=== PATIENT | female | born 1985 | race African-American/Black ===

== ENCOUNTER 2016-10-20 19:39 | Inpatient (IN) | payer OTHER ==
[~2016-10-20] VITALS: Ht 162.6 cm; Wt 72.5 kg
[2016-10-20 19:55] VITALS: Ht 162.6 cm; Wt 72.5 kg
[2016-10-20] MEDS ORDERED: ONDANSETRON 4 MG INJ IV STA (20:24)
[2016-10-20] MEDS ORDERED: morphine 4 MG/ML VIAL IV STA ×2 (20:24→22:10)
--- NOTE | 2016-10-20 20:43 | ERD ---
ER Documentation Chief Complaint Date/Time DATE: 10/20/16 TIME: 20:39 Chief Complaint CP since 1700. Hx Sickle cell disease (PRIMO QUEVEDO NP) HPI This is a 31-year-old female, with past medical history for sickle cell disease , presenting to emergency department for chest pain 3 hours. Patient states pain starts in mid chest and does not radiate. Patient rating pain 8/10. No shortness of breath or difficulty breathing. No wheezing. No fevers or chills. Patient states this pain feels similar to when she has sickle cell crisis. No abdominal pain, nausea, vomiting or diarrhea. (PRIMO QUEVEDO NP) ROS All systems reviewed and are negative except as per history of present illness. (PRIMO QUEVEDO NP) Allergies Allergies: Coded Allergies: codeine (Verified Allergy, Intermediate, Hives, 10/20/16) PMhx/Soc Medical and Surgical Hx: pt denies Medical Hx, pt denies Surgical Hx History of Surgery: No Anesthesia Reaction: No Hx Neurological Disorder: No Hx Respiratory Disorders: No Hx Cardiac Disorders: No Hx Psychiatric Problems: No Hx Miscellaneous Medical Probl: No Hx Alcohol Use: No Hx Substance Use: No Hx Tobacco Use: No Smoking Status: Never smoker (PRIMO QUEVEDO NP) Physical Exam Vitals Vital Signs Date Time Temp Pulse Resp B/P Pulse Ox O2 Delivery O2 Flow Rate FiO2 10/21/16 03:04 87 16 112/77 99 Room Air 10/20/16 23:56 84 17 105/68 100 Room Air 10/20/16 21:14 93 17 102/72 100 Room Air 10/20/16 19:55 96.0 98 20 110/64 99 (RYLIE KINGSLEY DO) Physical Exam Const: No acute distress, alert, smiling during exam. Head: Atraumatic Eyes: Normal Conjunctiva ENT: Normal External Ears, Nose and Mouth. Neck: Full range of motion..~ No meningismus. Resp: Clear to auscultation bilaterally. No wheezing, rhonchi or crackles. No accessory muscle use no intercostal retractions. No tachypnea. Patient is talking in complete sentences. Cardio: Regular rate and rhythm, no murmurs Abd: Soft, non tender, non distended. Normal bowel sounds Skin: No petechiae or rashes Back: No midline or flank tenderness Ext: No cyanosis, or edema Neur: Awake and alert Psych: Normal Mood and Affect (EMY,PRIMO Donato NP) Result Diagram: 10/20/16 2100 10/20/16 2100 Results 24 hrs Laboratory Tests Test 10/20/16 02:15 10/20/16 21:00 10/20/16 23:51 Urine Color LT. YELLOW Urine Clarity CLEAR Urine pH 6.5 Urine Specific Martha 1.010 Urine Ketones NEGATIVE Urine Nitrite NEGATIVE Urine Bilirubin NEGATIVE Urine Urobilinogen 0.2 E.U./dL Urine Leukocyte Esterase NEGATIVE Urine Hemoglobin NEGATIVE Urine Glucose NEGATIVE% Urine Total Protein NEGATIVE White Blood Count 11.110^3/ul Red Blood Count 2.4810^6/ul Hemoglobin 7.4g/dl Hematocrit 20.6% Mean Corpuscular Volume 83.1fl Mean Corpuscular Hemoglobin 29.8pg Mean Corpuscular Hemoglobin Concent 35.9g/dl Red Cell Distribution Width 22.9% Platelet Count 24110^3/UL Mean Platelet Volume 9.3fl Neutrophils % 54.7% Lymphocytes % 27.0% Monocytes % 13.4% Eosinophils % 3.6% Basophils % 0.8% Nucleated Red Blood Cells % 4.5/100WBC Neutrophils # 6.110^3/ul Lymphocytes # 3.010^3/ul Monocytes # 1.510^3/ul Eosinophils # 0.410^3/ul Basophils # 0.110^3/ul Nucleated Red Blood Cells # 0.510^3/ul Sodium Level 142mmol/L Potassium Level 3.6mmol/L Chloride Level 111mmol/L Carbon Dioxide Level 21mmol/L Anion Gap 14 Blood Urea Nitrogen 10mg/dl Creatinine 0.54mg/dl Glucose Level 89mg/dl Calcium Level 8.6mg/dl Troponin I < 0.012ng/ml Absolute Reticulocyte Count 0.184X10^6 Percent Reticulocyte Count 7.6% Current Medications Medications (Trade) Dose Ordered Sig/Aguilar Route PRN Reason Start Time Stop Time Status Last Admin Dose Admin Morphine Sulfate (morphine) 4 mg ONCE STAT IV 10/20/16 20:24 10/20/16 20:28 DC 10/20/16 21:24 Ondansetron HCl (Zofran Inj) 4 mg ONCE STAT IV 10/20/16 20:24 10/20/16 20:28 DC 10/20/16 21:24 Diphenhydramine HCl (Benadryl) 25 mg ONCE ONCE IV 10/20/16 21:30 10/20/16 21:31 DC 10/20/16 21:24 Diphenhydramine HCl (Benadryl) 50 mg STK-MED ONCE .ROUTE 10/20/16 21:22 10/20/16 21:23 DC Morphine Sulfate (morphine) 4 mg ONCE STAT IV 10/20/16 22:10 10/20/16 22:11 DC 10/20/16 22:22 Diphenhydramine HCl (Benadryl) 25 mg ONCE ONCE IV 10/20/16 22:30 10/20/16 22:31 DC 10/20/16 22:36 Hydromorphone HCl (Dilaudid) 0.5 mg ONCE STAT IV 10/20/16 23:51 10/20/16 23:53 DC 10/21/16 00:11 Diphenhydramine HCl (Benadryl) 50 mg ONCE ONCE PO 10/21/16 02:00 10/21/16 02:01 DC 10/21/16 01:50 Ondansetron HCl (Zofran Inj) 4 mg ER BRIDGE PRN IV NAUSEA AND/OR VOMITING 10/21/16 02:00 10/22/16 01:59 Acetaminophen (Tylenol Tab) 650 mg ER BRIDGE PRN PO MILD PAIN/FEVER 10/21/16 02:00 10/22/16 01:59 Hydromorphone HCl (Dilaudid) 0.5 mg ONCE STAT IV 10/21/16 02:23 10/21/16 02:25 DC 10/21/16 02:31 (RYLIE KINGSLEY DO) Procedures/MDM EKG: As reviewed by myself and Dr. Dubon Rate/Rhythm: Normal sinus rhythm with heart rate 93 bpm QRS, ST, T-waves: No changes consistent w/ acute ischemia Impression: No evidence of ischemia or arrhythmia MDM: 31-year-old female presents to the emergency department for chest pain 3 hours. Patient has history of sickle cell disease and states "this feels like my sickle cell pain." Patient states she took a [place] at home without relief of pain. Patient rating pain 8/10 while in the ED. No signs or symptoms of respiratory distress. Oxygen saturation 99% on room air. Respirations 20 no tachypnea. Lung exam is unremarkable. EKG performed while in the ED waiting room reviewed by Dr. Dubon shows normal sinus rhythm with heart rate 93 bpm. Patient given morphine 4mg IV and Benadryl 25mg IV. Upon reassessment, patient states she continues to have pain. Patient given another dose of morphine 4mg and benadryl 25mg IV. Initial labs show Hgb 7.4, Hct 20.6, Platelet 454. Discussed findings with Dr. Kingsley who agrees that patient is appropriate for higher level of care and admission to the hospital. (PRIMO QUEVEDO NP) Possible acute chest syndrome and patient that claims to have sickle cell anemia. No signs of aplastic crisis. She was given morphine and Benadryl in the emergency room as well as IV fluid. She was feeling better. Because this is her first visit ever to this hospital although she lives in the area drug- seeking behavior is in the differential however patient must be given the benefit of the doubt. She does have a low hemoglobin level she says is slightly below her baseline. I am not can transfuse her based on this level as she seems otherwise well. Going to admit her for further monitoring to telemetry. Dr. Dawkins is admitting. Chest x-ray interpretation: I see no acute process. Poor inspiration, I see no pneumothorax, no infiltrates, no widened mediastinum. Right-sided Port-A-Cath in place. 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 EKG interpretation: Normal sinus rhythm rate of 93, normal axis, no ST or T- wave changes concerning for acute ischemia. environmental monitoring technician interpretation: Normal sinus rhythm without arrhythmia. (RYLIE KINGSLEY DO) Departure Diagnosis: Primary Impression: Acute chest syndrome in sickle crisis Condition: Stable PRIMO QUEVEDO NP Oct 20, 2016 20:43 RYLIE KINGSLEY DO Oct 21, 2016 03:12
[2016-10-20 21:13] LABS: ADD SCAN DIFF NO
[2016-10-20 21:15] LABS: ABNORMAL IP MESSAGE 1; BASOPHIL # 0.1 10^3/ul (0.0-0.1); BASOPHILS % 0.8 % (0.0-2.0); EOSINOPHILS # 0.4 10^3/ul (0.0-0.5); EOSINOPHILS % 3.6 % (0.0-7.0); HEMATOCRIT 20.6 % (37.0-47.0); HEMOGLOBIN 7.4 g/dl (12.0-16.0); MEAN CORPUSCULAR HEMOGLOBIN 29.8 pg (29.0-33.0); MEAN CORPUSCULAR HGB CONC 35.9 g/dl (32.0-37.0); MEAN CORPUSCULAR VOLUME 83.1 fl (82.0-101.0); MEAN PLATELET VOLUME 9.3 fl (7.4-10.4); MONOCYTE # 1.5 10^3/ul (0.3-0.9); MONOCYTES % 13.4 % (0.0-11.0); NEUTROPHIL # 6.1 10^3/ul (1.6-7.5); NEUTROPHILS % 54.7 % (39.0-77.0); NUCLEATED RED BLOOD CELLS # 0.5 10^3/ul (0.0-0.0); NUCLEATED RED BLOOD CELLS% 4.5 /100WBC (0.0-0.0); PLATELET COUNT 454 10^3/UL (140-415); RED BLOOD COUNT 2.48 10^6/ul (4.20-5.40); RED CELL DISTRIBUTION WIDTH 22.9 % (11.5-14.5); WHITE BLOOD COUNT 11.1 10^3/ul (4.8-10.8)
[2016-10-20] MEDS ORDERED: DIPHENHYDRAMINE 50 MG INJ ONE (21:22)
[2016-10-20] MEDS ORDERED: DIPHENHYDRAMINE 50 MG INJ IV ONE ×2 (21:30→22:30)
[2016-10-20 21:41] LABS: ANION GAP 14 (8-16); BLOOD UREA NITROGEN 10 mg/dl (7-20); CALCIUM 8.6 mg/dl (8.4-10.2); CARBON DIOXIDE 21 mmol/L (21-31); CHLORIDE 111 mmol/L (97-110); CREATININE 0.54 mg/dl (0.44-1.00); GLUCOSE 89 mg/dl (70-220); POTASSIUM 3.6 mmol/L (3.5-5.1); SODIUM 142 mmol/L (135-144)
[2016-10-20 21:55] LABS: TROPONIN-I < 0.012 ng/ml (0.00-0.12)
--- NOTE | 2016-10-20 22:52 | RADRPT ---
PROCEDURE: XR Chest AP portable CLINICAL INDICATION: Chest pain TECHNIQUE: An AP portable radiograph of the chest was submitted. COMPARISON: None. FINDINGS: Support Hardware: A right-sided Port-A-Cath is evident with the tip at the atrial caval junction. Cardiovascular: The cardiovascular silhouette appears unremarkable. Lung [place]: A suboptimal inspiration compresses lung parenchyma but no alveolar infiltrate is evide nt. Pleural Spaces: No pneumothorax or pleural effusion is identified. Osseous Structures: Increased sclerosis is seen within the humeral heads possibly representing avasc ular necrosis. Soft Tissues: The soft tissues appear unremarkable. IMPRESSION: 1. A right-sided Port-A-Cath is evident with the tip at the atrial caval junction. 2. There is a vague sclerosis are seen in each humeral head possibly representing avascular necrosi s. 3. A suboptimal inspiration compresses lung parenchyma with no discrete infiltrate or effusion iden tified. No pneumothorax is evident. Physician Charity Date Time Electronically viewed and signed by Physician Charity on 10/20/2016 22:52 /
[2016-10-20] MEDS ORDERED: HYDROmorphONE 1 MG/ML SYG IV STA (23:51)
[2016-10-20 23:54] LABS: RETICULOCYTE COUNT % 7.6 % (0.5-1.5)
[2016-10-21] MEDS ORDERED: DIPHENHYDRAMINE 50 MG CAP PO ONE (02:00)
[2016-10-21] MEDS ORDERED: ACETAMINOPHEN 325 MG TAB PO PRN (02:00)
[2016-10-21] MEDS ORDERED: ONDANSETRON 4 MG INJ IV PRN (02:00)
[2016-10-21] MEDS ORDERED: HYDROmorphONE 1 MG/ML SYG IV STA (02:23)
[2016-10-21 02:37] LABS: ADD UMIC NO; URINE BILIRUBIN (Dip) NEGATIVE (NEGATIVE); URINE BLOOD (Dip) NEGATIVE (NEGATIVE); URINE COLOR LT. YELLOW (YELLOW); URINE GLUCOSE (Dip) NEGATIVE (NEGATIVE); URINE KETONES (Dip) NEGATIVE (NEGATIVE); URINE LEUKOCYTE ESTERASE (Dip) NEGATIVE (NEGATIVE); URINE NITRITE (Dip) NEGATIVE (NEGATIVE); URINE TOTAL PROTEIN (Dip) NEGATIVE (NEGATIVE); URINE UROBILINOGEN (Dip) 0.2 E.U./dL (0.1-1.0)
[2016-10-21 03:04] VITALS: BP 112/77; PULSE 87; RESP 16
[2016-10-21] MEDS ORDERED: SOD CHLORIDE 0.9% 1,000 ML IV ONE ×2 (03:30)
[2016-10-21] MEDS ORDERED: HEPARIN (100 UNITS/ML) 5 ML SYG CATHETER ONE (03:30)
[2016-10-21] MEDS ORDERED: ONDA4TAB8 PO (20:42)
[2016-10-21] MEDS ORDERED: HYDR2TAB15 PO (20:42)
--- NOTE | 2016-10-26 08:02 | HP ---
Date/Time of Note Date/Time of Note DATE: 10/26/16 TIME: 08:01 Assessment/Plan VTE Prophylaxis VTE Prophylaxis Intervention: other (pt left AMA) HPI/ROS Admit Date/Time Admit Date/Time Hx of Present Illness Pt left AMA from ER without being seen PMH/Family/Social Past Medical History Pt left AMA from ER without being seen Social History Smoking Status: Never smoker SHERINE SHAY MD Oct 26, 2016 08:02
== END 2016-10-21 03:47 | disposition left against medical advice (07) | DRG 812 ==
LOC: FTE 19:39 → MS4 10-21 01:40
PROVIDERS: ADMIT Internal Medicine; ATTEND Internal Medicine
DX: D57.01 Hb-SS disease with acute chest syndrome (principal)
CPT/HCPCS: 36415; 71010; 80048; 81003; 84484; 85025; 85045; 93005; 96374; 96375; 96376; J1170; J1200; J1642; J2270; J2405; J7030

== ENCOUNTER 2016-10-21 18:30 | Emergency (ER) | payer OTHER ==
[~2016-10-21] VITALS: Ht 162.6 cm; Wt 41.0 kg
[2016-10-21 18:43] VITALS: Ht 162.6 cm; Wt 41.0 kg
[2016-10-21] MEDS ORDERED: HYDROmorphONE 2 MG TAB PO ONE ×2 (19:30→20:30)
--- NOTE | 2016-10-21 19:39 | ERD ---
ER Documentation Chief Complaint Date/Time DATE: 10/21/16 TIME: 19:34 Chief Complaint cp x 2 days; pt was seen yesterday for the same symptoms HPI Patient is a 31-year-old female with sickle cell disease who presents to the ER with 2 days of gradual onset, constant, moderate, dull substernal chest pain. She denies fever, cough, pleuritic pain, back pain. She was seen in the ER yesterday, and it was advised admission after receiving multiple doses of IV analgesics, but she left the hospital AMA. The patient states that she has prescriptions for Deforest and MS Contin at home, but has not been taking MS Contin due to not liking the side effect of nausea. The patient states that her current pain is similar to pain that she gets with sickle cell pain crises. Patient's baseline hemoglobin is 8-9. ROS All systems reviewed and are negative except as per history of present illness. Medications Home Meds Active Scripts Hydromorphone Hcl* (Dilaudid*) 2 Mg Tablet, 2 MG PO Q6H Y for PAIN LEVEL 6-10, # 10 TAB Prov:RYAN VILLANUEVA MD 10/21/16 Ondansetron Hcl* (Zofran*) 4 Mg Tablet, 4 MG PO Q8H Y for NAUSEA AND/OR VOMITING , #21 TAB Prov:RYAN VILLANUEVA MD 10/21/16 Allergies Allergies: Coded Allergies: codeine (Verified Allergy, Intermediate, Hives, 10/20/16) PMhx/Soc Past medical history: Sickle cell disease Past surgical history: Permacath Social history: Denies tobacco or alcohol History of Surgery: No Anesthesia Reaction: No Hx Neurological Disorder: No Hx Respiratory Disorders: No Hx Cardiac Disorders: No Hx Psychiatric Problems: No Hx Miscellaneous Medical Probl: Yes (sicklecell ) Hx Alcohol Use: No Hx Substance Use: No Hx Tobacco Use: No Smoking Status: Never smoker FmHx Family History: No coronary disease, No diabetes Physical Exam Vitals Vital Signs Date Time Temp Pulse Resp B/P Pulse Ox O2 Delivery O2 Flow Rate FiO2 10/21/16 20:44 97 17 95/68 100 Room Air 10/21/16 19:58 90 17 107/70 100 Room Air 10/21/16 18:43 98.8 107 20 107/68 94 Physical Exam Const: Alert, no acute distress Head: Atraumatic Eyes: Normal Conjunctiva, mild pallor, no icterus ENT: Normal External Ears, Nose and Mouth. His membranes moist Neck: Full range of motion. No meningismus. Resp: Clear to auscultation bilaterally Cardio: Regular rate and rhythm, no murmurs. Moderate chest wall tenderness , left parasternal. Abd: Soft, non tender, non distended. Skin: No petechiae or rashes Back: No midline or flank tenderness Ext: No cyanosis, or edema Neur: Awake and alert, cranial nerves II through XII intact bilaterally, moves and feels 4 extremities appropriately. Psych: Normal Mood and Affect Result Diagram: 10/21/16195410/21/161954 Results 24 hrs Laboratory Tests Test 10/21/16 19:55 White Blood Count 12.210^3/ul Red Blood Count 2.8210^6/ul Hemoglobin 8.3g/dl Hematocrit 23.8% Mean Corpuscular Volume 84.4fl Mean Corpuscular Hemoglobin 29.4pg Mean Corpuscular Hemoglobin Concent 34.9g/dl Red Cell Distribution Width 22.1% Platelet Count 78411^3/UL Mean Platelet Volume 9.4fl Neutrophils % 58.2% Lymphocytes % 22.4% Monocytes % 13.4% Eosinophils % 4.2% Basophils % 1.1% Nucleated Red Blood Cells % 6.3/100WBC Neutrophils # 7.110^3/ul Lymphocytes # 2.710^3/ul Monocytes # 1.610^3/ul Eosinophils # 0.510^3/ul Basophils # 0.110^3/ul Nucleated Red Blood Cells # 0.810^3/ul Sodium Level 142mmol/L Potassium Level 4.1mmol/L Chloride Level 108mmol/L Carbon Dioxide Level 21mmol/L Anion Gap 17 Blood Urea Nitrogen 10mg/dl Creatinine 0.55mg/dl Glucose Level 75mg/dl Calcium Level 9.6mg/dl Current Medications Medications (Trade) Dose Ordered Sig/Aguilar Route PRN Reason Start Time Stop Time Status Last Admin Dose Admin Hydromorphone HCl (Dilaudid) 2 mg ONCE ONCE PO 10/21/16 19:30 10/21/16 19:31 DC 10/21/16 19:33 Hydromorphone HCl (Dilaudid) 2 mg ONCE ONCE PO 10/21/16 20:30 10/21/16 20:31 DC 10/21/16 20:43 Diphenhydramine HCl (Benadryl) 25 mg ONCE ONCE PO 10/21/16 21:30 10/21/16 21:30 DC 10/21/16 21:07 Procedures/MDM EKG read by me: Time 1853, rate 95 Rhythm: Normal sinus [place]: Normal Intervals: Normal ST-T waves: T-wave inversion in V3 and V4 Ectopy: Occasional PVCs Q-waves: No Impression: Occasional PVCs, nonspecific T-wave changes in anterior leads are not likely ischemic MDM: Patient is a 31-year-old female who presents with chest pain for 2 days. She states that this pain is typical of her sickle cell pain. She has no fever , infiltrate on chest x-ray, hypoxia, pleuritic component. She has a non- concerning EKG. Her vital signs are within normal limits. Her lab tests show a hemoglobin greater than 8, borderline leukocytosis, and no other significant abnormality. The patient has not been taking her prescribed oral medications. She was given 2 doses of p.o. Dilaudid and Benadryl in the ER and her symptoms were significantly improved. I see no evidence for hemolytic crisis, acute chest syndrome, and there are no features concerning for coronary ischemia or pulmonary embolism. The pain is largely reproducible on palpation of the chest wall. I will give the patient a prescription for Zofran, given that she states that morphine is caused her to feel nauseous. I will also give her 10 tablets of [address] of Deforest, as she states that this works better for her. I have advised her to call her executor of estate tomorrow to discuss longer- term management of pain. I discussed return precautions as well. There was a plan to admit the patient yesterday, which the patient states is largely based on her anemia and plan for transfusion, but the patient does not meet criteria for transfusion at this time. She does state that her baseline hemoglobin is 8. Departure Diagnosis: Primary Impression: Sickle-cell disease with pain Condition: RYAN Morales MD Oct 21, 2016 19:39
--- NOTE | 2016-10-21 19:44 | RADRPT ---
PROCEDURE: XR Chest. CLINICAL INDICATION: Chest pain. TECHNIQUE: Portable AP upright view of the chest was obtained. COMPARISON: 10/20/2016 FINDINGS: The cardiomediastinal silhouette is within normal limits. Bibasilar subsegmental atelectasis is of concern without evidence of focal pneumonia. A right sided venous access device is again demonstrat ed the tip projecting at the cavoatrial junction. There is no evidence for pleural effusion, pneumo thorax or pulmonary vascular congestion. Diffuse sclerotic appearance of the osseous structures is again suggested with relative lucency in the humeral heads, findings of uncertain significance. RPTAT:HJJR IMPRESSION: 1. Mild bibasilar subsegmental atelectasis otherwise unremarkable portable chest x-ray. 2. Right-sided venous access device remains in good position. Physician Joana Date Time Electronically viewed and signed by Physician Joana on 10/21/2016 19:44 JR/
[2016-10-21 20:05] LABS: ADD SCAN DIFF NO
[2016-10-21 20:08] LABS: ABNORMAL IP MESSAGE 1; BASOPHIL # 0.1 10^3/ul (0.0-0.1); BASOPHILS % 1.1 % (0.0-2.0); EOSINOPHILS # 0.5 10^3/ul (0.0-0.5); EOSINOPHILS % 4.2 % (0.0-7.0); HEMATOCRIT 23.8 % (37.0-47.0); HEMOGLOBIN 8.3 g/dl (12.0-16.0); LYMPHOCYTES # 2.7 10^3/ul (0.8-2.9); LYMPHOCYTES % 22.4 % (15.0-51.0); MEAN CORPUSCULAR HEMOGLOBIN 29.4 pg (29.0-33.0); MEAN CORPUSCULAR HGB CONC 34.9 g/dl (32.0-37.0); MEAN CORPUSCULAR VOLUME 84.4 fl (82.0-101.0); MEAN PLATELET VOLUME 9.4 fl (7.4-10.4); MONOCYTE # 1.6 10^3/ul (0.3-0.9); MONOCYTES % 13.4 % (0.0-11.0); NEUTROPHIL # 7.1 10^3/ul (1.6-7.5); NEUTROPHILS % 58.2 % (39.0-77.0); NUCLEATED RED BLOOD CELLS # 0.8 10^3/ul (0.0-0.0); NUCLEATED RED BLOOD CELLS% 6.3 /100WBC (0.0-0.0); PLATELET COUNT 517 10^3/UL (140-415); RED BLOOD COUNT 2.82 10^6/ul (4.20-5.40); RED CELL DISTRIBUTION WIDTH 22.1 % (11.5-14.5); WHITE BLOOD COUNT 12.2 10^3/ul (4.8-10.8)
[2016-10-21 20:27] LABS: CALCIUM 9.6 mg/dl (8.4-10.2); CREATININE 0.55 mg/dl (0.44-1.00); POTASSIUM 4.1 mmol/L (3.5-5.1)
[2016-10-21] MEDS ORDERED: ONDA4TAB8 PO (20:42)
[2016-10-21] MEDS ORDERED: HYDR2TAB15 PO (20:42)
[2016-10-21 20:44] VITALS: BP 95/68; PULSE 97; RESP 17
[2016-10-21] MEDS ORDERED: DIPHENHYDRAMINE 25 MG CAP PO ONE (21:30)
== END 2016-10-21 21:11 | disposition home or self-care (01) ==
LOC: E/R 18:30
DX: D57.1 Sickle-cell disease without crisis (principal)
CPT/HCPCS: 71010; 80048; 85025; 86850; 86900; 86901; J1170; Z7502; Z7610

== ENCOUNTER 2016-12-24 10:48 | Inpatient (IN) | payer OTHER ==
[~2016-12-24] VITALS: Ht 165.1 cm; Wt 43.0 kg
[~2016-12-24 10:48] MED LIST: HYDR2TAB36 PO; ONDA4TAB8 PO
[2016-12-24 11:01] VITALS: Ht 165.1 cm; Wt 43.0 kg
--- NOTE | 2016-12-24 11:11 | ERA ---
ER Documentation Chief Complaint Date/Time DATE: 12/24/16 TIME: 11:11 Chief Complaint Pt with CP since last night, dx of sickle cell. HPI The patient is a 31-year-old female, presenting to the ER because of substernal chest discomfort that began last night around 11 PM. She has similar symptoms previously, no aggravating or relieving factor, she denies chest pain with exertion or vomiting or diaphoresis. She recently had laparoscopic cholecystectomy 3 days ago at [facility] and was discharged 2 days ago. She denies fever, chills, neck pain, cough, complains of diffuse abdominal pain from recent surgery. She denies dysuria, polyuria, diarrhea. She does smokes. denies drinking Past medical history: Sickle cell disease, chronic pain syndrome Past surgical history: Cholecystectomy, port a cath ROS All systems reviewed and are negative except as per history of present illness. Medications Home Meds Reported Medications Hydroxyurea* (Hydroxyurea*) Unknown Strength Capsule, 1 TAB PO DAILY, CAP 12/24/16 Folic Acid* (Folic Acid*) 1 Mg Tablet, 1 MG PO DAILY, TAB 12/24/16 Hydrocodone/Acetaminophen ([place] 10-325 Tablet) 1 Each Tablet, 1 EACH PO Q4H, TAB 12/24/16 Morphine Sulfate* (Oramorph SR*) 30 Mg Tablet.sa, 30 MG PO Q12, TAB.SA 12/24/16 Discontinued Scripts Hydromorphone Hcl* (Dilaudid*) 2 Mg Tablet, 2 MG PO Q6H Y for PAIN LEVEL 6-10, # 10 TAB Prov:RYAN VILLANUEVA MD 10/21/16 Ondansetron Hcl* (Zofran*) 4 Mg Tablet, 4 MG PO Q8H Y for NAUSEA AND/OR VOMITING , #21 TAB Prov:RYAN VILLANUEVA MD 10/21/16 Allergies Allergies: Coded Allergies: codeine (Verified Allergy, Intermediate, Hives, 12/24/16) PMhx/Soc History of Surgery: Yes Anesthesia Reaction: No Hx Neurological Disorder: No Hx Respiratory Disorders: No Hx Cardiac Disorders: No Hx Psychiatric Problems: No Hx Miscellaneous Medical Probl: Yes (sicklecell ) Hx Alcohol Use: No Hx Substance Use: No Hx Tobacco Use: No Physical Exam Vitals Vital Signs Date Time Temp Pulse Resp B/P Pulse Ox O2 Delivery O2 Flow Rate FiO2 12/24/16 16:00 98.3 71 20 106/65 100 Room Air 12/24/16 15:52 Nasal Cannula 12/24/16 15:00 98.3 73 20 102/58 100 Room Air 12/24/16 11:01 98.3 86 18 99/58 98 Physical Exam Const: No acute distress. Head: Atraumatic. Eyes: Normal Conjunctiva. ENT: Normal External Ears, Nose and Mouth. Neck: Full range of motion. No meningismus. Resp: Clear to auscultation bilaterally. Cardio: Regular rate and rhythm. Abd: Soft, non distended, normal bowel sounds, non tender. Skin: No petechiae or rashes. Back: No midline or flank tenderness. Ext: No cyanosis, or edema. Neur: Awake and alert. No focal deficit Psych: Normal Mood and Affect. Result Diagram: 12/24/16 1130 12/24/16 1130 Results 24 hrs Laboratory Tests Test 12/24/16 11:30 12/24/16 12:12 White Blood Count 8.310^3/ul Red Blood Count 2.8810^6/ul Hemoglobin 8.3g/dl Hematocrit 24.5% Mean Corpuscular Volume 85.1fl Mean Corpuscular Hemoglobin 28.8pg Mean Corpuscular Hemoglobin Concent 33.9g/dl Red Cell Distribution Width 19.2% Platelet Count 85668^3/UL Mean Platelet Volume 9.6fl Neutrophils % 75.1% Lymphocytes % 11.8% Monocytes % 10.7% Eosinophils % 1.2% Basophils % 0.7% Nucleated Red Blood Cells % 7.3/100WBC Neutrophils # 6.310^3/ul Lymphocytes # 1.010^3/ul Monocytes # 0.910^3/ul Eosinophils # 0.110^3/ul Basophils # 0.110^3/ul Nucleated Red Blood Cells # 0.610^3/ul Pathologist Review (Hematology) YES D-Dimer 3526.33ng/ml D-Dimer Comment Sodium Level 146mmol/L Potassium Level 3.8mmol/L Chloride Level 107mmol/L Carbon Dioxide Level 22mmol/L Anion Gap 21 Blood Urea Nitrogen 8mg/dl Creatinine 0.49mg/dl Glucose Level 91mg/dl Calcium Level 9.3mg/dl Total Bilirubin 1.3mg/dl Direct Bilirubin 0.00mg/dl Indirect Bilirubin 1.3mg/dl Aspartate Amino Transf (AST/SGOT) 46IU/L Alanine Aminotransferase (ALT/SGPT) 102IU/L Alkaline Phosphatase 166IU/L Troponin I < 0.012ng/ml Total Protein 9.4g/dl Albumin 4.4g/dl Globulin 5.00g/dl Albumin/Globulin Ratio 0.88 Lipase 101U/L Bedside Urine pH (LAB) 6.5 Bedside Urine Protein (LAB) Negative Bedside Urine Glucose (UA) Negative Bedside Urine Ketones (LAB) Negative Bedside Urine Blood Negative Bedside Urine Nitrite (LAB) Negative Bedside Urine Leukocyte Esterase (L Negative Current Medications Medications (Trade) Dose Ordered Sig/Aguilar Route PRN Reason Start Time Stop Time Status Last Admin Dose Admin Sodium Chloride (NS) 1,000 ml @ 1,000 mls/hr Q1H STAT IV 12/24/16 11:17 12/24/16 12:16 DC 12/24/16 11:40 Hydromorphone HCl (Dilaudid) 1 mg ONCE STAT IV 12/24/16 11:17 12/24/16 11:20 DC 12/24/16 11:40 Ondansetron HCl 4 mg 4 mg ONCE STAT IV 12/24/16 11:17 12/24/16 11:21 DC 12/24/16 11:40 Sodium Chloride (NS) 1,000 ml @ 1,000 mls/hr Q1H ONCE IV 12/24/16 11:30 12/24/16 12:29 DC 12/24/16 11:40 Diphenhydramine HCl 25 mg 25 mg ONCE ONCE IV 12/24/16 11:30 12/24/16 11:31 DC 12/24/16 11:40 Ceftriaxone Sodium 50 ml @ 100 mls/hr ONCE ONCE IVPB 12/24/16 13:00 12/24/16 13:29 DC 12/24/16 15:49 Azithromycin (Zithromax 500mg/ NS (Pmx)) 250 ml @ 250 mls/hr ONCE ONCE IVPB 12/24/16 13:00 12/24/16 13:59 DC 12/24/16 16:31 Hydromorphone HCl (Dilaudid) 1 mg ONCE STAT IV 12/24/16 12:50 12/24/16 12:51 DC 12/24/16 13:02 IV Flush 10 ml 10 ml STK-MED ONCE .ROUTE 12/24/16 14:12 12/24/16 14:13 DC 12/24/16 14:41 Sodium Chloride (NS) 100 ml @ ud STK-MED ONCE .ROUTE 12/24/16 14:12 12/24/16 14:13 DC 12/24/16 14:41 Iodixanol (Visipaque Locm) 100 ml STK-MED ONCE .ROUTE 12/24/16 14:12 12/24/16 14:13 DC 12/24/16 14:41 Diphenhydramine HCl (Benadryl) 25 mg Q6H PRN PO ITCHING 12/24/16 17:00 IV Flush (NS 3 ml) 3 ml PER PROTOCOL IV 12/24/16 17:00 Ondansetron HCl (Zofran Inj) 4 mg Q6H PRN IV NAUSEA AND/OR VOMITING 12/24/16 17:00 Acetaminophen (Tylenol Tab) 650 mg Q6H PRN PO PAIN LEVEL 1-3 OR FEVER 12/24/16 17:00 Acetaminophen/ Hydrocodone Bitart ([place] (5/325)) 1 tab Q6H PRN PO MODERATE PAIN LEVEL 4-6 12/24/16 17:00 Morphine Sulfate (morphine) 2 mg Q6H PRN IV SEVERE PAIN LEVEL 7-10 12/24/16 17:00 Docusate Sodium (Colace) 100 mg Q12H PRN PO CONSTIPATION 12/24/16 17:00 Magnesium Hydroxide (Milk Of Mag) 30 ml DAILY PRN PO CONSTIPATION 12/24/16 17:00 Sodium Biphosphate/ Sodium Phosphate (Fleet Enema) 133 ml DAILY PRN [place] CONSTIPATION 12/24/16 17:00 Pantoprazole (Protonix Tab) 40 mg DAILY@06 PO 12/25/16 06:00 Heparin Sodium (Porcine) (Heparin (5000 Units/0.5 ml)) 5,000 unit Q12 SC 12/24/16 21:00 Lorazepam 0.5 mg 0.5 mg Q6H PRN IV ANXIETY 12/24/16 17:00 Sodium Chloride (NS) 1,000 ml @ 100 mls/hr Q10H IV 12/24/16 16:39 Albuterol/ Ipratropium (Duoneb) 3 ml Q4H RESP THERAPY PRN HHN SHORTNESS OF BREATH 12/24/16 17:00 Hydralazine HCl (Apresoline) 10 mg Q6H PRN IV ELEVATED BLOOD PRESSURE 12/24/16 17:00 Nitroglycerin (Nitroglycerin (Sl Tab) 0.4 Mg) 1 tab Q5M PRN SL ANGINA 12/24/16 17:00 Folic Acid (Folic Acid) 1 mg DAILY PO 12/24/16 17:00 Acetaminophen/ Hydrocodone Bitart ([place] (10/325)) 1 tab Q4H PRN PO PAIN LEVEL 8-10 12/24/16 17:00 Hydroxyurea (Hydrea) 500 mg DAILY PO 12/24/16 17:00 Procedures/MDM [place] [id number] Radiology Main Line: [phone] DIAGNOSTIC IMAGING REPORT Patient: VICKY QURESHI : 1985 Age: 31 Sex: F MR #: [id number] DOS: 12/24/16 1117 Ordering MD: GT BRAUN MD Location: E/R Room/Bed: PROCEDURE: XR Chest. CLINICAL INDICATION: Abdominal Pain TECHNIQUE: Single frontal view of the chest was obtained. COMPARISON: Chest x-ray from 10/21/2016 FINDINGS: A right chest wall Port-A-Cath is again noted with its tip in the mid SVC. The heart and mediastinum are within normal limits. There is a new hazy infiltrate in the right mid to lower lung zone. There is no significant pleural effusion or pneumothorax. IMPRESSION: New infiltrate in the right mid to lower lung zone, possibly due to pneumonia. Redemonstration of right chest wall Port-A-Cath. RPTAT: EE Physician Mary Date Time Electronically viewed and signed by Kiko Guadarrama Physician on 12/24/2016 12:18 RA/ CC: GT BRAUN MD [address] [place] [address] Radiology Main Line: [phone] DIAGNOSTIC IMAGING REPORT Patient: VICKY QURESHI : 1985 Age: 31 Sex: F MR #: [id number] DOS: 12/24/16 1235 Ordering MD: GT BRAUN MD Location: E/R Room/Bed: PROCEDURE: US Lower extremity Venous. CLINICAL INDICATION: Bilateral lower extremity edema TECHNIQUE: Multiple sonographic images of the bilateral lower extremity deep venous system was obtained utilizing grayscale, color-flow, compressive sonography and doppler imaging with augmentation. The images were reviewed on a PACS workstation. COMPARISON: None. FINDINGS: There is normal compressibility and flow within the bilateral common femoral, femoral , posterior tibial and popliteal veins. RPTAT: AA IMPRESSION: No sonographic evidence for deep venous thrombosis. .Sergei Pulliam MD, MD Date Time Electronically viewed and signed by .Sergei Pulliam MD, MD on 12/24/2016 13: 24 .S/ CC: GT BRAUN MD [place] [address] Radiology Main Line: [phone] DIAGNOSTIC IMAGING REPORT Patient: VICKY QURESHI : 1985 Age: 31 Sex: F MR #: [id number] DOS: 12/24/16 1235 Ordering MD: GT BRAUN MD Location: E/R Room/Bed: PROCEDURE: CTA Chest with IV contrast. CLINICAL INDICATION: Chest pain and shortness of breath. TECHNIQUE: The study was performed utilizing a multidetector CT scanner. Direct spiral axial sections were obtained from the thoracic inlet through the upper abdomen before and after the injection of 80 cc Omnipaque 350 intravenous contrast material and reformatted at 1.25 mm. 3D, coronal and sagittal reformations were obtained. The images were reviewed on a PACS workstation. Automated exposure control was utilized. DLP = 123.6 mGy-cm.CTDiVol = 14.1, 3.7 mGy. One or more of the following post reduction techniques were used: - Automated exposure control. - Adjustment of the mA and/or Kv according to patient's size. - Use of iterative reconstruction technique COMPARISON: No prior studies are available for comparison. FINDINGS: No pulmonary arterial filling defects to indicate pulmonary embolus are identified. Heart size is within normal limits. No hilar or mediastinal lymphadenopathy is identified. The visualized portions of the inferior thyroid appear unremarkable. The arterial vasculature of the mediastinum appears normal. The thoracic esophagus appears normal. Mild ground-glass opacity mixed with scattered atelectasis is identified in the bilateral lower and right middle lobe. Minimal focal ground-glass opacity is seen in the right upper lobe. The spleen is small and atrophic appearing and demonstrates irregular enhancement. Scattered potential nodules are identified in the spleen measuring up to approximately 12 mm. Multiple H-shaped vertebral bodies are identified throughout the thoracic spine. Mild diffuse sclerosis in the osseous structures is observed. A right- sided chest port has its tip at the cavoatrial junction. The subcutaneous and muscular soft tissues surrounding the chest are unremarkable. IMPRESSION: No visualized pulmonary embolus. Mild ground-glass opacity mixed with scattered atelectasis in the bilateral lower lobes and right middle lobe. Ground-glass opacity may reflect mild airspace edema, air trapping or potential multifocal airspace inflammation. Atrophic appearing spleen that demonstrates irregular enhancement and multiple nodular densities measuring up to 12 mm. 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 Further characterization of the nodular densities with ultrasound can be considered. Multiple 8H-shaped vertebral bodies and mild diffuse osseous sclerosis, compatible with sickle cell disease. RPTAT: AA .Kush Barriga MD, Date Time Electronically viewed and signed by .Kush Barriga MD, on 12/24/2016 14:46 .P/ CC: GT BRAUN MD MEDICAL MAKING DECISION: The patient is a 31-year-old female, presenting with acute pneumonia, acute sickle cell pain crisis, elevated d-dimer of unclear significance. She was treated with 2 L normal saline for acute dehydration, Dilaudid 1 milligram IV 2 for pain, Zofran 4 mg IV 2 for nausea and Benadryl 25 mg IV, Rocephin 1 g IV, Zithromax 500 mg IV for acute pneumonia with good response The differential diagnoses considered include but are not limited to ACS, asthma , COPD, pneumonia, pulmonary embolus, pleural effusion, congestive heart failure. Departure Diagnosis: Primary Impression: Pneumonia Additional Impressions: Sickle cell crisis Abnormal LFTs Anemia Condition: Stable Comments I discussed the findings with the patient. I discussed the patient with the on- call hospitalist Dr. Brown at 3 PM who was made aware of the lab, the treatment, the patient condition. The patient is admitted to [facility] MACDONALD MD Dec 24, 2016 11:11
[2016-12-24] MEDS ORDERED: HYDROmorphONE 1 MG/ML SYG IV STA ×2 (11:17→12:50)
[2016-12-24] MEDS ORDERED: ONDANSETRON 4 MG INJ IV STA (11:17)
[2016-12-24] MEDS ORDERED: SOD CHLORIDE 0.9% 1,000 ML IV STA (11:17)
[2016-12-24] MEDS ORDERED: DIPHENHYDRAMINE 50 MG INJ IV ONE (11:30)
[2016-12-24] MEDS ORDERED: SOD CHLORIDE 0.9% 1,000 ML IV ONE (11:30)
[2016-12-24 11:45] LABS: BASOPHIL # 0.1 10^3/ul (0.0-0.1); BASOPHILS % 0.7 % (0.0-2.0); EOSINOPHILS # 0.1 10^3/ul (0.0-0.5); EOSINOPHILS % 1.2 % (0.0-7.0); HEMATOCRIT 24.5 % (37.0-47.0); HEMOGLOBIN 8.3 g/dl (12.0-16.0); LYMPHOCYTES % 11.8 % (15.0-51.0); MEAN CORPUSCULAR HEMOGLOBIN 28.8 pg (29.0-33.0); MEAN CORPUSCULAR HGB CONC 33.9 g/dl (32.0-37.0); MEAN CORPUSCULAR VOLUME 85.1 fl (82.0-101.0); MEAN PLATELET VOLUME 9.6 fl (7.4-10.4); MONOCYTE # 0.9 10^3/ul (0.3-0.9); MONOCYTES % 10.7 % (0.0-11.0); NEUTROPHIL # 6.3 10^3/ul (1.6-7.5); NEUTROPHILS % 75.1 % (39.0-77.0); NUCLEATED RED BLOOD CELLS # 0.6 10^3/ul (0.0-0.0); NUCLEATED RED BLOOD CELLS% 7.3 /100WBC (0.0-0.0); PLATELET COUNT 734 10^3/UL (140-415); RED BLOOD COUNT 2.88 10^6/ul (4.20-5.40); RED CELL DISTRIBUTION WIDTH 19.2 % (11.5-14.5)
[2016-12-24 11:51] LABS: PATH REVIEW? YES
[2016-12-24 12:07] LABS: D-DIMER 3526.33 ng/ml (<460)
[2016-12-24 12:07] LABS: URINE BLOOD (Dip) POC Negative (NEGATIVE)
[2016-12-24 12:10] LABS: ALANINE AMINOTRANSFERASE 102 IU/L (13-69); ALBUMIN 4.4 g/dl (3.3-4.9); ALBUMIN/GLOBULIN RATIO 0.88; ALKALINE PHOSPHATASE 166 IU/L (42-121); ANION GAP 21 (8-16); ASPARTATE AMINO TRANSFERASE 46 IU/L (15-46); BILIRUBIN,INDIRECT 1.3 mg/dl (0-1.1); BILIRUBIN,TOTAL 1.3 mg/dl (0.2-1.3); BLOOD UREA NITROGEN 8 mg/dl (7-20); CALCIUM 9.3 mg/dl (8.4-10.2); CARBON DIOXIDE 22 mmol/L (21-31); CHLORIDE 107 mmol/L (97-110); CREATININE 0.49 mg/dl (0.44-1.00); GLUCOSE 91 mg/dl (70-220); POTASSIUM 3.8 mmol/L (3.5-5.1); SODIUM 146 mmol/L (135-144); TOTAL PROTEIN 9.4 g/dl (6.1-8.1)
--- NOTE | 2016-12-24 12:18 | RADRPT ---
PROCEDURE: XR Chest. CLINICAL INDICATION: Abdominal Pain TECHNIQUE: Single frontal view of the chest was obtained. COMPARISON: Chest x-ray from 10/21/2016 FINDINGS: A right chest wall Port-A-Cath is again noted with its tip in the mid SVC. The heart and mediastinum are within normal limits. There is a new hazy infiltrate in the right mid to lower lung zone. There is no significant pleural effusion or pneumothorax. IMPRESSION: New infiltrate in the right mid to lower lung zone, possibly due to pneumonia. Redemonstration of right chest wall Port-A-Cath. RPTAT: EE Physician Mary Date Time Electronically viewed and signed by Physician Mary on 12/24/2016 12:18 /
[2016-12-24 12:21] LABS: TROPONIN-I < 0.012 ng/ml (0.00-0.12)
[2016-12-24] MEDS ORDERED: CEFTRIAXONE 1 GM/50 ML (PMX) 50 ML IVPB ONE (13:00)
[2016-12-24] MEDS ORDERED: AZITHROMYCIN 500MG/NS (PMX) 250 ML IVPB ONE (13:00)
--- NOTE | 2016-12-24 13:24 | RADRPT ---
PROCEDURE: US Lower extremity Venous. CLINICAL INDICATION: Bilateral lower extremity edema TECHNIQUE: Multiple sonographic images of the bilateral lower extremity deep venous system was obt ained utilizing grayscale, color-flow, compressive sonography and doppler imaging with augmentation. The images were reviewed on a PACS workstation. COMPARISON: None. FINDINGS: There is normal compressibility and flow within the bilateral common femoral, femoral , posterior ti bial and popliteal veins. RPTAT: AA IMPRESSION: No sonographic evidence for deep venous thrombosis. .Sergei Pulliam MD, MD Date Time Electronically viewed and signed by .Sergei Pulliam MD, on 12/24/2016 13:24 .S/
[2016-12-24] MEDS ORDERED: SOD CHLORIDE 0.9% 100 ML ONE (14:12)
[2016-12-24] MEDS ORDERED: IODIXANOL LOCM 100 ML BTL ONE (14:12)
--- NOTE | 2016-12-24 14:46 | RADRPT ---
PROCEDURE: CTA Chest with IV contrast. CLINICAL INDICATION: Chest pain and shortness of breath. TECHNIQUE: The study was performed utilizing a multidetector CT scanner. Direct spiral axial secti ons were obtained from the thoracic inlet through the upper abdomen before and after the injection o f 80 cc Omnipaque 350 intravenous contrast material and reformatted at 1.25 mm. 3D, coronal and sagi ttal reformations were obtained. The images were reviewed on a PACS workstation. Automated exposure control was utilized. DLP = 123.6 mGy-cm.CTDiVol = 14.1, 3.7 mGy. One or more of the following post reduction techniques were used: - Automated exposure control. - Adjustment of the mA and/or Kv according to patient's size. - Use of iterative reconstruction technique COMPARISON: No prior studies are available for comparison. FINDINGS: No pulmonary arterial filling defects to indicate pulmonary embolus are identified. Heart size is within normal limits. No hilar or mediastinal lymphadenopathy is identified. The vis ualized portions of the inferior thyroid appear unremarkable. The arterial vasculature of the medias tinum appears normal. The thoracic esophagus appears normal. Mild ground-glass opacity mixed with scattered atelectasis is identified in the bilateral lower and right middle lobe. Minimal focal ground-glass opacity is seen in the right upper lobe. The spleen is small and atrophic appearing and demonstrates irregular enhancement. Scattered potent ial nodules are identified in the spleen measuring up to approximately 12 mm. Multiple H-shaped vertebral bodies are identified throughout the thoracic spine. Mild diffuse scler osis in the osseous structures is observed. A right-sided chest port has its tip at the cavoatrial junction. The subcutaneous and muscular soft tissues surrounding the chest are unremarkable. IMPRESSION: No visualized pulmonary embolus. Mild ground-glass opacity mixed with scattered atelectasis in the bilateral lower lobes and right mi ddle lobe. Ground-glass opacity may reflect mild airspace edema, air trapping or potential multifoc al airspace inflammation. Atrophic appearing spleen that demonstrates irregular enhancement and multiple nodular densities jaimie suring up to 12 mm. 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 Further characterization of the nodular densities with ultrasound can be considere d. Multiple 8H-shaped vertebral bodies and mild diffuse osseous sclerosis, compatible with sickle cell disease. RPTAT: AA .Kush Barriga MD, MD Date Time Electronically viewed and signed by .Kush Barriga MD, MD on 12/24/2016 14:46 .P/
[2016-12-24] MEDS ORDERED: MORP-58 PO (14:57)
[2016-12-24] MEDS ORDERED: HYDR-902 PO (14:57)
[2016-12-24] MEDS ORDERED: FOLI-49 PO (14:59)
[2016-12-24] MEDS ORDERED: HYDR500C3 PO (15:00)
[2016-12-24 16:00] VITALS: TEMP 98.3
--- NOTE | 2016-12-24 16:50 | HP ---
Date/Time of Note Date/Time of Note DATE: 12/24/16 TIME: 16:44 Assessment/Plan VTE Prophylaxis VTE Prophylaxis Intervention: heparin Assessment/Plan Chief Complaint/Hosp Course Assessment and plan: 31-year-old female coming in with chest pain 1 day, rule out sickle cell crisis versus ACS. 1. Chest pain: Possibly secondary to ACS versus sickle cell crisis - admit patient to telemetry floor, check TSH, A1c, lipid panel, - continue folic acid and hydroxyurea, pain meds cautiously - We will also check sickle cell screen. -Trend troponins every 6 hours 3 -If symptoms worsen, consider palliative or pain management consult 2. Recent gallbladder surgery: Monitor for signs of fever or pain, morphine and Shiner as needed 3. GI prophylaxis: PPI Problems: HPI/ROS Admit Date/Time Admit Date/Time Hx of Present Illness 31-year-old female past medical history of sickle cell disease, recent gallbladder surgery, , presenting to the ER because of substernal chest discomfort that began last night. She has similar symptoms previously, and states she has had at least 20 prior hospitalizations in her life for sickle cell crisis. No aggravating or relieving factor, she denies chest pain with exertion or vomiting or diaphoresis. She recently had laparoscopic cholecystectomy 3 days ago at [facility] and was discharged 2 days ago. She denies fever, chills, neck pain, cough, but has some mild abdominal pain from the recent surgery, and some mild diarrhea denies any upper or lower GI bleeding.. She denies dysuria, polyuria, diarrhea. She does smokes cigarettes. Patient states she sees a Dr. Rios at [facility] in [facility] for her treatment of her sickle cell disease PMH/Family/Social Past Surgical History Past Surgical Hx: other (, gallbladder removal) Family History Significant Family History: other (Unknown) Social History Alcohol Use: none Smoking Status: Current every day smoker Drug Use: none Exam/Review of Systems Vital Signs Vitals Vital Signs Date Time Temp Pulse Resp B/P Pulse Ox O2 Delivery O2 Flow Rate FiO2 12/24/16 16:00 98.3 71 20 106/65 100 Room Air Exam Exam General: Lying in bed, no acute distress, alert HEENT: Pupils equal round reactive to light, extraocular muscles are intact Neck: Supple Respiratory: Clear to auscultation bilaterally Cardiovascular: S1, S2 heard no rubs or gallops Abdomen: Nontender, nondistended, soft, normal bowel sounds, no rebound or guarding Muscular skeletal: No lower extremity edema bilaterally Neurologic: No focal deficits Labs Result Diagram: 12/24/16 1130 12/24/16 1130 Medications Medications Current Medications Diphenhydramine HCl (Benadryl) 25 mg Q6H PRN PO ITCHING; Start 12/24/16 at 17: 00 CARIDAD CARRERA Dec 24, 2016 16:50
[2016-12-24] MEDS ORDERED: MAGNESIUM HYDROXIDE 30ML CUP PO PRN (17:00)
[2016-12-24] MEDS ORDERED: NITROGLYCERIN (SL) 0.4 MG TAB SL PRN (17:00)
[2016-12-24] MEDS ORDERED: ONDANSETRON 4 MG INJ IV PRN (17:00)
[2016-12-24] MEDS ORDERED: NACL 0.9% 3 ML SYG IV SCH (17:00)
[2016-12-24] MEDS ORDERED: ALBUTEROL/IPRATROPIUM (NEB) 3 ML AMP HHN PRN (17:00)
[2016-12-24] MEDS ORDERED: HYDROCODONE/APAP (5/325) TAB PO PRN (17:00)
[2016-12-24] MEDS ORDERED: DOCUSATE SODIUM 100 MG CAP PO PRN (17:00)
[2016-12-24] MEDS ORDERED: hydrALAzine 20 MG INJ IV PRN (17:00)
[2016-12-24] MEDS ORDERED: NA PHOSPHATE/BIPHOS 133 ML ENEMA PR PRN (17:00)
[2016-12-24] MEDS ORDERED: LORAZEPAM 2 MG INJ IV PRN (17:00)
[2016-12-24] MEDS ORDERED: ACETAMINOPHEN 325 MG TAB PO PRN (17:00)
[2016-12-24 17:30] VITALS: BP 81/51; RESP 16
[2016-12-24] MEDS: morphine 2 MG INJ IV PRN ×2 (17:42→23:36)
[2016-12-24] MEDS: SOD CHLORIDE 0.9% 1,000 ML IV SCH (17:46)
[2016-12-24] MEDS: DIPHENHYDRAMINE 25 MG CAP PO PRN (17:46)
[2016-12-24] MEDS: FOLIC ACID 1 MG TAB PO SCH (18:38)
[2016-12-24] MEDS: HYDROCODONE/APAP (10/325) TAB PO PRN ×2 (18:38→22:45)
[2016-12-24 19:56] VITALS: BP 95/55; RESP 18
[2016-12-24 20:28] LABS: CREATINE KINASE < 20 IU/L (23-200)
[2016-12-24 20:46] LABS: CK-MB < 0.22 ng/ml (0.0-2.4); TROPONIN-I < 0.012 ng/ml (0.00-0.12)
[2016-12-24] MEDS: HYDROXYUREA 500 MG CAP PO SCH (21:27)
[2016-12-24] MEDS: HEPARIN 5,000 UNIT/0.5 ML VIAL SC SCH (21:28)
[2016-12-24] MEDS: DIPHENHYDRAMINE 50 MG INJ IV PRN (23:35)
[2016-12-25] VITALS (10 sets, daily range): BP systolic 86–125; BP diastolic 51–75; PULSE 55–72; RESP 16–18
[2016-12-25] MEDS: SOD CHLORIDE 0.9% 1,000 ML IV SCH ×3 (03:18→22:39)
[2016-12-25 03:47] LABS: BASOPHIL # 0.1 10^3/ul (0.0-0.1); BASOPHILS % 0.9 % (0.0-2.0); EOSINOPHILS # 0.3 10^3/ul (0.0-0.5); EOSINOPHILS % 3.1 % (0.0-7.0); HEMATOCRIT 21.6 % (37.0-47.0); HEMOGLOBIN 7.3 g/dl (12.0-16.0); LYMPHOCYTES # 3.1 10^3/ul (0.8-2.9); LYMPHOCYTES % 33.8 % (15.0-51.0); MEAN CORPUSCULAR HEMOGLOBIN 28.9 pg (29.0-33.0); MEAN CORPUSCULAR HGB CONC 33.8 g/dl (32.0-37.0); MEAN CORPUSCULAR VOLUME 85.4 fl (82.0-101.0); MEAN PLATELET VOLUME 9.8 fl (7.4-10.4); MONOCYTE # 1.3 10^3/ul (0.3-0.9); NEUTROPHILS % 47.8 % (39.0-77.0); NUCLEATED RED BLOOD CELLS # 0.3 10^3/ul (0.0-0.0); NUCLEATED RED BLOOD CELLS% 2.8 /100WBC (0.0-0.0); RED BLOOD COUNT 2.53 10^6/ul (4.20-5.40); RED CELL DISTRIBUTION WIDTH 19.2 % (11.5-14.5)
[2016-12-25 03:59] LABS: PLATELET COUNT 670 10^3/UL (140-415)
[2016-12-25 04:12] LABS: CALCIUM 8.7 mg/dl (8.4-10.2); CREATININE 0.53 mg/dl (0.44-1.00); MAGNESIUM 1.8 mg/dl (1.7-2.5); POTASSIUM 3.8 mmol/L (3.5-5.1)
[2016-12-25 04:13] LABS: CHOL/HDL RATIO 4.8 RATIO
[2016-12-25 04:14] LABS: CREATINE KINASE < 20 IU/L (23-200)
[2016-12-25 04:27] LABS: CK-MB < 0.22 ng/ml (0.0-2.4); TROPONIN-I < 0.012 ng/ml (0.00-0.12)
[2016-12-25 05:12] LABS: THYROID STIMULATING HORMONE 0.489 MIU/L (0.465-4.680)
[2016-12-25] MEDS: DIPHENHYDRAMINE 50 MG INJ IV PRN ×3 (05:34→23:28)
[2016-12-25] MEDS: morphine 2 MG INJ IV PRN ×5 (05:34→23:29)
[2016-12-25] MEDS: PANTOPRAZOLE (EC) 40 MG TAB PO SCH (05:34)
[2016-12-25] MEDS: HEPARIN 5,000 UNIT/0.5 ML VIAL SC SCH (09:00)
[2016-12-25] MEDS: FOLIC ACID 1 MG TAB PO SCH (11:20)
[2016-12-25] MEDS: HYDROXYUREA 500 MG CAP PO SCH (11:26)
--- NOTE | 2016-12-25 13:44 | PN ---
Date/Time of Note Date/Time of Note DATE: 12/25/16 TIME: 13:42 Assessment/Plan VTE Prophylaxis VTE Prophylaxis Intervention: heparin Lines/Catheters [facility]ac[facility] Urinary Cath still in place: No Assessment/Plan Chief Complaint/Hosp Course Assessment and plan: 31-year-old female coming in with chest pain 1 day, rule out sickle cell crisis versus ACS. 1. Chest pain: Possibly secondary to ACS versus sickle cell crisis, although appears to have ruled out for acute coronary syndrome troponins are negative 3. Sickle cell screen test was positive. -Follow-up TSH, A1c, lipid panel, - continue folic acid and hydroxyurea, pain meds cautiously -If symptoms worsen, consider palliative or pain management consult 2. Recent gallbladder surgery: Monitor for signs of fever or pain, morphine and Raymond as needed 3. GI prophylaxis: PPI Problems: Subjective 24 Hr Interval Summary Free Text/Dictation Patient still with occasional body pains, improved since yesterday. No acute events overnight. Exam/Review of Systems Vital Signs Vitals Vital Signs Date Time Temp Pulse Resp B/P Pulse Ox O2 Delivery O2 Flow Rate FiO2 12/25/16 08:00 98.5 62 18 106/66 97 12/24/16 17:30 Room Air Intake and Output 12/24/16 12/24/16 12/25/16 15:00 23:00 07:00 Intake Total 1900 ml Balance 1900 ml Exam General: Lying in bed, no acute distress, alert HEENT: Pupils equal round reactive to light, extraocular muscles are intact Neck: Supple Respiratory: Clear to auscultation bilaterally Cardiovascular: S1, S2 heard no rubs or gallops Abdomen: Nontender, nondistended, soft, normal bowel sounds, no rebound or guarding Muscular skeletal: No lower extremity edema bilaterally Neurologic: No focal deficits Skin: No rashes noted Results Result Diagram: 12/25/1631612/25/16316 Results 24 hrs Laboratory Tests Test 12/24/16 19:45 12/25/16 03:17 Creatine Kinase < 20 L < 20 L Creatine Kinase Index Creatinine Kinase MB (Mass) < 0.22 < 0.22 Troponin I < 0.012 < 0.012 White Blood Count 9.0 Red Blood Count 2.53 L Hemoglobin 7.3 L Hematocrit 21.6 L Mean Corpuscular Volume 85.4 Mean Corpuscular Hemoglobin 28.9 L Mean Corpuscular Hemoglobin Concent 33.8 Red Cell Distribution Width 19.2 H Platelet Count 670 H Mean Platelet Volume 9.8 Neutrophils % 47.8 Lymphocytes % 33.8 Monocytes % 14.0 H Eosinophils % 3.1 Basophils % 0.9 Nucleated Red Blood Cells % 2.8 H Neutrophils # (Manual) 4.3 Lymphocytes # 3.1 H Monocytes # 1.3 H Eosinophils # 0.3 Basophils # 0.1 Nucleated Red Blood Cells # 0.3 H Sodium Level 140 Potassium Level 3.8 Chloride Level 110 Carbon Dioxide Level 21 Anion Gap 13 # Blood Urea Nitrogen 8 Creatinine 0.53 Glucose Level 89 Hemoglobin A1c Calcium Level 8.7 Phosphorus Level 4.0 Magnesium Level 1.8 Triglycerides Level 107 Cholesterol Level 97 L LDL Cholesterol, Calculated 56 HDL Cholesterol 20 L Cholesterol/HDL Ratio 4.8 Thyroid Stimulating Hormone (TSH) 0.489 Medications Medications Current Medications Diphenhydramine HCl (Benadryl) 25 mg Q6H PRN PO ITCHING Last administered on 17:46; Admin Dose 25 MG; Start 12/24/16 at 17:00 Ondansetron HCl (Zofran Inj) 4 mg Q6H PRN IV NAUSEA AND/OR VOMITING; Start at 17:00 Acetaminophen (Tylenol Tab) 650 mg Q6H PRN PO PAIN LEVEL 1-3 OR FEVER; Start at 17:00 Acetaminophen/ Hydrocodone Bitart (Raymond (5/325)) 1 tab Q6H PRN PO MODERATE PAIN LEVEL 4-6; Start 12/24/16 at 17:00 Morphine Sulfate (morphine) 2 mg Q6H PRN IV SEVERE PAIN LEVEL 7-10 Last administered on 12/25/16 11:20; Admin Dose 2 MG; Start 12/24/16 at 17:00 Docusate Sodium (Colace) 100 mg Q12H PRN PO CONSTIPATION; Start 12/24/16 at 17: 00 Magnesium Hydroxide (Milk Of Mag) 30 ml DAILY PRN PO CONSTIPATION; Start at 17:00 Sodium Biphosphate/ Sodium Phosphate (Fleet Enema) 133 ml DAILY PRN [place] CONSTIPATION; Start 12/24/16 at 17:00 Pantoprazole (Protonix Tab) 40 mg DAILY@06 PO Last administered on 12/25/16 05 :34; Admin Dose 40 MG; Start 12/25/16 at 06:00 Heparin Sodium (Porcine) (Heparin (5000 Units/0.5 ml)) 5,000 unit Q12 SC Last administered on 12/24/16 21:28; Admin Dose 5,000 UNIT; Start 12/24/16 at 21:00 Lorazepam 0.5 mg 0.5 mg Q6H PRN IV ANXIETY; Start 12/24/16 at 17:00 Sodium Chloride (NS) 1,000 ml @ 100 mls/hr Q10H IV Last administered on 03:18; Admin Dose 100 MLS/HR; Start 12/24/16 at 16:39 Hydralazine HCl (Apresoline) 10 mg Q6H PRN IV ELEVATED BLOOD PRESSURE; Start at 17:00 Nitroglycerin (Nitroglycerin (Sl Tab) 0.4 Mg) 1 tab Q5M PRN SL ANGINA; Start at 17:00 Folic Acid (Folic Acid) 1 mg DAILY PO Last administered on 12/25/16 11:20; Admin Dose 1 MG; Start 12/24/16 at 17:00 Acetaminophen/ Hydrocodone Bitart (Raymond (10/325)) 1 tab Q4H PRN PO PAIN LEVEL 8-10 Last administered on 12/24/16 22:45; Admin Dose 1 TAB; Start 12/24/16 at 17:00 Hydroxyurea (Hydrea) 500 mg DAILY PO Last administered on 12/25/16 11:26; Admin Dose 500 MG; Start 12/24/16 at 17:00 CARIDAD CARRERA Dec 25, 2016 13:44
[2016-12-25] MEDS: HYDROCODONE/APAP (10/325) TAB PO PRN (14:15)
[2016-12-25 14:35] LABS: HEMOGLOBIN 7.5 g/dl (12.0-16.0)
[2016-12-25 16:27] LABS: WHITE BLOOD COUNT 8.3 10^3/ul (4.8-10.8)
[2016-12-25] MEDS: DIPHENHYDRAMINE 25 MG CAP PO PRN (17:30)
[2016-12-25] MEDS: LEVOFLOXACIN 500 MG TAB PO SCH (18:26)
[2016-12-26 00:30] VITALS: BP 104/59; PULSE 55; RESP 17
[2016-12-26 01:30] VITALS: BP 102/55; PULSE 57; RESP 18
[2016-12-26 01:40] VITALS: BP 100/61; PULSE 60; RESP 17
[2016-12-26 02:40] VITALS: BP 101/64; PULSE 59; RESP 17
[2016-12-26] MEDS: PANTOPRAZOLE (EC) 40 MG TAB PO SCH (05:48)
[2016-12-26] MEDS: LEVOFLOXACIN 500 MG TAB PO SCH (05:48)
[2016-12-26] MEDS: DIPHENHYDRAMINE 50 MG INJ IV PRN ×4 (05:48→21:31)
[2016-12-26] MEDS: morphine 2 MG INJ IV PRN ×4 (05:49→21:31)
[2016-12-26 07:46] LABS: BASOPHIL # 0.2 10^3/ul (0.0-0.1); BASOPHILS % 1.6 % (0.0-2.0); EOSINOPHILS # 0.4 10^3/ul (0.0-0.5); EOSINOPHILS % 4.3 % (0.0-7.0); HEMATOCRIT 30.4 % (37.0-47.0); HEMOGLOBIN 10.3 g/dl (12.0-16.0); LYMPHOCYTES # 2.3 10^3/ul (0.8-2.9); LYMPHOCYTES % 24.8 % (15.0-51.0); MEAN CORPUSCULAR HEMOGLOBIN 28.6 pg (29.0-33.0); MEAN CORPUSCULAR HGB CONC 33.9 g/dl (32.0-37.0); MEAN CORPUSCULAR VOLUME 84.4 fl (82.0-101.0); MEAN PLATELET VOLUME 10.2 fl (7.4-10.4); MONOCYTE # 1.3 10^3/ul (0.3-0.9); NEUTROPHILS % 54.9 % (39.0-77.0); NUCLEATED RED BLOOD CELLS # 0.2 10^3/ul (0.0-0.0); NUCLEATED RED BLOOD CELLS% 2.4 /100WBC (0.0-0.0); RED CELL DISTRIBUTION WIDTH 16.9 % (11.5-14.5); WHITE BLOOD COUNT 9.4 10^3/ul (4.8-10.8)
[2016-12-26 07:52] LABS: CREATININE 0.53 mg/dl (0.44-1.00); POTASSIUM 3.3 mmol/L (3.5-5.1)
[2016-12-26 07:54] LABS: PLATELET COUNT 711 10^3/UL (140-415)
[2016-12-26] MEDS: SOD CHLORIDE 0.9% 1,000 ML IV SCH ×2 (09:17→19:22)
[2016-12-26] MEDS: FOLIC ACID 1 MG TAB PO SCH (09:34)
[2016-12-26] MEDS: HYDROXYUREA 500 MG CAP PO SCH (09:35)
[2016-12-26] MEDS ORDERED: POTASSIUM CHLORIDE (SR) 20 MEQ TAB PO STA (11:33)
--- NOTE | 2016-12-26 11:47 | PN ---
Date/Time of Note Date/Time of Note DATE: 12/26/16 TIME: 11:44 Assessment/Plan VTE Prophylaxis VTE Prophylaxis Intervention: SCD's Lines/Catheters IV Catheter Type (from Nrsg): Central Line Central line still needed: Yes Urinary Cath still in place: No Assessment/Plan Chief Complaint/Hosp Course Assessment and plan: 31-year-old female coming in with chest pain 1 day, rule out sickle cell crisis versus ACS. 1. Chest pain: Possibly secondary to ACS versus sickle cell crisis, although appears to have ruled out for acute coronary syndrome troponins are negative 3. Sickle cell screen test was positive. - continue folic acid and hydroxyurea, pain meds cautiously -If symptoms worsen, consider palliative or pain management consult 2. Anemia: Status post PRBC transfusion. Hemoglobin 10.5 today. No signs of bleeding. Continue to monitor for now 3. Recent gallbladder surgery: Monitor for signs of fever or pain, morphine and Spencer as needed 4. GI prophylaxis: PPI Problems: Subjective 24 Hr Interval Summary Free Text/Dictation Patient received blood transfusion yesterday. Still complaints of some vague pain complaints. Exam/Review of Systems Vital Signs Vitals Vital Signs Date Time Temp Pulse Resp B/P Pulse Ox O2 Delivery O2 Flow Rate FiO2 12/26/16 02:40 99.0 59 17 101/64 Room Air 12/26/16 00:30 97 Intake and Output 12/25/16 12/25/16 12/26/16 15:00 23:00 07:00 Intake Total 700 ml 1260 ml 1670 ml Output Total 900 ml 850 ml Balance 700 ml 360 ml 820 ml Exam General: Lying in bed, no acute distress, alert HEENT: Pupils equal round reactive to light, extraocular muscles are intact Neck: Supple Respiratory: Clear to auscultation bilaterally Cardiovascular: S1, S2 heard no rubs or gallops Abdomen: Nontender, nondistended, soft, normal bowel sounds, no rebound or guarding Muscular skeletal: No lower extremity edema bilaterally Neurologic: No focal deficits Skin: No rashes noted Results Result Diagram: 12/26/16 0449 12/26/16 0449 Results 24 hrs Laboratory Tests Test 12/25/16 14:13 12/26/16 04:49 12/26/16 08:18 Hemoglobin 7.5 L 10.3 #L Hematocrit 23.0 L 30.4 #L White Blood Count 9.4 Red Blood Count 3.60 #L Mean Corpuscular Volume 84.4 Mean Corpuscular Hemoglobin 28.6 L Mean Corpuscular Hemoglobin Concent 33.9 Red Cell Distribution Width 16.9 H Platelet Count 711 H Mean Platelet Volume 10.2 Neutrophils % 54.9 Lymphocytes % 24.8 Monocytes % 14.0 H Eosinophils % 4.3 Basophils % 1.6 Nucleated Red Blood Cells % 2.4 H Neutrophils # (Manual) 5.1 Lymphocytes # 2.3 Monocytes # 1.3 H Eosinophils # 0.4 Basophils # 0.2 H Nucleated Red Blood Cells # 0.2 H Sodium Level 144 Potassium Level 3.3 L Chloride Level 106 Carbon Dioxide Level 24 Anion Gap 17 H Blood Urea Nitrogen 7 Creatinine 0.53 Glucose Level 82 Calcium Level 9.0 Lab Scanned Report BLOOD TRANSFUSION Medications Medications Current Medications Ondansetron HCl (Zofran Inj) 4 mg Q6H PRN IV NAUSEA AND/OR VOMITING; Start at 17:00 Acetaminophen (Tylenol Tab) 650 mg Q6H PRN PO PAIN LEVEL 1-3 OR FEVER; Start at 17:00 Morphine Sulfate (morphine) 2 mg Q6H PRN IV SEVERE PAIN LEVEL 7-10 Last administered on 12/26/16 09:37; Admin Dose 2 MG; Start 12/24/16 at 17:00 Docusate Sodium (Colace) 100 mg Q12H PRN PO CONSTIPATION; Start 12/24/16 at 17: 00 Magnesium Hydroxide (Milk Of Mag) 30 ml DAILY PRN PO CONSTIPATION; Start at 17:00 Sodium Biphosphate/ Sodium Phosphate (Fleet Enema) 133 ml DAILY PRN [place] CONSTIPATION; Start 12/24/16 at 17:00 Pantoprazole (Protonix Tab) 40 mg DAILY@06 PO Last administered on 12/26/16 05 :48; Admin Dose 40 MG; Start 12/25/16 at 06:00 Lorazepam 0.5 mg 0.5 mg Q6H PRN IV ANXIETY; Start 12/24/16 at 17:00 Sodium Chloride (NS) 1,000 ml @ 100 mls/hr Q10H IV Last administered on 09:17; Admin Dose 100 MLS/HR; Start 12/24/16 at 16:39 Hydralazine HCl (Apresoline) 10 mg Q6H PRN IV ELEVATED BLOOD PRESSURE; Start at 17:00 Nitroglycerin (Nitroglycerin (Sl Tab) 0.4 Mg) 1 tab Q5M PRN SL ANGINA; Start at 17:00 Folic Acid (Folic Acid) 1 mg DAILY PO Last administered on 12/26/16 09:34; Admin Dose 1 MG; Start 12/24/16 at 17:00 Hydroxyurea (Hydrea) 500 mg DAILY PO Last administered on 12/26/16 09:35; Admin Dose 500 MG; Start 12/24/16 at 17:00 Acetaminophen/ Hydrocodone Bitart (Spencer (7.5-325)) 1 tab Q4H PRN PO PAIN; Start 12/25/16 at 19:00 Levofloxacin (Levaquin) 500 mg DAILY@06 PO Last administered on 12/26/16 05:48 ; Admin Dose 500 MG; Start 12/25/16 at 18:00 Diphenhydramine HCl (Benadryl) 25 mg Q6H PRN IV ALLERGIC REACTION Last administered on 12/26/16 09:38; Admin Dose 25 MG; Start 12/25/16 at 18:00 CARIDAD CARRERA Dec 26, 2016 11:46
[2016-12-26] MEDS: HYDROCODONE/APAP (7.5/325) TAB PO PRN (13:18)
[2016-12-26 14:00] VITALS: BP 96/55; RESP 18
[2016-12-26 21:03] VITALS: BP 98/58; RESP 20
[2016-12-27 01:59] VITALS: BP 103/68; RESP 18
[2016-12-27] MEDS: DIPHENHYDRAMINE 50 MG INJ IV PRN ×2 (03:36→09:35)
[2016-12-27] MEDS: morphine 2 MG INJ IV PRN ×2 (03:37→09:35)
[2016-12-27 05:25] LABS: BASOPHIL # 0.1 10^3/ul (0.0-0.1); BASOPHILS % 1.5 % (0.0-2.0); EOSINOPHILS # 0.4 10^3/ul (0.0-0.5); HEMATOCRIT 31.7 % (37.0-47.0); HEMOGLOBIN 10.8 g/dl (12.0-16.0); LYMPHOCYTES # 1.9 10^3/ul (0.8-2.9); LYMPHOCYTES % 22.3 % (15.0-51.0); MEAN CORPUSCULAR HGB CONC 34.1 g/dl (32.0-37.0); MEAN CORPUSCULAR VOLUME 85.2 fl (82.0-101.0); MEAN PLATELET VOLUME 10.2 fl (7.4-10.4); MONOCYTE # 1.2 10^3/ul (0.3-0.9); MONOCYTES % 13.7 % (0.0-11.0); NUCLEATED RED BLOOD CELLS # 0.3 10^3/ul (0.0-0.0); NUCLEATED RED BLOOD CELLS% 3.3 /100WBC (0.0-0.0); PLATELET COUNT 741 10^3/UL (140-415); RED BLOOD COUNT 3.72 10^6/ul (4.20-5.40); RED CELL DISTRIBUTION WIDTH 17.5 % (11.5-14.5); WHITE BLOOD COUNT 8.7 10^3/ul (4.8-10.8)
[2016-12-27] MEDS: PANTOPRAZOLE (EC) 40 MG TAB PO SCH (05:37)
[2016-12-27] MEDS: LEVOFLOXACIN 500 MG TAB PO SCH (05:37)
[2016-12-27] MEDS: SOD CHLORIDE 0.9% 1,000 ML IV SCH ×2 (05:39→14:39)
[2016-12-27 06:31] LABS: CALCIUM 9.1 mg/dl (8.4-10.2); CREATININE 0.55 mg/dl (0.44-1.00); POTASSIUM 3.7 mmol/L (3.5-5.1)
[2016-12-27 07:43] VITALS: BP 101/56; RESP 18
[2016-12-27] MEDS: FOLIC ACID 1 MG TAB PO SCH (09:35)
[2016-12-27] MEDS: HYDROXYUREA 500 MG CAP PO SCH (09:44)
--- NOTE | 2016-12-27 12:52 | PDOCDIS ---
Discharge Instructions CONDITION Patient Condition: Stable HOME CARE INSTRUCTIONS: Special Diet: REGULAR ACTIVITY: Activity Restrictions: Slowly Increase Activity FOLLOW UP/APPOINTMENTS Follow-up Plan Please take your medications as prescribed. Please follow-up with your regular doctor in the clinic in the next 1-2 weeks. CARIDAD CARRERA Dec 27, 2016 12:51
[2016-12-27] MEDS ORDERED: LEVO500T72 PO (12:53)
[2016-12-27] MEDS ORDERED: MULTI PO (12:56)
--- NOTE | 2016-12-27 13:02 | DS ---
Date/Time of Note Date/Time of Note DATE: 12/27/16 TIME: 12:59 Discharge Summary Admission/Discharge Info Admit Date/Time Dec 24, 2016 at 15:42 Discharge Date/Time Discharge Diagnosis 1. Chest pain: ruled out for acute coronary syndrome - Possibly secondary to sickle cell crisis-improved 2. Anemia: Status post PRBC transfusion. Hemoglobin stable no signs of bleeding. 3. Recent gallbladder surgery: Improving 4. Mild URI Patient Condition: Stable Hospital Course 31-year-old female past medical history of sickle cell disease, recent gallbladder surgery, , presenting to the ER because of substernal chest discomfort that began last night. She has similar symptoms previously, and states she has had at least 20 prior hospitalizations in her life for sickle cell crisis. No aggravating or relieving factor, she denies chest pain with exertion or vomiting or diaphoresis. She recently had laparoscopic cholecystectomy 3 days ago at [facility] and was discharged 2 days ago. She denies fever, chills, neck pain, cough, but has some mild abdominal pain from the recent surgery, and some mild diarrhea denies any upper or lower GI bleeding.. She denies dysuria, polyuria, diarrhea. She does smokes cigarettes. Patient states she sees a Dr. Rios at [facility] in [facility] for her treatment of her sickle cell disease. [facility], started on folic acid, hydroxyurea, pain medicines, IV fluids. Over the course of her hospital stay her vital signs remained stable, she was found with hemoglobin less than 8, no signs of any overt bleeding, but was given 2 units of PRBC transfusion, hemoglobin remained stable. She was eventually able to ambulate, tolerate a p.o. diet. She was also treated for mild upper respiratory infection with p.o. antibiotics. She will be discharged home today improved condition. See below for full list of discharge medications. Home Meds Active Scripts Multivitamins* (Theragran*) 1 Tab Tab, 1 TAB PO DAILY, #30 TAB 2 Refills Prov:CARIDAD CARRERA S. 12/27/16 Levofloxacin* (Levaquin*) 500 Mg Tablet, 500 MG PO DAILY@06 for 4 Days, #4 TAB Prov:CARIDAD CARRERA S. 12/27/16 Reported Medications Hydroxyurea* (Hydroxyurea*) Unknown Strength Capsule, 1 TAB PO DAILY, CAP 12/24/16 Folic Acid* (Folic Acid*) 1 Mg Tablet, 1 MG PO DAILY, TAB 12/24/16 Hydrocodone/Acetaminophen ([place] 10-325 Tablet) 1 Each Tablet, 1 EACH PO Q4H, TAB 12/24/16 Morphine Sulfate* (Oramorph SR*) 30 Mg Tablet.sa, 30 MG PO Q12, TAB.SA 12/24/16 Discontinued Scripts Hydromorphone Hcl* (Dilaudid*) 2 Mg Tablet, 2 MG PO Q6H Y for PAIN LEVEL 6-10, # 10 TAB Prov:RYAN VILLANUEVA MD 10/21/16 Ondansetron Hcl* (Zofran*) 4 Mg Tablet, 4 MG PO Q8H Y for NAUSEA AND/OR VOMITING , #21 TAB Prov:RYAN VILLANUEVA MD 10/21/16 Primary Care Provider Care Physician No Primary Time spent on discharge: > 30 minutes Pending Labs Laboratory Tests Test 12/27/16 04:30 White Blood Count 8.710^3/ul (4.8-10.8) Red Blood Count 3.7210^6/ul (4.20-5.40) Hemoglobin 10.8g/dl (12.0-16.0) Hematocrit 31.7% (37.0-47.0) Mean Corpuscular Volume 85.2fl (82.0-101.0) Mean Corpuscular Hemoglobin 29.0pg (29.0-33.0) Mean Corpuscular Hemoglobin Concent 34.1g/dl (32.0-37.0) Red Cell Distribution Width 17.5% (11.5-14.5) Platelet Count 70283^3/UL (140-415) Mean Platelet Volume 10.2fl (7.4-10.4) Neutrophils % 57.0% (39.0-77.0) Lymphocytes % 22.3% (15.0-51.0) Monocytes % 13.7% (0.0-11.0) Eosinophils % 5.0% (0.0-7.0) Basophils % 1.5% (0.0-2.0) Nucleated Red Blood Cells % 3.3/100WBC (0.0-0.0) Neutrophils # (Manual) 4.910^3/ul (1.7-7.5) Lymphocytes # 1.910^3/ul (0.8-2.9) Monocytes # 1.210^3/ul (0.3-0.9) Eosinophils # 0.410^3/ul (0.0-0.5) Basophils # 0.110^3/ul (0.0-0.1) Nucleated Red Blood Cells # 0.310^3/ul (0.0-0.0) Sodium Level 143mmol/L (135-144) Potassium Level 3.7mmol/L (3.5-5.1) Chloride Level 106mmol/L (97-110) Carbon Dioxide Level 22mmol/L (21-31) Anion Gap 19 (8-16) Blood Urea Nitrogen 8mg/dl (7-20) Creatinine 0.55mg/dl (0.44-1.00) Glucose Level 98mg/dl (70-220) Calcium Level 9.1mg/dl (8.4-10.2) CARIDAD CARRERA Dec 27, 2016 13:02
[2016-12-27] MEDS ORDERED: HEPARIN (100 UNITS/ML) 5 ML SYG CATHETER ONE (14:00)
[2016-12-27 14:14] VITALS: BP 104/69; RESP 18
[2016-12-27] MEDS: HYDROCODONE/APAP (7.5/325) TAB PO PRN (14:42)
== END 2016-12-27 15:30 | disposition home or self-care (01) | DRG 812 ==
LOC: E/R 10:48 → MS1 15:42
PROVIDERS: ADMIT Internal Medicine; ATTEND Internal Medicine
PROC: 30233N1 Transfusion of Nonautologous Red Blood Cells into Peripheral Vein, Percutaneous Approach (ICD-10-PCS; principal; 2016-12-25)
DX: D57.00 Hb-SS disease with crisis, unspecified (principal); J06.9 Acute upper respiratory infection, unspecified; R07.9 Chest pain, unspecified; R79.89 Other specified abnormal findings of blood chemistry; Z90.49 Acquired absence of other specified parts of digestive tract; Z88.6 Allergy status to analgesic agent
CPT/HCPCS: 36415; 36430; 71010; 71275; 80048; 80053; 80061; 81003; 82550; 82553; 83036; 83690; 83735; 84100; 84439; 84443; 84484; 85014; 85018; 85025; 85378; 85660; 86850; 86900; 86901; 86920; 93970; 96374; 96375; 96376; J0456; J0696; J1170; J1200; J1642; J1644; J2270; J2405; J7030; P9016; Q9967

== ENCOUNTER 2017-09-03 16:17 | Emergency (ER) | END 2017-09-03 21:39 | disposition home or self-care (01) ==

== ENCOUNTER 2018-01-02 10:04 | Emergency (ER) | END 2018-01-02 13:12 | disposition home or self-care (01) ==

== ENCOUNTER 2018-01-05 14:19 | Emergency (ER) | END 2018-01-05 20:40 | disposition home or self-care (01) ==

== ENCOUNTER 2018-01-11 05:00 | Inpatient (IN) | END 2018-01-15 19:35 | disposition home or self-care (01) | DRG 811 ==

== ENCOUNTER 2018-01-27 07:21 | Inpatient (IN) | END 2018-02-04 10:25 | disposition home or self-care (01) | DRG 812 ==

== ENCOUNTER 2018-02-05 20:15 | Emergency (ER) | END 2018-02-05 22:51 | disposition home or self-care (01) ==

== ENCOUNTER 2018-02-12 18:57 | Emergency (ER) | END 2018-02-12 22:46 | disposition home or self-care (01) ==

== ENCOUNTER 2018-02-23 15:18 | Emergency (ER) | END 2018-02-23 19:25 | disposition home or self-care (01) ==

== ENCOUNTER 2018-02-24 23:35 | Inpatient (IN) | END 2018-03-01 15:57 | disposition home or self-care (01) | DRG 812 ==

== ENCOUNTER 2018-03-11 08:31 | Emergency (ER) | END 2018-03-11 13:57 | disposition home or self-care (01) ==

== ENCOUNTER 2018-03-21 21:31 | Inpatient (IN) | END 2018-03-22 13:45 | disposition home or self-care (01) | DRG 811 ==

== ENCOUNTER 2018-03-28 19:06 | Emergency (ER) | END 2018-03-29 | disposition home or self-care (01) ==

== ENCOUNTER 2018-03-29 09:51 | Inpatient (IN) | END 2018-04-03 11:14 | disposition home or self-care (01) | DRG 812 ==

== ENCOUNTER 2018-04-11 08:38 | Emergency (ER) | END 2018-04-11 14:33 | disposition home or self-care (01) ==

== ENCOUNTER 2018-04-20 07:41 | Emergency (ER) | END 2018-04-20 11:10 | disposition home or self-care (01) ==

== ENCOUNTER 2018-04-21 23:24 | Emergency (ER) | END 2018-04-22 03:05 | disposition home or self-care (01) ==

== ENCOUNTER 2018-05-18 11:54 | Emergency (ER) | payer OTHER ==
[~2018-05-18] VITALS: Ht 157.5 cm; Wt 41.6 kg
[~2018-05-18 11:54] MED LIST changes: +DIPH25CA42 PO; +DOCU-144 PO; +FOLI-49 PO; +HYDR-3980 PO; -HYDR2TAB36 PO; +HYDR500C3 PO; -ONDA4TAB8 PO
[2018-05-18 11:56] VITALS: Ht 157.5 cm; Wt 41.6 kg
[2018-05-18] MEDS ORDERED: DIPHENHYDRAMINE 50 MG INJ IV ONE ×2 (13:00→15:30)
[2018-05-18] MEDS ORDERED: ONDANSETRON 4 MG INJ IV STA ×2 (13:00→15:13)
[2018-05-18] MEDS ORDERED: IPRATROPIUM (NEB) 0.5 MG/2.5 ML AMP NEB STA ×2 (13:00→15:13)
[2018-05-18] MEDS ORDERED: HYDROmorphONE 1 MG/ML SYG IV STA ×2 (13:00→15:13)
[2018-05-18] MEDS ORDERED: ALBUTEROL 0.083% (NEB) 2.5 MG/3 ML AMP NEB STA ×2 (13:00→15:13)
[2018-05-18] MEDS ORDERED: SOD CHLORIDE 0.9% 1,000 ML IV STA (13:00)
--- NOTE | 2018-05-18 13:24 | ERD ---
ER Documentation Chief Complaint Chief Complaint Complais of a cough, greenish secretions with back and chest wall pain HPI This is a 30-year-old female with a history of sickle cell disease type SS that presents to the emergency department complaining of a productive cough with greenish secretions for the past 24 hours. She indicates she has been coughing throughout the night. When she woke this morning she was experiencing back pain and chest wall pain that was exacerbated when she would cough. She started to develop pain in her joints which is similar nature to her previous sickle cell crisis these. She denies any rhinorrhea. She said no recent travel. She denies any recent hospitalizations. She denies any fever shaking or chills. She denies any bilious or nonbilious emesis. ROS All systems reviewed and are negative except as per history of present illness. Medications Home Meds Active Scripts Albuterol Sulfate* (Proair HFA*) 8.5 Gm Hfa.aer.ad, 2 PUFF INH Q4H PRN for WHEEZING AND SOB, #1 INHALER Prov:SARAH ANTONIO MD 05/18/18 Azithromycin* (Azithromycin*) 250 Mg Tablet, 250 MG PO DAILY, #4 TAB Prov:SARAH ANTONIO MD 05/18/18 Reported Medications Hydrocodone/Acetaminophen ([place] 10-325 Tablet) 1 Each Tablet, 1 EACH PO Q6 PRN for PAIN, TAB 05/18/18 Folic Acid* (Folic Acid*) 1 Mg Tablet, 1 MG PO DAILY, TAB 05/18/18 Hydroxyurea* (Hydroxyurea*) 500 Mg Capsule, 500 MG PO BID, CAP 05/18/18 Diphenhydramine Hcl (Banophen) 25 Mg Capsule, 25 MG PO BID, CAP 03/21/18 Discontinued Scripts Hydroxyurea* (Hydroxyurea*) 500 Mg Capsule, 500 MG PO BID, #60 CAP 1 Refill Prov:RACARIDAD BELCHER S. 04/03/18 Folic Acid* (Folic Acid*) 1 Mg Tablet, 1 MG PO DAILY, #30 TAB 2 Refills Prov:RAISAMAR BELCHERP S. 04/03/18 Hydrocodone/Acetaminophen (Old[place] 10-325 Tablet) 1 Each Tablet, 1 TAB PO Q6H PRN for PAIN, #20 TAB Prov:TAMIA ZAIDI DO 03/28/18 Docusate Sodium* (Colace*) 100 Mg Capsule, 100 MG PO TID, #30 CAP Prov:SARAH ANTONIO MD 03/11/18 Allergies Allergies: Coded Allergies: codeine (Unverified Allergy, Intermediate, ITCHY HIVES, 05/18/18) PMhx/Soc History of Surgery: Yes (C-sect - 2008; Cholecystectomy) Anesthesia Reaction: No Hx Neurological Disorder: No Hx Respiratory Disorders: No Hx Cardiac Disorders: No Hx Psychiatric Problems: No Hx Miscellaneous Medical Probl: Yes (SICKLE CELL DISEASE) Hx Alcohol Use: No Hx Substance Use: No Hx Tobacco Use: Yes (vapes) Smoking Status: Current every day smoker Physical Exam Vitals Vital Signs Date Temp Pulse Resp B/P (MAP) Pulse Ox O2 O2 Flow FiO2 Time Delivery Rate 05/18/18 98.8 100 20 97/56 (70) 98 Room Air 16:22 05/18/18 97 18 99 21 15:44 05/18/18 96 18 100 21 13:34 05/18/18 98.4 97 18 102/72 100 Room Air 12:48 (82) 05/18/18 99.9 104 20 85/51 (62) 100 11:56 Physical Exam Constitutional:Well-developed. Well-nourished. HEENT:Normocephalic. Atraumatic.Pupils were equal round reactive to light. Moist mucous membranes.No tonsillar exudates. Neck: No nuchal rigidity. No lymphadenopathy. No posterior cervical spine tenderness or step-offs. Respiratory: Not using accessory muscles of respiration. Decreased breath sounds in the left lower lobe. No rhonchi. No rales. Wheezing on end expiration of right lung base Cardiovascular: Regular rate regular rhythm.No murmurs. No rubs were appreciated.S1, S2 normal. Distal pulses are palpable 2+ bilaterally. GI: Abdomen was soft. Nontender. Non Distended. No pulsatile abdominal masses or bruits. No rebound. No guarding. Bowel sounds were present and normal. Muscle skeletal: Full range of motion of both the upper and lower extremities bilaterally.Normal muscle tone.No assymetrical calf tenderness or swelling. Skin: No petechia, no purpura. No lesions on the palms or the soles of the feet. No maculopapular rash. NEURO: Patient was alert, awake, orientated x3.No facial droop. Gait observed and normal with no ataxia.Speech had regular rate and rhythm. No focal neurolog ical deficits. Result Diagram: 05/18/18 1330 05/18/18 1331 Results 24 hrs Laboratory Tests Test 05/18/18 13:30 05/18/18 13:31 White Blood Count 14.3 10^3/ul Red Blood Count 3.26 10^6/ul Hemoglobin 9.5 g/dl Hematocrit 27.4 % Mean Corpuscular Volume 84.0 fl Mean Corpuscular Hemoglobin 29.1 pg Mean Corpuscular Hemoglobin Concent 34.7 g/dl Red Cell Distribution Width 16.4 % Platelet Count 545 10^3/UL Mean Platelet Volume 9.9 fl Immature Granulocytes % 0.700 % Neutrophils % 78.9 % Segmented Neutrophils % (Manual) 75 % Band Neutrophils % (Manual) 7 % Lymphocytes % 5.4 % Lymphocytes % (Manual) 9 % Monocytes % 12.8 % Monocytes % (Manual) 7 % Eosinophils % 1.2 % Eosinophils % (Manual) 1 % Basophils % 1.0 % Basophils % (Manual) 1 % Nucleated Red Blood Cells % 0.7 /100WBC Immature Granulocytes # 0.100 10^3/ul Neutrophils # 11.3 10^3/ul Neutrophils # (Manual) 10.9 10^3/ul Band Neutrophils # 1.0 10^3/ul Lymphocytes (Manual) 1.2 10^3/ul Lymphocytes # 0.8 10^3/ul Monocytes # 1.8 10^3/ul Monocytes # (Manual) 1.0 10^3/ul Eosinophils # 0.2 10^3/ul Basophils # 0.2 10^3/ul Basophils # (Manual) 0.1 10^3/ul Nucleated Red Blood Cells # 0.1 10^3/ul Platelet Estimate INCREASED Polychromasia 3+ Poikilocytosis 1+ Anisocytosis 1+ Microcytosis 1+ Sickle Cells 1+ Target Cells 1+ Stomatocytes 1+ Absolute Reticulocyte Count 0.261 X10^6 Percent Reticulocyte Count 8.1 % Prothrombin Time 13.7 Sec Prothrombin Time Ratio 1.1 INR International Normalized Ratio 1.04 Activated Partial Thromboplast Time 33.7 Sec Sodium Level 141 mmol/L Potassium Level 3.8 mmol/L Chloride Level 104 mmol/L Carbon Dioxide Level 24 mmol/L Anion Gap 13 Blood Urea Nitrogen 9 mg/dl Creatinine 0.38 mg/dl Est Glomerular Filtrat Rate mL/min > 60 mL/min Glucose Level 86 mg/dl Calcium Level 9.2 mg/dl Total Bilirubin 2.6 mg/dl Direct Bilirubin 0.00 mg/dl Indirect Bilirubin 2.6 mg/dl Aspartate Amino Transf (AST/SGOT) 35 IU/L Alanine Aminotransferase (ALT/SGPT) 25 IU/L Alkaline Phosphatase 67 IU/L Total Protein 8.6 g/dl Albumin 4.7 g/dl Globulin 3.90 g/dl Albumin/Globulin Ratio 1.20 Current Medications Medications Dose Sig/Aguilar Start Time Status Last (Trade) Ordered Route PRN Stop Time Admin Dose Reason Admin Sodium 1,000 ml @ Q1H STAT 05/18/18 DC 05/18/18 Chloride 1,000 mls/hr IV 13:00 05/18/18 13:18 13:59 1 mg ONCE STAT 05/18/18 DC 05/18/18 Hydromorphone IV 13:00 05/18/18 13:18 HCl 13:02 (Dilaudid) Ondansetron 4 mg ONCE STAT 05/18/18 DC 05/18/18 HCl (Zofran IV 13:00 05/18/18 13:18 Inj) 13:02 50 mg ONCE ONCE 05/18/18 DC 05/18/18 Diphenhydrami IV 13:00 05/18/18 13:18 ne HCl 13:02 (Benadryl) Albuterol 5 mg ONCE STAT 05/18/18 DC 05/18/18 (Proventil NEB 13:00 05/18/18 13:34 0.083% (Neb)) 13:02 Ipratropium 0.5 mg ONCE STAT 05/18/18 DC 05/18/18 Eliot NEB 13:00 05/18/18 13:33 (Atrovent 13:02 0.02% (Neb)) 1 mg ONCE STAT 05/18/18 DC 05/18/18 Hydromorphone IV 15:13 05/18/18 15:30 HCl 15:14 (Dilaudid) Ondansetron 4 mg ONCE STAT 05/18/18 DC 05/18/18 HCl (Zofran IV 15:13 05/18/18 15:31 Inj) 15:14 50 mg ONCE ONCE 05/18/18 DC 05/18/18 Diphenhydrami IV 15:30 05/18/18 15:30 ne HCl 15:31 (Benadryl) Albuterol 5 mg ONCE STAT 05/18/18 DC 05/18/18 (Proventil NEB 15:13 05/18/18 15:43 0.083% (Neb)) 15:14 Ipratropium 0.5 mg ONCE STAT 05/18/18 DC 05/18/18 Eliot NEB 15:13 05/18/18 15:43 (Atrovent 15:14 0.02% (Neb)) Heparin 500 unit ONCE ONCE 05/18/18 DC 05/18/18 Sodium CATHETER 16:30 05/18/18 16:18 (Porcine) 16:31 (Heparin Flush (100 Units/ml)) Procedures/MDM This is a 32-year-old female with a history of sickle cell disease. The patient was placed on a alarm security or surveillance monitor continuous pulse oximetry and the patient's port in her right chest wall was utilized. The patient received intravenous Dilaudid Zofran and Benadryl to treat her sickle cell crisis. I did feel that the patient was expressing a vaso-occlusive crisis as her reticulocyte count was elevated but there did not appear to be any evidence of acute life-threatening etiology such as acute chest syndrome. I did obtain a chest radiograph given that she has had a productive cough. There is no evidence of infiltrates pneumothorax or pleural effusions. She did receive a breathing treatment in the emergency department but she stated significantly improved her symptoms. Her pain is completely resolved and she felt comfortable being discharged home. The patient was discharged home in fair condition. They were instructed to return to the emergency department at any time if there was any worsening of their condition. The patient stated they would follow up with their PCP in the next 24-48 hours to initiate a suitable medication regimen under the care of their PCP as well as to allow their PCP to monitor any drug reactions. The patient was discharged home with prescriptions after they gave informed consent to the new medication. They were also fully informed by myself on the adverse effects and adverse drug interactions in order to provide adequate safeguards to prevent possible adverse reactions to medications. Departure Diagnosis: Primary Impression: Sickle cell pain crisis Additional Impression: Bronchitis Condition: Fair SARAH ANTONIO MD May 18, 2018 13:12
[2018-05-18] MEDS ORDERED: AZIT250T13 PO (15:35)
[2018-05-18] MEDS ORDERED: ALBU8.5H8 INH (15:35)
[2018-05-18] MEDS ORDERED: HYDR500C3 PO (15:37)
[2018-05-18] MEDS ORDERED: FOLI-49 PO (15:38)
[2018-05-18] MEDS ORDERED: HYDR-3980 PO (15:39)
[2018-05-18 16:22] VITALS: BP 97/56; PULSE 100; RESP 20
[2018-05-18] MEDS ORDERED: HEPARIN (100 UNITS/ML) 5 ML SYG CATHETER ONE (16:30)
== END 2018-05-18 16:22 | disposition home or self-care (01) ==
LOC: E/R 11:54
DX: D57.00 Hb-SS disease with crisis, unspecified (principal); J40 Bronchitis, not specified as acute or chronic; F17.210 Nicotine dependence, cigarettes, uncomplicated; R07.9 Chest pain, unspecified
CPT/HCPCS: 36415; 71045; 80053; 85025; 85045; 85610; 85730; 94640; 94664; 96361; 96374; 96375; 96376; J1170; J1200; J1642; J2405; J7030; Z7502; Z7610

== ENCOUNTER 2018-05-24 19:05 | Inpatient (IN) | payer OTHER ==
[~2018-05-24] VITALS: Ht 162.6 cm; Wt 46.8 kg
[2018-05-24] MEDS: FOLIC ACID 1 MG TAB PO SCH (00:30)
[~2018-05-24 19:05] MED LIST changes: +ALBU8.5H8 INH; +AZIT250T13 PO; -DOCU-144 PO
[2018-05-24] MEDS ORDERED: KETOROLAC 15 MG INJ IV STA (19:38)
[2018-05-24] MEDS ORDERED: HYDROmorphONE 0.5 MG/0.5 ML SYG IV STA ×3 (19:38→22:30)
[2018-05-24] MEDS ORDERED: SOD CHLORIDE 0.9% 1,000 ML IV ONE ×2 (20:00→23:00)
[2018-05-24] MEDS ORDERED: DIPHENHYDRAMINE 50 MG INJ IV ONE ×2 (20:00→21:00)
--- NOTE | 2018-05-24 20:30 | ERD ---
ER Documentation Chief Complaint Chief Complaint C/O FULL BODY PAIN, HX OF SICKLE CELL HPI This is a 32-year-old female with a past medical history of sickle cell disease, frequent visits to the emergency department for sickle cell crises he is now presenting with concerns of a sickle cell crisis. The patient reports progressive worsening pain that began at rest. She is nonspecific with this pain. She describes full body pains that are sharp and intense. She is writhing around in the gurney. The patient reports difficulty standing still secondary to the pain. The patient denies feeling sick recently. The patient denies fever or chills. The patient has had no headache or vision changes. The patient does not endorse neck or back pain. The patient denies lightheadedness or dizziness. The patient has had no trouble breathing. The patient denies nausea or vomiting. The patient denies changes to bowel movements or urination. The patient has had no focal deficits. The patient has had no weakness or numbness or tingling to the face or extremities. ROS All systems reviewed and are negative except as per history of present illness. Medications Home Meds Active Scripts Albuterol Sulfate* (Proair HFA*) 8.5 Gm Hfa.aer.ad, 2 PUFF INH Q4H PRN for WHEEZING AND SOB, #1 INHALER Prov:SARAH ANTONIO MD 05/18/18 Azithromycin* (Azithromycin*) 250 Mg Tablet, 250 MG PO DAILY, #4 TAB Prov:SARAH ANTONIO MD 05/18/18 Reported Medications Hydrocodone/Acetaminophen ([place] 10-325 Tablet) 1 Each Tablet, 1 EACH PO Q6 PRN for PAIN, TAB 05/18/18 Folic Acid* (Folic Acid*) 1 Mg Tablet, 1 MG PO DAILY, TAB 05/18/18 Hydroxyurea* (Hydroxyurea*) 500 Mg Capsule, 500 MG PO BID, CAP 05/18/18 Diphenhydramine Hcl (Banophen) 25 Mg Capsule, 25 MG PO BID, CAP 03/21/18 Discontinued Scripts Hydroxyurea* (Hydroxyurea*) 500 Mg Capsule, 500 MG PO BID, #60 CAP 1 Refill Prov:CARIDAD CARRERA. 04/03/18 Folic Acid* (Folic Acid*) 1 Mg Tablet, 1 MG PO DAILY, #30 TAB 2 Refills Prov:CARIDAD CARRERA 04/03/18 Hydrocodone/Acetaminophen ([place] 10-325 Tablet) 1 Each Tablet, 1 TAB PO Q6H PRN for PAIN, #20 TAB Prov:GENSOCORROJEZTAMIA TiaraKerri SANTO 03/28/18 Docusate Sodium* (Colace*) 100 Mg Capsule, 100 MG PO TID, #30 CAP Prov:SARAH ANTONIO MD 03/11/18 Allergies Allergies: Coded Allergies: codeine (Unverified Allergy, Intermediate, ITCHY HIVES, 05/18/18) PMhx/Soc History of Surgery: Yes (C-sect - 2008; Cholecystectomy) Anesthesia Reaction: No Hx Neurological Disorder: No Hx Respiratory Disorders: No Hx Cardiac Disorders: No Hx Psychiatric Problems: No Hx Miscellaneous Medical Probl: Yes (SICKLE CELL DISEASE) Hx Alcohol Use: No Hx Substance Use: No Hx Tobacco Use: Yes (vapes) Smoking Status: Current every day smoker FmHx Family History: No diabetes Physical Exam Vitals Vital Signs Date Temp Pulse Resp B/P (MAP) Pulse Ox O2 O2 Flow FiO2 Time Delivery Rate 05/24/18 78 19 107/63 99 Room Air 22:57 (78) 05/24/18 81 20 124/78 99 Room Air 20:50 (93) 05/24/18 95 19 119/70 99 Room Air 19:57 (86) 05/24/18 97.2 98 22 98 19:08 Physical Exam Const: Well-developed, well-nourished. In emotional distress, uncomfortable in the gurney. Head: Normocephalic, Atraumatic Eyes: Normal Conjunctiva. Extraocular movements intact. Pupils equal, round and reactive to light ENT: Normal External Ears, Nose and Mouth. Neck: Full range of motion. No meningismus. Resp: Clear to auscultation bilaterally, No wheezes, rales or rhonchi Cardio: Regular rate and rhythm. No murmurs, rubs or gallops Abd: Soft, non tender, non distended. Normal bowel sounds Skin: No petechiae or rashes Back: No midline tenderness. No CVA tenderness Ext: No cyanosis, or edema Neur: Awake and alert, oriented 4. Cranial nerves intact. No facial droop. Normal strength, sensation and coordination. Psych: Anxious Result Diagram: 05/24/18200005/24/182000 Results 24 hrs Laboratory Tests Test 05/24/18 20:01 White Blood Count 14.8 10^3/ul Red Blood Count 3.14 10^6/ul Hemoglobin 8.9 g/dl Hematocrit 25.8 % Mean Corpuscular Volume 82.2 fl Mean Corpuscular Hemoglobin 28.3 pg Mean Corpuscular Hemoglobin Concent 34.5 g/dl Red Cell Distribution Width 17.9 % Platelet Count 580 10^3/UL Mean Platelet Volume 9.9 fl Immature Granulocytes % 7.600 % Neutrophils % % Segmented Neutrophils % (Manual) 39 % Band Neutrophils % (Manual) 1 % Lymphocytes % % Lymphocytes % (Manual) 49 % Reactive Lymphocytes % (Manual) 1 % Monocytes % % Monocytes % (Manual) 5 % Eosinophils % % Eosinophils % (Manual) 4 % Basophils % % Promyelocytes % (Manual) 1 % Nucleated Red Blood Cells % 7 % Immature Granulocytes # 1.120 10^3/ul Neutrophils # 10^3/ul Neutrophils # (Manual) 5.8 10^3/ul Band Neutrophils # 0.1 10^3/ul Lymphocytes (Manual) 7.2 10^3/ul Lymphocytes # 10^3/ul Reactive Lymphocytes # 0.1 10^3/ul Monocytes # 10^3/ul Monocytes # (Manual) 0.7 10^3/ul Eosinophils # 10^3/ul Basophils # 10^3/ul Promyelocytes # 0.1 10^3/ul Nucleated Red Blood Cells # 10^3/ul Platelet Estimate INCREASED Giant Platelets 7 % Polychromasia 1+ Anisocytosis 1+ Microcytosis 1+ Sickle Cells 1+ Absolute Reticulocyte Count 0.355 X10^6 Percent Reticulocyte Count 11.3 % Sodium Level 142 mmol/L Potassium Level 3.6 mmol/L Chloride Level 108 mmol/L Carbon Dioxide Level 23 mmol/L Anion Gap 11 Blood Urea Nitrogen 13 mg/dl Creatinine 0.46 mg/dl Est Glomerular Filtrat Rate mL/min > 60 mL/min Glucose Level 105 mg/dl Calcium Level 9.3 mg/dl Serum HCG, Qualitative NEGATIVE Current Medications Medications Dose Sig/Aguilar Start Time Status Last (Trade) Ordered Route PRN Stop Time Admin Dose Reason Admin 1 mg ONCE STAT 05/24/18 DC 05/24/18 Hydromorphone IV 19:38 19:57 HCl 05/24/18 19:41 (Dilaudid) 25 mg ONCE ONCE 05/24/18 DC 05/24/18 Diphenhydrami IV 20:00 19:57 ne HCl 05/24/18 20:01 (Benadryl) Sodium 1,000 ml @ Q1H ONCE 05/24/18 DC 05/24/18 Chloride 1,000 mls/hr IV 20:00 19:57 05/24/18 20:59 Ketorolac 15 mg ONCE STAT 05/24/18 DC 05/24/18 Tromethamine IV 19:38 20:52 (Toradol) 05/24/18 19:41 1 mg ONCE STAT 05/24/18 DC 05/24/18 Hydromorphone IV 20:30 20:52 HCl 05/24/18 20:31 (Dilaudid) 25 mg ONCE ONCE 05/24/18 DC 05/24/18 Diphenhydrami IV 21:00 20:53 ne HCl 05/24/18 21:01 (Benadryl) 1 mg ONCE STAT 05/24/18 DC 05/24/18 Hydromorphone IV 22:30 22:54 HCl 05/24/18 22:32 (Dilaudid) Sodium 1,000 ml @ Q1H ONCE 05/24/18 05/24/18 Chloride 1,000 mls/hr IV 23:00 22:53 05/24/18 23:59 Ondansetron 4 mg BRIDGE ORDER 05/24/18 HCl (Zofran PRN IV 23:00 Inj) NAUSEA AND/OR 05/25/18 22:59 VOMITING 650 mg ER BRIDGE 05/24/18 Acetaminophen PRN PO MILD 23:00 (Tylenol PAIN(1-3)OR 05/25/18 22:59 Tab) ELEVATED TEMP 1 mg Q4H PRN 05/24/18 Hydromorphone IV SEVERE 23:00 HCl PAIN LEVEL (Dilaudid) 7-10 25 mg Q6H PRN 05/24/18 Diphenhydrami PO ITCHING 23:00 ne HCl (Benadryl) Sodium 1,000 ml @ Q8H IV 05/24/18 Chloride 125 mls/hr 23:00 Albuterol 2 puff Q4H RESP 05/24/18 (Ventolin THERAPY PRN 23:00 Hfa) INH WHEEZING AND SOB Folic Acid 1 mg DAILY PO 05/24/18 (Folic Acid) 23:00 Hydroxyurea 500 mg BID PO 05/24/18 (Hydrea) 23:00 Enoxaparin 40 mg DAILY SC 05/24/18 Sodium 23:00 (Lovenox) IV Flush 3 ml PER 05/24/18 (NS 3 ml) PROTOCOL IV 23:00 Ondansetron 4 mg Q6H PRN 05/24/18 HCl (Zofran IV NAUSEA 23:00 Inj) AND/OR VOMITING 650 mg Q6H PRN 05/24/18 Acetaminophen PO PAIN 23:00 (Tylenol LEVEL 1-3 OR Tab) FEVER Docusate 100 mg Q12H PRN 05/24/18 Sodium PO 23:00 (Colace) CONSTIPATION Bisacodyl 5 mg DAILY PRN 05/24/18 (Dulcolax) PO 23:00 CONSTIPATION Procedures/MDM MDM The patient's presentation warrants further investigation. Previous medical records, if available, were reviewed. LABS The patient's laboratory testing was obtained and reviewed. No emergent treatment was required unless described below. CBC: Leukocytosis without shift, likely reactive. Normocytic anemia with a reticulocytosis, likely related to her sickle cell disease and crisis. Thrombocytosis, likely reactive. BMP: No E/o severe acidosis or alkalosis or renal failure or diabetic ketoacidosis TREATMENT/DISPOSITION The patient presents with symptoms concerning for a sickle cell crisis. Her symptoms are typical of her exacerbated sickle cell pains. The patient's lungs are completely clear. The patient does not endorse specific chest pains. I have low suspicion for acute chest syndrome. The patient was treated with IV fluids, Toradol, 1 mg of Dilaudid and Benadryl with minimal improvement of her symptoms. She did require additional dosing of Dilaudid and Benadryl with minimal improvement of her pain. On reassessment of the patient, the patient did not feel that she would be able to get her symptoms under control in an outpatient setting. Given the patient significant reticulocytosis, I do believe that the patient is in a sickle cell crisis, and she may benefit from inpatient management. At this time, I feel that the patient requires admission for further evaluation and management. The patient will be admitted to panel in accordance with the patient's insurance. The patient was accepted by Dr. Stephan at 10:56PM. Disclaimer: Inadvertent spelling and grammatical errors are likely due to EHR/dictation software use and do not reflect on the overall quality of patient care. Note that the electronic time recorded on this note does not necessarily reflect the actual time of the patient encounter. Departure Diagnosis: Primary Impression: Sickle cell pain crisis Additional Impressions: Reticulocytosis Normocytic anemia Leukocytosis Leukocytosis type: unspecified Qualified Codes: D72.829 - Elevated white blood cell count, unspecified Condition: Stable JUNE CHEW MD May 24, 2018 20:29
--- NOTE | 2018-05-24 22:55 | HP ---
Date/Time of Note Date/Time of Note DATE: 05/24/18 TIME: 22:55 Assessment/Plan VTE Prophylaxis Pharmacological prophylaxis: LMWH Lines/Catheters IV Catheter Type (from [facility]): PORTACATH Assessment/Plan Hospital Course This is a 32 female being admitted to the [facility] floor for: #1 sickle cell crisis. Patient does appear to be relatively comfortable at this point however she did receive Dilaudid. Patient has multiple admissions to our facility and so there is concern for drug-seeking behavior. She does have an elevated white blood cell count and an elevated reticulocyte count. So at the current time we will proceed to treat her for sickle cell crisis. IV Dilaudid every 4 hours, she was requesting IV Benadryl which she received in the ED, however I will may be giving her p.o. Benadryl for itching. IV fluid hydration with normal saline, continue hydroxyurea #2 leukocytosis: No signs of fever at the current time. This could be a stress related response. Will obtain a chest x-ray as patient reports that she has had a cough productive of phlegm apparently though in front of me she was not coughing at all. We will check a urinalysis as well. #3 sickle cell disease: Continue hydroxyurea, folic acid #4 DVT GI prophylaxis: Lovenox, no GI prophylaxis indicated Further treatment strategy will be implemented as per the clinical course Result Diagram: 05/24/18200005/24/182000 Results 24hrs Laboratory Tests Test 05/24/18 20:01 White Blood Count 14.8 H Red Blood Count 3.14 L Hemoglobin 8.9 L Hematocrit 25.8 L Mean Corpuscular Volume 82.2 Mean Corpuscular Hemoglobin 28.3 L Mean Corpuscular Hemoglobin Concent 34.5 Red Cell Distribution Width 17.9 H Platelet Count 580 H Mean Platelet Volume 9.9 Immature Granulocytes % 7.600 H Neutrophils % Segmented Neutrophils % (Manual) 39 Band Neutrophils % (Manual) 1 Lymphocytes % Lymphocytes % (Manual) 49 Reactive Lymphocytes % (Manual) 1 H Monocytes % Monocytes % (Manual) 5 Eosinophils % Eosinophils % (Manual) 4 Basophils % Promyelocytes % (Manual) 1 H Nucleated Red Blood Cells % 7 H Immature Granulocytes # 1.120 H Neutrophils # Neutrophils # (Manual) 5.8 Band Neutrophils # 0.1 Lymphocytes (Manual) 7.2 H Lymphocytes # Reactive Lymphocytes # 0.1 H Monocytes # Monocytes # (Manual) 0.7 Eosinophils # Basophils # Promyelocytes # 0.1 H Nucleated Red Blood Cells # Platelet Estimate INCREASED Giant Platelets 7 H Polychromasia 1+ Anisocytosis 1+ Microcytosis 1+ Sickle Cells 1+ Absolute Reticulocyte Count 0.355 H Percent Reticulocyte Count 11.3 H Sodium Level 142 Potassium Level 3.6 Chloride Level 108 Carbon Dioxide Level 23 Anion Gap 11 Blood Urea Nitrogen 13 Creatinine 0.46 Est Glomerular Filtrat Rate mL/min > 60 Glucose Level 105 Calcium Level 9.3 Serum HCG, Qualitative NEGATIVE HPI/ROS Admit Date/Time Admit Date/Time Hx of Present Illness Chief complaint: Pain all over the body This is a 32-year-old female with a past medical history of sickle cell disease, frequent visits to the emergency department for sickle cell crises he is now presenting with concerns of a sickle cell crisis. The patient reports progressive worsening pain that began at rest. She is nonspecific with this pain. She describes full body pains that are sharp and intense. Apparently in the emergency room she was writhing in the gurney. She is writhing around in the gurney. She was requesting IV Dilaudid as well as IV Benadryl. Upon my examination the patient at the bedside patient was laying comfortably on the phone and eating peanut butter. She did not look to be in distress. She though reported that she had back pain and has had a cough times 1 week with phlegm. She denies fevers. She did not report the cough to the ER physician. Allergies: Codeine Medications: Hydroxyurea Folic acid Benadryl [place] Albuterol as needed ROS Const: As per HPI Eyes : No pain discharge or redness or change in visual acuity ENT: No pain, sore throat, congestion, congestion, dysphagia or discharge Respiratory: As per HPI Cardiovascular: No chest pain, palpitation, PND, or edema GI : no change in appetite, abdominal pain, nausea, vomiting, diarrhea, constipation, or change in the color his stool Genitourinary: No dysuria, hematuria, flank pain , discharge or CVA tenderness Musculoskeletal: As per HPI Skin: No rash, bruising or hives Neuro: No headache, dizziness, syncope, seizure, focal weakness Endocrine: No polyuria, polydipsia, temperature intolerance Psych: No hallucination, depression, anxiety or suicidal ideation PMH/Family/Social Past Medical History Sickle cell disease Medications Current Medications Sodium Chloride 1,000 ml @ 1,000 mls/hr Q1H ONCE IV ; Start 05/24/18 at 23:00; Stop 05/24/18 at 23:59 Ondansetron HCl (Zofran Inj) 4 mg BRIDGE ORDER PRN IV NAUSEA AND/OR VOMITING; Start 05/24/18 at 23:00; Stop 05/25/18 at 22:59 Acetaminophen (Tylenol Tab) 650 mg ER BRIDGE PRN PO MILD PAIN(1-3)OR ELEVATED TEMP; Start 05/24/18 at 23:00; Stop 05/25/18 at 22:59 Hydromorphone HCl (Dilaudid) 1 mg Q4H PRN IV SEVERE PAIN LEVEL 7-10; Start 05/24/18 at 23:00; Status UNV Diphenhydramine HCl (Benadryl) 25 mg Q6H PRN PO ITCHING; Start 05/24/18 at 23:00; Status UNV Sodium Chloride 1,000 ml @ 125 mls/hr Q8H IV ; Start 05/24/18 at 23:00; Status UNV Albuterol (Ventolin Hfa) 2 puff Q4H PRN INH WHEEZING AND SOB; Start 05/24/18 at 23:00; Status UNV Folic Acid (Folic Acid) 1 mg DAILY PO ; Start 05/24/18 at 23:00; Status UNV Hydroxyurea (Hydrea) 500 mg BID PO ; Start 05/24/18 at 23:00; Status UNV Enoxaparin Sodium (Lovenox) 40 mg DAILY SC ; Start 05/24/18 at 23:00; Status UNV Coded Allergies: codeine (Verified Allergy, Intermediate, ITCHY HIVES, 05/25/18) Past Surgical History x3 Past Surgical Hx: cholecystectomy, other Family History Significant Family History: no pertinent family hx, other Social History Smoking Status: Current every day smoker Exam/Review of Systems Vital Signs Vitals Vital Signs Date Temp Pulse Resp B/P (MAP) Pulse Ox O2 O2 Flow FiO2 Time Delivery Rate 05/24/18 81 20 124/78 99 Room Air 20:50 (93) 05/24/18 97.2 19:08 Exam Exam General: Patient is currently lying in bed she does not appear to be in any acute distress, however she was medicated earlier with Dilaudid. HEENT: Atraumatic, normocephalic. The pupils are equal, round and reactive. Extraocular motor are intact Neck: Supple with full range of motion. No rigidity or meningismus Chest: Nontender, Port-A-Cath Lungs: Clear to auscultation bilaterally no crackles rales or wheezing Heart: Normal S1-S2, Regular rhythm and rate. No murmur, S3, or S4 Abdomen: Soft , nontender, nondistended , bowel sounds are present. No guarding no rebound tenderness , No masses or organomegaly. No costovertebral temporal angle mass Extremities: Normal to inspection, no edema no cyanosis Neurologic: Normal mental status, speech normal, cranial nerves II through XII are intact, motor and sensory are intact, no focal weakness MAX MARTÍNEZ May 24, 2018 22:55
[2018-05-24] MEDS: ENOXAPARIN 40 MG/0.4 ML SYG SC SCH (23:00)
[2018-05-24] MEDS ORDERED: DOCUSATE SODIUM 100 MG CAP PO PRN (23:00)
[2018-05-24] MEDS ORDERED: ACETAMINOPHEN 325 MG TAB PO PRN ×2 (23:00)
[2018-05-24] MEDS ORDERED: BISACODYL (EC) 5 MG TAB PO PRN (23:00)
[2018-05-24] MEDS ORDERED: DIPHENHYDRAMINE 25 MG CAP PO PRN (23:00)
[2018-05-24] MEDS ORDERED: ONDANSETRON 4 MG INJ IV PRN ×2 (23:00)
[2018-05-24] MEDS ORDERED: ALBUTEROL HFA 8 GM INHALER INH PRN (23:00)
[2018-05-24] MEDS ORDERED: NACL 0.9% 3 ML SYG IV SCH (23:00)
[2018-05-24] MEDS ORDERED: hydrOXYzine HCL 10 MG TAB PO ONE (23:30)
[2018-05-25] MEDS: SOD CHLORIDE 0.9% 1,000 ML IV SCH ×5 (00:15→23:00)
[2018-05-25] MEDS: HYDROmorphONE 1 MG/ML SYG IV PRN ×4 (00:23→08:41)
[2018-05-25] MEDS: HYDROXYUREA 500 MG CAP PO SCH ×3 (00:30→21:00)
[2018-05-25 00:32] VITALS: Ht 162.6 cm; Wt 46.8 kg
[2018-05-25 01:42] VITALS: BP 118/74; PULSE 85; RESP 18
[2018-05-25] MEDS: DIPHENHYDRAMINE 25 MG CAP PO PRN ×2 (02:15→08:41)
[2018-05-25] MEDS ORDERED: DIPHENHYDRAMINE 25 MG CAP PO PRN (05:00)
[2018-05-25] MEDS: FOLIC ACID 1 MG TAB PO SCH (08:40)
[2018-05-25] MEDS: ENOXAPARIN 40 MG/0.4 ML SYG SC SCH (08:44)
[2018-05-25] MEDS ORDERED: LORAZEPAM 2 MG INJ IV ONE (11:00)
--- NOTE | 2018-05-25 12:57 | PN ---
Date/Time of Note Date/Time of Note DATE: 05/25/18 TIME: 12:56 Assessment/Plan VTE Prophylaxis Risk score (from Ns)>0 risk: 2 SCD applied (from Ns): No SCD contraindicated: low risk/ambulating Pharmacological prophylaxis: heparin Lines/Catheters IV Catheter Type (from Nrsg): PORTACATH Assessment/Plan Problems: (1) Sickle cell pain crisis Status: Acute Comment: Continue with pain management and support. At this time she actually does not look too bad but she is still complaining. Brief increase in the pain medicine is not with scheduled timeframe for to wean downward (2) Sickle cell anemia Status: Chronic Comment: Chronic issue currently under management. (3) Bronchitis Status: Acute Result Diagram: 05/25/18 0449 05/25/18 0449 Results 24hrs Laboratory Tests Test 05/24/18 20:01 05/25/18 04:49 White Blood Count 14.8 H 16.7 H Red Blood Count 3.14 L 2.60 L Hemoglobin 8.9 L 7.4 L Hematocrit 25.8 L 22.0 L Mean Corpuscular Volume 82.2 84.6 Mean Corpuscular Hemoglobin 28.3 L 28.5 L Mean Corpuscular Hemoglobin Concent 34.5 33.6 Red Cell Distribution Width 17.9 H 18.5 H Platelet Count 580 H 385 # Mean Platelet Volume 9.9 10.6 H Immature Granulocytes % 7.600 H 5.900 H Neutrophils % Segmented Neutrophils % (Manual) 39 36 L Band Neutrophils % (Manual) 1 Lymphocytes % Lymphocytes % (Manual) 49 52 H Reactive Lymphocytes % (Manual) 1 H Monocytes % Monocytes % (Manual) 5 4 Eosinophils % Eosinophils % (Manual) 4 6 Basophils % Promyelocytes % (Manual) 1 H Nucleated Red Blood Cells % 7 H 4 H Immature Granulocytes # 1.120 H 0.980 H Neutrophils # Neutrophils # (Manual) 5.8 Band Neutrophils # 0.1 Lymphocytes (Manual) 7.2 H 8.6 H Lymphocytes # Reactive Lymphocytes # 0.1 H Monocytes # Monocytes # (Manual) 0.7 0.6 Eosinophils # Basophils # Promyelocytes # 0.1 H Nucleated Red Blood Cells # Platelet Estimate INCREASED NORMAL Giant Platelets 7 H Polychromasia 1+ 3+ Anisocytosis 1+ 1+ Microcytosis 1+ Sickle Cells 1+ 1+ Absolute Reticulocyte Count 0.355 H Percent Reticulocyte Count 11.3 H Sodium Level 142 143 Potassium Level 3.6 3.4 L Chloride Level 108 114 H Carbon Dioxide Level 23 22 Anion Gap 11 7 Blood Urea Nitrogen 13 10 Creatinine 0.46 0.33 L Est Glomerular Filtrat Rate mL/min > 60 > 60 Glucose Level 105 81 Calcium Level 9.3 8.2 L Serum HCG, Qualitative NEGATIVE Metamyelocytes % (manual) 1 H Myelocytes % (Manual) 1 H Metamyelocytes # 0.1 H Myelocytes # 0.1 H Poikilocytosis 1+ Target Cells 1+ Total Bilirubin 1.1 Direct Bilirubin 0.00 Indirect Bilirubin 1.1 Aspartate Amino Transf (AST/SGOT) 38 Alanine Aminotransferase (ALT/SGPT) 16 Alkaline Phosphatase 64 Total Protein 7.0 Albumin 3.8 Globulin 3.20 Albumin/Globulin Ratio 1.18 Subjective 24 Hr Interval Summary Free Text/Dictation Patient sitting up in bed eating lunch. She reports her pain control is fair with her pain between 4 and 7 out of 10 Constitutional: no complaints Respiratory: no complaints Cardiovascular: no complaints Exam/Review of Systems Vital Signs Vitals Vital Signs Date Temp Pulse Resp B/P (MAP) Pulse Ox O2 O2 Flow FiO2 Time Delivery Rate 05/25/18 98.6 85 18 118/74 98 01:42 (89) 05/24/18 Room Air 22:57 Intake and Output 05/24/18 05/24/18 05/25/18 1515:00 23:00 07:00 IntakeIntake Total 400 ml BalanceBalance 400 ml Exam Constitutional: alert, oriented Neck: supple, non-tender Respiratory: clear to auscultation, normal air movement Cardiovascular: regular rate and rhythm, nl pulses Medications Medications Current Medications Hydromorphone HCl (Dilaudid) 1 mg Q4H PRN IV SEVERE PAIN LEVEL 7-10 Last administered on 05/25/18at 08:41; Admin Dose 1 MG; Start 05/24/18 at 23:00 Sodium Chloride 1,000 ml @ 125 mls/hr Q8H IV Last administered on 05/25/18at 10:06; Admin Dose 125 MLS/HR; Start 05/24/18 at 23:00 Albuterol (Ventolin Hfa) 2 puff Q4H RESP THERAPY PRN INH WHEEZING AND SOB; Start 05/24/18 at 23:00 Folic Acid (Folic Acid) 1 mg DAILY PO Last administered on 05/25/18at 08:40; Admin Dose 1 MG; Start 05/24/18 at 23:00 Hydroxyurea (Hydrea) 500 mg BID PO ; Start 05/24/18 at 23:00 Enoxaparin Sodium (Lovenox) 40 mg DAILY SC ; Start 05/24/18 at 23:00 IV Flush (NS 3 ml) 3 ml PER PROTOCOL IV ; Start 05/24/18 at 23:00 Ondansetron HCl (Zofran Inj) 4 mg Q6H PRN IV NAUSEA AND/OR VOMITING; Start at 23:00 Acetaminophen (Tylenol Tab) 650 mg Q6H PRN PO PAIN LEVEL 1-3 OR FEVER; Start 05/24/18 at 23:00 Docusate Sodium (Colace) 100 mg Q12H PRN PO CONSTIPATION; Start 05/24/18 at 23:00 Bisacodyl (Dulcolax) 5 mg DAILY PRN PO CONSTIPATION; Start 05/24/18 at 23:00 Diphenhydramine HCl (Benadryl) 50 mg Q6H PRN PO ITCHING Last administered on 05/25/18at 08:41; Admin Dose 50 MG; Start 05/25/18 at 02:30 RYLIE CHAUDHARY MD May 25, 2018 12:57
[2018-05-25] MEDS: DIPHENHYDRAMINE 50 MG INJ IV PRN ×2 (13:19→19:16)
[2018-05-25] MEDS: HYDROmorphONE 2 MG/ML SYG IV PRN ×3 (13:19→21:26)
[2018-05-25 21:23] VITALS: BP 119/64; PULSE 72; RESP 18
[2018-05-25] MEDS ORDERED: DIPHENHYDRAMINE 50 MG INJ IV ONE (22:30)
[2018-05-26] MEDS: HYDROmorphONE 2 MG/ML SYG IV PRN ×6 (01:25→21:28)
[2018-05-26 02:00] VITALS: BP 111/62; PULSE 81; RESP 18
[2018-05-26] MEDS: DIPHENHYDRAMINE 50 MG INJ IV PRN ×4 (02:15→20:16)
[2018-05-26] MEDS: SOD CHLORIDE 0.9% 1,000 ML IV SCH ×5 (04:37→21:16)
[2018-05-26 07:22] VITALS: BP 115/60; PULSE 73; RESP 16
[2018-05-26] MEDS: ENOXAPARIN 40 MG/0.4 ML SYG SC SCH (09:00)
[2018-05-26] MEDS: FOLIC ACID 1 MG TAB PO SCH (09:00)
[2018-05-26] MEDS: HYDROXYUREA 500 MG CAP PO SCH ×2 (09:22→20:19)
[2018-05-26] MEDS ORDERED: ALPRAZOLAM 0.25 MG TAB PO PRN (11:00)
[2018-05-26 15:14] VITALS: BP 106/68; RESP 17
[2018-05-26] MEDS ORDERED: MAGNESIUM SULFATE 2 GM/50 ML 50 ML IVPB ONE (19:00)
--- NOTE | 2018-05-26 19:19 | PN ---
DATE: 05/26/2018 The time of evaluation was about 12:30 p.m. SUBJECTIVE: The patient states she continues to have generalized aches. PHYSICAL EXAMINATION GENERAL: The patient looks completely comfortable. She is watching a movie in her phone. She is in no distress. HEENT: Head is normocephalic. Pupils are equal and reactive. She does have conjunctival pallor. M ucous membranes are moist. NECK: Supple. CHEST: Clear. CARDIOVASCULAR: S1 and S2. ABDOMEN: Soft, nontender. There is no lower extremity edema. VITAL SIGNS: Temperature 98.7, pulse 73, respirations 16, blood pressure 115/60, saturations 100% on room air. LABORATORY VALUES: We do not have any new lab values to report today, though she did have a leukocyt osis yesterday and her hemoglobin did drop. IMAGING STUDIES: She had a chest x-ray on arrival that was concerning for sclerosis and bone infarct that is characteristic of sickle cell disease. ASSESSMENT: This 32-year-old female with known sickle cell disease who presents with: 1. Sickle cell crisis. The patient does have real crisis as evidenced by leukocytosis and elevated reticulocyte count. Continue pain control. Continue IV fluids. 2. Anemia, which is likely chronic. It looks like the patient's baseline hemoglobin is in the 8, so this is a little lower than normal for her, but we will repeat levels and see where she is and consi sammi transfusion depending on her symptomatology. She continues to be in pain. I have also considere d pain management consult. Also continue hydroxyurea. DISPOSITION: Continue inpatient management. Follow up labs. Discharge when clinically improved. Dictated By: MELISSA WELLS MD, BA/NTS Conf#: [id number] DID#: [id number]
[2018-05-26 20:15] VITALS: BP 96/54; PULSE 79; RESP 18
[2018-05-27] MEDS: HYDROmorphONE 2 MG/ML SYG IV PRN ×3 (02:05→11:16)
[2018-05-27] MEDS: DIPHENHYDRAMINE 50 MG INJ IV PRN ×2 (02:05→08:03)
[2018-05-27 02:57] VITALS: BP 95/60; PULSE 72; RESP 18
[2018-05-27] MEDS ORDERED: LORAZEPAM 0.5 MG TAB PO PRN (05:00)
[2018-05-27] MEDS: SOD CHLORIDE 0.9% 1,000 ML IV SCH ×4 (07:01→22:12)
[2018-05-27 07:49] VITALS: BP 123/66; PULSE 72; RESP 18
[2018-05-27] MEDS: FOLIC ACID 1 MG TAB PO SCH (08:03)
[2018-05-27] MEDS: HYDROXYUREA 500 MG CAP PO SCH ×2 (08:05→21:33)
[2018-05-27] MEDS: ENOXAPARIN 40 MG/0.4 ML SYG SC SCH (08:05)
--- NOTE | 2018-05-27 08:15 | CONS ---
Date/Time of Note Date/Time of Note DATE: 05/27/18 TIME: 08:10 Assessment/Plan Assessment/Plan Assessment/Plan Sickle cell crisis Receiving IV fluids Pain control is good at this time although patient is negotiating for higher doses of opioids expressed to her that I think that current dose for her size and the degree of her pain on examination visually does not warrant increasing opioids were adding on benzodiazepines. Anemia with leukocytosis and elevated reticulocyte count Workup per internal medicine Social work service consultation patient would benefit from being in referred to a multispecialty group secondary to multiple hospitalizations, anxiety possible social complications requiring multiple admissions addition to sickle cell crisis. Result Diagram: 05/27/18 0551 05/27/18 0551 Results 24hrs Laboratory Tests Test 05/26/18 11:10 05/27/18 05:51 Magnesium Level 1.5 L White Blood Count 9.5 # Red Blood Count 2.62 L Hemoglobin 7.4 L Hematocrit 21.8 L Mean Corpuscular Volume 83.2 Mean Corpuscular Hemoglobin 28.2 L Mean Corpuscular Hemoglobin Concent 33.9 Red Cell Distribution Width 18.7 H Platelet Count 532 #H Mean Platelet Volume 10.1 Immature Granulocytes % 2.300 H Neutrophils % 45.5 Lymphocytes % 28.9 Monocytes % 14.8 H Eosinophils % 7.7 H Basophils % 0.8 Nucleated Red Blood Cells % 8.3 H Immature Granulocytes # 0.220 H Neutrophils # 4.3 Lymphocytes # 2.8 Monocytes # 1.4 H Eosinophils # 0.7 H Basophils # 0.1 Nucleated Red Blood Cells # 0.8 H Sodium Level 141 Potassium Level 3.5 Chloride Level 110 Carbon Dioxide Level 23 Anion Gap 8 Blood Urea Nitrogen 3 L Creatinine 0.33 L Est Glomerular Filtrat Rate mL/min > 60 Glucose Level 77 Calcium Level 8.5 Consultation Date/Type/Reason Admit Date/Time Hx of Present Illness Is a 32-year-old female who is well-known to me from prior hospitalizations who presented to [facility] emergency room with a sickle cell crisis. Patient states that this is a different than her prior presentations where she is developed lumbosacral spine discomfort this time she is complaining of severe pain. States her pain is 10/10 with medications as noted in her medical record when medicated in the emergency room her pain was controlled and she was sleeping at however now she complains of severe pain. Lumbosacral spine pain does not radiate into her buttocks and calves or thighs. She denies any warning signs pelvic anesthesia or recent febrile illness although she does complain of increasing cough lately which she states she has had some streaks of blood associated with it. Denies fecal or urinary incontinence. Began approximately 2 days prior to hospitalization. Currently receiving Dilaudid 0.5 mg every 4 hours as needed pain, Benadryl 25 mg p.o. every 6 hours as needed. As an outpatient she is receiving folic acid and hydroxyurea 500 mg twice daily. There is no history of drug abuse in the past, patient is nondrinker non-smoker no street drug use, motor vehicle accidents or altercations with law enforcement. Patient is negotiating for higher dose of opioids and benzodiazepines. Grossly on examination she does not appear to be unkempt or intoxicated or overmedicated. In her last hospitalization she was requesting frequent increasing and dosings in lowering intervals required a prolonged hospitalization during medical record she has had multiple hospitalizations approximately at 4-6-week intervals. Constitutional: other (Acute distress, comfortable, smiling) Eyes: No no complaints, No pain, No discharge, No redness, No visual change, No other ENT: No no complaints, No bleeding, No pain, No congestion, No discharge, No dysphagia, No sore throat, No other Respiratory: cough, sputum Cardiovascular: no complaints; No chest pain, No edema, No lightheadedness, No orthopenea, No palpitations, No paroxysmal nocturnal dyspnea, No other Gastrointestinal: No no complaints, No pain, No blood, No constipation, No decreased appetite, No diarrhea, No flatus, No nausea, No passing stool, No vomiting, No other Genitourinary: No no complaints, No bleeding, No dysuria, No discharge, No flan k pain, No hematuria, No other Musculoskeletal: other (Refer to history of present illness) Skin: No no complaints, No bruising, No erythema, No laceration, No pruritis, No rash, No skin lesions, No other Neurologic: No no complaints, No confusion, No dizziness, No focal-weakness, No headache, No syncope, No seizure, No other Endocrine: No no complaints, No polyuria, No polydypsia, No dry skin, No temp intolerance, No other Psychological: No no complaints, No nl mood/affect, No anxiety, No confusion, No depression, No suicidal, No other Past Medical History Medications Current Medications Sodium Chloride 1,000 ml @ 125 mls/hr Q8H IV Last administered on 05/27/18at 07:01; Admin Dose 125 MLS/HR; Start 05/24/18 at 23:00 Albuterol (Ventolin Hfa) 2 puff Q4H RESP THERAPY PRN INH WHEEZING AND SOB; Start 05/24/18 at 23:00 Folic Acid (Folic Acid) 1 mg DAILY PO Last administered on 05/27/18at 08:03; Admin Dose 1 MG; Start 05/24/18 at 23:00 Hydroxyurea (Hydrea) 500 mg BID PO Last administered on 05/27/18at 08:05; Admin Dose 500 MG; Start 05/24/18 at 23:00 Enoxaparin Sodium (Lovenox) 40 mg DAILY SC ; Start 05/24/18 at 23:00 IV Flush (NS 3 ml) 3 ml PER PROTOCOL IV ; Start 05/24/18 at 23:00 Ondansetron HCl (Zofran Inj) 4 mg Q6H PRN IV NAUSEA AND/OR VOMITING; Start 05/24/18 at 23:00 Acetaminophen (Tylenol Tab) 650 mg Q6H PRN PO PAIN LEVEL 1-3 OR FEVER; Start 05/24/18 at 23:00 Docusate Sodium (Colace) 100 mg Q12H PRN PO CONSTIPATION; Start 05/24/18 at 23:00 Bisacodyl (Dulcolax) 5 mg DAILY PRN PO CONSTIPATION; Start 05/24/18 at 23:00 Diphenhydramine HCl (Benadryl) 50 mg Q6H PRN PO ITCHING Last administered on 05/25/18at 08:41; Admin Dose 50 MG; Start 05/25/18 at 02:30 Hydromorphone HCl (Dilaudid) 1.5 mg Q3 PRN IV SEVERE PAIN LEVEL 7-10 Last administered on 05/27/18at 06:59; Admin Dose 1.5 MG; Start 05/25/18 at 13:00; Stop 05/27/18 at 12:59 Diphenhydramine HCl (Benadryl) 25 mg Q6H PRN IV ITCHING Last administered on 05/27/18at 08:03; Admin Dose 25 MG; Start 05/25/18 at 13:00; Stop 05/27/18 at 12:59 Lorazepam (Ativan) 0.5 mg TID PRN PO ANXIETY Last administered on 05/27/18at 06:59; Admin Dose 0.5 MG; Start 05/27/18 at 05:00 Allergies: Coded Allergies: codeine (Verified Allergy, Intermediate, ITCHY HIVES, 05/25/18) Past Surgical History Past Surgical Hx: cholecystectomy, other Social History Alcohol Use: none Smoking Status: Never smoker Drug Use: none Exam/Review of Systems Vital Signs Vitals Vital Signs Date Temp Pulse Resp B/P (MAP) Pulse Ox O2 O2 Flow FiO2 Time Delivery Rate 05/27/18 99.0 72 18 123/66 97 07:49 (85) 05/26/18 Room Air 15:14 Intake and Output 05/26/18 05/26/18 05/27/18 1414:59 22:59 06:59 IntakeIntake Total 1890 ml 1360 ml 50 ml BalanceBalance 1890 ml 1360 ml 50 ml Exam Constitutional: alert, oriented, well developed Head: normocephalic, atraumatic; No lacerations, No hematomas, No other Eyes: nl conjunctiva, EOMI, nl lids, nl sclera, PERRL; No icteric, No fundi, disc, No other Neck: supple, non-tender; No jvd, No bruits, No masses, No thyromegaly, No nuchal rigidity, No other Respiratory: clear to auscultation, normal air movement; No congested cough, No crackles/rales, No diminished breath sounds, No intercostal retraction, No labored breathing, No respirations, No tactile fremitus, No wheezing, No other Cardiovascular: regular rate and rhythm, nl pulses; No bruits, No diastolic murmur, No edema, No gallop, No irregular rhythm, No jugular venous distention (JVD), No murmurs/extra sounds, No rub, No systolic murmur, No S3, No S4, No other Gastrointestinal: soft, nl liver, spleen, non-tender; No ascites, No bowel sounds, No distended, No firm, No hepatomegaly, No mass, No rebound or guarding, No splenomegaly, No surgical scars, No tender, No other Musculoskeletal: joint tenderness, other (Range of motion bilateral lower extremities grossly intact point tenderness bilateral lumbar sacral spine without gross edema erythema) 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, nl mental status, nl speech, nl strength Medications Medications Current Medications Sodium Chloride 1,000 ml @ 125 mls/hr Q8H IV Last administered on 05/27/18at 07:01; Admin Dose 125 MLS/HR; Start 05/24/18 at 23:00 Albuterol (Ventolin Hfa) 2 puff Q4H RESP THERAPY PRN INH WHEEZING AND SOB; Start 05/24/18 at 23:00 Folic Acid (Folic Acid) 1 mg DAILY PO Last administered on 05/27/18at 08:03; Admin Dose 1 MG; Start 05/24/18 at 23:00 Hydroxyurea (Hydrea) 500 mg BID PO Last administered on 05/27/18at 08:05; Admin Dose 500 MG; Start 05/24/18 at 23:00 Enoxaparin Sodium (Lovenox) 40 mg DAILY SC ; Start 05/24/18 at 23:00 IV Flush (NS 3 ml) 3 ml PER PROTOCOL IV ; Start 05/24/18 at 23:00 Ondansetron HCl (Zofran Inj) 4 mg Q6H PRN IV NAUSEA AND/OR VOMITING; Start 05/24/18 at 23:00 Acetaminophen (Tylenol Tab) 650 mg Q6H PRN PO PAIN LEVEL 1-3 OR FEVER; Start 05/24/18 at 23:00 Docusate Sodium (Colace) 100 mg Q12H PRN PO CONSTIPATION; Start 05/24/18 at 23:00 Bisacodyl (Dulcolax) 5 mg DAILY PRN PO CONSTIPATION; Start 05/24/18 at 23:00 Diphenhydramine HCl (Benadryl) 50 mg Q6H PRN PO ITCHING Last administered on 05/25/18at 08:41; Admin Dose 50 MG; Start 05/25/18 at 02:30 Hydromorphone HCl (Dilaudid) 1.5 mg Q3 PRN IV SEVERE PAIN LEVEL 7-10 Last administered on 05/27/18at 06:59; Admin Dose 1.5 MG; Start 05/25/18 at 13:00; Stop 05/27/18 at 12:59 Diphenhydramine HCl (Benadryl) 25 mg Q6H PRN IV ITCHING Last administered on 05/27/18at 08:03; Admin Dose 25 MG; Start 05/25/18 at 13:00; Stop 05/27/18 at 12:59 Lorazepam (Ativan) 0.5 mg TID PRN PO ANXIETY Last administered on 05/27/18at 06:59; Admin Dose 0.5 MG; Start 05/27/18 at 05:00 REBECCA SWAIN May 27, 2018 08:15
--- NOTE | 2018-05-27 12:41 | PN ---
Date/Time of Note Date/Time of Note DATE: 05/27/18 TIME: 12:41 Assessment/Plan VTE Prophylaxis Risk score (from Ns)>0 risk: 2 SCD applied (from [facility] No SCD contraindicated: low risk/ambulating Pharmacological prophylaxis: NA/contraindicated Pharm contraindication: patient refusal Lines/Catheters IV Catheter Type (from [facility]): Port A Cath Assessment/Plan Assessment/Plan This 32-year-old female with known sickle cell disease who presents with: 1. Acute Sickle cell pain crisis. -Patient presented with leukocytosis and elevated reticulocyte count. -She looks clinically improved, but continues to report subjective pain -Continue pain control. Continue IV fluids. -see #2 2. Chronic Anemia, -It looks like the patient's baseline hemoglobin is in the 8s and she continues to be in pain. Will transfuse 1 unit of prbc 3. Cough / URTI -empiric abx, antitussives, resp cultures DISPOSITION: Continue inpatient management. Follow up labs. Discharge when clinically improved. Result Diagram: 05/27/18 0551 05/27/18 0551 Results 24hrs Laboratory Tests Test 05/27/18 05:51 White Blood Count 9.5 # Red Blood Count 2.62 L Hemoglobin 7.4 L Hematocrit 21.8 L Mean Corpuscular Volume 83.2 Mean Corpuscular Hemoglobin 28.2 L Mean Corpuscular Hemoglobin Concent 33.9 Red Cell Distribution Width 18.7 H Platelet Count 532 #H Mean Platelet Volume 10.1 Immature Granulocytes % 2.300 H Neutrophils % 45.5 Lymphocytes % 28.9 Monocytes % 14.8 H Eosinophils % 7.7 H Basophils % 0.8 Nucleated Red Blood Cells % 8.3 H Immature Granulocytes # 0.220 H Neutrophils # 4.3 Lymphocytes # 2.8 Monocytes # 1.4 H Eosinophils # 0.7 H Basophils # 0.1 Nucleated Red Blood Cells # 0.8 H Sodium Level 141 Potassium Level 3.5 Chloride Level 110 Carbon Dioxide Level 23 Anion Gap 8 Blood Urea Nitrogen 3 L Creatinine 0.33 L Est Glomerular Filtrat Rate mL/min > 60 Glucose Level 77 Calcium Level 8.5 Subjective 24 Hr Interval Summary Free Text/Dictation Continues to have pain in back and lower legs, reports baseline hemoglobin is between 8 and 9. c/o productive cough with whitish phlegm Exam/Review of Systems Vital Signs Vitals Vital Signs Date Temp Pulse Resp B/P (MAP) Pulse Ox O2 O2 Flow FiO2 Time Delivery Rate 05/27/18 99.0 72 18 123/66 97 07:49 (85) 05/26/18 Room Air 15:14 Intake and Output 05/26/18 05/26/18 05/27/18 1515:00 23:00 07:00 IntakeIntake Total 1890 ml 1360 ml 50 ml BalanceBalance 1890 ml 1360 ml 50 ml Exam GENERAL: The patient continues to look comfortable. She is in no distress. HEENT: Head is normocephalic. Pupils are equal and reactive. She does have conjunctival pallor. Mucous membranes are moist. NECK: Supple. CHEST: Clear. CARDIOVASCULAR: S1 and S2. ABDOMEN: Soft, nontender. There is no lower extremity edema. Medications Medications Current Medications Sodium Chloride 1,000 ml @ 125 mls/hr Q8H IV Last administered on 05/27/18at 07:01; Admin Dose 125 MLS/HR; Start 05/24/18 at 23:00 Albuterol (Ventolin Hfa) 2 puff Q4H RESP THERAPY PRN INH WHEEZING AND SOB; Start 05/24/18 at 23:00 Folic Acid (Folic Acid) 1 mg DAILY PO Last administered on 05/27/18at 08:03; Admin Dose 1 MG; Start 05/24/18 at 23:00 Hydroxyurea (Hydrea) 500 mg BID PO Last administered on 05/27/18at 08:05; Admin Dose 500 MG; Start 05/24/18 at 23:00 Enoxaparin Sodium (Lovenox) 40 mg DAILY SC ; Start 05/24/18 at 23:00 IV Flush (NS 3 ml) 3 ml PER PROTOCOL IV ; Start 05/24/18 at 23:00 Ondansetron HCl (Zofran Inj) 4 mg Q6H PRN IV NAUSEA AND/OR VOMITING; Start 05/24/18 at 23:00 Acetaminophen (Tylenol Tab) 650 mg Q6H PRN PO PAIN LEVEL 1-3 OR FEVER; Start 05/24/18 at 23:00 Docusate Sodium (Colace) 100 mg Q12H PRN PO CONSTIPATION; Start 05/24/18 at 23:00 Bisacodyl (Dulcolax) 5 mg DAILY PRN PO CONSTIPATION; Start 05/24/18 at 23:00 Diphenhydramine HCl (Benadryl) 50 mg Q6H PRN PO ITCHING Last administered on 05/25/18at 08:41; Admin Dose 50 MG; Start 05/25/18 at 02:30 Hydromorphone HCl (Dilaudid) 1.5 mg Q3 PRN IV SEVERE PAIN LEVEL 7-10 Last administered on 05/27/18at 11:16; Admin Dose 1.5 MG; Start 05/25/18 at 13:00; Stop 05/27/18 at 12:59 Diphenhydramine HCl (Benadryl) 25 mg Q6H PRN IV ITCHING Last administered on 05/27/18at 08:03; Admin Dose 25 MG; Start 05/25/18 at 13:00; Stop 05/27/18 at 12:59 Lorazepam (Ativan) 0.5 mg TID PRN PO ANXIETY Last administered on 05/27/18at 06:59; Admin Dose 0.5 MG; Start 05/27/18 at 05:00 Imaging Imaging PROCEDURE: XR Chest AP portable CLINICAL INDICATION: Sickle cell, pain TECHNIQUE: An AP portable radiograph of the chest was submitted. COMPARISON: 05/18/2018 FINDINGS: Support Hardware: The right-sided Port-A-Cath is stable in positioning. Cardiovascular: The cardiovascular silhouette appears unremarkable. Lung Griggs: A suboptimal inspiration mildly compresses lung parenchyma. Discoid atelectasis has developed at the left lung base. Pleural Spaces: No pneumothorax or pleural effusion is identified. Osseous Structures: Increased sclerosis is seen within the humeral heads suspicious for a bone infarcts. There are several H-shaped vertebra. Soft Tissues: The soft tissues appear unremarkable. IMPRESSION: 1. The right-sided Port-A-Cath is stable in positioning. 2. Suboptimal inspiration with development of slight discoid atelectasis at the left lung base. No effusion is evident. 3. Sclerosis is again seen in the humeral head suspicious for bone infarcts and H-shaped the rest vertebra are again evident, characteristic for sickle cell disease. Physician Charity Date Time Electronically viewed and signed by R Naeem, Physician on 05/24/2018 23:46 RH/ CC: MAX MARTÍNEZ [id number] MELISSA WELLS May 27, 2018 12:41
[2018-05-27] MEDS ORDERED: GUAIFENESIN/DM 5ML CUP PO PRN (14:00)
[2018-05-27] MEDS: LEVOFLOXACIN 500 MG TAB PO SCH (15:40)
[2018-05-27] MEDS: DIPHENHYDRAMINE 25 MG CAP PO PRN ×2 (15:40→21:30)
[2018-05-27] MEDS: HYDROmorphONE 1 MG/ML SYG IV PRN ×3 (15:40→23:48)
[2018-05-27 20:30] VITALS: BP 109/65; PULSE 82; RESP 18
[2018-05-28] MEDS: SOD CHLORIDE 0.9% 1,000 ML IV SCH ×3 (03:45→11:52)
[2018-05-28] MEDS: DIPHENHYDRAMINE 25 MG CAP PO PRN ×3 (03:47→15:43)
[2018-05-28] MEDS: HYDROmorphONE 1 MG/ML SYG IV PRN ×4 (03:47→15:44)
[2018-05-28] MEDS: LEVOFLOXACIN 500 MG TAB PO SCH (06:02)
[2018-05-28] MEDS: FOLIC ACID 1 MG TAB PO SCH (08:50)
[2018-05-28] MEDS: HYDROXYUREA 500 MG CAP PO SCH (08:52)
[2018-05-28] MEDS: ENOXAPARIN 40 MG/0.4 ML SYG SC SCH (09:00)
--- NOTE | 2018-05-28 12:56 | DS ---
Date/Time of Note Date/Time of Note DATE: 05/28/18 TIME: 12:55 Discharge Summary Admission/Discharge Info Admit Date/Time May 24, 2018 at 22:45 Discharge Date/Time Discharge Diagnosis This 32-year-old female with known sickle cell disease who presents with: 1. Acute Sickle cell pain crisis: improved 2. Chronic Anemia improved post transfusion 3. Cough / URTI . Consults Pain Mgt: sherry Bar MD . Hospital Course 32-year-old female with known sickle cell disease admitted for sickle cell pain crisis. She received 1 unit of packed red cells during her hospitalization and was treated with pain control IV fluids and supportive care. She is stable for discharge at this time. Home Meds Active Scripts Albuterol Sulfate* (Proair HFA*) 8.5 Gm Hfa.aer.ad, 2 PUFF INH Q4H PRN for WHEEZING AND SOB, #1 INHALER Prov:SARAH ANTONIO MD 05/18/18 Azithromycin* (Azithromycin*) 250 Mg Tablet, 250 MG PO DAILY, #4 TAB Prov:SARAH ANTONIO MD 05/18/18 Reported Medications Hydrocodone/Acetaminophen (Gould 10-325 Tablet) 1 Each Tablet, 1 EACH PO Q6 PRN for PAIN, TAB 05/18/18 Folic Acid* (Folic Acid*) 1 Mg Tablet, 1 MG PO DAILY, TAB 05/18/18 Hydroxyurea* (Hydroxyurea*) 500 Mg Capsule, 500 MG PO BID, CAP 05/18/18 Diphenhydramine Hcl (Banophen) 25 Mg Capsule, 25 MG PO BID, CAP 03/21/18 Follow-up Plan Followup with your primary doctor within the next 1-2 weeks. If you don't have one please let someone know, we can give you resources that may help you pick one. You may call Dr Kwasi Lozada's office. he's accepting new patients Name, Degree: Kwasi Lozada MD Specialty: Internal Medicine Comments: Office Address: [address] [place], [place] [id number] Office Office You may also call your insurance company to assign one to you. Review your medication list with your nurse before leaving and if you need new prescriptions please let your nurse know. I may have made changes to your home medications or given you new prescriptions, please let your primary doctor know as well. Stay compliant with your medications and report any side effects to your PCP or pharmacist. Return to the ER if you have any concerns and cannot reach your doctors or call your insurance company, they usually have a nurse that can help you. Primary Care Provider Not On Staff Doctor Time spent on discharge: > 30 minutes Pending Labs Laboratory Tests Test 05/28/18 04:45 White Blood Count 9.4 10^3/ul (4.8-10.8) Red Blood Count 3.16 10^6/ul (4.20-5.40) Hemoglobin 9.1 g/dl (12.0-16.0) Hematocrit 26.2 % (37.0-47.0) Mean Corpuscular Volume 82.9 fl (82.0-101.0) Mean Corpuscular Hemoglobin 28.8 pg (29.0-33.0) Mean Corpuscular Hemoglobin Concent 34.7 g/dl (32.0-37.0) Red Cell Distribution Width 17.5 % (11.5-14.5) Platelet Count 526 10^3/UL (140-415) Mean Platelet Volume 10.3 fl (7.4-10.4) Immature Granulocytes % 1.200 % (0.001-0.429) Neutrophils % 49.3 % (39.0-77.0) Lymphocytes % 26.1 % (15.0-51.0) Monocytes % 16.1 % (0.0-11.0) Eosinophils % 6.4 % (0.0-7.0) Basophils % 0.9 % (0.0-2.0) Nucleated Red Blood Cells % 8.0 /100WBC (0.0-0.0) Immature Granulocytes # 0.110 10^3/ul (0.0-0.031) Neutrophils # 4.6 10^3/ul (1.6-7.5) Lymphocytes # 2.5 10^3/ul (0.8-2.9) Monocytes # 1.5 10^3/ul (0.3-0.9) Eosinophils # 0.6 10^3/ul (0.0-0.5) Basophils # 0.1 10^3/ul (0.0-0.1) Nucleated Red Blood Cells # 0.8 10^3/ul (0.0-0.0) Sodium Level 144 mmol/L (135-144) Potassium Level 3.7 mmol/L (3.5-5.1) Chloride Level 110 mmol/L (97-110) Carbon Dioxide Level 22 mmol/L (21-31) Anion Gap 12 (5-13) Blood Urea Nitrogen 6 mg/dl (7-20) Creatinine 0.33 mg/dl (0.44-1.00) Est Glomerular Filtrat Rate mL/min > 60 mL/min (>60) Glucose Level 88 mg/dl (70-220) Calcium Level 9.0 mg/dl (8.4-10.2) MELISSA WELLS May 28, 2018 12:56
[2018-05-28] MEDS ORDERED: HYDR500C3 PO (14:27)
[2018-05-28] MEDS ORDERED: LEVO500T48 PO (14:27)
[2018-05-28] MEDS ORDERED: DOCU-216 PO (14:27)
--- NOTE | 2018-05-28 14:28 | PDOCDIS ---
Discharge Instructions DIAGNOSIS Discharge Diagnosis This 32-year-old female with known sickle cell disease who presents with: 1. Acute Sickle cell pain crisis: improved 2. Chronic Anemia improved post transfusion 3. Cough / URTI . CONDITION [id number] Patient Condition: [id number] Stable HOME CARE INSTRUCTIONS: [id number] Special Diet: [id number] Regular FOLLOW UP/APPOINTMENTS Follow-up Plan Followup with your primary doctor within the next 1-2 weeks. If you don't have one please let someone know, we can give you resources that may help you pick one. You may call Dr Kwasi Lozada's office. he's accepting new patients Name, Degree: Kwasi Lozada MD Specialty: Internal Medicine Comments: Office Address: [address] [place] [address] Office Office You may also call your insurance company to assign one to you. Review your medication list with your nurse before leaving and if you need new prescriptions please let your nurse know. I may have made changes to your home medications or given you new prescriptions, please let your primary doctor know as well. Stay compliant with your medications and report any side effects to your PCP or pharmacist. Return to the ER if you have any concerns and cannot reach your doctors or call your insurance company, they usually have a nurse that can help you. MELISSA WELLS May 28, 2018 14:28
[2018-05-28] MEDS ORDERED: HEPARIN (100 UNITS/ML) 5 ML SYG CATHETER ONE (16:00)
== END 2018-05-28 17:00 | disposition home or self-care (01) | DRG 812 ==
LOC: E/R 19:05 → 2NE 22:45
PROVIDERS: ADMIT Family Medicine; ATTEND Family Medicine
PROC: 30233N1 Transfusion of Nonautologous Red Blood Cells into Peripheral Vein, Percutaneous Approach (ICD-10-PCS; principal; 2018-05-27)
DX: D57.00 Hb-SS disease with crisis, unspecified (principal); J06.9 Acute upper respiratory infection, unspecified
CPT/HCPCS: 36415; 36430; 71045; 80048; 80053; 83735; 84703; 85025; 85045; 86850; 86900; 86901; 86920; 86945; 96374; 96375; 96376; J1170; J1200; J1642; J1650; J1885; J2060; J3475; J7030; P9016

== ENCOUNTER 2018-06-26 09:21 | Emergency (ER) | payer OTHER ==
[~2018-06-26] VITALS: Ht 162.6 cm; Wt 43.0 kg
[~2018-06-26 09:21] MED LIST changes: -AZIT250T13 PO; +DOCU-216 PO; +LEVO500T48 PO
[2018-06-26 09:31] VITALS: Ht 162.6 cm; Wt 43.0 kg
[2018-06-26] MEDS ORDERED: HYDROmorphONE 1 MG/ML SYG IV STA (09:48)
[2018-06-26] MEDS ORDERED: SOD CHLORIDE 0.9% 1,000 ML IV STA (09:48)
[2018-06-26] MEDS ORDERED: ONDANSETRON 4 MG INJ IV STA (09:48)
[2018-06-26] MEDS ORDERED: DIPHENHYDRAMINE 50 MG INJ IV ONE ×2 (10:00→11:30)
[2018-06-26] MEDS ORDERED: HYDROmorphONE 2 MG/ML SYG IV STA ×2 (10:55→11:38)
--- NOTE | 2018-06-26 11:04 | ERD ---
ER Documentation Chief Complaint Chief Complaint body pain - hx of sickle cell HPI This is a 32-year-old female with a past medical history of sickle cell disease. She indicates that for the past 24 hours she has been having diffuse myalgias. She complains of pain in both her left and right side of her chest. She has no shortness of breath at rest or exertion. She had no hemoptysis no hematemesis no melanotic stools. She had no fevers or shaking or chills. She states that this is the same pain she is experienced during her previous sickle cell crisis. ROS All systems reviewed and are negative except as per history of present illness. Medications Home Meds Active Scripts Docusate Sodium (Dok) 100 Mg Capsule, 100 MG PO Q12H, #60 CAP 2 Refills Prov:MELISSA WELLS. 05/28/18 Hydroxyurea* (Hydroxyurea*) 500 Mg Capsule, 500 MG PO BID, #60 CAP 2 Refills Prov:MELISSA WELLS. 05/28/18 Albuterol Sulfate* (Proair HFA*) 8.5 Gm Hfa.aer.ad, 2 PUFF INH Q4H PRN for WHEEZING AND SOB, #1 INHALER Prov:SARAH ANTONIO MD 05/18/18 Reported Medications Hydrocodone/Acetaminophen ([place] 10-325 Tablet) 1 Each Tablet, 1 EACH PO Q6 PRN for PAIN, TAB 05/18/18 Folic Acid* (Folic Acid*) 1 Mg Tablet, 1 MG PO DAILY, TAB 05/18/18 Diphenhydramine Hcl (Banophen) 25 Mg Capsule, 25 MG PO BID, CAP 03/21/18 Discontinued Scripts Levofloxacin* (Levaquin*) 500 Mg Tablet, 500 MG PO DAILY@06 for 5 Days, #5 TAB Prov:RUSSELLSAMIA LittleSABINE Conway. 05/28/18 Allergies Allergies: Coded Allergies: codeine (Verified Allergy, Intermediate, ITCHY HIVES, 06/26/18) PMhx/Soc History of Surgery: Yes ( 2009, gallbladder removal) Anesthesia Reaction: No Hx Neurological Disorder: No Hx Respiratory Disorders: No Hx Cardiac Disorders: No Hx Psychiatric Problems: No Hx Miscellaneous Medical Probl: Yes (SICKLE CELL ) Hx Alcohol Use: No Hx Substance Use: No Hx Tobacco Use: No Smoking Status: Never smoker Physical Exam Vitals Vital Signs Date Temp Pulse Resp B/P (MAP) Pulse Ox O2 O2 Flow FiO2 Time Delivery Rate 06/26/18 88 18 113/68 100 Mask 10.0 10:55 (83) 06/26/18 98.6 87 20 101/59 100 09:31 (73) Physical Exam Constitutional:Well-developed. Well-nourished. HEENT:Normocephalic. Atraumatic.Pupils were equal round reactive to light. Moist mucous membranes.No tonsillar exudates. Neck: No nuchal rigidity. No lymphadenopathy. No posterior cervical spine tenderness or step-offs. Respiratory: Not using accessory muscles of respiration.Lungs were clear to auscultation bilaterally. No rhonchi. No rales. No wheezing. Cardiovascular: Regular rate regular rhythm.No murmurs. No rubs were appreciated.S1, S2 normal. Distal pulses are palpable 2+ bilaterally. Mild bilateral chest wall tenderness with no crepitus no ecchymosis no flail chest GI: Abdomen was soft. Nontender. Non Distended. No pulsatile abdominal masses or bruits. No rebound. No guarding. Bowel sounds were present and normal. Muscle skeletal: Full range of motion of both the upper and lower extremities bilaterally.Normal muscle tone.No assymetrical calf tenderness or swelling. Skin: No petechia, no purpura. No lesions on the palms or the soles of the feet. No maculopapular rash. NEURO: Patient was alert, awake, orientated x3.No facial droop. Gait observed and normal with no ataxia.Speech had regular rate and rhythm. No focal neurolo gical deficits. Result Diagram: 06/26/18 1009 06/26/18 1009 Results 24 hrs Laboratory Tests Test 06/26/18 10:09 06/26/18 11:57 White Blood Count 12.5 10^3/ul Red Blood Count 3.18 10^6/ul Hemoglobin 9.2 g/dl Hematocrit 26.7 % Mean Corpuscular Volume 84.0 fl Mean Corpuscular Hemoglobin 28.9 pg Mean Corpuscular Hemoglobin Concent 34.5 g/dl Red Cell Distribution Width 16.0 % Platelet Count 488 10^3/UL Mean Platelet Volume 9.6 fl Immature Granulocytes % 0.700 % Neutrophils % 53.4 % Lymphocytes % 24.0 % Monocytes % 11.5 % Eosinophils % 8.7 % Basophils % 1.7 % Nucleated Red Blood Cells % 0.8 /100WBC Immature Granulocytes # 0.090 10^3/ul Neutrophils # 6.7 10^3/ul Lymphocytes # 3.0 10^3/ul Monocytes # 1.4 10^3/ul Eosinophils # 1.1 10^3/ul Basophils # 0.2 10^3/ul Nucleated Red Blood Cells # 0.1 10^3/ul Absolute Reticulocyte Count 0.270 X10^6 Percent Reticulocyte Count 8.5 % Sodium Level 143 mmol/L Potassium Level 3.4 mmol/L Chloride Level 108 mmol/L Carbon Dioxide Level 23 mmol/L Anion Gap 12 Blood Urea Nitrogen 13 mg/dl Creatinine 0.42 mg/dl Est Glomerular Filtrat Rate mL/min > 60 mL/min Glucose Level 97 mg/dl Calcium Level 9.5 mg/dl Total Bilirubin 2.4 mg/dl Direct Bilirubin 0.00 mg/dl Indirect Bilirubin 2.4 mg/dl Aspartate Amino Transf (AST/SGOT) 49 IU/L Alanine Aminotransferase (ALT/SGPT) 20 IU/L Alkaline Phosphatase 72 IU/L Total Protein 8.7 g/dl Albumin 4.9 g/dl Globulin 3.80 g/dl Albumin/Globulin Ratio 1.28 POC Beta HCG, Qualitative NEGATIVE Current Medications Medications Dose Sig/Aguilar Start Time Status Last (Trade) Ordered Route PRN Stop Time Admin Dose Reason Admin Sodium 1,000 ml @ Q1H STAT 06/26/18 DC 06/26/18 Chloride 1,000 mls/hr IV 09:48 10:11 06/26/18 10:47 1 mg ONCE STAT 06/26/18 DC 06/26/18 Hydromorphone IV 09:48 10:11 HCl 06/26/18 09:50 (Dilaudid) Ondansetron 4 mg ONCE STAT 06/26/18 DC 06/26/18 HCl (Zofran IV 09:48 10:11 Inj) 06/26/18 09:50 50 mg ONCE ONCE 06/26/18 DC 06/26/18 Diphenhydrami IV 10:00 10:11 ne HCl 06/26/18 10:01 (Benadryl) 1 mg ONCE STAT 06/26/18 DC 2/14/19 Hydromorphone IV 10:55 11:12 HCl 06/26/18 10:56 (Dilaudid) 25 mg ONCE ONCE 06/26/18 DC 06/26/18 Diphenhydrami IV 11:30 11:13 ne HCl 06/26/18 11:31 (Benadryl) Heparin 500 unit ONCE ONCE 06/26/18 DC Sodium CATHETER 11:30 (Porcine) 06/26/18 11:31 (Heparin Flush (100 Units/ml)) 1 mg ONCE STAT 06/26/18 DC Hydromorphone IV 11:38 HCl 06/26/18 11:43 (Dilaudid) Procedures/MDM This is a 32-year-old female with a known history of sickle cell disease. The patient showed no evidence of sepsis. The patient has a port in her right chest wall. This was accessed by nursing staff. The patient states that the only thing that improves her sickle cell crisis is a cocktail of Dilaudid Benadryl an d Zofran. The patient was given this. She also was requesting high flow oxygen and she states this improves her vaso-occlusive crisis. The patient required several doses of analgesic medication and afterwards stated her pain is completely improved. She felt comfortable being discharged home. The patient was anemic with a hemoglobin of 9.2 but there is no signs of an upper or lower gastrointestinal bleed. I did not feel the patient required a blood transfusion. The patient's reticulocyte count was 8.5 I obtained a 1 view chest radiograph there is no signs of infiltrates pneumothorax. I do not feel her symptoms were result of an acute chest syndrome. 12 Lead EKG tracing ordered and reviewed by myself showed: Normal sinus rhythm of 77 bpm and no arrhythmia. SC interval normal. QRS duration normal. No ST segment elevation No ST segment depression. No changes consistent with acute ischemia. The patient was discharged home in fair condition. They were instructed to return to the emergency department at any time if there was any worsening of their condition. The patient stated they would follow up with their PCP in the next 24-48 hours to initiate a suitable medication regimen under the care of their PCP as well as to allow their PCP to monitor any drug reactions. The patie nt was discharged home with prescriptions after they gave informed consent to the new medication. They were also fully informed by myself on the adverse effects and adverse drug interactions in order to provide adequate safeguards to prevent possible adverse reactions to medications. Departure Diagnosis: Primary Impression: Sickle cell anemia Sickle-cell associated disorders: with unspecified crisis Qualified Codes: D57.00 - Hb-SS disease with crisis, unspecified Additional Impression: Vaso-occlusive sickle cell crisis Condition: SARAH Merino MD Jun 26, 2018 11:04
[2018-06-26] MEDS ORDERED: HEPARIN (100 UNITS/ML) 5 ML SYG CATHETER ONE (11:30)
[2018-06-26] MEDS ORDERED: FLUC150T PO (13:23)
[2018-06-26 13:29] VITALS: BP 112/74; PULSE 76; RESP 18
== END 2018-06-26 13:31 | disposition home or self-care (01) ==
LOC: E/R 09:21
DX: D57.00 Hb-SS disease with crisis, unspecified (principal); R07.9 Chest pain, unspecified
CPT/HCPCS: 71045; 80053; 81025; 85025; 85045; 93005; 96374; 96375; 96376; J1170; J1200; J1642; J2405; J7030; Z7502; Z7610

== ENCOUNTER 2018-06-29 06:37 | Emergency (ER) | payer OTHER ==
[~2018-06-29] VITALS: Ht 162.6 cm; Wt 45.0 kg
[~2018-06-29 06:37] MED LIST changes: +FLUC150T PO; -LEVO500T48 PO
[2018-06-29 06:47] VITALS: Ht 162.6 cm; Wt 45.0 kg
[2018-06-29] MEDS ORDERED: ONDANSETRON (ODT) 4 MG TAB ODT STA (06:50)
[2018-06-29] MEDS ORDERED: HYDROCODONE/APAP (10/325) TAB PO ONE (07:00)
--- NOTE | 2018-06-29 07:25 | ERD ---
ER Documentation Chief Complaint Chief Complaint C/O BACK PAIN. HX OF SICKLE CELL. HPI Patient is a 32-year-old female who presents with sickle cell pain. She says that she has chest pain and back pain. She was brought in by ambulance. She tried [place] for pain. She has no fevers. She says this feels similar to previous sickle cell crisis. Upon review of old medical records the patient has multiple visits to the ER for various complaints. Review of the emergency department information exchange system shows 70 visits to 10 different ERs over the past 1 year. She does not currently have a pain management doctor. ROS All systems reviewed and are negative except as per history of present illness. Medications Home Meds Active Scripts Fluconazole* (Diflucan*) 150 Mg Tablet, 150 MG PO ONCE, #1 TAB Prov:SARAH ANTONIO MD 06/26/18 Docusate Sodium (Dok) 100 Mg Capsule, 100 MG PO Q12H, #60 CAP 2 Refills Prov:MELISSA WELLS 05/28/18 Hydroxyurea* (Hydroxyurea*) 500 Mg Capsule, 500 MG PO BID, #60 CAP 2 Refills Prov:MELISSA WELLS 05/28/18 Albuterol Sulfate* (Proair HFA*) 8.5 Gm Hfa.aer.ad, 2 PUFF INH Q4H PRN for WHEEZING AND SOB, #1 INHALER Prov:SARAH ANTONIO MD 05/18/18 Reported Medications Hydrocodone/Acetaminophen ([place] 10-325 Tablet) 1 Each Tablet, 1 EACH PO Q6 PRN for PAIN, TAB 05/18/18 Folic Acid* (Folic Acid*) 1 Mg Tablet, 1 MG PO DAILY, TAB 05/18/18 Diphenhydramine Hcl (Banophen) 25 Mg Capsule, 25 MG PO BID, CAP 03/21/18 Discontinued Scripts Levofloxacin* (Levaquin*) 500 Mg Tablet, 500 MG PO DAILY@06 for 5 Days, #5 TAB Prov:MELISSA WELLS 05/28/18 Allergies Allergies: Coded Allergies: codeine (Verified Allergy, Intermediate, ITCHY HIVES, 06/26/18) PMhx/Soc History of Surgery: Yes ( 2009, gallbladder removal) Anesthesia Reaction: No Hx Neurological Disorder: No Hx Respiratory Disorders: No Hx Cardiac Disorders: No Hx Psychiatric Problems: No Hx Miscellaneous Medical Probl: Yes (SICKLE CELL ) Hx Alcohol Use: No Hx Substance Use: No Hx Tobacco Use: No Smoking Status: Never smoker FmHx Family History: diabetes Physical Exam Vitals Vital Signs Date Temp Pulse Resp B/P (MAP) Pulse Ox O2 O2 Flow FiO2 Time Delivery Rate 06/29/18 97.3 70 16 97/56 (70) 99 06:47 Physical Exam Const: No acute distress Head: Atraumatic Eyes: Normal Conjunctiva ENT: Normal External Ears, Nose and Mouth. Neck: Full range of motion. No meningismus. Resp: Clear to auscultation bilaterally Cardio: Regular rate and rhythm, no murmurs Abd: Soft, non tender, non distended. Normal bowel sounds Skin: No petechiae or rashes Back: No midline or flank tenderness Ext: No cyanosis, or edema Neur: Awake and alert Psych: Normal Mood and Affect Results 24 hrs Current Medications Medications Dose Sig/Aguilar Start Time Status Last (Trade) Ordered Route PRN Stop Time Admin Dose Reason Admin 1 tab ONCE ONCE 06/29/18 DC 06/29/18 Acetaminophen PO 07:00 07:03 / 06/29/18 07:01 Hydrocodone Bitart ([place] (10/325)) Ondansetron 4 mg ONCE STAT 06/29/18 DC 06/29/18 HCl (Zofran ODT 06:50 07:03 Odt) 06/29/18 06:51 Procedures/MDM EKG read by me: Rate/Rhythm: Regular rate and rhythm at a rate of 71 Intervals: Normal Impression: No evidence of ischemia or arrhythmia Chest X-ray 1V Interpreted by me: Soft Tissue: No acute abnormalities Bones: No acute abnormalities Mediastinum/Cardiac Silhouette/Lungs: Port in the chest wall in place without pneumonia or pneumothorax Patient is a 32-year-old female who presents with sickle cell pain crisis. She was given [place] and Zofran. EKG and chest x-ray were negative. The patient will be discharged. Her vital signs are normal. I doubt acute chest syndrome. The patient will be discharged and can return for any worsening symptoms. She will be given information for a pain management doctor. She can return for any worsening symptoms. Departure Diagnosis: Primary Impression: Back pain Back pain location: back pain in unspecified location Chronicity: acute Back pain laterality: unspecified Qualified Codes: M54.9 - Dorsalgia, unspecified Additional Impressions: Sickle cell pain crisis Chest pain Chest pain type: unspecified Qualified Codes: R07.9 - Chest pain, unspecified Condition: Fair Patient Instructions: Sickle Cell Pain Crisis Referrals: LANG REYES MD Additional Instructions: SPECIALIST: YOU HAVE A MEDICAL CONDITION WHICH REQUIRES YOU TO SEE A SPECIALIST WITHIN THE NEXT 1-2 DAYS. PLEASE FOLLOW UP WITH YOUR PRIMARY PHYSICIAN FOR REFFERAL.IF YOU DO NOT HAVE A PRIMARY CARE PHYSICIAN AND/OR YOU CAN NOT AFFORD TO SEE A PHYSICIAN THE FOLLOWING RESOURCES HAVE BEEN SUPPLIED TO YOU. IT IS YOUR RESPONSIBILITY TO BE SEEN BY THE SPECIALIST MILENA CALERO MD Jun 29, 2018 07:25
[2018-06-29 07:45] VITALS: BP 91/56; PULSE 72; RESP 16
== END 2018-06-29 07:45 | disposition home or self-care (01) ==
LOC: E/R 06:37
DX: M54.9 Dorsalgia, unspecified (principal); D57.00 Hb-SS disease with crisis, unspecified
CPT/HCPCS: 71045; 93005; Z7502; Z7610

== ENCOUNTER 2018-07-19 14:51 | Emergency (ER) | payer OTHER ==
[~2018-07-19] VITALS: Ht 152.4 cm; Wt 50.0 kg
[2018-07-19 14:58] VITALS: Ht 152.4 cm; Wt 50.0 kg
[2018-07-19] MEDS ORDERED: HYDROmorphONE 1 MG/ML SYG IV STA (15:33)
[2018-07-19] MEDS ORDERED: METOCLOPRAMIDE 10 MG INJ IV STA (15:33)
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
[2018-07-19] MEDS ORDERED: ONDANSETRON (ODT) 4 MG TAB ODT ONE (15:53)
[2018-07-19] MEDS ORDERED: ONDANSETRON (ODT) 4 MG TAB ODT STA (15:58)
[2018-07-19] MEDS ORDERED: HYDROmorphONE 2 MG/ML SYG IM STA (15:59)
[2018-07-19] MEDS ORDERED: DIPHENHYDRAMINE 50 MG INJ IV ONE (16:00)
[2018-07-19] MEDS ORDERED: DIPHENHYDRAMINE 50 MG INJ IM ONE (16:30)
[2018-07-19] MEDS ORDERED: HYDR-3980 PO (16:39)
[2018-07-19 16:59] VITALS: BP 115/68; PULSE 68; RESP 18
== END 2018-07-19 18:23 | disposition home or self-care (01) ==
LOC: E/R 14:51
DX: D57.00 Hb-SS disease with crisis, unspecified (principal)
CPT/HCPCS: 96372; J1170; J1200; J2765; Z7502; Z7610

== ENCOUNTER 2018-07-28 23:23 | Inpatient (IN) | payer OTHER ==
[~2018-07-28] VITALS: Ht 162.6 cm; Wt 45.5 kg
[~2018-07-28 23:23] MED LIST changes: -FLUC150T PO
[2018-07-29] MEDS ORDERED: SOD CHLORIDE 0.9% 1,000 ML IV STA (01:35)
[2018-07-29] MEDS ORDERED: HYDROmorphONE 1 MG/ML SYG IV STA ×2 (01:35→03:05)
[2018-07-29] MEDS ORDERED: DIPHENHYDRAMINE 50 MG INJ IV STA (01:35)
[2018-07-29] MEDS ORDERED: ONDANSETRON 4 MG INJ IV STA (01:35)
[2018-07-29] MEDS ORDERED: DIPHENHYDRAMINE 50 MG INJ IV ONE (04:30)
[2018-07-29] MEDS ORDERED: HYDR-3980 PO (04:34)
[2018-07-29] MEDS ORDERED: ALBUTEROL HFA 8 GM INHALER INH PRN (05:00)
[2018-07-29] MEDS: SOD CHLORIDE 0.9% 1,000 ML IV SCH ×3 (05:00→20:28)
[2018-07-29] MEDS ORDERED: HYDROmorphONE 1 MG/ML SYG IV PRN ×3 (05:00→20:00)
--- NOTE | 2018-07-29 05:16 | ERD ---
ER Documentation Chief Complaint Chief Complaint ra889, c/o body pain, hx of sickle cell HPI This is a 33-year-old female comes in with complaints of body pain. Patient has history of sickle cell anemia. Denies fevers chills nausea vomiting or chest pain. Does complain to moderate to severe pain in her extremities that is consistent with her history of vaso-occlusive crisis. ROS All systems reviewed and are negative except as per history of present illness. Medications Home Meds Active Scripts Hydrocodone/Acetaminophen ([place] 10-325 Tablet) 1 Each Tablet, 1 TAB PO Q6H PRN for PAIN, #7 TAB Prov:TAMIA ZAIDI DO 07/19/18 Docusate Sodium (Dok) 100 Mg Capsule, 100 MG PO Q12H, #60 CAP 2 Refills Prov:MLEISSA WELLS. 05/28/18 Hydroxyurea* (Hydroxyurea*) 500 Mg Capsule, 500 MG PO BID, #60 CAP 2 Refills Prov:MELISSA WELLS. 05/28/18 Albuterol Sulfate* (Proair HFA*) 8.5 Gm Hfa.aer.ad, 2 PUFF INH Q4H PRN for WHEEZING AND SOB, #1 INHALER Prov:SARAH ANTONIO MD 05/18/18 Reported Medications Hydrocodone/Acetaminophen ([place] 10-325 Tablet) 1 Each Tablet, 1 EACH PO Q6H PRN for PAIN LEVEL 7-10, TAB 07/29/18 Folic Acid* (Folic Acid*) 1 Mg Tablet, 1 MG PO DAILY, TAB 05/18/18 Diphenhydramine Hcl (Banophen) 25 Mg Capsule, 25 MG PO BID, CAP 03/21/18 Discontinued Reported Medications Hydrocodone/Acetaminophen ([place] 10-325 Tablet) 1 Each Tablet, 1 EACH PO Q6 PRN for PAIN, TAB 05/18/18 Allergies Allergies: Coded Allergies: codeine (Unverified Allergy, Intermediate, ITCHY HIVES, 07/29/18) PMhx/Soc History of Surgery: Yes ( 2008, gallbladder removal) Anesthesia Reaction: No Hx Neurological Disorder: No Hx Respiratory Disorders: No Hx Cardiac Disorders: No Hx Psychiatric Problems: No Hx Miscellaneous Medical Probl: Yes (SICKLE CELL ) Hx Alcohol Use: No Hx Substance Use: No Hx Tobacco Use: Yes Smoking Status: Current some day smoker Physical Exam Vitals Vital Signs Date Temp Pulse Resp B/P (MAP) Pulse Ox O2 O2 Flow FiO2 Time Delivery Rate 07/29/18 88 18 124/78 Room Air 03:45 (93) 07/29/18 85 18 118/65 98 Room Air 01:45 (82) 07/28/18 98.8 83 18 113/78 97 23:33 (90) Physical Exam Const: No acute distress Head: Atraumatic Eyes: Normal Conjunctiva ENT: Normal External Ears, Nose and Mouth. Neck: Full range of motion. No meningismus. Resp: Clear to auscultation bilaterally Cardio: Regular rate and rhythm, no murmurs Abd: Soft, non tender, non distended. Normal bowel sounds Skin: No petechiae or rashes Back: No midline or flank tenderness Ext: No cyanosis, or edema Neur: Awake and alert Psych: Normal Mood and Affect Result Diagram: 07/29/18 0208 07/29/18 0208 Results 24 hrs Laboratory Tests Test 07/29/18 02:08 White Blood Count 12.1 10^3/ul Red Blood Count 2.92 10^6/ul Hemoglobin 8.0 g/dl Hematocrit 23.6 % Mean Corpuscular Volume 80.8 fl Mean Corpuscular Hemoglobin 27.4 pg Mean Corpuscular Hemoglobin Concent 33.9 g/dl Red Cell Distribution Width 18.0 % Platelet Count 740 10^3/UL Mean Platelet Volume 9.0 fl Immature Granulocytes % 1.200 % Neutrophils % % Segmented Neutrophils % (Manual) 42 % Band Neutrophils % (Manual) 2 % Lymphocytes % % Lymphocytes % (Manual) 26 % Reactive Lymphocytes % (Manual) 2 % Monocytes % % Monocytes % (Manual) 4 % Eosinophils % % Eosinophils % (Manual) 14 % Basophils % % Basophils % (Manual) 5 % Metamyelocytes % (manual) 5 % Nucleated Red Blood Cells % 33 % Immature Granulocytes # 0.140 10^3/ul Neutrophils # 10^3/ul Neutrophils # (Manual) 5.1 10^3/ul Band Neutrophils # 0.2 10^3/ul Lymphocytes (Manual) 3.1 10^3/ul Lymphocytes # 10^3/ul Reactive Lymphocytes # 0.2 10^3/ul Monocytes # 10^3/ul Monocytes # (Manual) 0.4 10^3/ul Eosinophils # 10^3/ul Basophils # 10^3/ul Basophils # (Manual) 0.6 10^3/ul Metamyelocytes # 0.6 10^3/ul Nucleated Red Blood Cells # 10^3/ul Platelet Estimate INCREASED Giant Platelets 1 % Polychromasia 3+ Hypochromasia 1+ Poikilocytosis 1+ Anisocytosis 1+ Macrocytosis 1+ Sickle Cells 1+ Target Cells 1+ Absolute Reticulocyte Count 0.279 X10^6 Percent Reticulocyte Count 9.6 % Sodium Level 141 mmol/L Potassium Level 3.7 mmol/L Chloride Level 106 mmol/L Carbon Dioxide Level 22 mmol/L Anion Gap 13 Blood Urea Nitrogen 10 mg/dl Creatinine 0.44 mg/dl Est Glomerular Filtrat Rate mL/min > 60 mL/min Glucose Level 94 mg/dl Calcium Level 9.6 mg/dl Current Medications Medications Dose Sig/Aguilar Start Time Status Last (Trade) Ordered Route PRN Stop Time Admin Dose Reason Admin Sodium 1,000 ml @ Q1H STAT 07/29/18 DC 07/29/18 Chloride 1,000 mls/hr IV 01:35 02:20 07/29/18 02:34 50 mg ONCE STAT 07/29/18 DC 07/29/18 Diphenhydrami IV 01:35 02:20 ne HCl 07/29/18 01:37 (Benadryl) 1 mg ONCE STAT 07/29/18 DC 07/29/18 Hydromorphone IV 01:35 02:19 HCl 07/29/18 01:37 (Dilaudid) Ondansetron 4 mg ONCE STAT 07/29/18 DC 07/29/18 HCl (Zofran IV 01:35 02:20 Inj) 07/29/18 01:37 1 mg ONCE STAT 07/29/18 DC 07/29/18 Hydromorphone IV 03:05 03:48 HCl 07/29/18 03:07 (Dilaudid) 50 mg ONCE ONCE 07/29/18 DC 07/29/18 Diphenhydrami IV 04:30 04:13 ne HCl 07/29/18 04:31 (Benadryl) Albuterol 2 puff Q4H PRN 07/29/18 UNV (Ventolin INH WHEEZING 05:00 Hfa) AND SOB Folic Acid 1 mg DAILY PO 07/29/18 UNV (Folic Acid) 09:00 Hydroxyurea 500 mg BID PO 07/29/18 UNV (Hydrea) 09:00 Sodium 1,000 ml @ Q8H IV 07/29/18 UNV Chloride 125 mls/hr 05:00 1 mg Q4H PRN 07/29/18 UNV Hydromorphone IV SEVERE 05:00 HCl PAIN LEVEL (Dilaudid) 7-10 1 tab Q4H PRN 07/29/18 UNV Acetaminophen PO MODERATE 05:00 / PAIN LEVEL Hydrocodone 4-6 Bitart ([place] (5/325)) IV Flush 3 ml PER 07/29/18 UNV (NS 3 ml) PROTOCOL IV 05:30 Ondansetron 4 mg Q6H PRN 07/29/18 UNV HCl (Zofran IV 05:30 Inj) NAUSEA/VOMITI NG 650 mg Q6H PRN 07/29/18 UNV Acetaminophen PO .PAIN 1-3 05:30 (Tylenol OR TEMP Tab) Enoxaparin 40 mg DAILY SC 07/29/18 UNV Sodium 09:00 (Lovenox) Procedures/MDM Medical decision making: This is a 33-year-old female vaso-occlusive crisis. At this point she is clinically stable patient will be admitted to hospitalist for further evaluation and management. Departure Diagnosis: Primary Impression: Sickle cell pain crisis Condition: SHERINE Coles Jul 29, 2018 05:16
[2018-07-29] MEDS ORDERED: NACL 0.9% 3 ML SYG IV SCH (05:30)
[2018-07-29] MEDS ORDERED: ONDANSETRON 4 MG INJ IV PRN (05:30)
[2018-07-29] MEDS ORDERED: ACETAMINOPHEN 325 MG TAB PO PRN (05:30)
[2018-07-29] MEDS ORDERED: DIPHENHYDRAMINE 50 MG CAP PO PRN (06:00)
[2018-07-29] MEDS: DIPHENHYDRAMINE 50 MG INJ IM PRN ×4 (06:46→20:29)
[2018-07-29] MEDS: HYDROCODONE/APAP (5/325) TAB PO PRN ×3 (07:37→21:39)
[2018-07-29] MEDS: HYDROmorphONE 1 MG/ML SYG IV PRN ×7 (08:40→23:21)
[2018-07-29] MEDS: ENOXAPARIN 40 MG/0.4 ML SYG SC SCH ×2 (09:00→10:53)
[2018-07-29] MEDS: HYDROXYUREA 500 MG CAP PO SCH ×3 (09:00→21:00)
--- NOTE | 2018-07-29 09:48 | HP ---
Date/Time of Note Date/Time of Note DATE: 07/29/18 TIME: 09:43 Assessment/Plan VTE Prophylaxis Pharmacological prophylaxis: LMWH Lines/Catheters IV Catheter Type (from Nrs): PORT Assessment/Plan Hospital Course This is a 33 female being admitted to the [facility] floor for: #1 sickle cell crisis. Patient at the current time appears to be uncomfortable. Patient has multiple admissions to our facility and so there is concern for drug-seeking behavior. She does have an elevated white blood cell count and an elevated reticulocyte count. So at the current time we will proceed to treat her for sickle cell crisis. IV Dilaudid every 4 hours, she was requesting IV Benadryl which she received in the ED, however I will may be giving her p.o. Benadryl for itching. IV fluid hydration with normal saline, continue hydroxyur ea #2 leukocytosis: No signs of fever at the current time. This could be a stress related response. Will obtain a chest x-ray to assess for any underlying pneumonia/respiratory disease. Currently afebrile. #3 sickle cell disease: Continue hydroxyurea, folic acid #4 DVT GI prophylaxis: Lovenox, no GI prophylaxis indicated Further treatment strategy will be implemented as per the clinical course Result Diagram: 07/29/18 0208 07/29/18 0208 Results 24hrs Laboratory Tests Test 07/29/18 02:08 White Blood Count 12.1 H Red Blood Count 2.92 L Hemoglobin 8.0 L Hematocrit 23.6 L Mean Corpuscular Volume 80.8 L Mean Corpuscular Hemoglobin 27.4 L Mean Corpuscular Hemoglobin Concent 33.9 Red Cell Distribution Width 18.0 H Platelet Count 740 #H Mean Platelet Volume 9.0 Immature Granulocytes % 1.200 H Neutrophils % Segmented Neutrophils % (Manual) 42 Band Neutrophils % (Manual) 2 Lymphocytes % Lymphocytes % (Manual) 26 Reactive Lymphocytes % (Manual) 2 H Monocytes % Monocytes % (Manual) 4 Eosinophils % Eosinophils % (Manual) 14 H Basophils % Basophils % (Manual) 5 H Metamyelocytes % (manual) 5 H Nucleated Red Blood Cells % 33 H Immature Granulocytes # 0.140 H Neutrophils # Neutrophils # (Manual) 5.1 Band Neutrophils # 0.2 Lymphocytes (Manual) 3.1 H Lymphocytes # Reactive Lymphocytes # 0.2 H Monocytes # Monocytes # (Manual) 0.4 Eosinophils # Basophils # Basophils # (Manual) 0.6 H Metamyelocytes # 0.6 H Nucleated Red Blood Cells # Platelet Estimate INCREASED Giant Platelets 1 H Polychromasia 3+ Hypochromasia 1+ Poikilocytosis 1+ Anisocytosis 1+ Macrocytosis 1+ Sickle Cells 1+ Target Cells 1+ Absolute Reticulocyte Count 0.279 H Percent Reticulocyte Count 9.6 H Sodium Level 141 Potassium Level 3.7 Chloride Level 106 Carbon Dioxide Level 22 Anion Gap 13 Blood Urea Nitrogen 10 Creatinine 0.44 Est Glomerular Filtrat Rate mL/min > 60 Glucose Level 94 Calcium Level 9.6 HPI/ROS Admit Date/Time Admit Date/Time Hx of Present Illness Chief complaint: Generalized body pain This is a 33-year-old female comes in with complaints of body pain. Patient has history of sickle cell anemia. She reports that her symptoms started last night at around 6 PM. Denies fevers chills nausea vomiting or chest pain. Does comp marj to moderate to severe pain in her extremities that is consistent with her history of vaso-occlusive crisis. She is requesting Dilaudid as well as IV Benadryl. Allergies: Codeine Medications: Hydroxyurea Folic acid Benadryl [place] Albuterol as needed ROS Const: As per HPI Eyes : No pain discharge or redness or change in visual acuity ENT: No pain, sore throat, congestion, congestion, dysphagia or discharge Respiratory: No shortness of breath, cough, sputum, wheezing, or pleuritic pain Cardiovascular: No chest pain, palpitation, PND, or edema GI : no change in appetite, abdominal pain, nausea, vomiting, diarrhea, constipation, or change in the color his stool Genitourinary: No dysuria, hematuria, flank pain , discharge or CVA tenderness Musculoskeletal: As per HPI Skin: No rash, bruising or hives Neuro: No headache, dizziness, syncope, seizure, focal weakness Endocrine: No polyuria, polydipsia, temperature intolerance Psych: No hallucination, depression, anxiety or suicidal ideation PMH/Family/Social Past Medical History Sickle cell disease Medications Current Medications Albuterol (Ventolin Hfa) 2 puff Q4H PRN INH WHEEZING AND SOB; Start 07/29/18 at 05:00 Folic Acid (Folic Acid) 1 mg DAILY PO ; Start 07/29/18 at 09:00 Hydroxyurea (Hydrea) 500 mg BID PO ; Start 07/29/18 at 09:00 Sodium Chloride 1,000 ml @ 125 mls/hr Q8H IV Last administered on 07/29/18at 05:00; Admin Dose 125 MLS/HR; Start 07/29/18 at 05:00 Acetaminophen/ Hydrocodone Bitart ([place] (5/325)) 1 tab Q4H PRN PO MODERATE PAIN LEVEL 4-6 Last administered on 07/29/18at 07:37; Admin Dose 1 TAB; Start 07/29/18 at 05:00 IV Flush (NS 3 ml) 3 ml PER PROTOCOL IV ; Start 07/29/18 at 05:30 Ondansetron HCl (Zofran Inj) 4 mg Q6H PRN IV NAUSEA/VOMITING; Start 07/29/18 at 05:30 Acetaminophen (Tylenol Tab) 650 mg Q6H PRN PO .PAIN 1-3 OR TEMP; Start 07/29/18 at 05:30 Enoxaparin Sodium (Lovenox) 40 mg DAILY SC ; Start 07/29/18 at 09:00 Diphenhydramine HCl (Benadryl) 25 mg Q6 PRN IM ITCHING Last administered on 07/29/18at 06:46; Admin Dose 25 MG; Start 07/29/18 at 06:00 Hydromorphone HCl (Dilaudid) 1 mg Q2H PRN IV SEVERE PAIN LEVEL 7-10 Last administered on 07/29/18at 08:40; Admin Dose 1 MG; Start 07/29/18 at 09:00 Coded Allergies: codeine (Unverified Allergy, Intermediate, ITCHY HIVES, 07/29/18) Past Surgical History x3 Past Surgical Hx: cholecystectomy, other Family History Significant Family History: no pertinent family hx, other Social History Alcohol Use: none Smoking Status: Current every day smoker Drug Use: none Exam/Review of Systems Vital Signs Vitals Vital Signs Date Temp Pulse Resp B/P (MAP) Pulse Ox O2 O2 Flow FiO2 Time Delivery Rate 07/29/18 88 16 134/82 98 Room Air 05:45 (99) 07/28/18 98.8 23:33 Exam Exam General: Currently lying in bed appears to be in moderate distress from pain HEENT: Atraumatic, normocephalic. The pupils are equal, round and reactive. Extraocular motor are intact Neck: Supple with full range of motion. No rigidity or meningismus Chest: Right chest Port-A-Cath Lungs: Coarse breath sounds bilaterally Heart: Normal S1-S2, Regular rhythm and rate. Abdomen: Soft , nontender, nondistended , bowel sounds are present. No guarding no rebound tenderness , No masses or organomegaly. No costovertebral temporal angle mass Extremities: Normal to inspection, no edema no cyanosis Neurologic: Normal mental status, speech normal, cranial nerves II through XII are intact, motor and sensory are intact, no focal weakness MAX MARTÍNEZ Jul 29, 2018 09:48
--- NOTE | 2018-07-29 10:29 | PN ---
Date/Time of Note Date/Time of Note DATE: 07/29/18 TIME: 10:29 Assessment/Plan VTE Prophylaxis Pharmacological prophylaxis: NA/contraindicated Pharm contraindication: other Lines/Catheters IV Catheter Type (from Nrsg): PORT Assessment/Plan Hospital Course S: still in a lot of pain O: Constitutional: alert, oriented Head: atraumatic, normocephalic Neck: non-tender, supple Respiratory: clear to auscultation Cardiovascular: regular rate and rhythm Gastrointestinal: S/ NT / ND / +BS Extremities: no edema, good radial pulses assessment and plan: 33 yo female known sickler who presented with body aches #1 sickle cell crisis. -Continue IV fluid hydration with normal saline, continue hydroxyurea and pain control #2 Reactive leukocytosis: CXR shows possible R sided infiltrate, doubtful of PNA but will begin to treat empirically #3 sickle cell disease: Continue hydroxyurea, folic acid dispo: await clinical improvement Result Diagram: 07/29/18 0208 07/29/18 0208 Results 24hrs Laboratory Tests Test 07/29/18 02:08 White Blood Count 12.1 H Red Blood Count 2.92 L Hemoglobin 8.0 L Hematocrit 23.6 L Mean Corpuscular Volume 80.8 L Mean Corpuscular Hemoglobin 27.4 L Mean Corpuscular Hemoglobin Concent 33.9 Red Cell Distribution Width 18.0 H Platelet Count 740 #H Mean Platelet Volume 9.0 Immature Granulocytes % 1.200 H Neutrophils % Segmented Neutrophils % (Manual) 42 Band Neutrophils % (Manual) 2 Lymphocytes % Lymphocytes % (Manual) 26 Reactive Lymphocytes % (Manual) 2 H Monocytes % Monocytes % (Manual) 4 Eosinophils % Eosinophils % (Manual) 14 H Basophils % Basophils % (Manual) 5 H Metamyelocytes % (manual) 5 H Nucleated Red Blood Cells % 33 H Immature Granulocytes # 0.140 H Neutrophils # Neutrophils # (Manual) 5.1 Band Neutrophils # 0.2 Lymphocytes (Manual) 3.1 H Lymphocytes # Reactive Lymphocytes # 0.2 H Monocytes # Monocytes # (Manual) 0.4 Eosinophils # Basophils # Basophils # (Manual) 0.6 H Metamyelocytes # 0.6 H Nucleated Red Blood Cells # Platelet Estimate INCREASED Giant Platelets 1 H Polychromasia 3+ Hypochromasia 1+ Poikilocytosis 1+ Anisocytosis 1+ Macrocytosis 1+ Sickle Cells 1+ Target Cells 1+ Absolute Reticulocyte Count 0.279 H Percent Reticulocyte Count 9.6 H Sodium Level 141 Potassium Level 3.7 Chloride Level 106 Carbon Dioxide Level 22 Anion Gap 13 Blood Urea Nitrogen 10 Creatinine 0.44 Est Glomerular Filtrat Rate mL/min > 60 Glucose Level 94 Calcium Level 9.6 Exam/Review of Systems Exam Vitals Vital Signs Date Temp Pulse Resp B/P (MAP) Pulse Ox O2 O2 Flow FiO2 Time Delivery Rate 07/29/18 88 16 134/82 98 Room Air 05:45 (99) 07/28/18 98.8 23:33 Results Results 24hrs Laboratory Tests Test 07/29/18 02:08 White Blood Count 12.1 H Red Blood Count 2.92 L Hemoglobin 8.0 L Hematocrit 23.6 L Mean Corpuscular Volume 80.8 L Mean Corpuscular Hemoglobin 27.4 L Mean Corpuscular Hemoglobin Concent 33.9 Red Cell Distribution Width 18.0 H Platelet Count 740 #H Mean Platelet Volume 9.0 Immature Granulocytes % 1.200 H Neutrophils % Segmented Neutrophils % (Manual) 42 Band Neutrophils % (Manual) 2 Lymphocytes % Lymphocytes % (Manual) 26 Reactive Lymphocytes % (Manual) 2 H Monocytes % Monocytes % (Manual) 4 Eosinophils % Eosinophils % (Manual) 14 H Basophils % Basophils % (Manual) 5 H Metamyelocytes % (manual) 5 H Nucleated Red Blood Cells % 33 H Immature Granulocytes # 0.140 H Neutrophils # Neutrophils # (Manual) 5.1 Band Neutrophils # 0.2 Lymphocytes (Manual) 3.1 H Lymphocytes # Reactive Lymphocytes # 0.2 H Monocytes # Monocytes # (Manual) 0.4 Eosinophils # Basophils # Basophils # (Manual) 0.6 H Metamyelocytes # 0.6 H Nucleated Red Blood Cells # Platelet Estimate INCREASED Giant Platelets 1 H Polychromasia 3+ Hypochromasia 1+ Poikilocytosis 1+ Anisocytosis 1+ Macrocytosis 1+ Sickle Cells 1+ Target Cells 1+ Absolute Reticulocyte Count 0.279 H Percent Reticulocyte Count 9.6 H Sodium Level 141 Potassium Level 3.7 Chloride Level 106 Carbon Dioxide Level 22 Anion Gap 13 Blood Urea Nitrogen 10 Creatinine 0.44 Est Glomerular Filtrat Rate mL/min > 60 Glucose Level 94 Calcium Level 9.6 Medications Medication Current Medications Albuterol (Ventolin Hfa) 2 puff Q4H PRN INH WHEEZING AND SOB; Start 07/29/18 at 05:00 Folic Acid (Folic Acid) 1 mg DAILY PO ; Start 07/29/18 at 09:00 Hydroxyurea (Hydrea) 500 mg BID PO ; Start 07/29/18 at 09:00 Sodium Chloride 1,000 ml @ 125 mls/hr Q8H IV Last administered on 07/29/18at 05:00; Admin Dose 125 MLS/HR; Start 07/29/18 at 05:00 Acetaminophen/ Hydrocodone Bitart ([place] (5/325)) 1 tab Q4H PRN PO MODERATE P AIN LEVEL 4-6 Last administered on 07/29/18at 07:37; Admin Dose 1 TAB; Start 07/29/18 at 05:00 IV Flush (NS 3 ml) 3 ml PER PROTOCOL IV ; Start 07/29/18 at 05:30 Ondansetron HCl (Zofran Inj) 4 mg Q6H PRN IV NAUSEA/VOMITING; Start 07/29/18 at 05:30 Acetaminophen (Tylenol Tab) 650 mg Q6H PRN PO .PAIN 1-3 OR TEMP; Start 07/29/18 at 05:30 Enoxaparin Sodium (Lovenox) 40 mg DAILY SC ; Start 07/29/18 at 09:00 Diphenhydramine HCl (Benadryl) 25 mg Q6 PRN IM ITCHING Last administered on 07/29/18at 06:46; Admin Dose 25 MG; Start 07/29/18 at 06:00 Hydromorphone HCl (Dilaudid) 1 mg Q2H PRN IV SEVERE PAIN LEVEL 7-10 Last administered on 07/29/18at 08:40; Admin Dose 1 MG; Start 07/29/18 at 09:00 Ceftriaxone Sodium 50 ml @ 100 mls/hr Q24H IVPB ; Start 07/29/18 at 10:00 Azithromycin 250 ml @ 250 mls/hr Q24H IVPB ; Start 07/29/18 at 10:00 MELISSA WELLS Jul 29, 2018 10:29
[2018-07-29] MEDS: FOLIC ACID 1 MG TAB PO SCH (10:54)
[2018-07-29] MEDS: CEFTRIAXONE 1 GM/50 ML (PMX) 50 ML IVPB SCH (10:57)
[2018-07-29] MEDS: AZITHROMYCIN 500MG/NS (PMX) 250 ML IVPB SCH (10:58)
[2018-07-29 16:57] VITALS: BP 126/63; RESP 18
[2018-07-29] MEDS ORDERED: KETOROLAC 30 MG INJ IV SCH (17:30)
[2018-07-29 17:35] VITALS: Ht 162.6 cm; Wt 45.5 kg
[2018-07-29] MEDS ORDERED: KETOROLAC 15 MG INJ IV PRN (18:00)
[2018-07-29] MEDS: KETOROLAC 15 MG INJ IV SCH (18:43)
[2018-07-29 20:00] VITALS: BP 113/55; PULSE 77; RESP 18
[2018-07-30] MEDS: KETOROLAC 15 MG INJ IV SCH ×4 (00:01→18:24)
[2018-07-30] MEDS: HYDROmorphONE 1 MG/ML SYG IV PRN ×8 (02:25→23:18)
[2018-07-30] MEDS: SOD CHLORIDE 0.9% 1,000 ML IV SCH ×3 (03:09→19:35)
[2018-07-30] MEDS: DIPHENHYDRAMINE 50 MG INJ IM PRN ×3 (05:20→20:17)
[2018-07-30 07:44] VITALS: BP 112/57; PULSE 67; RESP 18
[2018-07-30] MEDS: HYDROXYUREA 500 MG CAP PO SCH ×2 (09:00→21:00)
[2018-07-30] MEDS: ENOXAPARIN 40 MG/0.4 ML SYG SC SCH (09:00)
[2018-07-30] MEDS: FOLIC ACID 1 MG TAB PO SCH (09:19)
[2018-07-30] MEDS: HYDROCODONE/APAP (5/325) TAB PO PRN ×2 (09:24→21:49)
--- NOTE | 2018-07-30 09:48 | CONS ---
Assessment/Plan Assessment/Plan Assessment/Plan (Daily) Sickle cell crisis Leukocytosis Labile personality Chronic pain disorder Agree with IV fluids current pain control medications with IV Dilaudid every 4 hours milligrams, would not add on Benadryl no indications. Monitor white blood cell count hemoglobin levels, repeat chest x-ray as needed. Consultation Date/Type/Reason Admit Date/Time Date/Time of Note DATE: 07/30/18 TIME: 09:42 Hx of Present Illness This is a 33-year-old female who is well-known to me I am asked to see in pain management consultation. Patient is a 33-year-old female with long-standing history of sickle cell anemia with many crises since I have seen her over the last 2-3 years. Patient is seen in the community by r d engineer she is on hydroxyurea she takes [place] at home and she resuscitate himself with fluids when she has exacerbations. She states that this time she is not aware of any reason that she should have a sickle cell crisis. Pain is described in the right shoulder primarily in left hip which seems typical for her prior hospitalizations. She denies nausea vomiting fevers chills cough shortness of breath headache earache sore throat frequency burning when she urinates diarrhea there is nuchal rigidity patient is status post cholecystectomy. Patient presented with leukocytosis she was treated aggressively in the emergency room with fluids IV opioids DVT prophylaxis.. She states her typical hospitalization. 3-4 days she states this is a typical type presentation also it is unknown how many times she is required transfusions in the past at this time. Constitutional: chills ENT: No no complaints, No bleeding, No pain, No congestion, No discharge, No dysphagia, No sore throat, No other Respiratory: sputum Cardiovascular: no complaints; No chest pain, No edema, No lightheadedness, No orthopenea, No palpitations, No paroxysmal nocturnal dyspnea, No other Gastrointestinal: No no complaints, No pain, No blood, No constipation, No decreased appetite, No diarrhea, No flatus, No nausea, No passing stool, No vomiting, No other Genitourinary: No no complaints, No bleeding, No dysuria, No discharge, No flank pain, No hematuria, No other Musculoskeletal: back pain, bone/joint pain, neck pain, restricted range of motion, swelling, other; No no complaints Neurologic: No no complaints, No confusion, No dizziness, No focal-weakness, No headache, No syncope, No seizure, No other Endocrine: No no complaints, No polyuria, No polydypsia, No dry skin, No temp intolerance, No other Past Medical History Medical History: other (Sickle cell anemia) Home Meds Active Scripts Hydrocodone/Acetaminophen ([place] 10-325 Tablet) 1 Each Tablet, 1 TAB PO Q6H PRN for PAIN, #7 TAB Prov:TAMIA ZAIDI DO 07/19/18 Docusate Sodium (Dok) 100 Mg Capsule, 100 MG PO Q12H, #60 CAP 2 Refills Prov:MELISSA WELLS M. 05/28/18 Hydroxyurea* (Hydroxyurea*) 500 Mg Capsule, 500 MG PO BID, #60 CAP 2 Refills Prov:SAMIA WELLSSABINE M. 05/28/18 Albuterol Sulfate* (Proair HFA*) 8.5 Gm Hfa.aer.ad, 2 PUFF INH Q4H PRN for WHEEZING AND SOB, #1 INHALER Prov:SARAH ANTONIO MD 05/18/18 Reported Medications Hydrocodone/Acetaminophen ([place] 10-325 Tablet) 1 Each Tablet, 1 EACH PO Q6H PRN for PAIN LEVEL 7-10, TAB 07/29/18 Folic Acid* (Folic Acid*) 1 Mg Tablet, 1 MG PO DAILY, TAB 05/18/18 Diphenhydramine Hcl (Banophen) 25 Mg Capsule, 25 MG PO BID, CAP 03/21/18 Discontinued Reported Medications Hydrocodone/Acetaminophen ([place] 10-325 Tablet) 1 Each Tablet, 1 EACH PO Q6 PRN for PAIN, TAB 05/18/18 Medications Current Medications Albuterol (Ventolin Hfa) 2 puff Q4H PRN INH WHEEZING AND SOB; Start 07/29/18 at 05:00 Folic Acid (Folic Acid) 1 mg DAILY PO Last administered on 07/30/18at 09:19; Admin Dose 1 MG; Start 07/29/18 at 09:00 Hydroxyurea (Hydrea) 500 mg BID PO ; Start 07/29/18 at 09:00 Sodium Chloride 1,000 ml @ 150 mls/hr Q6H40M IV Last administered on 07/30/18at 03:09; Admin Dose 150 MLS/HR; Start 07/29/18 at 05:00 Acetaminophen/ Hydrocodone Bitart ([place] (5/325)) 1 tab Q4H PRN PO MODERATE PAIN LEVEL 4-6 Last administered on 07/30/18at 09:24; Admin Dose 1 TAB; Start 07/29/18 at 05:00 IV Flush (NS 3 ml) 3 ml PER PROTOCOL IV ; Start 07/29/18 at 05:30 Ondansetron HCl (Zofran Inj) 4 mg Q6H PRN IV NAUSEA/VOMITING; Start 07/29/18 at 05:30 Acetaminophen (Tylenol Tab) 650 mg Q6H PRN PO .PAIN 1-3 OR TEMP; Start 07/29/18 at 05:30 Enoxaparin Sodium (Lovenox) 40 mg DAILY SC ; Start 07/29/18 at 09:00 Diphenhydramine HCl (Benadryl) 25 mg Q6 PRN IM ITCHING Last administered on at 05:20; Admin Dose 25 MG; Start 07/29/18 at 06:00 Ceftriaxone Sodium 50 ml @ 100 mls/hr Q24H IVPB Last administered on 07/29/18 10:57; Admin Dose 100 MLS/HR; Start 07/29/18 at 10:00 Azithromycin 250 ml @ 250 mls/hr Q24H IVPB Last administered on 07/29/18at 10:58; Admin Dose 250 MLS/HR; Start 07/29/18 at 10:00 Hydromorphone HCl (Dilaudid) 1 mg Q3H PRN IV SEVERE PAIN LEVEL 7-10 Last adm inistered on 07/30/18at 08:11; Admin Dose 1 MG; Start 07/29/18 at 17:18 Lorazepam (Ativan) 0.5 mg Q8H PRN IV anxiety; Start 07/29/18 at 17:30 Ketorolac Tromethamine (Toradol) 15 mg Q6 IV Last administered on 07/30/18 06:09; Admin Dose 15 MG; Start 07/29/18 at 18:00; Stop 08/01/18 at 17:59 Allergies: Coded Allergies: codeine (Unverified Allergy, Intermediate, ITCHY HIVES, 07/29/18) Past Surgical History Past Surgical Hx: cholecystectomy, other Social History Alcohol Use: none Smoking Status: Light tobacco smoker Drug Use: none Exam/Review of Systems Exam Vitals Vital Signs Date Temp Pulse Resp B/P (MAP) Pulse Ox O2 O2 Flow FiO2 Time Delivery Rate 07/30/18 98.6 67 18 112/57 98 Room Air 07:44 (75) 07/30/18 6.0 04:57 Intake and Output 07/29/18 07/29/18 07/30/18 1515:00 23:00 07:00 IntakeIntake Total 1250 ml 1550 ml OutputOutput Total 200 ml 300 ml BalanceBalance 1050 ml 1250 ml Constitutional: alert, oriented, well developed, distress, frail Psych: anxiety Head: normocephalic, atraumatic; No lacerations, No hematomas, No other Eyes: nl conjunctiva, EOMI, nl lids, nl sclera, PERRL ENMT: nl external ears & nose, nl lips & teeth, nl nasal mucosa & septum; No mucosa pink and moist, No intubated, No tympanic membranes, No other Neck: supple, non-tender; No jvd, No bruits, No masses, No thyromegaly, No nuchal rigidity, No other Respiratory: congested cough Cardiovascular: No regular rate and rhythm, No nl pulses, No bruits, No diastolic murmur, No edema, No gallop, No irregular rhythm, No jugular venous distention (JVD), No murmurs/extra sounds, No rub, No systolic murmur, No S3, No S4, No other Gastrointestinal: No soft, No nl liver, spleen, No non-tender, No ascites, No bowel sounds, No distended, No firm, No hepatomegaly, No mass, No rebound or guarding, No splenomegaly, No surgical scars, No tender, No other Neurological: WAITER WAITRESS II-XII intact, nl mental status, nl speech, nl strength Results Result Diagram: 07/30/1844907/30/18449 Results 24hrs Laboratory Tests Test 07/30/18 04:50 White Blood Count 11.0 H Red Blood Count 2.83 L Hemoglobin 7.8 L Hematocrit 23.6 L Mean Corpuscular Volume 83.4 Mean Corpuscular Hemoglobin 27.6 L Mean Corpuscular Hemoglobin Concent 33.1 Red Cell Distribution Width 19.1 H Platelet Count 680 H Mean Platelet Volume 9.6 Immature Granulocytes % 1.000 H Neutrophils % 50.3 Lymphocytes % 29.2 Monocytes % 11.4 H Eosinophils % 6.7 Basophils % 1.4 Nucleated Red Blood Cells % 6.9 H Immature Granulocytes # 0.110 H Neutrophils # 5.5 Lymphocytes # 3.2 H Monocytes # 1.3 H Eosinophils # 0.7 H Basophils # 0.2 H Nucleated Red Blood Cells # 0.8 H Sodium Level 143 Potassium Level 4.3 Chloride Level 112 H Carbon Dioxide Level 21 Anion Gap 10 Blood Urea Nitrogen 5 L Creatinine 0.42 L Est Glomerular Filtrat Rate mL/min > 60 Glucose Level 79 Calcium Level 8.8 Magnesium Level 1.8 Total Bilirubin 1.1 Direct Bilirubin 0.00 Indirect Bilirubin 1.1 Aspartate Amino Transf (AST/SGOT) 32 Alanine Aminotransferase (ALT/SGPT) 14 Alkaline Phosphatase 77 Total Protein 7.5 Albumin 3.9 Globulin 3.60 H Albumin/Globulin Ratio 1.08 Medications Medication Current Medications Albuterol (Ventolin Hfa) 2 puff Q4H PRN INH WHEEZING AND SOB; Start 07/29/18 at 05:00 Folic Acid (Folic Acid) 1 mg DAILY PO Last administered on 07/30/18at 09:19; Admin Dose 1 MG; Start 07/29/18 at 09:00 Hydroxyurea (Hydrea) 500 mg BID PO ; Start 07/29/18 at 09:00 Sodium Chloride 1,000 ml @ 150 mls/hr Q6H40M IV Last administered on 07/30/18at 03:09; Admin Dose 150 MLS/HR; Start 07/29/18 at 05:00 Acetaminophen/ Hydrocodone Bitart ([place] (5/325)) 1 tab Q4H PRN PO MODERATE PAIN LEVEL 4-6 Last administered on 07/30/18at 09:24; Admin Dose 1 TAB; Start 07/29/18 at 05:00 IV Flush (NS 3 ml) 3 ml PER PROTOCOL IV ; Start 07/29/18 at 05:30 Ondansetron HCl (Zofran Inj) 4 mg Q6H PRN IV NAUSEA/VOMITING; Start 07/29/18 at 05:30 Acetaminophen (Tylenol Tab) 650 mg Q6H PRN PO .PAIN 1-3 OR TEMP; Start 07/29/18 at 05:30 Enoxaparin Sodium (Lovenox) 40 mg DAILY SC ; Start 07/29/18 at 09:00 Diphenhydramine HCl (Benadryl) 25 mg Q6 PRN IM ITCHING Last administered on 07/30/18at 05:20; Admin Dose 25 MG; Start 07/29/18 at 06:00 Ceftriaxone Sodium 50 ml @ 100 mls/hr Q24H IVPB Last administered on 07/29/18 10:57; Admin Dose 100 MLS/HR; Start 07/29/18 at 10:00 Azithromycin 250 ml @ 250 mls/hr Q24H IVPB Last administered on 07/29/18 10:58; Admin Dose 250 MLS/HR; Start 07/29/18 at 10:00 Hydromorphone HCl (Dilaudid) 1 mg Q3H PRN IV SEVERE PAIN LEVEL 7-10 Last administered on 07/30/18at 08:11; Admin Dose 1 MG; Start 07/29/18 at 17:18 Lorazepam (Ativan) 0.5 mg Q8H PRN IV anxiety; Start 07/29/18 at 17:30 Ketorolac Tromethamine (Toradol) 15 mg Q6 IV Last administered on 07/30/18 06:09; Admin Dose 15 MG; Start 07/29/18 at 18:00; Stop 08/01/18 at 17:59 REBECCA SWAIN Jul 30, 2018 09:48
[2018-07-30] MEDS: CEFTRIAXONE 1 GM/50 ML (PMX) 50 ML IVPB SCH (10:17)
[2018-07-30] MEDS: AZITHROMYCIN 500MG/NS (PMX) 250 ML IVPB SCH (12:17)
[2018-07-30] MEDS: LORAZEPAM 2 MG INJ IV PRN ×2 (12:57→21:43)
[2018-07-30 15:20] VITALS: BP 121/69; PULSE 78; RESP 18
[2018-07-31] MEDS: KETOROLAC 15 MG INJ IV SCH ×5 (00:32→23:17)
[2018-07-31] MEDS: SOD CHLORIDE 0.9% 1,000 ML IV SCH ×4 (02:18→17:08)
[2018-07-31] MEDS: HYDROmorphONE 1 MG/ML SYG IV PRN ×8 (02:29→23:21)
[2018-07-31] MEDS: DIPHENHYDRAMINE 50 MG INJ IV PRN ×4 (02:34→20:27)
[2018-07-31 02:40] VITALS: BP 124/79; PULSE 88; RESP 20
[2018-07-31] MEDS: HYDROCODONE/APAP (5/325) TAB PO PRN ×3 (03:54→19:46)
--- NOTE | 2018-07-31 07:40 | PN ---
DATE: 07/31/2018 SUBJECTIVE: The patient is feeling a bit better but continues to have significant pain, especially on the right side. PHYSICAL EXAMINATION: VITAL SIGNS: Temperature 98.6, pulse 67, respirations 18, blood pressure 112/57, saturations 98% on room air. GENERAL: Frail, alert, oriented. HEENT: Head normocephalic. Pupils equal and reactive. NECK: Supple. CHEST: Clear to auscultation. CARDIOVASCULAR: S1 and S2, no murmurs. ABDOMEN: Soft, nontender. EXTREMITIES: No lower extremity edema. ASSESSMENT AND PLAN: A 33-year-old female with known sickle cell who presented with generalized body aches. 1. Acute pain crisis. 2. Leukocytosis with concern for a possible right lower lobe infiltrate on x- ray; however, the patient is noted to have coughing, overt signs of pneumonia, but she is on empiric therapy for LRT infection. 3. Sickle cell disease. DISPOSITION: Continue pain control and supportive care. Continue empiric antibiotics, await clinical improvement. Of note is that her hemoglobin dropped by 0.2. points at this time but will see what it is doing tomorrow. Dictated By: MELISSA WELLS MD BA/NTS Conf#: [id number] DID#: [id number] CC: MAX MARTÍNEZ MD;*EndCC* MTDD
[2018-07-31] MEDS: FOLIC ACID 1 MG TAB PO SCH (08:17)
[2018-07-31] MEDS: HYDROXYUREA 500 MG CAP PO SCH ×2 (08:17→21:00)
[2018-07-31 08:22] VITALS: BP 114/69; PULSE 90; RESP 18
[2018-07-31] MEDS: ENOXAPARIN 40 MG/0.4 ML SYG SC SCH (08:48)
[2018-07-31] MEDS: LORAZEPAM 2 MG INJ IV PRN ×2 (08:49→17:03)
[2018-07-31] MEDS: AZITHROMYCIN 500MG/NS (PMX) 250 ML IVPB SCH (09:54)
[2018-07-31] MEDS: CEFTRIAXONE 1 GM/50 ML (PMX) 50 ML IVPB SCH (09:54)
[2018-07-31 15:06] VITALS: BP 121/76; PULSE 86; RESP 18
[2018-07-31 19:30] VITALS: BP 140/70; PULSE 82; RESP 20
[2018-08-01] MEDS: SOD CHLORIDE 0.9% 1,000 ML IV SCH ×5 (00:20→22:52)
[2018-08-01] MEDS: LORAZEPAM 2 MG INJ IV PRN ×2 (01:05→14:54)
[2018-08-01] MEDS: HYDROCODONE/APAP (10/325) TAB PO PRN ×4 (01:40→23:04)
[2018-08-01 02:20] VITALS: BP 107/62; PULSE 88; RESP 20
[2018-08-01] MEDS: HYDROmorphONE 1 MG/ML SYG IV PRN ×8 (02:23→22:34)
[2018-08-01] MEDS: DIPHENHYDRAMINE 50 MG INJ IV PRN ×4 (02:25→19:31)
[2018-08-01] MEDS: KETOROLAC 15 MG INJ IV SCH ×2 (05:16→12:06)
[2018-08-01] MEDS: ENOXAPARIN 40 MG/0.4 ML SYG SC SCH (08:58)
[2018-08-01] MEDS: HYDROXYUREA 500 MG CAP PO SCH ×2 (08:58→21:00)
[2018-08-01] MEDS: FOLIC ACID 1 MG TAB PO SCH (09:34)
[2018-08-01] MEDS: CEFTRIAXONE 1 GM/50 ML (PMX) 50 ML IVPB SCH (09:34)
[2018-08-01] MEDS: AZITHROMYCIN 500MG/NS (PMX) 250 ML IVPB SCH (11:05)
--- NOTE | 2018-08-01 12:50 | PN ---
Date/Time of Note Date/Time of Note DATE: 08/01/18 TIME: 12:47 Assessment/Plan VTE Prophylaxis Risk score (from Nsg)>0 risk: 3 Pharmacological prophylaxis: LMWH Lines/Catheters IV Catheter Type (from Nrsg): PORTCATH Urinary Cath still in place: No Assessment/Plan Hospital Course 1. Sickle cell crisis She continues to complain of significant pain, continue Dilaudid Dr. Shannon is following and managing pain regimen 2. Leukocytosis with concern for a possible right lower lobe infiltrate on x- ray Continue Rocephin and azithromycin 3. Anemia secondary to sickle cell Monitor Prophylaxis: Lovenox DC planning: Anticipate DC home in 1-2 days Result Diagram: 08/01/18 0453 08/01/18 0453 Results 24hrs Laboratory Tests Test 08/01/18 04:53 White Blood Count 10.2 Red Blood Count 2.73 L Hemoglobin 7.5 L Hematocrit 22.6 L Mean Corpuscular Volume 82.8 Mean Corpuscular Hemoglobin 27.5 L Mean Corpuscular Hemoglobin Concent 33.2 Red Cell Distribution Width 17.7 H Platelet Count 646 H Mean Platelet Volume 9.5 Immature Granulocytes % 0.700 H Neutrophils % 56.8 Lymphocytes % 24.1 Monocytes % 9.3 Eosinophils % 8.0 H Basophils % 1.1 Nucleated Red Blood Cells % 2.7 H Immature Granulocytes # 0.070 H Neutrophils # 5.8 Lymphocytes # 2.5 Monocytes # 1.0 H Eosinophils # 0.8 H Basophils # 0.1 Nucleated Red Blood Cells # 0.3 H Sodium Level 143 Potassium Level 3.5 Chloride Level 108 Carbon Dioxide Level 23 Anion Gap 12 Blood Urea Nitrogen 7 Creatinine 0.36 L Est Glomerular Filtrat Rate mL/min > 60 Glucose Level 85 Calcium Level 8.7 Subjective 24 Hr Interval Summary Musculoskeletal: bone/joint pain Exam/Review of Systems Exam Vitals Vital Signs Date Temp Pulse Resp B/P (MAP) Pulse Ox O2 O2 Flow FiO2 Time Delivery Rate 08/01/18 6.0 06:06 08/01/18 98.8 88 20 107/62 97 Room Air 02:20 (77) Intake and Output 07/31/18 07/31/18 08/01/18 1515:00 23:00 07:00 IntakeIntake Total 1600 ml 1360 ml 1480 ml BalanceBalance 1600 ml 1360 ml 1480 ml Constitutional: alert, oriented Respiratory: clear to auscultation Cardiovascular: regular rate and rhythm Gastrointestinal: soft; No distended Musculoskeletal: nl extremities to inspection Results Results 24hrs Laboratory Tests Test 08/01/18 04:53 White Blood Count 10.2 Red Blood Count 2.73 L Hemoglobin 7.5 L Hematocrit 22.6 L Mean Corpuscular Volume 82.8 Mean Corpuscular Hemoglobin 27.5 L Mean Corpuscular Hemoglobin Concent 33.2 Red Cell Distribution Width 17.7 H Platelet Count 646 H Mean Platelet Volume 9.5 Immature Granulocytes % 0.700 H Neutrophils % 56.8 Lymphocytes % 24.1 Monocytes % 9.3 Eosinophils % 8.0 H Basophils % 1.1 Nucleated Red Blood Cells % 2.7 H Immature Granulocytes # 0.070 H Neutrophils # 5.8 Lymphocytes # 2.5 Monocytes # 1.0 H Eosinophils # 0.8 H Basophils # 0.1 Nucleated Red Blood Cells # 0.3 H Sodium Level 143 Potassium Level 3.5 Chloride Level 108 Carbon Dioxide Level 23 Anion Gap 12 Blood Urea Nitrogen 7 Creatinine 0.36 L Est Glomerular Filtrat Rate mL/min > 60 Glucose Level 85 Calcium Level 8.7 Medications Medication Current Medications Albuterol (Ventolin Hfa) 2 puff Q4H PRN INH WHEEZING AND SOB; Start 07/29/18 at 05:00 Folic Acid (Folic Acid) 1 mg DAILY PO Last administered on 08/01/18at 09:34; Admin Dose 1 MG; Start 07/29/18 at 09:00 Hydroxyurea (Hydrea) 500 mg BID PO ; Start 07/29/18 at 09:00 Sodium Chloride 1,000 ml @ 150 mls/hr Q6H40M IV Last administered on 08/01/18at 07:17; Admin Dose 150 MLS/HR; Start 07/29/18 at 05:00 IV Flush (NS 3 ml) 3 ml PER PROTOCOL IV ; Start 07/29/18 at 05:30 Ondansetron HCl (Zofran Inj) 4 mg Q6H PRN IV NAUSEA/VOMITING; Start 07/29/18 at 05:30 Acetaminophen (Tylenol Tab) 650 mg Q6H PRN PO .PAIN 1-3 OR TEMP; Start 07/29/18 at 05:30 Enoxaparin Sodium (Lovenox) 40 mg DAILY SC ; Start 07/29/18 at 09:00 Ceftriaxone Sodium 50 ml @ 100 mls/hr Q24H IVPB Last administered on 08/01/18 09:34; Admin Dose 100 MLS/HR; Start 07/29/18 at 10:00 Azithromycin 250 ml @ 250 mls/hr Q24H IVPB Last administered on 08/01/18 11:05; Admin Dose 250 MLS/HR; Start 07/29/18 at 10:00 Lorazepam (Ativan) 0.5 mg Q8H PRN IV anxiety Last administered on 08/01/18 01:05; Admin Dose 0.5 MG; Start 07/29/18 at 17:30 Ketorolac Tromethamine (Toradol) 15 mg Q6 IV Last administered on 08/01/18 12:06; Admin Dose 15 MG; Start 07/29/18 at 18:00; Stop 08/01/18 at 17:59 Diphenhydramine HCl (Benadryl) 25 mg Q6H PRN IV ITCHING Last administered on 08/01/18 08:11; Admin Dose 25 MG; Start 07/31/18 at 02:30 Acetaminophen/ Hydrocodone Bitart ([place] (10/325)) 1 tab Q6H PRN PO MODERATE PAIN LEVEL 4-6 Last administered on 08/01/18 08:57; Admin Dose 1 TAB; Start 08/01/18 at 00:30 Hydromorphone HCl (Dilaudid) 1 mg Q3H PRN IV SEVERE PAIN LEVEL 7-10 Last administered on 08/01/18 11:03; Admin Dose 1 MG; Start 08/01/18 at 09:00 JAY JAY MARINO Aug 01, 2018 12:50
[2018-08-01 19:05] VITALS: BP 116/58; PULSE 71; RESP 18
[2018-08-01] MEDS ORDERED: HYDROmorphONE 1 MG/ML SYG IV ONE (21:00)
[2018-08-02] MEDS: LORAZEPAM 2 MG INJ IV PRN ×3 (00:04→18:58)
[2018-08-02] MEDS: HYDROmorphONE 1 MG/ML SYG IV PRN ×4 (01:16→10:02)
[2018-08-02] MEDS: DIPHENHYDRAMINE 50 MG INJ IV PRN ×4 (01:16→18:44)
[2018-08-02] MEDS: SOD CHLORIDE 0.9% 1,000 ML IV SCH ×5 (04:23→22:46)
[2018-08-02] MEDS: HYDROCODONE/APAP (10/325) TAB PO PRN ×3 (05:09→20:11)
[2018-08-02] MEDS: ENOXAPARIN 40 MG/0.4 ML SYG SC SCH (09:00)
[2018-08-02] MEDS: FOLIC ACID 1 MG TAB PO SCH (09:34)
[2018-08-02] MEDS: HYDROXYUREA 500 MG CAP PO SCH ×2 (09:35→21:49)
[2018-08-02] MEDS: AZITHROMYCIN 250 MG TAB PO SCH (09:36)
[2018-08-02] MEDS: CEFTRIAXONE 1 GM/50 ML (PMX) 50 ML IVPB SCH (09:56)
[2018-08-02 11:28] VITALS: BP 119/68; PULSE 83; RESP 18
--- NOTE | 2018-08-02 11:29 | PN ---
Date/Time of Note Date/Time of Note DATE: 08/02/18 TIME: 11:26 Assessment/Plan VTE Prophylaxis Risk score (from Ns)>0 risk: 3 SCD applied (from [facility] [place] No SCD contraindicated: low risk/ambulating Pharmacological prophylaxis: heparin Lines/Catheters IV Catheter Type (from Nrsg): Central Line Central line still needed: Yes Urinary Cath still in place: No Assessment/Plan Problems: (1) Sickle cell anemia Status: Chronic Comment: Patient is still in significant pain at this time. An instigating factor is probably the left lower lobe infiltrate. She is receiving antibiotics at this time will put a Horizon dates on the antibiotics. 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 (3) Pneumonia Status: Acute Comment: Noted and on antibiotics. Please note her cough is probably suppressed by the rather large volume of opiates were giving her Qualifiers: Pneumonia type: due to unspecified organism Laterality: left Lung location: lower lobe of lung Qualified Codes: J18.1 - Lobar pneumonia, unspecified organism Result Diagram: 08/02/18 0449 08/02/18 0449 Results 24hrs Laboratory Tests Test 08/02/18 04:49 White Blood Count 11.0 H Red Blood Count 2.78 L Hemoglobin 7.7 L Hematocrit 22.7 L Mean Corpuscular Volume 81.7 L Mean Corpuscular Hemoglobin 27.7 L Mean Corpuscular Hemoglobin Concent 33.9 Red Cell Distribution Width 17.6 H Platelet Count 650 H Mean Platelet Volume 9.2 Immature Granulocytes % 0.500 H Neutrophils % 57.0 Lymphocytes % 22.9 Monocytes % 10.3 Eosinophils % 8.0 H Basophils % 1.3 Nucleated Red Blood Cells % 1.5 H Immature Granulocytes # 0.050 H Neutrophils # 6.3 Lymphocytes # 2.5 Monocytes # 1.1 H Eosinophils # 0.9 H Basophils # 0.1 Nucleated Red Blood Cells # 0.2 H Sodium Level 143 Potassium Level 3.3 L Chloride Level 111 H Carbon Dioxide Level 20 L Anion Gap 12 Blood Urea Nitrogen 4 L Creatinine 0.34 L Est Glomerular Filtrat Rate mL/min > 60 Glucose Level 91 Calcium Level 8.9 Magnesium Level 1.7 Subjective 24 Hr Interval Summary Free Text/Dictation Patient reports she is in a pain and has not had a great deal of success. Historically she has had MS Contin in the past but she has never had methadone and she does not like the stigma around the term methadone Constitutional: no complaints (Denies fevers chills or sweats) Respiratory: no complaints (Denies cough or shortness of breath although she states that her pain is so severe she might not notice) Cardiovascular: no complaints Gastrointestinal: no complaints Genitourinary: no complaints Exam/Review of Systems Exam Vitals Vital Signs Date Temp Pulse Resp B/P (MAP) Pulse Ox O2 O2 Flow FiO2 Time Delivery Rate 08/02/18 6.0 05:37 08/01/18 () 19:05 08/01/18 Room Air 02:20 Intake and Output 08/01/18 08/01/18 08/02/18 1515:00 23:00 07:00 IntakeIntake Total 1780 ml 2240 ml 1000 ml BalanceBalance 1780 ml 2240 ml 1000 ml Constitutional: alert, oriented Neck: supple, non-tender Respiratory: normal air movement, crackles/rales (Left basilar crackles) Cardiovascular: regular rate and rhythm, nl pulses Results Results 24hrs Laboratory Tests Test 08/02/18 04:49 White Blood Count 11.0 H Red Blood Count 2.78 L Hemoglobin 7.7 L Hematocrit 22.7 L Mean Corpuscular Volume 81.7 L Mean Corpuscular Hemoglobin 27.7 L Mean Corpuscular Hemoglobin Concent 33.9 Red Cell Distribution Width 17.6 H Platelet Count 650 H Mean Platelet Volume 9.2 Immature Granulocytes % 0.500 H Neutrophils % 57.0 Lymphocytes % 22.9 Monocytes % 10.3 Eosinophils % 8.0 H Basophils % 1.3 Nucleated Red Blood Cells % 1.5 H Immature Granulocytes # 0.050 H Neutrophils # 6.3 Lymphocytes # 2.5 Monocytes # 1.1 H Eosinophils # 0.9 H Basophils # 0.1 Nucleated Red Blood Cells # 0.2 H Sodium Level 143 Potassium Level 3.3 L Chloride Level 111 H Carbon Dioxide Level 20 L Anion Gap 12 Blood Urea Nitrogen 4 L Creatinine 0.34 L Est Glomerular Filtrat Rate mL/min > 60 Glucose Level 91 Calcium Level 8.9 Magnesium Level 1.7 Medications Medication Current Medications Albuterol (Ventolin Hfa) 2 puff Q4H PRN INH WHEEZING AND SOB; Start 07/29/18 at 05:00 Folic Acid (Folic Acid) 1 mg DAILY PO Last administered on 08/02/18 09:34; Admin Dose 1 MG; Start 07/29/18 at 09:00 Hydroxyurea (Hydrea) 500 mg BID PO Last administered on 08/02/18 09:35; Admin Dose 500 MG; Start 07/29/18 at 09:00 Sodium Chloride 1,000 ml @ 150 mls/hr Q6H40M IV Last administered on 08/02/18 07:04; Admin Dose 150 MLS/HR; Start 07/29/18 at 05:00 IV Flush (NS 3 ml) 3 ml PER PROTOCOL IV ; Start 07/29/18 at 05:30 Ondansetron HCl (Zofran Inj) 4 mg Q6H PRN IV NAUSEA/VOMITING; Start 07/29/18 at 05:30 Acetaminophen (Tylenol Tab) 650 mg Q6H PRN PO .PAIN 1-3 OR TEMP; Start 07/29/18 at 05:30 Enoxaparin Sodium (Lovenox) 40 mg DAILY SC ; Start 07/29/18 at 09:00 Ceftriaxone Sodium 50 ml @ 100 mls/hr Q24H IVPB Last administered on 08/02/18 09:56; Admin Dose 100 MLS/HR; Start 07/29/18 at 10:00 Lorazepam (Ativan) 0.5 mg Q8H PRN IV anxiety Last administered on 08/02/18 10:01; Admin Dose 0.5 MG; Start 07/29/18 at 17:30 Diphenhydramine HCl (Benadryl) 25 mg Q6H PRN IV ITCHING Last administered on 08/02/18 07:03; Admin Dose 25 MG; Start 07/31/18 at 02:30 Acetaminophen/ Hydrocodone Bitart ([place] (10/325)) 1 tab Q6H PRN PO MODERATE PAIN LEVEL 4-6 Last administered on 08/02/18 05:09; Admin Dose 1 TAB; Start 08/01/18 at 00:30 Hydromorphone HCl (Dilaudid) 1 mg Q3H PRN IV SEVERE PAIN LEVEL 7-10 Last administered on 08/02/18at 10:02; Admin Dose 1 MG; Start 08/01/18 at 09:00 Azithromycin (Zithromax) 500 mg DAILY PO Last administered on 08/02/18at 09:36; Admin Dose 500 MG; Start 08/02/18 at 09:00; Stop 08/05/18 at 08:59 RYLIE CHAUDHARY MD Aug 02, 2018 11:29
[2018-08-02] MEDS ORDERED: HYDROmorphONE 1 MG/ML SYG IV PRN (12:00)
[2018-08-02] MEDS: HYDROmorphONE 2 MG/ML SYG IV PRN ×4 (12:50→21:55)
[2018-08-02] MEDS ORDERED: morphine (ER) 15 MG TAB PO SCH (14:00)
--- NOTE | 2018-08-02 15:21 | CONS ---
Assessment/Plan Assessment/Plan Assessment/Plan (Daily) SS crisis on analgesics, fluids PNA IV ATB She is much more demanding today than I have seen her in the past." I dont want my pain medications changed". "Are you just going to kick me out of here" Explained she is receiving higher amounts of pain meds than necessary for her prior crisis's and physical examination. Also explained the dangers of hi doses of pain medications generally and specifically to her with on going respiratory infection. She didnt want to hear it. Will ask for SWS and Psych consultation. Consultation Date/Type/Reason Admit Date/Time Jul 29, 2018 at 05:10 Initial Consult Date Date/Time of Note DATE: 08/02/18 TIME: 15:09 24 HR Interval Summary Free Text/Dictation I hurt all over and I am not getting any better.. " My son had to feed me last night .. I was called last night to give her more opioids... refused.. I also asked nurse not to take orders from family but make her own assessment Exam/Review of Systems Exam Vitals Vital Signs Date Temp Pulse Resp B/P (MAP) Pulse Ox O2 O2 Flow FiO2 Time Delivery Rate 08/02/18 98.9 83 18 119/68 97 Room Air 11:28 (85) 08/02/18 6.0 05:37 Intake and Output 08/01/18 08/01/18 08/02/18 1515:00 23:00 07:00 IntakeIntake Total 1780 ml 2240 ml 1000 ml BalanceBalance 1780 ml 2240 ml 1000 ml Constitutional: alert, oriented, well developed, frail Psych: anxiety, other (angry) Head: normocephalic, atraumatic Respiratory: clear to auscultation, normal air movement; No congested cough, No crackles/rales, No diminished breath sounds, No intercostal retraction, No labored breathing, No respirations, No tactile f remitus, No wheezing, No other Cardiovascular: regular rate and rhythm, nl pulses; No bruits, No diastolic murmur, No edema, No gallop, No irregular rhythm, No jugular venous distention (JVD), No murmurs/extra sounds, No rub, No systolic murmur, No S3, No S4, No other Gastrointestinal: soft, nl liver, spleen, non-tender; No ascites, No bowel sounds, No distended, No firm, No hepatomegaly, No mass, No rebound or guarding, No splenomegaly, No surgical scars, No tender, No other Neurological: M[employer] II-XII intact, nl mental status, nl speech, nl strength; No confused, No DTR's symmetric, No focal weakness, No lethargic, No num bness, No reflexes, No unresponsive, No other Results Result Diagram: 08/02/1844808/02/18448 Results 24hrs Laboratory Tests Test 08/02/18 04:49 White Blood Count 11.0 H Red Blood Count 2.78 L Hemoglobin 7.7 L Hematocrit 22.7 L Mean Corpuscular Volume 81.7 L Mean Corpuscular Hemoglobin 27.7 L Mean Corpuscular Hemoglobin Concent 33.9 Red Cell Distribution Width 17.6 H Platelet Count 650 H Mean Platelet Volume 9.2 Immature Granulocytes % 0.500 H Neutrophils % 57.0 Lymphocytes % 22.9 Monocytes % 10.3 Eosinophils % 8.0 H Basophils % 1.3 Nucleated Red Blood Cells % 1.5 H Immature Granulocytes # 0.050 H Neutrophils # 6.3 Lymphocytes # 2.5 Monocytes # 1.1 H Eosinophils # 0.9 H Basophils # 0.1 Nucleated Red Blood Cells # 0.2 H Sodium Level 143 Potassium Level 3.3 L Chloride Level 111 H Carbon Dioxide Level 20 L Anion Gap 12 Blood Urea Nitrogen 4 L Creatinine 0.34 L Est Glomerular Filtrat Rate mL/min > 60 Glucose Level 91 Calcium Level 8.9 Magnesium Level 1.7 Medications Medication Current Medications Albuterol (Ventolin Hfa) 2 puff Q4H PRN INH WHEEZING AND SOB; Start 07/29/18 at 05:00 Folic Acid (Folic Acid) 1 mg DAILY PO Last administered on 08/02/18at 09:34; Admin Dose 1 MG; Start 07/29/18 at 09:00 Hydroxyurea (Hydrea) 500 mg BID PO Last administered on 08/02/18at 09:35; Admin Dose 500 MG; Start 07/29/18 at 09:00 Sodium Chloride 1,000 ml @ 150 mls/hr Q6H40M IV Last administered on 08/02/18at 07:04; Admin Dose 150 MLS/HR; Start 07/29/18 at 05:00 IV Flush (NS 3 ml) 3 ml PER PROTOCOL IV ; Start 07/29/18 at 05:30 Ondansetron HCl (Zofran Inj) 4 mg Q6H PRN IV NAUSEA/VOMITING; Start 07/29/18 at 05:30 Acetaminophen (Tylenol Tab) 650 mg Q6H PRN PO .PAIN 1-3 OR TEMP; Start 07/29/18 at 05:30 Enoxaparin Sodium (Lovenox) 40 mg DAILY SC ; Start 07/29/18 at 09:00 Ceftriaxone Sodium 50 ml @ 100 mls/hr Q24H IVPB Last administered on 08/02/18 09:56; Admin Dose 100 MLS/HR; Start 07/29/18 at 10:00 Lorazepam (Ativan) 0.5 mg Q8H PRN IV anxiety Last administered on 08/02/18 10:01; Admin Dose 0.5 MG; Start 07/29/18 at 17:30 Diphenhydramine HCl (Benadryl) 25 mg Q6H PRN IV ITCHING Last administered on 08/02/18 12:50; Admin Dose 25 MG; Start 07/31/18 at 02:30 Acetaminophen/ Hydrocodone Bitart ([place] (10/325)) 1 tab Q6H PRN PO MODERATE PAIN LEVEL 4-6 Last administered on 08/02/18 13:25; Admin Dose 1 TAB; Start 08/01/18 at 00:30 Azithromycin (Zithromax) 500 mg DAILY PO Last administered on 08/02/18 09:36; Admin Dose 500 MG; Start 08/02/18 at 09:00; Stop 08/05/18 at 08:59 Morphine Sulfate (Ms Contin (Er)) 15 mg Q8 PO Last administered on 08/02/18 13:23; Admin Dose 15 MG; Start 08/02/18 at 14:00 Hydromorphone HCl (Dilaudid) 1.5 mg Q3H PRN IV SEVERE PAIN LEVEL 7-10 Last administered on 08/02/18 12:50; Admin Dose 1.5 MG; Start 08/02/18 at 12:00; Stop 08/03/18 at 11:59 Hydromorphone HCl (Dilaudid) 1 mg Q3H PRN IV SEVERE PAIN LEVEL 7-10; Start 08/03/18 at 12:00 REBECCA SWAIN Aug 02, 2018 15:20
[2018-08-02 20:30] VITALS: BP 121/68; PULSE 84; RESP 18
[2018-08-03] MEDS: HYDROmorphONE 2 MG/ML SYG IV PRN ×4 (00:51→09:53)
[2018-08-03] MEDS: DIPHENHYDRAMINE 50 MG INJ IV PRN ×4 (00:51→18:53)
[2018-08-03 02:30] VITALS: BP 127/63; PULSE 83; RESP 18
[2018-08-03] MEDS: HYDROCODONE/APAP (10/325) TAB PO PRN ×2 (05:31→17:35)
[2018-08-03] MEDS: SOD CHLORIDE 0.9% 1,000 ML IV SCH ×3 (05:31→20:10)
[2018-08-03 08:15] VITALS: BP 137/81; PULSE 76; RESP 18
[2018-08-03] MEDS: ENOXAPARIN 40 MG/0.4 ML SYG SC SCH (09:00)
[2018-08-03] MEDS: morphine (ER) 15 MG TAB PO SCH (09:01)
[2018-08-03] MEDS ORDERED: POTASSIUM CHLORIDE (SR) 20 MEQ TAB PO STA (09:36)
--- NOTE | 2018-08-03 09:45 | PN ---
Date/Time of Note Date/Time of Note DATE: 08/03/18 TIME: 09:44 Assessment/Plan VTE Prophylaxis Risk score (from Ns)>0 risk: 1 SCD applied (from Ns): Yes Pharmacological prophylaxis: heparin Lines/Catheters [facility] PORT-A-CATH Urinary Cath still in place: No Assessment/Plan Problems: (1) Sickle cell pain crisis Status: Acute Comment: Coming under control nicely. (2) Pneumonia Status: Acute Comment: Still with occasional fevers but clinically improving nicely. Recheck labs tomorrow, possible discharge tomorrow Qualifiers: Pneumonia type: due to unspecified organism Laterality: left Lung location: lower lobe of lung Qualified Codes: J18.1 - Lobar pneumonia, unspecified organism Result Diagram: 08/02/1844808/02/18448 Subjective 24 Hr Interval Summary Free Text/Dictation Patient is in much better spirits today and reports she is feeling more comfortable. She does advocate for trying to keep her dosage of IV pain medication up but was agreeable to the plan we had set yesterday to bring it back down today Constitutional: no complaints Respiratory: no complaints Cardiovascular: no complaints Gastrointestinal: no complaints Musculoskeletal: other (Complains of arm pain) Exam/Review of Systems Exam Vitals Vital Signs Date Temp Pulse Resp B/P (MAP) Pulse Ox O2 O2 Flow FiO2 Time Delivery Rate 08/03/18 99.5 76 18 137/81 95 Room Air 08:15 (99) 08/02/18 3.0 23:24 08/02/18 21 20:36 Intake and Output 08/02/18 08/02/18 08/03/18 1515:00 23:00 07:00 IntakeIntake Total 1450 ml 1590 ml 1200 ml BalanceBalance 1450 ml 1590 ml 1200 ml Exam Smiling today Constitutional: alert, oriented Neck: supple, non-tender Respiratory: clear to auscultation, normal air movement Cardiovascular: regular rate and rhythm, nl pulses Medications Medication Current Medications Albuterol (Ventolin Hfa) 2 puff Q4H PRN INH WHEEZING AND SOB; Start 07/29/18 at 05:00 Folic Acid (Folic Acid) 1 mg DAILY PO Last administered on 08/02/18at 09:34; Admin Dose 1 MG; Start 07/29/18 at 09:00 Hydroxyurea (Hydrea) 500 mg BID PO Last administered on 08/02/18 21:49; Admin Dose 500 MG; Start 07/29/18 at 09:00 Sodium Chloride 1,000 ml @ 150 mls/hr Q6H40M IV Last administered on 08/03/18 05:31; Admin Dose 150 MLS/HR; Start 07/29/18 at 05:00 IV Flush (NS 3 ml) 3 ml PER PROTOCOL IV ; Start 07/29/18 at 05:30 Ondansetron HCl (Zofran Inj) 4 mg Q6H PRN IV NAUSEA/VOMITING; Start 07/29/18 at 05:30 Acetaminophen (Tylenol Tab) 650 mg Q6H PRN PO .PAIN 1-3 OR TEMP; Start 07/29/18 at 05:30 Enoxaparin Sodium (Lovenox) 40 mg DAILY SC ; Start 07/29/18 at 09:00 Ceftriaxone Sodium 50 ml @ 100 mls/hr Q24H IVPB Last administered on 08/02/18 09:56; Admin Dose 100 MLS/HR; Start 07/29/18 at 10:00; Stop 08/05/18 at 09:59 Lorazepam (Ativan) 0.5 mg Q8H PRN IV anxiety Last administered on 08/02/18 18:58; Admin Dose 0.5 MG; Start 07/29/18 at 17:30 Diphenhydramine HCl (Benadryl) 25 mg Q6H PRN IV ITCHING Last administered on 08/03/18 06:49; Admin Dose 25 MG; Start 07/31/18 at 02:30 Acetaminophen/ Hydrocodone Bitart ([place] (10/325)) 1 tab Q6H PRN PO MODERATE PAIN LEVEL 4-6 Last administered on 08/03/18 05:31; Admin Dose 1 TAB; Start 08/01/18 at 00:30 Azithromycin (Zithromax) 500 mg DAILY PO Last administered on 08/02/18 09:36; Admin Dose 500 MG; Start 08/02/18 at 09:00; Stop 08/05/18 at 08:59 Hydromorphone HCl (Dilaudid) 1.5 mg Q3H PRN IV SEVERE PAIN LEVEL 7-10 Last administered on 3/24/19at 06:51; Admin Dose 1.5 MG; Start 08/02/18 at 12:00; Stop 08/03/18 at 11:59 Hydromorphone HCl (Dilaudid) 1 mg Q3H PRN IV SEVERE PAIN LEVEL 7-10; Start 08/03/18 at 12:00 Morphine Sulfate (Ms Contin (Er)) 15 mg AM PO Last administered on 08/03/18at 09:01; Admin Dose 15 MG; Start 08/03/18 at 09:00 Potassium Chloride (Klor-Con 20) 40 meq ONCE STAT PO ; Start 08/03/18 at 09:36; Stop 08/03/18 at 09:37; Status RYLIE ADAM MD Aug 03, 2018 09:45
[2018-08-03] MEDS: AZITHROMYCIN 250 MG TAB PO SCH (09:52)
[2018-08-03] MEDS: HYDROXYUREA 500 MG CAP PO SCH ×2 (09:52→20:12)
[2018-08-03] MEDS: FOLIC ACID 1 MG TAB PO SCH (09:53)
[2018-08-03] MEDS: CEFTRIAXONE 1 GM/50 ML (PMX) 50 ML IVPB SCH (09:57)
[2018-08-03] MEDS: LORAZEPAM 2 MG INJ IV PRN ×2 (10:15→18:32)
[2018-08-03] MEDS: HYDROmorphONE 1 MG/ML SYG IV PRN ×4 (12:49→21:49)
[2018-08-03] MEDS ORDERED: POTASSIUM CHLORIDE 20 MEQ POWDER FOR ORAL SOLN PO ONE (13:00)
[2018-08-03 14:00] VITALS: BP 130/78; PULSE 78; RESP 18
[2018-08-03 20:22] VITALS: BP 123/64; PULSE 74; RESP 18
[2018-08-04] MEDS: DIPHENHYDRAMINE 50 MG INJ IV PRN ×4 (00:59→20:28)
[2018-08-04] MEDS: HYDROmorphONE 1 MG/ML SYG IV PRN ×8 (01:00→23:22)
[2018-08-04 01:41] VITALS: BP 123/60; PULSE 67; RESP 16
[2018-08-04] MEDS: LORAZEPAM 2 MG INJ IV PRN ×3 (02:07→18:44)
[2018-08-04] MEDS: SOD CHLORIDE 0.9% 1,000 ML IV SCH ×2 (03:19→09:30)
[2018-08-04 07:16] VITALS: BP 132/75; PULSE 71; RESP 18
[2018-08-04] MEDS: ENOXAPARIN 40 MG/0.4 ML SYG SC SCH (09:00)
[2018-08-04] MEDS: AZITHROMYCIN 250 MG TAB PO SCH (09:26)
[2018-08-04] MEDS: HYDROXYUREA 500 MG CAP PO SCH ×2 (09:27→20:29)
[2018-08-04] MEDS: FOLIC ACID 1 MG TAB PO SCH (09:28)
[2018-08-04] MEDS: CEFTRIAXONE 1 GM/50 ML (PMX) 50 ML IVPB SCH (09:29)
[2018-08-04] MEDS: morphine (ER) 15 MG TAB PO SCH (09:29)
--- NOTE | 2018-08-04 11:02 | PN ---
Date/Time of Note Date/Time of Note DATE: 08/04/18 TIME: 11:00 Assessment/Plan VTE Prophylaxis Risk score (from Ns)>0 risk: 2 SCD applied (from Ns): No SCD contraindicated: patient refusal Pharmacological prophylaxis: NA/contraindicated Pharm contraindication: low risk/ambulating Lines/Catheters IV [facility]ter Type (from [facility]): PORTACATH Urinary Cath still in place: No Assessment/Plan Hospital Course S: states she's still having pain, no more coughing O: Constitutional: alert, oriented Head: atraumatic, normocephalic Neck: non-tender, supple Respiratory: clear to auscultation Cardiovascular: regular rate and rhythm Gastrointestinal: S/ NT / ND / +BS Extremities: no edema, good radial pulses assessment and plan: 1. Sickle cell crisis: improving? Dr. Shannon is following and managing pain regimen 2. Leukocytosis with concern for a possible right lower lobe infiltrate on x- ray Continue Rocephin and azithromycin 3. Anemia secondary to sickle cell Monitor Prophylaxis: Lovenox dispo: await clinical improvement, difficult to manage patient Result Diagram: 08/02/18 0449 08/02/189 Exam/Review of Systems Exam Vitals Vital Signs Date Temp Pulse Resp B/P (MAP) Pulse Ox O2 O2 Flow FiO2 Time Delivery Rate 08/04/18 98.8 71 18 132/75 93 07:16 (94) 08/04/18 Room Air 01:41 08/02/18 3.0 23:24 08/02/18 21 20:36 Intake and Output 08/03/18 08/03/18 08/04/18 1515:00 23:00 07:00 IntakeIntake Total 1940 ml 1300 ml 1400 ml BalanceBalance 1940 ml 1300 ml 1400 ml Medications Medication Current Medications Albuterol (Ventolin Hfa) 2 puff Q4H PRN INH WHEEZING AND SOB; Start 07/29/18 at 05:00 Folic Acid (Folic Acid) 1 mg DAILY PO Last administered on 08/04/18at 09:28; Admin Dose 1 MG; Start 07/29/18 at 09:00 Hydroxyurea (Hydrea) 500 mg BID PO Last administered on 08/04/18at 09:27; Admin Dose 500 MG; Start 07/29/18 at 09:00 Sodium Chloride 1,000 ml @ 150 mls/hr Q6H40M IV Last administered on 08/04/18 09:30; Admin Dose 150 MLS/HR; Start 07/29/18 at 05:00 IV Flush (NS 3 ml) 3 ml PER PROTOCOL IV ; Start 07/29/18 at 05:30 Ondansetron HCl (Zofran Inj) 4 mg Q6H PRN IV NAUSEA/VOMITING Last administered on 08/03/18 19:36; Admin Dose 4 MG; Start 07/29/18 at 05:30 Acetaminophen (Tylenol Tab) 650 mg Q6H PRN PO .PAIN 1-3 OR TEMP; Start 07/29/18 at 05:30 Enoxaparin Sodium (Lovenox) 40 mg DAILY SC ; Start 07/29/18 at 09:00 Ceftriaxone Sodium 50 ml @ 100 mls/hr Q24H IVPB Last administered on 08/04/18 09:29; Admin Dose 100 MLS/HR; Start 07/29/18 at 10:00; Stop 08/05/18 at 09:59 Lorazepam (Ativan) 0.5 mg Q8H PRN IV anxiety Last administered on 08/04/18 10:33; Admin Dose 0.5 MG; Start 07/29/18 at 17:30 Diphenhydramine HCl (Benadryl) 25 mg Q6H PRN IV ITCHING Last administered on 08/04/18 08:25; Admin Dose 25 MG; Start 07/31/18 at 02:30 Acetaminophen/ Hydrocodone Bitart ([place] (10/325)) 1 tab Q6H PRN PO MODERATE PAIN LEVEL 4-6 Last administered on 08/03/18 17:35; Admin Dose 1 TAB; Start 08/01/18 at 00:30 Azithromycin (Zithromax) 500 mg DAILY PO Last administered on 08/04/18 09:26; Admin Dose 500 MG; Start 08/02/18 at 09:00; Stop 08/05/18 at 08:59 Hydromorphone HCl (Dilaudid) 1 mg Q3H PRN IV SEVERE PAIN LEVEL 7-10 Last administered on 08/04/18 08:25; Admin Dose 1 MG; Start 08/03/18 at 12:00 Morphine Sulfate (Ms Contin (Er)) 15 mg AM PO Last administered on 08/04/18at 09:29; Admin Dose 15 MG; Start 08/03/18 at 09:00 MELISSA WELLS Aug 04, 2018 11:02
[2018-08-04] MEDS ORDERED: ALTEPLASE (CATHFLO) 2 MG INJ CATHETER PRN (14:00)
[2018-08-04 20:33] VITALS: BP 124/58; PULSE 82; RESP 17
[2018-08-05] MEDS: HYDROCODONE/APAP (10/325) TAB PO PRN (00:29)
[2018-08-05] MEDS: SOD CHLORIDE 0.9% 1,000 ML IV SCH ×2 (00:30→08:07)
[2018-08-05] MEDS: HYDROmorphONE 1 MG/ML SYG IV PRN ×2 (02:28→05:21)
[2018-08-05] MEDS: DIPHENHYDRAMINE 50 MG INJ IV PRN ×2 (02:28→10:19)
[2018-08-05 02:41] VITALS: BP 146/90; PULSE 80; RESP 19
[2018-08-05] MEDS: LORAZEPAM 2 MG INJ IV PRN ×2 (05:56→14:12)
--- NOTE | 2018-08-05 07:11 | CONS ---
Assessment/Plan Assessment/Plan Assessment/Plan (Daily) Postdated note for visit August 04, 2018 Assessment/Plan (Daily) Sickle cell crisis Leukocytosis Labile personality Chronic pain disorder Discussion with patient 08/04/2018 concerning ongoing health care treatment when she is discharged from the hospital acute and chronic pain issues. I have exp lained to her that as of 08/05/2018 we need to start transitioning her to oral pain control medication and discharge. She is in agreement with this treatment plan as of that discussion. She has had a complicated psychosocial hospitalization. Consultation Date/Type/Reason Admit Date/Time Jul 29, 2018 at 05:10 Initial Consult Date Date/Time of Note DATE: 08/05/18 TIME: 07:09 Exam/Review of Systems Exam Vitals Vital Signs Date Temp Pulse Resp B/P (MAP) Pulse Ox O2 O2 Flow FiO2 Time Delivery Rate 08/05/18 98.3 80 19 146/90 96 02:41 (108) 08/04/18 Room Air 01:41 08/02/18 3.0 23:24 08/02/18 21 20:36 Intake and Output 08/04/18 08/04/18 08/05/18 1515:00 23:00 07:00 IntakeIntake Total 290 ml 1000 ml 1265 ml BalanceBalance 290 ml 1000 ml 1265 ml Constitutional: alert, oriented, well developed, other (No acute distress) Psych: anxiety Respiratory: clear to auscultation, normal air movement Cardiovascular: regular rate and rhythm, nl pulses Neurological: [employer]ER II-XII intact, nl mental status, nl speech, nl strength Results Result Diagram: 08/04/18204508/04/182045 Results 24hrs Laboratory Tests Test 08/04/18 20:46 White Blood Count 10.0 Red Blood Count 2.88 L Hemoglobin 7.8 L Hematocrit 22.5 L Mean Corpuscular Volume 78.1 L Mean Corpuscular Hemoglobin 27.1 L Mean Corpuscular Hemoglobin Concent 34.7 Red Cell Distribution Width 18.2 H Platelet Count 643 H Mean Platelet Volume 9.1 Immature Granulocytes % 0.300 Neutrophils % 54.7 Lymphocytes % 24.7 Monocytes % 10.6 Eosinophils % 8.2 H Basophils % 1.5 Nucleated Red Blood Cells % 1.5 H Immature Granulocytes # 0.030 Neutrophils # 5.5 Lymphocytes # 2.5 Monocytes # 1.1 H Eosinophils # 0.8 H Basophils # 0.2 H Nucleated Red Blood Cells # 0.2 H Sodium Level 143 Potassium Level 3.1 L Chloride Level 111 H Carbon Dioxide Level 23 Anion Gap 9 Blood Urea Nitrogen 7 Creatinine 0.35 L Est Glomerular Filtrat Rate mL/min > 60 Glucose Level 88 Calcium Level 9.0 Magnesium Level 1.6 L Medications Medication Current Medications Albuterol (Ventolin Hfa) 2 puff Q4H PRN INH WHEEZING AND SOB; Start 07/29/18 at 05:00 Folic Acid (Folic Acid) 1 mg DAILY PO Last administered on 08/04/18 09:28; Ad min Dose 1 MG; Start 07/29/18 at 09:00 Hydroxyurea (Hydrea) 500 mg BID PO Last administered on 08/04/18 09:27; Admin Dose 500 MG; Start 07/29/18 at 09:00 Sodium Chloride 1,000 ml @ 75 mls/hr [id number] IV Last administered on 08/05/18 00:30; Admin Dose 75 MLS/HR; Start 07/29/18 at 05:00 IV Flush (NS 3 ml) 3 ml PER PROTOCOL IV ; Start 07/29/18 at 05:30 Ondansetron HCl (Zofran Inj) 4 mg Q6H PRN IV NAUSEA/VOMITING Last administered on 08/03/18 19:36; Admin Dose 4 MG; Start 07/29/18 at 05:30 Acetaminophen (Tylenol Tab) 650 mg Q6H PRN PO .PAIN 1-3 OR TEMP; Start 07/29/18 at 05:30 Enoxaparin Sodium (Lovenox) 40 mg DAILY SC ; Start 07/29/18 at 09:00 Ceftriaxone Sodium 50 ml @ 100 mls/hr Q24H IVPB Last administered on 08/04/18 09:29; Admin Dose 100 MLS/HR; Start 07/29/18 at 10:00; Stop 08/05/18 at 09:59 Lorazepam (Ativan) 0.5 mg Q8H PRN IV anxiety Last administered on 08/05/18 05:56; Admin Dose 0.5 MG; Start 07/29/18 at 17:30 Diphenhydramine HCl (Benadryl) 25 mg Q6H PRN IV ITCHING Last administered on 08/05/18 02:28; Admin Dose 25 MG; Start 07/31/18 at 02:30 Acetaminophen/ Hydrocodone Bitart ([place] (10/325)) 1 tab Q6H PRN PO MODERATE PAIN LEVEL 4-6 Last administered on 08/05/18at 00:29; Admin Dose 1 TAB; Start 08/01/18 at 00:30 Azithromycin (Zithromax) 500 mg DAILY PO Last administered on 08/04/18at 09:26; Admin Dose 500 MG; Start 08/02/18 at 09:00; Stop 08/05/18 at 08:59 Hydromorphone HCl (Dilaudid) 1 mg Q3H PRN IV SEVERE PAIN LEVEL 7-10 Last administered on 08/05/18at 05:21; Admin Dose 1 MG; Start 08/03/18 at 12:00 Morphine Sulfate (Ms Contin (Er)) 15 mg AM PO Last administered on 08/04/18 09:29; Admin Dose 15 MG; Start 08/03/18 at 09:00 Alteplase, Recombinant (Cathflo (Activase)) 2 mg MAY REPEAT X1 PRN CATHETER IF CATHETER REMAINS OCCULUDED; Start 08/04/18 at 14:00 REBECCA SWAIN Aug 05, 2018 07:11
[2018-08-05] MEDS ORDERED: HYDROCODONE/APAP (10/325) TAB PO PRN (08:00)
[2018-08-05 08:01] VITALS: BP 136/88; PULSE 80; RESP 18
[2018-08-05] MEDS: ENOXAPARIN 40 MG/0.4 ML SYG SC SCH (09:00)
[2018-08-05] MEDS: HYDROXYUREA 500 MG CAP PO SCH (09:50)
[2018-08-05] MEDS: FOLIC ACID 1 MG TAB PO SCH (09:50)
--- NOTE | 2018-08-05 11:01 | PDOCDIS ---
Discharge Instructions DIAGNOSIS Discharge Diagnosis Sickle cell pain crises . CONDITION [id number] Patient Condition: [id number] Stable MELISSA WELLS Aug 05, 2018 11:01
--- NOTE | 2018-08-05 11:03 | CONS ---
Assessment/Plan Assessment/Plan Assessment/Plan (Daily) Assessment/Plan (Daily) Sickle cell crisis Leukocytosis Labile personality Chronic pain disorder Going home today, pain is under good control, follow up to be done by primary care physician in community. Consultation Date/Type/Reason Admit Date/Time Jul 29, 2018 at 05:10 Initial Consult Date Date/Time of Note DATE: 08/05/18 TIME: 11:00 24 HR Interval Summary Free Text/Dictation She looks very comfortable today, smiling not complaining of any pain and has been transitioned to oral medications. Long discussion with her to follow-up with her primary care physician stay well-hydrated. Follow-up for pneumonia with primary care physician in complete antibiotics as requested by Dr. Ron. Would suggest only giving patient a very small supply of opioids with options for Narcan her new recommendations. Exam/Review of Systems Exam Vitals Vital Signs Date Temp Pulse Resp B/P (MAP) Pulse Ox O2 O2 Flow FiO2 Time Delivery Rate 08/05/18 98.2 80 18 136/88 92 Room Air 08:01 (104) 08/02/18 3.0 23:24 08/02/18 21 20:36 Intake and Output 08/04/18 08/04/18 08/05/18 1515:00 23:00 07:00 IntakeIntake Total 290 ml 1000 ml 1265 ml BalanceBalance 290 ml 1000 ml 1265 ml Results Result Diagram: 08/04/18204508/04/182045 Results 24hrs Laboratory Tests Test 08/04/18 20:46 White Blood Count 10.0 Red Blood Count 2.88 L Hemoglobin 7.8 L Hematocrit 22.5 L Mean Corpuscular Volume 78.1 L Mean Corpuscular Hemoglobin 27.1 L Mean Corpuscular Hemoglobin Concent 34.7 Red Cell Distribution Width 18.2 H Platelet Count 643 H Mean Platelet Volume 9.1 Immature Granulocytes % 0.300 Neutrophils % 54.7 Lymphocytes % 24.7 Monocytes % 10.6 Eosinophils % 8.2 H Basophils % 1.5 Nucleated Red Blood Cells % 1.5 H Immature Granulocytes # 0.030 Neutrophils # 5.5 Lymphocytes # 2.5 Monocytes # 1.1 H Eosinophils # 0.8 H Basophils # 0.2 H Nucleated Red Blood Cells # 0.2 H Sodium Level 143 Potassium Level 3.1 L Chloride Level 111 H Carbon Dioxide Level 23 Anion Gap 9 Blood Urea Nitrogen 7 Creatinine 0.35 L Est Glomerular Filtrat Rate mL/min > 60 Glucose Level 88 Calcium Level 9.0 Magnesium Level 1.6 L Medications Medication Current Medications Albuterol (Ventolin Hfa) 2 puff Q4H PRN INH WHEEZING AND SOB; Start 07/29/18 at 05:00 Folic Acid (Folic Acid) 1 mg DAILY PO Last administered on 08/05/18 09:50; Admin Dose 1 MG; Start 07/29/18 at 09:00 Hydroxyurea (Hydrea) 500 mg BID PO Last administered on 08/05/18 09:50; Admin Dose 500 MG; Start 07/29/18 at 09:00 Sodium Chloride 1,000 ml @ 75 mls/hr [id number] IV Last administered on 08/05/18at 00:30; Admin Dose 75 MLS/HR; Start 07/29/18 at 05:00 IV Flush (NS 3 ml) 3 ml PER PROTOCOL IV ; Start 07/29/18 at 05:30 Ondansetron HCl (Zofran Inj) 4 mg Q6H PRN IV NAUSEA/VOMITING Last administered on 08/03/18 19:36; Admin Dose 4 MG; Start 07/29/18 at 05:30 Acetaminophen (Tylenol Tab) 650 mg Q6H PRN PO .PAIN 1-3 OR TEMP; Start 07/29/18 at 05:30 Enoxaparin Sodium (Lovenox) 40 mg DAILY SC ; Start 07/29/18 at 09:00 Lorazepam (Ativan) 0.5 mg Q8H PRN IV anxiety Last administered on 08/05/18at 05:56; Admin Dose 0.5 MG; Start 07/29/18 at 17:30 Diphenhydramine HCl (Benadryl) 25 mg Q6H PRN IV ITCHING Last administered on 08/05/18at 10:19; Admin Dose 25 MG; Start 07/31/18 at 02:30 Alteplase, Recombinant (Cathflo (Activase)) 2 mg MAY REPEAT X1 PRN CATHETER IF CATHETER REMAINS OCCULUDED; Start 08/04/18 at 14:00 Acetaminophen/ Hydrocodone Bitart ([place] (10/325)) 2 tab Q6H PRN PO MODERATE PAIN LEVEL 4-6 Last administered on 08/05/18at 09:51; Admin Dose 2 TAB; Start 08/05/18 at 08:00 REBECCA SWAIN Aug 05, 2018 11:03
--- NOTE | 2018-08-05 11:14 | DS ---
DATE OF ADMISSION: 07/29/2018 DATE OF DISCHARGE: 07/29/2018 FINAL DIAGNOSES: 1. Acute pain crisis secondary to sickle cell anemia: 1. Leukocytosis with concern for possible right lower lobe infiltrate on x-ray. 2. Anemia secondary to sickle cell disease. 4. Hypomagnesemia status post repletion. 5. Hypokalemia. CONSULTS ON THE CASE: Dr. Tenzin Bar for pain control. INTERVENTIONS: The patient was managed with IV fluids and pain control throughout her hospitalizatio n. SHORT HOSPITAL COURSE: Full details are available in the chart for review. A 33-year-old female known to our service from multiple hospitalizations with sickle cell disease, wh o came in with pain on the right side of her body and in acute pain crisis and she was managed with f luids and pain management. She did not require blood transfusion at this time. At this time, the pa tient is much better. She is stable for discharge. I will discharge on oral pain medicine. DISPOSITION: To home. Activities as tolerated. Followup with our routine physicians for continued monitoring and a refill of her medications. RECOMMENDED DIET: Regular diet. DISCHARGE MEDICATIONS: For a complete list, please review the patient's chart. Time spent on discharge coordination has been greater than 30 minutes. Dictated By: MELISSA WELLS MD BA/NTS Conf#: [id number] DID#: [id number] CC: MAX MARTÍNEZ MD;*EndCC*
[2018-08-05] MEDS ORDERED: MAGNESIUM SULFATE 2 GM/50 ML 50 ML IVPB ONE (12:00)
[2018-08-05] MEDS: POTASSIUM CHLORIDE (SR) 20 MEQ TAB PO SCH ×2 (12:04→14:10)
[2018-08-05] MEDS ORDERED: HEPARIN (100 UNITS/ML) 5 ML SYG CATHETER ONE (14:00)
== END 2018-08-05 14:50 | disposition home or self-care (01) | DRG 811 ==
LOC: E/R 23:23 → MS1 07-29 04:57 → OBSVTOIN 07-29 05:10
PROVIDERS: ADMIT Family Medicine; ATTEND Family Medicine
DX: D57.00 Hb-SS disease with crisis, unspecified (principal); J18.9 Pneumonia, unspecified organism; E83.42 Hypomagnesemia; E87.6 Hypokalemia; F17.200 Nicotine dependence, unspecified, uncomplicated; F60.3 Borderline personality disorder; G89.29 Other chronic pain
CPT/HCPCS: 71045; 80048; 80053; 83735; 85025; 85045; 96374; 96375; 96376; G0378; J0456; J0696; J1170; J1200; J1642; J1650; J1885; J2060; J2405; J2997; J3475; J7030

== ENCOUNTER 2018-08-10 06:52 | Inpatient (IN) | payer OTHER ==
[~2018-08-10] VITALS: Ht 162.6 cm; Wt 49.3 kg
[2018-08-10] MEDS ORDERED: HYDROmorphONE 1 MG/ML SYG IV STA (07:04)
[2018-08-10] MEDS ORDERED: KETOROLAC 15 MG INJ IV STA (07:04)
[2018-08-10] MEDS ORDERED: SOD CHLORIDE 0.9% 1,000 ML IV STA (07:04)
[2018-08-10] MEDS ORDERED: ONDANSETRON 4 MG INJ IV STA ×2 (07:04→08:28)
[2018-08-10] MEDS ORDERED: DIPHENHYDRAMINE 50 MG INJ IV ONE ×2 (07:30→08:30)
--- NOTE | 2018-08-10 07:39 | ERD ---
ER Documentation Chief Complaint Chief Complaint SICKLE CELL PAIN HPI This is a 33-year-old female with a past medical history of sickle cell disease with frequent admissions for sickle cell crisis is presenting with 1 day of progressive worsening pain in all of her extremities. It is severe, sharp and aching. The patient reports pain mostly in her joints. The patient does not endorse any chest pain or trouble breathing today. She does not endorse any abdominal pain. The patient denies feeling sick recently. The patient denies fever or chills. The patient has had no headache or vision changes. The patient does not endorse neck or back pain. The patient denies lightheadedness or dizziness. The patient denies nausea or vomiting. The patient denies changes to bowel movements or urination. The patient has had no focal deficits. The patient has had no weakness or numbness or tingling to the face or extremities. ROS All systems reviewed and are negative except as per history of present illness. Medications Home Meds Active Scripts Docusate Sodium (Dok) 100 Mg Capsule, 100 MG PO Q12H, #60 CAP 2 Refills Prov:MEILSSA WELLS. 05/28/18 Hydroxyurea* (Hydroxyurea*) 500 Mg Capsule, 500 MG PO BID, #60 CAP 2 Refills Prov:RUSSELLMELISSA Little M. 05/28/18 Albuterol Sulfate* (Proair HFA*) 8.5 Gm Hfa.aer.ad, 2 PUFF INH Q4H PRN for WHEEZING AND SOB, #1 INHALER Prov:SARAH ANTONIO MD 05/18/18 Reported Medications Hydrocodone/Acetaminophen ([place] 10-325 Tablet) 1 Each Tablet, 1 EACH PO Q6H PRN for PAIN LEVEL 7-10, TAB 07/29/18 Folic Acid* (Folic Acid*) 1 Mg Tablet, 1 MG PO DAILY, TAB 05/18/18 Diphenhydramine Hcl (Banophen) 25 Mg Capsule, 25 MG PO BID, CAP 03/21/18 Discontinued Scripts Hydrocodone/Acetaminophen ([place] 10-325 Tablet) 1 Each Tablet, 1 TAB PO Q6H PRN for PAIN, #7 TAB Prov:TAMIA ZAIDI DO 07/19/18 Allergies Allergies: Coded Allergies: codeine (Unverified Allergy, Intermediate, ITCHY HIVES, 07/29/18) PMhx/Soc History of Surgery: Yes ( and gall bladder removal) Anesthesia Reaction: No Hx Neurological Disorder: No Hx Respiratory Disorders: No Hx Cardiac Disorders: No Hx Psychiatric Problems: No Hx Miscellaneous Medical Probl: Yes (Sickle Cell) Hx Alcohol Use: Yes Hx Substance Use: No Hx Tobacco Use: Yes Smoking Status: Current some day smoker FmHx Family History: No diabetes Physical Exam Vitals Vital Signs Date Temp Pulse Resp B/P (MAP) Pulse Ox O2 O2 Flow FiO2 Time Delivery Rate 08/10/18 86 18 104/56 99 Nasal 2.0 08:30 (72) Cannula 08/10/18 98.1 86 20 125/95 98 06:58 (105) Physical Exam Const: Well-developed. In distress secondary to pain. Cachectic. Head: Normocephalic, Atraumatic Eyes: Normal Conjunctiva. Extraocular movements intact. Pupils equal, round and reactive to light ENT: Normal External Ears, Nose and Mouth. Neck: Full range of motion. No meningismus. Resp: Clear to auscultation bilaterally, No wheezes, rales or rhonchi Cardio: Regular rate and rhythm. No murmurs, rubs or gallops Abd: Soft, non tender, non distended. Normal bowel sounds Skin: No petechiae or rashes Back: No midline tenderness. No CVA tenderness Ext: No cyanosis, or edema Neur: Awake and alert, oriented 4. Cranial nerves intact. No facial droop. Normal strength, sensation and coordination. Psych: Normal Mood and Affect Result Diagram: 08/10/18 0719 08/10/18 0719 Results 24 hrs Laboratory Tests Test 08/10/18 07:19 White Blood Count 12.3 10^3/ul Red Blood Count 3.22 10^6/ul Hemoglobin 8.7 g/dl Hematocrit 25.7 % Mean Corpuscular Volume 79.8 fl Mean Corpuscular Hemoglobin 27.0 pg Mean Corpuscular Hemoglobin Concent 33.9 g/dl Red Cell Distribution Width 20.2 % Platelet Count 754 10^3/UL Mean Platelet Volume 9.0 fl Immature Granulocytes % 2.400 % Neutrophils % 58.3 % Lymphocytes % 22.0 % Monocytes % 11.4 % Eosinophils % 4.2 % Basophils % 1.7 % Nucleated Red Blood Cells % 3.5 /100WBC Immature Granulocytes # 0.300 10^3/ul Neutrophils # 7.2 10^3/ul Lymphocytes # 2.7 10^3/ul Monocytes # 1.4 10^3/ul Eosinophils # 0.5 10^3/ul Basophils # 0.2 10^3/ul Nucleated Red Blood Cells # 0.4 10^3/ul Absolute Reticulocyte Count 0.281 X10^6 Percent Reticulocyte Count 8.7 % Sodium Level 141 mmol/L Potassium Level 3.6 mmol/L Chloride Level 108 mmol/L Carbon Dioxide Level 22 mmol/L Anion Gap 11 Blood Urea Nitrogen 11 mg/dl Creatinine 0.39 mg/dl Est Glomerular Filtrat Rate mL/min > 60 mL/min Glucose Level 104 mg/dl Calcium Level 10.0 mg/dl Serum HCG, Qualitative NEGATIVE Current Medications Medications Dose Sig/Aguilar Start Time Status Last (Trade) Ordered Route PRN Stop Time Admin Dose Reason Admin Sodium 1,000 ml @ Q1H STAT 08/10/18 DC 08/10/18 Chloride 1,000 mls/hr IV 07:04 07:16 08/10/18 08:03 2 mg ONCE STAT 08/10/18 DC 08/10/18 Hydromorphone IV 07:04 07:17 HCl 08/10/18 07:09 (Dilaudid) Ondansetron 4 mg ONCE STAT 08/10/18 DC 08/10/18 HCl (Zofran IV 07:04 07:16 Inj) 08/10/18 07:09 Ketorolac 15 mg ONCE STAT 08/10/18 DC 08/10/18 Tromethamine IV 07:04 07:04 (Toradol) 08/10/18 07:09 25 mg ONCE ONCE 08/10/18 DC 08/10/18 Diphenhydrami IV 07:30 07:16 ne HCl 08/10/18 07:31 (Benadryl) 2 mg ONCE STAT 08/10/18 DC 08/10/18 Hydromorphone IV 08:28 08:33 HCl 08/10/18 08:29 (Dilaudid) 25 mg ONCE ONCE 08/10/18 DC 08/10/18 Diphenhydrami IV 08:30 08:32 ne HCl 08/10/18 08:31 (Benadryl) Ondansetron 4 mg ONCE STAT 08/10/18 DC 08/10/18 HCl (Zofran IV 08:28 08:32 Inj) 08/10/18 08:29 Sodium 1,000 ml @ [id number] IV 08/10/18 Chloride 70 mls/hr 09:06 IV Flush 3 ml PER 08/10/18 (NS 3 ml) PROTOCOL IV 09:30 Ondansetron 4 mg Q6H PRN 08/10/18 HCl (Zofran IV 09:30 Inj) NAUSEA/VOMITI NG 650 mg Q6H PRN 08/10/18 Acetaminophen PO .PAIN 1-3 09:30 (Tylenol OR TEMP Tab) 1 tab Q6H PRN 08/10/18 Acetaminophen PO .PAIN 4-6 09:30 / Hydrocodone Bitart ([place] (5/325)) 1 mg Q3H PRN 08/10/18 Hydromorphone IV .PAIN 09:00 HCl 7-10 (Dilaudid) Bisacodyl 5 mg DAILY PRN 08/10/18 (Dulcolax) PO 09:30 .CONSTIPATION 25 mg Q6H PRN 08/10/18 Diphenhydrami IM itchiness 09:30 ne HCl (Benadryl) Folic Acid 1 mg DAILY PO 08/11/18 (Folic Acid) 09:00 Procedures/MDM MDM The patient's presentation warrants further investigation. Previous medical records, if available, were reviewed. LABS The patient's laboratory testing was obtained and reviewed. No emergent treatment was required unless described below. CBC: Mild leukocytosis, which I suspect to be reactive. Thrombocytosis, reactive likely. Chronic microcytic anemia with elevated reticulocyte count. Chemistry: No E/o severe acidosis or alkalosis or renal failure or diabetic ketoacidosis HCG: Negative TREATMENT/DISPOSITION The patient presents for symptoms consistent with a sickle cell crisis. The patient does not have evidence of acute chest syndrome. The patient does have a mild leukocytosis, which I suspect is reactive. The patient is afebrile with unremarkable vital signs. I have very low suspicion for a systemic infection. The patient was treated with IV fluids, Toradol, Dilaudid, Benadryl and Zofran with minimal control of her symptoms. Given the patient's persistent pain, the patient likely requires admission for further management. ADMISSION At this time, I feel that the patient requires admission for further evaluation and management. The patient will be admitted to Panel in accordance with the patient's insurance. The patient was accepted by Dr. Brown at 0900AM. Disclaimer: Inadvertent spelling and grammatical errors are likely due to EHR/dictation software use and do not reflect on the overall quality of patient care. Note that the electronic time recorded on this note does not necessarily reflect the actual time of the patient encounter. Departure Diagnosis: Primary Impression: Sickle cell pain crisis Additional Impressions: Sickle cell anemia Sickle-cell associated disorders: with unspecified crisis Qualified Codes: D57.00 - Hb-SS disease with crisis, unspecified Leukocytosis Leukocytosis type: unspecified Qualified Codes: D72.829 - Elevated white blood cell count, unspecified Microcytic anemia Thrombocytosis Condition: JUNE Umana MD Aug 10, 2018 07:39
[2018-08-10] MEDS ORDERED: HYDROmorphONE 2 MG/ML SYG IV STA (08:28)
[2018-08-10] MEDS ORDERED: ACETAMINOPHEN 325 MG TAB PO PRN ×2 (09:30)
[2018-08-10] MEDS ORDERED: NACL 0.9% 3 ML SYG IV SCH (09:30)
[2018-08-10] MEDS ORDERED: ONDANSETRON 4 MG INJ IV PRN ×2 (09:30)
[2018-08-10] MEDS ORDERED: BISACODYL (EC) 5 MG TAB PO PRN (09:30)
--- NOTE | 2018-08-10 09:43 | HP ---
Date/Time of Note Date/Time of Note DATE: 08/10/18 TIME: 09:42 Assessment/Plan VTE Prophylaxis Pharmacological prophylaxis: other Lines/Catheters IV Catheter Type (from Nrsg): nazario needle for port Assessment/Plan Hospital Course Patient is a -[place] female with past medical history of sickle cell anemia who presents to [facility] for another recurrent sickle cell pain crisis. Patient states that she was discharged approximately 5 days ago and that all of a sudden she continued to feel more more pain in her shoulders as well as her legs generally. Patient states that this is exactly like her previous pain crisis. Patient states that in the past days been getting worse. Patient does denies any chest pain or shortness of breath or abdominal pain at this time. Patient denies any instigating factors, has not felt like she has changed her diet or has gotten worse as far as some sort of infection or fever. Patient denies nausea vomiting, headache, dizziness, bowel or bladder dysfunction. Denies weakness numbness or tingling the face or extremities Objective Physical exam General: Patient is laying in bed and answers questions appropriately Mentation: Patient is alert and oriented 4, Head: Normocephalic atraumatic Eyes: EOMI, pupils reactive to light Neck: Supple, nontender, midline Respiratory: Clear to auscultation bilaterally Cardiovascular: regular rate, no obvious murmurs Gastrointestinal: non-tender to palpation, bowel sounds heard. Neurological: Moves all extremities spontaneously Skin: No new skin lesions Assessment and plan Sickle cell pain crisis -Patient having what appears to be excessive pain seeking behavior, fairly demanding with doses of pain medication as well as IV Benadry for itching related to dilaudidl. It is explained to the patient that there is no need for IV Benadryl and if anything she was offered intramuscular Benadryl. Patient subsequently said that it is creating knots in her arm from the IM injections and subsequently I offered oral Benadryl. Patient then stated that she is okay with the knots with the IM injections until she speaks with a pain management doctor. I explained to the patient that it is up to the pain management doctor to change her regimen if needed. -Patient does not appear to be in any acute distress -No chest pain, no abdominal pain, hemoglobin stable when compared to previous admissions, patient's elevated reticulocyte and reticulocyte percentage consistent with previous pain crisis admissions. -IV Dilaudid every 3 hours, intramuscular Benadryl, heat pads as needed -IV fluids Narcotic seeking behavior -Patient is admitted multiple times, has Port-A-Cath for poor venous access -Pain management has been consulted -Patient appears to be very demanding when she is asking for pain medications, will need to limit pain medications as not to cause respiratory distress. Leukocytosis -Very mild, may be secondary to pain crisis -No signs of infection, patient having no complaints of fever or other illness at this time, will monitor, will need to workup if continues to be elevated or increases to Disposition -Admit for sickle cell pain crisis, will need to limit pain medications as not to cause respiratory distress, pain management consult pending. Result Diagram: 08/10/1871808/10/1819 Results 24hrs Laboratory Tests Test 08/10/18 07:19 White Blood Count 12.3 #H Red Blood Count 3.22 L Hemoglobin 8.7 L Hematocrit 25.7 L Mean Corpuscular Volume 79.8 L Mean Corpuscular Hemoglobin 27.0 L Mean Corpuscular Hemoglobin Concent 33.9 Red Cell Distribution Width 20.2 H Platelet Count 754 H Mean Platelet Volume 9.0 Immature Granulocytes % 2.400 H Neutrophils % 58.3 Lymphocytes % 22.0 Monocytes % 11.4 H Eosinophils % 4.2 Basophils % 1.7 Nucleated Red Blood Cells % 3.5 H Immature Granulocytes # 0.300 H Neutrophils # 7.2 Lymphocytes # 2.7 Monocytes # 1.4 H Eosinophils # 0.5 Basophils # 0.2 H Nucleated Red Blood Cells # 0.4 H Absolute Reticulocyte Count 0.281 H Percent Reticulocyte Count 8.7 H Sodium Level 141 Potassium Level 3.6 Chloride Level 108 Carbon Dioxide Level 22 Anion Gap 11 Blood Urea Nitrogen 11 Creatinine 0.39 L Est Glomerular Filtrat Rate mL/min > 60 Glucose Level 104 Calcium Level 10.0 Serum HCG, Qualitative NEGATIVE HPI/ROS Admit Date/Time Admit Date/Time PMH/Family/Social Past Medical History Medications Current Medications Sodium Chloride 1,000 ml @ 70 mls/hr [id number] IV ; Start 08/10/18 at 09:06 IV Flush (NS 3 ml) 3 ml PER PROTOCOL IV ; Start 08/10/18 at 09:30 Ondansetron HCl (Zofran Inj) 4 mg Q6H PRN IV NAUSEA/VOMITING; Start 08/10/18 at 09:30 Acetaminophen (Tylenol Tab) 650 mg Q6H PRN PO .PAIN 1-3 OR TEMP; Start 08/10/18 at 09:30 Acetaminophen/ Hydrocodone Bitart ([place] (5/325)) 1 tab Q6H PRN PO .PAIN 4-6; Start 08/10/18 at 09:30 Hydromorphone HCl (Dilaudid) 1 mg Q3H PRN IV .PAIN 7-10; Start 08/10/18 at 09:00 Bisacodyl (Dulcolax) 5 mg DAILY PRN PO .CONSTIPATION; Start 08/10/18 at 09:30 Diphenhydramine HCl (Benadryl) 25 mg Q6H PRN IM itchiness; Start 08/10/18 at 09:30 Folic Acid (Folic Acid) 1 mg DAILY PO ; Start 08/11/18 at 09:00 Ondansetron HCl (Zofran Inj) 4 mg BRIDGE ORDER PRN IV NAUSEA/VOMITING; Start 08/10/18 at 09:30; Stop 08/11/18 at 09:29 Acetaminophen (Tylenol Tab) 650 mg ER BRIDGE PRN PO .MILD PAIN 1-3 OR TEMP; Start 08/10/18 at 09:30; Stop 08/11/18 at 09:29 Coded Allergies: codeine (Unverified Allergy, Intermediate, ITCHY HIVES, 07/29/18) Past Surgical History Past Surgical Hx: cholecystectomy, other Family History Significant Family History: no pertinent family hx, other Social History Smoking Status: Current some day smoker Exam/Review of Systems Vital Signs Vitals Vital Signs Date Temp Pulse Resp B/P (MAP) Pulse Ox O2 O2 Flow FiO2 Time Delivery Rate 08/10/18 86 18 104/56 99 Nasal 2.0 08:30 (72) Cannula 08/10/18 98.1 06:58 ROSIO GALLARDO Aug 10, 2018 09:43
[2018-08-10] MEDS: HYDROmorphONE 0.5 MG/0.5 ML SYG IV PRN ×5 (10:06→22:17)
[2018-08-10 10:45] VITALS: Ht 162.6 cm; Wt 49.3 kg
[2018-08-10] MEDS: FOLIC ACID 1 MG TAB PO SCH (11:27)
[2018-08-10] MEDS: SOD CHLORIDE 0.9% 1,000 ML IV SCH (11:33)
[2018-08-10 11:36] VITALS: BP 129/69; PULSE 96; RESP 16
[2018-08-10] MEDS: HYDROCODONE/APAP (5/325) TAB PO PRN (12:12)
[2018-08-10] MEDS: DIPHENHYDRAMINE 50 MG INJ IM PRN ×2 (14:32→20:42)
[2018-08-10 20:00] VITALS: BP 165/111; PULSE 94; RESP 18
[2018-08-10] MEDS ORDERED: HYDROmorphONE 1 MG/ML SYG IV ONE (20:30)
[2018-08-10] MEDS: LORAZEPAM 2 MG INJ IV PRN (22:31)
[2018-08-11] MEDS: HYDROmorphONE 0.5 MG/0.5 ML SYG IV PRN ×4 (01:14→10:17)
[2018-08-11 02:00] VITALS: BP 144/79; PULSE 81; RESP 17
[2018-08-11] MEDS: DIPHENHYDRAMINE 50 MG INJ IM PRN ×4 (02:39→21:58)
[2018-08-11] MEDS: SOD CHLORIDE 0.9% 1,000 ML IV SCH ×2 (02:43→15:41)
[2018-08-11] MEDS: LORAZEPAM 2 MG INJ IV PRN ×3 (06:31→22:53)
[2018-08-11] MEDS ORDERED: ENOXAPARIN 40 MG/0.4 ML SYG SC SCH (09:00)
--- NOTE | 2018-08-11 12:35 | PN ---
Date/Time of Note Date/Time of Note DATE: 08/11/18 TIME: 12:28 Assessment/Plan VTE Prophylaxis Risk score (from Nsg)>0 risk: 3 SCD applied (from Nsg): Yes Pharmacological prophylaxis: LMWH Lines/Catheters IV Catheter Type (from Nrsg): nazario needle for port Urinary Cath still in place: No Assessment/Plan Assessment/Plan 1. Sickle cell crisis, IVF, pain control, follow up with pain management Dr. Castrejon for pain medications 2. Leukocytosis, likely stress induced, CXR and UA r/o infection 3. Narcotic seeking behavior, follow up with Dr. Castrejon Result Diagram: 08/11/18 0524 08/11/18 0524 Results 24hrs Laboratory Tests Test 08/11/18 05:24 White Blood Count 16.0 #H Red Blood Count 2.99 L Hemoglobin 8.2 L Hematocrit 24.3 L Mean Corpuscular Volume 81.3 L Mean Corpuscular Hemoglobin 27.4 L Mean Corpuscular Hemoglobin Concent 33.7 Red Cell Distribution Width 20.3 H Platelet Count 624 H Mean Platelet Volume 9.1 Immature Granulocytes % 1.700 H Neutrophils % 75.6 Lymphocytes % 9.3 L Monocytes % 9.4 Eosinophils % 2.9 Basophils % 1.1 Nucleated Red Blood Cells % 3.8 H Immature Granulocytes # 0.270 H Neutrophils # 12.1 H Lymphocytes # 1.5 Monocytes # 1.5 H Eosinophils # 0.5 Basophils # 0.2 H Nucleated Red Blood Cells # 0.6 H Sodium Level 142 Potassium Level 3.8 Chloride Level 106 Carbon Dioxide Level 23 Anion Gap 13 Blood Urea Nitrogen 5 L Creatinine 0.39 L Est Glomerular Filtrat Rate mL/min > 60 Glucose Level 110 Calcium Level 9.2 Magnesium Level 1.7 Total Bilirubin 1.2 Direct Bilirubin 0.00 Indirect Bilirubin 1.2 H Aspartate Amino Transf (AST/SGOT) 46 Alanine Aminotransferase (ALT/SGPT) 27 Alkaline Phosphatase 85 Total Protein 8.4 H Albumin 4.6 Globulin 3.80 H Albumin/Globulin Ratio 1.21 Subjective 24 Hr Interval Summary Free Text/Dictation generalized pain no cough or shortness of breath no dysuria no diarrhea no fever or chills Exam/Review of Systems Exam Vitals Vital Signs Date Temp Pulse Resp B/P (MAP) Pulse Ox O2 O2 Flow FiO2 Time Delivery Rate 08/11/18 98.7 81 17 144/79 99 02:00 (100) 08/10/18 Nasal 2.0 08:30 Cannula Intake and Output 08/10/18 08/10/18 08/11/18 1515:00 23:00 07:00 IntakeIntake Total 1160 ml 1755 ml BalanceBalance 1160 ml 1755 ml Constitutional: alert, oriented, well developed Head: normocephalic, atraumatic Eyes: PERRL ENMT: nl external ears & nose, nl lips & teeth, nl nasal mucosa & septum Neck: supple, non-tender Respiratory: clear to auscultation, normal air movement; No congested cough, No crackles/rales, No diminished breath sounds, No intercostal retraction, No labored breathing, No respirations, No tactile fremitus, No wheezing, No other Cardiovascular: regular rate and rhythm, nl pulses; No bruits, No diastolic murmur, No edema, No gallop, No irregular rhythm, No jugular venous distention (JVD), No murmurs/extra sounds, No rub, No systolic murmur, No S3, No S4, No other Gastrointestinal: soft, nl liver, spleen Musculoskeletal: nl extremities to inspection Extremities: normal pulses; No calf tenderness, No cyanosis, No clubbing, No edema, No pitting pedal edema, No palpable cord, No tenderness, No other Neurological: DYNAMOMETER TUNER II-XII intact, nl mental status, nl speech Results Results 24hrs Laboratory Tests Test 08/11/18 05:24 White Blood Count 16.0 #H Red Blood Count 2.99 L Hemoglobin 8.2 L Hematocrit 24.3 L Mean Corpuscular Volume 81.3 L Mean Corpuscular Hemoglobin 27.4 L Mean Corpuscular Hemoglobin Concent 33.7 Red Cell Distribution Width 20.3 H Platelet Count 624 H Mean Platelet Volume 9.1 Immature Granulocytes % 1.700 H Neutrophils % 75.6 Lymphocytes % 9.3 L Monocytes % 9.4 Eosinophils % 2.9 Basophils % 1.1 Nucleated Red Blood Cells % 3.8 H Immature Granulocytes # 0.270 H Neutrophils # 12.1 H Lymphocytes # 1.5 Monocytes # 1.5 H Eosinophils # 0.5 Basophils # 0.2 H Nucleated Red Blood Cells # 0.6 H Sodium Level 142 Potassium Level 3.8 Chloride Level 106 Carbon Dioxide Level 23 Anion Gap 13 Blood Urea Nitrogen 5 L Creatinine 0.39 L Est Glomerular Filtrat Rate mL/min > 60 Glucose Level 110 Calcium Level 9.2 Magnesium Level 1.7 Total Bilirubin 1.2 Direct Bilirubin 0.00 Indirect Bilirubin 1.2 H Aspartate Amino Transf (AST/SGOT) 46 Alanine Aminotransferase (ALT/SGPT) 27 Alkaline Phosphatase 85 Total Protein 8.4 H Albumin 4.6 Globulin 3.80 H Albumin/Globulin Ratio 1.21 Medications Medication Current Medications Sodium Chloride 1,000 ml @ 70 mls/hr [id number] IV Last administered on 08/11/18at 02:43; Admin Dose 70 MLS/HR; Start 08/10/18 at 09:06 IV Flush (NS 3 ml) 3 ml PER PROTOCOL IV ; Start 08/10/18 at 09:30 Ondansetron HCl (Zofran Inj) 4 mg Q6H PRN IV NAUSEA/VOMITING; Start 08/10/18 at 09:30 Acetaminophen (Tylenol Tab) 650 mg Q6H PRN PO .PAIN 1-3 OR TEMP; Start 08/10/18 at 09:30 Acetaminophen/ Hydrocodone Bitart ([place] (5/325)) 1 tab Q6H PRN PO .PAIN 4-6 Last administered on 08/10/18at 12:12; Admin Dose 1 TAB; Start 08/10/18 at 09:30 Bisacodyl (Dulcolax) 5 mg DAILY PRN PO .CONSTIPATION; Start 08/10/18 at 09:30 Diphenhydramine HCl (Benadryl) 25 mg Q6H PRN IM itchiness Last administered on 08/11/18at 09:14; Admin Dose 25 MG; Start 08/10/18 at 09:30 Folic Acid (Folic Acid) 1 mg DAILY PO ; Start 08/11/18 at 09:00 Enoxaparin Sodium (Lovenox) 40 mg DAILY SC ; Start 08/11/18 at 09:00 Lorazepam (Ativan) 0.5 mg Q8H PRN IV anxiety Last administered on 08/11/18at 06:31; Admin Dose 0.5 MG; Start 08/10/18 at 21:30 Hydromorphone HCl (Dilaudid) 2 mg Q3H PRN IV .PAIN 7-10; Start 08/11/18 at 15:00; Status ISMAEL SAHNI MD Aug 11, 2018 12:35
[2018-08-11] MEDS ORDERED: ENOXAPARIN 60 MG/0.6 ML SYG SC SCH (13:00)
[2018-08-11] MEDS: HYDROmorphONE 2 MG/ML SYG IV PRN ×4 (13:14→22:34)
[2018-08-11 14:31] VITALS: BP 149/88; PULSE 101; RESP 16
[2018-08-11] MEDS: APIXABAN 5 MG TABLET PO SCH ×2 (14:32→20:44)
[2018-08-11 21:07] VITALS: BP 144/80; PULSE 100; RESP 18
[2018-08-11] MEDS: HYDROCODONE/APAP (5/325) TAB PO PRN (21:58)
[2018-08-12] MEDS: HYDROmorphONE 2 MG/ML SYG IV PRN ×8 (01:31→22:23)
[2018-08-12 02:00] VITALS: BP 98/70; PULSE 105; RESP 20
[2018-08-12] MEDS: SOD CHLORIDE 0.9% 1,000 ML IV SCH ×3 (04:00→20:37)
[2018-08-12] MEDS: DIPHENHYDRAMINE 50 MG INJ IM PRN ×2 (05:14→11:21)
[2018-08-12] MEDS: LORAZEPAM 2 MG INJ IV PRN ×2 (08:19→20:28)
[2018-08-12 08:20] VITALS: BP 130/76; PULSE 108; RESP 20
[2018-08-12] MEDS: APIXABAN 5 MG TABLET PO SCH ×2 (08:22→20:28)
[2018-08-12] MEDS: FOLIC ACID 1 MG TAB PO SCH (08:23)
[2018-08-12] MEDS ORDERED: POTASSIUM CHLORIDE (SR) 20 MEQ TAB PO STA (08:43)
[2018-08-12] MEDS: HYDROCODONE/APAP (5/325) TAB PO PRN ×2 (09:25→23:16)
--- NOTE | 2018-08-12 12:53 | CONS ---
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 Pt has no symptoms related to this finding. U/s images reviewed Plan: -Appreciate medical management -Agree w/ anticoagulation for R IJ thrombus as long as RIJ port remains in place -Ok to cont use of port for access -D/w pt and Dr. Blair who spoke w/ internal med team Consultation Date/Type/Reason Admit Date/Time Date of Consultation: Aug 12, 2018 Type of Consult Vascular Reason for Consultation RIJ thrombus w/ associated RIJ port Requesting Provider: ISMAEL HAMMONDS MD Date/Time of Note DATE: 08/12/18 TIME: 12:53 Hx of Present Illness 33-year-old female with history of sickle cell disease with frequent admissions for sickle cell crisis now presented to ER w/ similar symptoms as previous crisis episodes. She has had a RIJ port for past 5 years due to poor IV access and recurrent need for IV access. She had BUE venous u/s that showed R IJ partial-occlusive thrombus. She denies any swelling or unusual pain in BUE - her pain is typical of her sickle cell crisis symptoms. She denies any other previous intervention to BUE. She denies F, C, SOB, CP. 14-point review of systems done and were negative except as per history of present illness. Past Medical History Sickle Cell Disease w/ frequent crisis Gallbladder disease Home Meds Active Scripts Docusate Sodium (Dok) 100 Mg Capsule, 100 MG PO Q12H, #60 CAP 2 Refills Prov:RUSSELLSAMIAATITO M. 05/28/18 Hydroxyurea* (Hydroxyurea*) 500 Mg Capsule, 500 MG PO BID, #60 CAP 2 Refills Prov:RUSSELL,BOLATITO M. 05/28/18 Albuterol Sulfate* (Proair HFA*) 8.5 Gm Hfa.aer.ad, 2 PUFF INH Q4H PRN for WHEEZING AND SOB, #1 INHALER Prov:SARAH ANTONIO MD 05/18/18 Reported Medications Hydrocodone/Acetaminophen ([place] 10-325 Tablet) 1 Each Tablet, 1 EACH PO Q6H PRN for PAIN LEVEL 7-10, TAB 07/29/18 Folic Acid* (Folic Acid*) 1 Mg Tablet, 1 MG PO DAILY, TAB 05/18/18 Diphenhydramine Hcl (Banophen) 25 Mg Capsule, 25 MG PO BID, CAP 03/21/18 Medications Current Medications Sodium Chloride 1,000 ml @ 70 mls/hr [id number] IV Last administered on 08/12/18 05:18; Admin Dose 70 MLS/HR; Start 08/10/18 at 09:06 IV Flush (NS 3 ml) 3 ml PER PROTOCOL IV ; Start 08/10/18 at 09:30 Ondansetron HCl (Zofran Inj) 4 mg Q6H PRN IV NAUSEA/VOMITING; Start 08/10/18 at 09:30 Acetaminophen (Tylenol Tab) 650 mg Q6H PRN PO .PAIN 1-3 OR TEMP; Start 08/10/18 at 09:30 Acetaminophen/ Hydrocodone Bitart ([place] (5/325)) 1 tab Q6H PRN PO .PAIN 4-6 Last administered on 08/12/18 09:25; Admin Dose 1 TAB; Start 08/10/18 at 09:30 Bisacodyl (Dulcolax) 5 mg DAILY PRN PO .CONSTIPATION; Start 08/10/18 at 09:30 Diphenhydramine HCl (Benadryl) 25 mg Q6H PRN IM itchiness Last administered on 08/12/18 11:21; Admin Dose 25 MG; Start 08/10/18 at 09:30 Folic Acid (Folic Acid) 1 mg DAILY PO Last administered on 08/12/18 08:23; Admin Dose 1 MG; Start 08/11/18 at 09:00 Lorazepam (Ativan) 0.5 mg Q8H PRN IV anxiety Last administered on 08/12/18 08:19; Admin Dose 0.5 MG; Start 08/10/18 at 21:30 Hydromorphone HCl (Dilaudid) 2 mg Q3H PRN IV .PAIN 7-10 Last administered on 08/12/18 10:30; Admin Dose 2 MG; Start 08/11/18 at 12:30 Apixaban (Eliquis) 10 mg BID PO Last administered on 08/12/18 08:22; Admin Dose 10 MG; Start 08/11/18 at 13:30 Allergies: Coded Allergies: codeine (Unverified Allergy, Intermediate, ITCHY HIVES, 08/10/18) Past Surgical History Cholecystectomy Past Surgical Hx: cholecystectomy, other Social History Smoking Status: Former smoker Exam/Review of Systems Exam Vitals Vital Signs Date Temp Pulse Resp B/P (MAP) Pulse Ox O2 O2 Flow FiO2 Time Delivery Rate 08/12/18 108 20 130/76 Room Air 08:20 (94) 08/12/18 99.4 99 02:00 08/10/18 2.0 08:30 Intake and Output 08/11/18 08/11/18 08/12/18 1515:00 23:00 07:00 IntakeIntake Total 120 ml 770 ml 840 ml BalanceBalance 120 ml 770 ml 840 ml Exam Gen: Awake, alert, NAD but uncomfortable Neck: supple, no edema Heart: Reg Lungs: Clear Abd: soft, mild diffuse tenderness, ND Extr: BUE/BLE warm, no cyanosis, no edema, no wounds Pulses: BUE 2+ brachial and radial pulses; BLE 2+ DP pulses bilaterally Results Result Diagram: 08/12/18 0457 08/12/18 0457 Results 24hrs Laboratory Tests Test 08/11/18 16:35 08/12/18 04:57 Urine Color YELLOW Urine Clarity CLEAR Urine pH 6.0 Urine Specific [place] 1.013 Urine Ketones NEGATIVE Urine Nitrite NEGATIVE Urine Bilirubin NEGATIVE Urine Urobilinogen NEGATIVE Urine Leukocyte Esterase NEGATIVE Urine Hemoglobin NEGATIVE Urine Glucose NEGATIVE Urine Total Protein NEGATIVE White Blood Count 13.3 H Red Blood Count 3.03 L Hemoglobin 8.3 L Hematocrit 24.5 L Mean Corpuscular Volume 80.9 L Mean Corpuscular Hemoglobin 27.4 L Mean Corpuscular Hemoglobin Concent 33.9 Red Cell Distribution Width 20.4 H Platelet Count 628 H Mean Platelet Volume 9.3 Immature Granulocytes % 1.300 H Neutrophils % 74.5 Lymphocytes % 11.6 L Monocytes % 9.0 Eosinophils % 2.8 Basophils % 0.8 Nucleated Red Blood Cells % 4.5 H Immature Granulocytes # 0.170 H Neutrophils # 9.9 H Lymphocytes # 1.6 Monocytes # 1.2 H Eosinophils # 0.4 Basophils # 0.1 Nucleated Red Blood Cells # 0.6 H Sodium Level 142 Potassium Level 3.4 L Chloride Level 107 Carbon Dioxide Level 22 Anion Gap 13 Blood Urea Nitrogen 5 L Creatinine 0.38 L Est Glomerular Filtrat Rate mL/min > 60 Glucose Level 90 Calcium Level 9.3 Medications Medication Current Medications Sodium Chloride 1,000 ml @ 70 mls/hr [id number] IV Last administered on 08/12/18 05:18; Admin Dose 70 MLS/HR; Start 08/10/18 at 09:06 IV Flush (NS 3 ml) 3 ml PER PROTOCOL IV ; Start 08/10/18 at 09:30 Ondansetron HCl (Zofran Inj) 4 mg Q6H PRN IV NAUSEA/VOMITING; Start 08/10/18 at 09:30 Acetaminophen (Tylenol Tab) 650 mg Q6H PRN PO .PAIN 1-3 OR TEMP; Start 08/10/18 at 09:30 Acetaminophen/ Hydrocodone Bitart ([place] (5/325)) 1 tab Q6H PRN PO .PAIN 4-6 Last administered on 08/12/18 09:25; Admin Dose 1 TAB; Start 08/10/18 at 09:30 Bisacodyl (Dulcolax) 5 mg DAILY PRN PO .CONSTIPATION; Start 08/10/18 at 09:30 Diphenhydramine HCl (Benadryl) 25 mg Q6H PRN IM itchiness Last administered on 08/12/18at 11:21; Admin Dose 25 MG; Start 08/10/18 at 09:30 Folic Acid (Folic Acid) 1 mg DAILY PO Last administered on 08/12/18 08:23; Admin Dose 1 MG; Start 08/11/18 at 09:00 Lorazepam (Ativan) 0.5 mg Q8H PRN IV anxiety Last administered on 08/12/18 08:19; Admin Dose 0.5 MG; Start 08/10/18 at 21:30 Hydromorphone HCl (Dilaudid) 2 mg Q3H PRN IV .PAIN 7-10 Last administered on 08/12/18at 10:30; Admin Dose 2 MG; Start 08/11/18 at 12:30 Apixaban (Eliquis) 10 mg BID PO Last administered on 08/12/18 08:22; Admin Dose 10 MG; Start 08/11/18 at 13:30 DAFNE LUCAS MD Aug 12, 2018 12:53
--- NOTE | 2018-08-12 17:00 | PN ---
Date/Time of Note Date/Time of Note DATE: 08/12/18 TIME: 16:55 Assessment/Plan VTE Prophylaxis Risk score (from Ns)>0 risk: 4 SCD applied (from [facility] [place] No SCD contraindicated: other Pharmacological prophylaxis: apixaban Lines/Catheters IV Catheter Type (from Nrsg): PORT-A-CATH Urinary Cath still in place: No Assessment/Plan Assessment/Plan 1. Sickle cell crisis, IVF, pain control, follow up with pain management Dr. Castrejon for pain medications 2. Leukocytosis with RLL pulmonary infiltrates on CXR, levaquin 3. Narcotic seeking behavior, follow up with Dr. Castrejon 4. Right IJ thrombosis, on eliquis Result Diagram: 08/12/18 0457 08/12/18 0457 Results 24hrs Laboratory Tests Test 08/12/18 04:57 White Blood Count 13.3 H Red Blood Count 3.03 L Hemoglobin 8.3 L Hematocrit 24.5 L Mean Corpuscular Volume 80.9 L Mean Corpuscular Hemoglobin 27.4 L Mean Corpuscular Hemoglobin Concent 33.9 Red Cell Distribution Width 20.4 H Platelet Count 628 H Mean Platelet Volume 9.3 Immature Granulocytes % 1.300 H Neutrophils % 74.5 Lymphocytes % 11.6 L Monocytes % 9.0 Eosinophils % 2.8 Basophils % 0.8 Nucleated Red Blood Cells % 4.5 H Immature Granulocytes # 0.170 H Neutrophils # 9.9 H Lymphocytes # 1.6 Monocytes # 1.2 H Eosinophils # 0.4 Basophils # 0.1 Nucleated Red Blood Cells # 0.6 H Sodium Level 142 Potassium Level 3.4 L Chloride Level 107 Carbon Dioxide Level 22 Anion Gap 13 Blood Urea Nitrogen 5 L Creatinine 0.38 L Est Glomerular Filtrat Rate mL/min > 60 Glucose Level 90 Calcium Level 9.3 Subjective 24 Hr Interval Summary Free Text/Dictation generalized pain Exam/Review of Systems Exam Vitals Vital Signs Date Temp Pulse Resp B/P (MAP) Pulse Ox O2 O2 Flow FiO2 Time Delivery Rate 08/12/18 108 20 130/76 Room Air 08:20 (94) 08/12/18 99.4 99 02:00 08/10/18 2.0 08:30 Intake and Output 08/11/18 08/11/18 08/12/18 1515:00 23:00 07:00 IntakeIntake Total 120 ml 770 ml 840 ml BalanceBalance 120 ml 770 ml 840 ml Constitutional: alert, oriented, well developed Head: normocephalic, atraumatic Eyes: nl conjunctiva, EOMI, nl lids, PERRL ENMT: nl external ears & nose, nl lips & teeth, nl nasal mucosa & septum Neck: supple, non-tender Respiratory: clear to auscultation, normal air movement; No congested cough, No crackles/rales, No diminished breath sounds, No intercostal retraction, No labored breathing, No respirations, No tactile fremitus, No wheezing, No other Cardiovascular: regular rate and rhythm, nl pulses; No bruits, No diastolic murmur, No edema, No gallop, No irregular rhythm, No jugular venous distention (JVD), No murmurs/extra sounds, No rub, No systolic murmur, No S3, No S4, No other Gastrointestinal: soft, nl liver, spleen, non-tender Musculoskeletal: nl extremities to inspection Extremities: normal pulses; No calf tenderness, No cyanosis, No clubbing, No edema, No pitting pedal edema, No palpable cord, No tenderness, No other Neurological: CLINICAL NURSE EDUCATOR II-XII intact, nl mental status, nl speech, nl strength Results Results 24hrs Laboratory Tests Test 08/12/18 04:57 White Blood Count 13.3 H Red Blood Count 3.03 L Hemoglobin 8.3 L Hematocrit 24.5 L Mean Corpuscular Volume 80.9 L Mean Corpuscular Hemoglobin 27.4 L Mean Corpuscular Hemoglobin Concent 33.9 Red Cell Distribution Width 20.4 H Platelet Count 628 H Mean Platelet Volume 9.3 Immature Granulocytes % 1.300 H Neutrophils % 74.5 Lymphocytes % 11.6 L Monocytes % 9.0 Eosinophils % 2.8 Basophils % 0.8 Nucleated Red Blood Cells % 4.5 H Immature Granulocytes # 0.170 H Neutrophils # 9.9 H Lymphocytes # 1.6 Monocytes # 1.2 H Eosinophils # 0.4 Basophils # 0.1 Nucleated Red Blood Cells # 0.6 H Sodium Level 142 Potassium Level 3.4 L Chloride Level 107 Carbon Dioxide Level 22 Anion Gap 13 Blood Urea Nitrogen 5 L Creatinine 0.38 L Est Glomerular Filtrat Rate mL/min > 60 Glucose Level 90 Calcium Level 9.3 Medications Medication Current Medications Sodium Chloride 1,000 ml @ 70 mls/hr [id number] IV Last administered on 08/12/18 05:18; Admin Dose 70 MLS/HR; Start 08/10/18 at 09:06 IV Flush (NS 3 ml) 3 ml PER PROTOCOL IV ; Start 08/10/18 at 09:30 Ondansetron HCl (Zofran Inj) 4 mg Q6H PRN IV NAUSEA/VOMITING; Start 08/10/18 at 09:30 Acetaminophen (Tylenol Tab) 650 mg Q6H PRN PO .PAIN 1-3 OR TEMP; Start 08/10/18 at 09:30 Acetaminophen/ Hydrocodone Bitart ([place] (5/325)) 1 tab Q6H PRN PO .PAIN 4-6 Last administered on 08/12/18 09:25; Admin Dose 1 TAB; Start 08/10/18 at 09:30 Bisacodyl (Dulcolax) 5 mg DAILY PRN PO .CONSTIPATION; Start 08/10/18 at 09:30 Diphenhydramine HCl (Benadryl) 25 mg Q6H PRN IM itchiness Last administered on 08/12/18 11:21; Admin Dose 25 MG; Start 08/10/18 at 09:30 Folic Acid (Folic Acid) 1 mg DAILY PO Last administered on 08/12/18 08:23; Admin Dose 1 MG; Start 08/11/18 at 09:00 Lorazepam (Ativan) 0.5 mg Q8H PRN IV anxiety Last administered on 08/12/18 08:19; Admin Dose 0.5 MG; Start 08/10/18 at 21:30 Hydromorphone HCl (Dilaudid) 2 mg Q3H PRN IV .PAIN 7-10 Last administered on 08/12/18 16:31; Admin Dose 2 MG; Start 08/11/18 at 12:30 Apixaban (Eliquis) 10 mg BID PO Last administered on 08/12/18 08:22; Admin Dose 10 MG; Start 08/11/18 at 13:30 ISMAEL HAMMONDS MD Aug 12, 2018 17:00
[2018-08-12] MEDS: LEVOFLOXACIN 500MG/D5W (PMX) 100 ML IVPB SCH (17:30)
[2018-08-12] MEDS: DIPHENHYDRAMINE 50 MG INJ IV PRN ×2 (17:30→23:16)
[2018-08-12] MEDS ORDERED: POTASSIUM CHLORIDE 20 MEQ POWDER FOR ORAL SOLN PO ONE (18:00)
[2018-08-12 20:59] VITALS: BP 134/71; PULSE 113; RESP 16
[2018-08-13] MEDS: HYDROmorphONE 2 MG/ML SYG IV PRN ×8 (01:23→22:48)
[2018-08-13 02:36] VITALS: BP 133/78; PULSE 108; RESP 18
[2018-08-13] MEDS: DIPHENHYDRAMINE 50 MG INJ IV PRN ×4 (05:18→23:35)
[2018-08-13] MEDS: LORAZEPAM 2 MG INJ IV PRN ×2 (06:08→14:54)
[2018-08-13 07:53] VITALS: BP 135/76; PULSE 113; RESP 16
[2018-08-13] MEDS: APIXABAN 5 MG TABLET PO SCH ×2 (09:49→22:11)
[2018-08-13] MEDS: HYDROCODONE/APAP (5/325) TAB PO PRN ×3 (09:50→23:35)
[2018-08-13] MEDS: FOLIC ACID 1 MG TAB PO SCH (11:18)
--- NOTE | 2018-08-13 13:34 | PN ---
Date/Time of Note Date/Time of Note DATE: 08/13/18 TIME: 13:32 Assessment/Plan VTE Prophylaxis Risk score (from Nsg)>0 risk: 4 SCD applied (from Ns): Yes Pharmacological prophylaxis: apixaban Lines/Catheters IV Catheter Type (from Nrsg): port-a-cath Urinary Cath still in place: No Assessment/Plan Assessment/Plan 1. Sickle cell crisis, still has sigificant pain, on IVF, pain control per Dr. Castrejon 2. Leukocytosis with RLL pulmonary infiltrates on CXR, levaquin 3. Narcotic seeking behavior, follow up with Dr. Castrejon 4. Right IJ thrombosis, on eliquis Result Diagram: 08/13/1851808/13/18518 Results 24hrs Laboratory Tests Test 08/13/18 05:19 White Blood Count 16.9 #H Red Blood Count 3.13 L Hemoglobin 8.5 L Hematocrit 25.0 L Mean Corpuscular Volume 79.9 L Mean Corpuscular Hemoglobin 27.2 L Mean Corpuscular Hemoglobin Concent 34.0 Red Cell Distribution Width 19.6 H Platelet Count 617 H Mean Platelet Volume 9.2 Immature Granulocytes % 0.900 H Neutrophils % 83.9 H Lymphocytes % 6.4 L Monocytes % 8.1 Eosinophils % 0.3 Basophils % 0.4 Nucleated Red Blood Cells % 2.8 H Immature Granulocytes # 0.150 H Neutrophils # 14.2 H Lymphocytes # 1.1 Monocytes # 1.4 H Eosinophils # 0.1 Basophils # 0.1 Nucleated Red Blood Cells # 0.5 H Sodium Level 143 Potassium Level 3.6 Chloride Level 108 Carbon Dioxide Level 23 Anion Gap 12 Blood Urea Nitrogen 6 L Creatinine 0.34 L Est Glomerular Filtrat Rate mL/min > 60 Glucose Level 112 Calcium Level 9.7 Subjective 24 Hr Interval Summary Free Text/Dictation still has generalized pain no cough or shortness of breath, no sputum Exam/Review of Systems Exam Vitals Vital Signs Date Temp Pulse Resp B/P (MAP) Pulse Ox O2 O2 Flow FiO2 Time Delivery Rate 08/13/18 98.0 113 16 135/76 95 07:53 (95) 08/12/18 Room Air 08:20 08/10/18 2.0 08:30 Intake and Output 4/2/19 4/2/19 4/3/19 1515:00 23:00 07:00 IntakeIntake Total 1220 ml BalanceBalance 1220 ml Constitutional: alert, oriented, well developed Head: normocephalic, atraumatic Eyes: nl conjunctiva, EOMI, nl lids ENMT: nl external ears & nose, nl lips & teeth, nl nasal mucosa & septum Neck: supple, non-tender Respiratory: clear to auscultation, normal air movement; No congested cough, No crackles/rales, No diminished breath sounds, No intercostal retraction, No labored breathing, No respirations, No tactile fremitus, No wheezing, No other Cardiovascular: regular rate and rhythm, nl pulses; No bruits, No diastolic murmur, No edema, No gallop, No irregular rhythm, No jugular venous distention (JVD), No murmurs/extra sounds, No rub, No systolic murmur, No S3, No S4, No other Gastrointestinal: soft, nl liver, spleen, non-tender Musculoskeletal: nl extremities to inspection Extremities: normal pulses; No calf tenderness, No cyanosis, No clubbing, No edema, No pitting pedal edema, No palpable cord, No tenderness, No other Neurological: 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 II-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 intact, nl mental status, nl speech, nl strength Results Results 24hrs Laboratory Tests Test 08/13/18 05:19 White Blood Count 16.9 #H Red Blood Count 3.13 L Hemoglobin 8.5 L Hematocrit 25.0 L Mean Corpuscular Volume 79.9 L Mean Corpuscular Hemoglobin 27.2 L Mean Corpuscular Hemoglobin Concent 34.0 Red Cell Distribution Width 19.6 H Platelet Count 617 H Mean Platelet Volume 9.2 Immature Granulocytes % 0.900 H Neutrophils % 83.9 H Lymphocytes % 6.4 L Monocytes % 8.1 Eosinophils % 0.3 Basophils % 0.4 Nucleated Red Blood Cells % 2.8 H Immature Granulocytes # 0.150 H Neutrophils # 14.2 H Lymphocytes # 1.1 Monocytes # 1.4 H Eosinophils # 0.1 Basophils # 0.1 Nucleated Red Blood Cells # 0.5 H Sodium Level 143 Potassium Level 3.6 Chloride Level 108 Carbon Dioxide Level 23 Anion Gap 12 Blood Urea Nitrogen 6 L Creatinine 0.34 L Est Glomerular Filtrat Rate mL/min > 60 Glucose Level 112 Calcium Level 9.7 Medications Medication Current Medications Sodium Chloride 1,000 ml @ 70 mls/hr [id number] IV Last administered on 08/12/18 20:37; Admin Dose 70 MLS/HR; Start 08/10/18 at 09:06 IV Flush (NS 3 ml) 3 ml PER PROTOCOL IV ; Start 08/10/18 at 09:30 Ondansetron HCl (Zofran Inj) 4 mg Q6H PRN IV NAUSEA/VOMITING; Start 08/10/18 at 09:30 Acetaminophen (Tylenol Tab) 650 mg Q6H PRN PO .PAIN 1-3 OR TEMP; Start 08/10/18 at 09:30 Acetaminophen/ Hydrocodone Bitart ([place] (5/325)) 1 tab Q6H PRN PO .PAIN 4-6 Last administered on 08/13/18 09:50; Admin Dose 1 TAB; Start 08/10/18 at 09:30 Bisacodyl (Dulcolax) 5 mg DAILY PRN PO .CONSTIPATION; Start 08/10/18 at 09:30 Folic Acid (Folic Acid) 1 mg DAILY PO Last administered on 08/13/18 11:18; Admin Dose 1 MG; Start 08/11/18 at 09:00 Lorazepam (Ativan) 0.5 mg Q8H PRN IV anxiety Last administered on 08/13/18 06:08; Admin Dose 0.5 MG; Start 08/10/18 at 21:30 Hydromorphone HCl (Dilaudid) 2 mg Q3H PRN IV .PAIN 7-10 Last administered on 08/13/18 10:36; Admin Dose 2 MG; Start 08/11/18 at 12:30 Apixaban (Eliquis) 10 mg BID PO Last administered on 08/13/18 09:49; Admin Dose 10 MG; Start 08/11/18 at 13:30 Levofloxacin/ Dextrose 100 ml @ 100 mls/hr Q24H IVPB Last administered on 08/12/18 17:30; Admin Dose 100 MLS/HR; Start 08/12/18 at 18:00 Diphenhydramine HCl (Benadryl) 25 mg Q6H PRN IV itching Last administered on 08/13/18 11:18; Admin Dose 25 MG; Start 08/12/18 at 17:00 ISMAEL HAMMONDS MD Aug 13, 2018 13:34
[2018-08-13 14:30] VITALS: BP 139/78; PULSE 107; RESP 20
[2018-08-13] MEDS: LEVOFLOXACIN 500MG/D5W (PMX) 100 ML IVPB SCH (17:30)
[2018-08-13 20:00] VITALS: BP 131/79; PULSE 106; RESP 20
[2018-08-13] MEDS ORDERED: traZODone 50 MG TAB PO ONE (22:00)
[2018-08-13] MEDS: SOD CHLORIDE 0.9% 1,000 ML IV SCH (22:54)
[2018-08-14] MEDS: LORAZEPAM 2 MG INJ IV PRN ×3 (00:17→18:11)
[2018-08-14] MEDS: HYDROmorphONE 2 MG/ML SYG IV PRN ×8 (01:49→22:58)
[2018-08-14 02:14] VITALS: BP 130/62; PULSE 107; RESP 19
[2018-08-14] MEDS: SOD CHLORIDE 0.9% 1,000 ML IV SCH ×3 (03:07→17:16)
[2018-08-14] MEDS: DIPHENHYDRAMINE 50 MG INJ IV PRN ×3 (06:29→18:38)
[2018-08-14] MEDS: HYDROCODONE/APAP (5/325) TAB PO PRN ×2 (06:29→12:28)
[2018-08-14 07:50] VITALS: BP 124/61; PULSE 115; RESP 16
[2018-08-14] MEDS: APIXABAN 5 MG TABLET PO SCH ×2 (08:56→21:41)
[2018-08-14] MEDS: FOLIC ACID 1 MG TAB PO SCH (08:56)
--- NOTE | 2018-08-14 14:57 | PN ---
Date/Time of Note Date/Time of Note DATE: 08/14/18 TIME: 14:55 Assessment/Plan VTE Prophylaxis Risk score (from Ns)>0 risk: 6 [place] [facility] [place] contraindicated: other Pharmacological prophylaxis: apixaban Lines/Catheters [facility] (from [facility] Post-A-Cath Urinary Cath still in place: No Assessment/Plan Assessment/Plan 1. Sickle cell crisis, still has significant pain, on IVF, pain control per Dr. Castrejon 2. Leukocytosis with RLL pulmonary infiltrates on CXR, levaquin 3. Narcotic seeking behavior, follow up with Dr. Castrejon 4. Right IJ thrombosis, on eliquis Result Diagram: 08/14/18 0500 08/13/18 0519 Results 24hrs Laboratory Tests Test 08/14/18 05:00 White Blood Count 14.7 H Red Blood Count 2.94 L Hemoglobin 7.9 L Hematocrit 23.2 L Mean Corpuscular Volume 78.9 L Mean Corpuscular Hemoglobin 26.9 L Mean Corpuscular Hemoglobin Concent 34.1 Red Cell Distribution Width 18.9 H Platelet Count 560 H Mean Platelet Volume 9.9 Immature Granulocytes % 0.700 H Neutrophils % 77.1 H Lymphocytes % 10.2 L Monocytes % 10.8 Eosinophils % 0.7 Basophils % 0.5 Nucleated Red Blood Cells % 3.8 H Immature Granulocytes # 0.110 H Neutrophils # 11.4 H Lymphocytes # 1.5 Monocytes # 1.6 H Eosinophils # 0.1 Basophils # 0.1 Nucleated Red Blood Cells # 0.6 H Subjective 24 Hr Interval Summary Free Text/Dictation generalized pain. no cough, no shortness of breath Exam/Review of Systems Exam Vitals Vital Signs Date Temp Pulse Resp B/P (MAP) Pulse Ox O2 O2 Flow FiO2 Time Delivery Rate 08/14/18 98.9 115 16 124/61 97 Room Air 07:50 (82) 08/10/18 2.0 08:30 Intake and Output 08/13/18 08/13/18 08/14/18 1515:00 23:00 07:00 IntakeIntake Total 480 ml 900 ml 1140 ml BalanceBalance 480 ml 900 ml 1140 ml Constitutional: alert, oriented, well developed Head: normocephalic, atraumatic Eyes: nl conjunctiva, EOMI, nl lids, PERRL ENMT: nl external ears & nose, nl lips & teeth, nl nasal mucosa & septum Neck: supple, non-tender Respiratory: clear to auscultation, normal air movement; No congested cough, No crackles/rales, No diminished breath sounds, No intercostal retraction, No labored breathing, No respirations, No tactile fremitus, No wheezing, No other Cardiovascular: regular rate and rhythm, nl pulses; No bruits, No diastolic murmur, No edema, No gallop, No irregular rhythm, No jugular venous distention (JVD), No murmurs/extra sounds, No rub, No systolic murmur, No S3, No S4, No other Gastrointestinal: soft, nl liver, spleen Musculoskeletal: nl extremities to inspection Extremities: normal pulses; No calf tenderness, No cyanosis, No clubbing, No edema, No pitting pedal edema, No palpable cord, No tenderness, No other Neurological: WELLNESS RN II-XII intact, nl mental status, nl speech, nl strength Results Results 24hrs Laboratory Tests Test 08/14/18 05:00 White Blood Count 14.7 H Red Blood Count 2.94 L Hemoglobin 7.9 L Hematocrit 23.2 L Mean Corpuscular Volume 78.9 L Mean Corpuscular Hemoglobin 26.9 L Mean Corpuscular Hemoglobin Concent 34.1 Red Cell Distribution Width 18.9 H Platelet Count 560 H Mean Platelet Volume 9.9 Immature Granulocytes % 0.700 H Neutrophils % 77.1 H Lymphocytes % 10.2 L Monocytes % 10.8 Eosinophils % 0.7 Basophils % 0.5 Nucleated Red Blood Cells % 3.8 H Immature Granulocytes # 0.110 H Neutrophils # 11.4 H Lymphocytes # 1.5 Monocytes # 1.6 H Eosinophils # 0.1 Basophils # 0.1 Nucleated Red Blood Cells # 0.6 H Medications Medication Current Medications Sodium Chloride 1,000 ml @ 70 mls/hr [id number] IV Last administered on 08/14/18at 03:07; Admin Dose 70 MLS/HR; Start 08/10/18 at 09:06 IV Flush (NS 3 ml) 3 ml PER PROTOCOL IV ; Start 08/10/18 at 09:30 Ondansetron HCl (Zofran Inj) 4 mg Q6H PRN IV NAUSEA/VOMITING; Start 08/10/18 at 09:30 Acetaminophen (Tylenol Tab) 650 mg Q6H PRN PO .PAIN 1-3 OR TEMP; Start 08/10/18 at 09:30 Acetaminophen/ Hydrocodone Bitart ([place] (5/325)) 1 tab Q6H PRN PO .PAIN 4-6 Last administered on 08/14/18 12:28; Admin Dose 1 TAB; Start 08/10/18 at 09:30 Bisacodyl (Dulcolax) 5 mg DAILY PRN PO .CONSTIPATION; Start 08/10/18 at 09:30 Folic Acid (Folic Acid) 1 mg DAILY PO Last administered on 08/14/18 08:56; Admin Dose 1 MG; Start 08/11/18 at 09:00 Lorazepam (Ativan) 0.5 mg Q8H PRN IV anxiety Last administered on 08/14/18 08:56; Admin Dose 0.5 MG; Start 08/10/18 at 21:30 Hydromorphone HCl (Dilaudid) 2 mg Q3H PRN IV .PAIN 7-10 Last administered on 08/14/18 14:09; Admin Dose 2 MG; Start 08/11/18 at 12:30 Apixaban (Eliquis) 10 mg BID PO Last administered on 08/14/18 08:56; Admin Dose 10 MG; Start 08/11/18 at 13:30 Levofloxacin/ Dextrose 100 ml @ 100 mls/hr Q24H IVPB Last administered on 08/13/18 17:30; Admin Dose 100 MLS/HR; Start 08/12/18 at 18:00 Diphenhydramine HCl (Benadryl) 25 mg Q6H PRN IV itching Last administered on 08/14/18 12:29; Admin Dose 25 MG; Start 08/12/18 at 17:00 ISMAEL HAMMONDS MD Aug 14, 2018 14:57
[2018-08-14] MEDS: LEVOFLOXACIN 500MG/D5W (PMX) 100 ML IVPB SCH (17:14)
[2018-08-14] MEDS: traZODone 50 MG TAB PO SCH (21:41)
[2018-08-15] MEDS: DIPHENHYDRAMINE 50 MG INJ IV PRN ×4 (00:35→18:40)
[2018-08-15] MEDS: HYDROmorphONE 2 MG/ML SYG IV PRN ×7 (01:54→20:07)
[2018-08-15 02:07] VITALS: BP 126/64; PULSE 107; RESP 17
[2018-08-15] MEDS: LORAZEPAM 2 MG INJ IV PRN ×2 (03:00→14:45)
[2018-08-15 08:00] VITALS: BP 122/62; PULSE 78; RESP 20
[2018-08-15] MEDS: APIXABAN 5 MG TABLET PO SCH ×2 (10:02→20:06)
[2018-08-15] MEDS: FOLIC ACID 1 MG TAB PO SCH (10:03)
[2018-08-15] MEDS: SOD CHLORIDE 0.9% 1,000 ML IV SCH (10:03)
--- NOTE | 2018-08-15 13:44 | PN ---
Date/Time of Note Date/Time of Note DATE: 08/15/18 TIME: 13:42 Assessment/Plan VTE Prophylaxis Risk score (from Nsg)>0 risk: 6 SCD applied (from Nsg): Yes Pharmacological prophylaxis: apixaban Lines/Catheters IV Catheter Type (from Nrsg): PORT-A-CATH Urinary Cath still in place: No Assessment/Plan Assessment/Plan 1. Sickle cell crisis, generalized pain, on IVF, pain control per Dr. Castrejon 2. Leukocytosis with RLL pulmonary infiltrates on CXR, levaquin 3. Narcotic seeking behavior, follow up with Dr. Castrejon 4. Right IJ thrombosis, on eliquis Result Diagram: 08/14/18 0500 08/13/18 0519 Subjective 24 Hr Interval Summary Free Text/Dictation complains of severe general pain that affects her moving Exam/Review of Systems Exam Vitals Vital Signs Date Temp Pulse Resp B/P (MAP) Pulse Ox O2 O2 Flow FiO2 Time Delivery Rate 08/15/18 98.9 78 20 122/62 94 08:00 (82) 08/14/18 Room Air 07:50 Intake and Output 08/14/18 08/14/18 08/15/18 1515:00 23:00 07:00 IntakeIntake Total 950 ml 1790 ml 850 ml BalanceBalance 950 ml 1790 ml 850 ml Constitutional: alert, oriented, well developed Head: normocephalic, atraumatic Eyes: nl conjunctiva, EOMI, nl lids ENMT: nl external ears & nose, nl lips & teeth, nl nasal mucosa & septum Neck: supple, non-tender Respiratory: clear to auscultation, normal air movement; No congested cough, No crackles/rales, No diminished breath sounds, No intercostal retraction, No labored breathing, No respirations, No tactile fremitus, No wheezing, No other Cardiovascular: regular rate and rhythm, nl pulses; No bruits, No diastolic murmur, No edema, No gallop, No irregular rhythm, No jugular venous distention (JVD), No murmurs/extra sounds, No rub, No systolic murmur, No S3, No S4, No other Gastrointestinal: soft, nl liver, spleen, non-tender Musculoskeletal: nl extremities to inspection Extremities: normal pulses; No calf tenderness, No cyanosis, No clubbing, No edema, No pitting pedal edema, No palpable cord, No tenderness, No other Neurological: EMERGENCY DEPARTMENT NURSE II-XII intact, nl mental status, nl speech, nl strength Medications Medication Current Medications Sodium Chloride 1,000 ml @ 70 mls/hr [id number] IV Last administered on 08/15/18 10:03; Admin Dose 70 MLS/HR; Start 08/10/18 at 09:06 IV Flush (NS 3 ml) 3 ml PER PROTOCOL IV ; Start 08/10/18 at 09:30 Ondansetron HCl (Zofran Inj) 4 mg Q6H PRN IV NAUSEA/VOMITING; Start 08/10/18 at 09:30 Acetaminophen (Tylenol Tab) 650 mg Q6H PRN PO .PAIN 1-3 OR TEMP; Start 08/10/18 at 09:30 Acetaminophen/ Hydrocodone Bitart ([place] (5/325)) 1 tab Q6H PRN PO .PAIN 4-6 Last administered on 08/14/18 12:28; Admin Dose 1 TAB; Start 08/10/18 at 09:30 Bisacodyl (Dulcolax) 5 mg DAILY PRN PO .CONSTIPATION; Start 08/10/18 at 09:30 Folic Acid (Folic Acid) 1 mg DAILY PO Last administered on 08/15/18 10:03; Admin Dose 1 MG; Start 08/11/18 at 09:00 Lorazepam (Ativan) 0.5 mg Q8H PRN IV anxiety Last administered on 08/15/18 03:00; Admin Dose 0.5 MG; Start 08/10/18 at 21:30 Hydromorphone HCl (Dilaudid) 2 mg Q3H PRN IV .PAIN 7-10 Last administered on 08/15/18 11:05; Admin Dose 2 MG; Start 08/11/18 at 12:30 Apixaban (Eliquis) 10 mg BID PO Last administered on 08/15/18 10:02; Admin Dose 10 MG; Start 08/11/18 at 13:30; Stop 08/17/18 at 23:45 Levofloxacin/ Dextrose 100 ml @ 100 mls/hr Q24H IVPB Last administered on 08/14/18 17:14; Admin Dose 100 MLS/HR; Start 08/12/18 at 18:00; Stop 08/18/18 at 23:45 Diphenhydramine HCl (Benadryl) 25 mg Q6H PRN IV itching Last administered on 08/15/18at 12:40; Admin Dose 25 MG; Start 08/12/18 at 17:00 Trazodone HCl (Desyrel) 25 mg HS PO Last administered on 08/14/18at 21:41; Admin Dose 25 MG; Start 08/14/18 at 22:00 Apixaban (Eliquis) 5 mg BID PO ; Start 08/18/18 at 09:00 ISMAEL HAMMONDS MD Aug 15, 2018 13:44
[2018-08-15 14:00] VITALS: BP 114/62; PULSE 76; RESP 18
[2018-08-15] MEDS: LEVOFLOXACIN 500MG/D5W (PMX) 100 ML IVPB SCH (17:01)
[2018-08-15] MEDS: HYDROCODONE/APAP (5/325) TAB PO PRN (18:39)
[2018-08-15] MEDS: traZODone 50 MG TAB PO SCH (20:06)
[2018-08-15 20:30] VITALS: BP 110/63; PULSE 110; RESP 20
[2018-08-15] MEDS ORDERED: traZODone 50 MG TAB PO SCH (21:00)
[2018-08-16] MEDS: SOD CHLORIDE 0.9% 1,000 ML IV SCH ×3 (01:00→22:24)
[2018-08-16] MEDS: DIPHENHYDRAMINE 50 MG INJ IV PRN ×4 (01:31→19:37)
[2018-08-16] MEDS: HYDROCODONE/APAP (5/325) TAB PO PRN ×3 (01:31→17:55)
[2018-08-16 02:00] VITALS: BP 119/67; PULSE 102; RESP 18
[2018-08-16] MEDS: HYDROmorphONE 2 MG/ML SYG IV PRN ×6 (02:33→23:37)
[2018-08-16] MEDS: LORAZEPAM 2 MG INJ IV PRN ×2 (03:43→14:58)
[2018-08-16 07:30] VITALS: BP 117/62; PULSE 106; RESP 16
[2018-08-16] MEDS: APIXABAN 5 MG TABLET PO SCH ×2 (10:10→20:23)
[2018-08-16] MEDS: FOLIC ACID 1 MG TAB PO SCH (10:10)
[2018-08-16 14:35] VITALS: BP 104/57; PULSE 91; RESP 16
--- NOTE | 2018-08-16 16:44 | PN ---
Date/Time of Note Date/Time of Note DATE: 08/16/18 TIME: 16:42 Assessment/Plan VTE Prophylaxis Risk score (from Nsg)>0 risk: 6 SCD applied (from Ns): Yes Pharmacological prophylaxis: heparin Lines/Catheters IV Catheter Type (from Nrsg): Port-A-cath Urinary Cath still in place: No Assessment/Plan Hospital Course Apeasr comfortable On her phone udring my interview R IJ port RRR Clear lungs CTAB Soft nt nd ext warm no edema A/P 33 male with h/o SCD here with pain crisis, also with R IJ clot - Wean pain meds. received very freuqent IV dilaudid pushes. I am not comfortable with this. Will add PO MS contin for long acting. She seems very comfortable and not in pain IJ clot: - AC Result Diagram: 08/16/18 1408 08/13/18 0519 Results 24hrs Laboratory Tests Test 08/16/18 04:56 08/16/18 14:08 White Blood Count 11.9 H 11.1 H Red Blood Count 2.72 L 2.67 L Hemoglobin 7.0 L 7.0 L Hematocrit 20.9 L 20.6 L Mean Corpuscular Volume 76.8 L 77.2 L Mean Corpuscular Hemoglobin 25.7 L 26.2 L Mean Corpuscular Hemoglobin Concent 33.5 34.0 Red Cell Distribution Width 20.1 H 20.2 H Platelet Count 560 H 581 H Mean Platelet Volume 9.7 9.5 Immature Granulocytes % 0.700 H 0.900 H Neutrophils % Segmented Neutrophils % (Manual) 57 56 Band Neutrophils % (Manual) 1 3 Lymphocytes % Lymphocytes % (Manual) 26 26 Monocytes % Monocytes % (Manual) 10 7 Eosinophils % Eosinophils % (Manual) 5 6 Basophils % Basophils % (Manual) 1 2 Nucleated Red Blood Cells % 20 H 66 H Immature Granulocytes # 0.080 H 0.100 H Neutrophils # Neutrophils # (Manual) 6.8 6.2 Band Neutrophils # 0.1 0.3 Lymphocytes (Manual) 3.0 H 2.8 Lymphocytes # Monocytes # Monocytes # (Manual) 1.1 H 0.7 Eosinophils # Basophils # Basophils # (Manual) 0.1 H 0.2 H Nucleated Red Blood Cells # Platelet Estimate INCREASED INCREASED Giant Platelets 2 H 4 H Polychromasia 3+ 3+ Hypochromasia 2+ Poikilocytosis 2+ Anisocytosis 1+ 1+ Microcytosis 1+ Sickle Cells 1+ Target Cells 3+ Tear Drop Cells 1+ Reactive Lymphocytes % (Manual) 1 H Reactive Lymphocytes # 0.1 H Subjective 24 Hr Interval Summary Free Text/Dictation Carly has been received a tremendous amount of IV dialudid. I discussed with her that we will need to scale this back and will provide PO meds. She was very upset. Says she has pain "all over" but apperas very comfortable, texting on her phone. Exam/Review of Systems Exam Vitals Vital Signs Date Temp Pulse Resp B/P (MAP) Pulse Ox O2 O2 Flow FiO2 Time Delivery Rate 08/16/18 98.6 91 16 104/57 99 Room Air 14:35 (73) Intake and Output 08/15/18 08/15/18 08/16/18 1515:00 23:00 07:00 IntakeIntake Total 1300 ml 590 ml 1240 ml BalanceBalance 1300 ml 590 ml 1240 ml Results Results 24hrs Laboratory Tests Test 08/16/18 04:56 08/16/18 14:08 White Blood Count 11.9 H 11.1 H Red Blood Count 2.72 L 2.67 L Hemoglobin 7.0 L 7.0 L Hematocrit 20.9 L 20.6 L Mean Corpuscular Volume 76.8 L 77.2 L Mean Corpuscular Hemoglobin 25.7 L 26.2 L Mean Corpuscular Hemoglobin Concent 33.5 34.0 Red Cell Distribution Width 20.1 H 20.2 H Platelet Count 560 H 581 H Mean Platelet Volume 9.7 9.5 Immature Granulocytes % 0.700 H 0.900 H Neutrophils % Segmented Neutrophils % (Manual) 57 56 Band Neutrophils % (Manual) 1 3 Lymphocytes % Lymphocytes % (Manual) 26 26 Monocytes % Monocytes % (Manual) 10 7 Eosinophils % Eosinophils % (Manual) 5 6 Basophils % Basophils % (Manual) 1 2 Nucleated Red Blood Cells % 20 H 66 H Immature Granulocytes # 0.080 H 0.100 H Neutrophils # Neutrophils # (Manual) 6.8 6.2 Band Neutrophils # 0.1 0.3 Lymphocytes (Manual) 3.0 H 2.8 Lymphocytes # Monocytes # Monocytes # (Manual) 1.1 H 0.7 Eosinophils # Basophils # Basophils # (Manual) 0.1 H 0.2 H Nucleated Red Blood Cells # Platelet Estimate INCREASED INCREASED Giant Platelets 2 H 4 H Polychromasia 3+ 3+ Hypochromasia 2+ Poikilocytosis 2+ Anisocytosis 1+ 1+ Microcytosis 1+ Sickle Cells 1+ Target Cells 3+ Tear Drop Cells 1+ Reactive Lymphocytes % (Manual) 1 H Reactive Lymphocytes # 0.1 H Medications Medication Current Medications Sodium Chloride 1,000 ml @ 70 mls/hr [id number] IV Last administered on 08/16/18 15:00; Admin Dose 70 MLS/HR; Start 08/10/18 at 09:06 IV Flush (NS 3 ml) 3 ml PER PROTOCOL IV ; Start 08/10/18 at 09:30 Ondansetron HCl (Zofran Inj) 4 mg Q6H PRN IV NAUSEA/VOMITING; Start 08/10/18 at 09:30 Acetaminophen (Tylenol Tab) 650 mg Q6H PRN PO .PAIN 1-3 OR TEMP; Start 08/10/18 at 09:30 Acetaminophen/ Hydrocodone Bitart ([place] (5/325)) 1 tab Q6H PRN PO .PAIN 4-6 Last administered on 08/16/18 11:15; Admin Dose 1 TAB; Start 08/10/18 at 09:30 Bisacodyl (Dulcolax) 5 mg DAILY PRN PO .CONSTIPATION; Start 08/10/18 at 09:30 Folic Acid (Folic Acid) 1 mg DAILY PO Last administered on 08/16/18 10:10; Admin Dose 1 MG; Start 08/11/18 at 09:00 Lorazepam (Ativan) 0.5 mg Q8H PRN IV anxiety Last administered on 08/16/18at 14:58; Admin Dose 0.5 MG; Start 08/10/18 at 21:30 Hydromorphone HCl (Dilaudid) 2 mg Q3H PRN IV .PAIN 7-10 Last administered on 08/16/18 16:29; Admin Dose 2 MG; Start 08/11/18 at 12:30 Apixaban (Eliquis) 10 mg BID PO Last administered on 08/16/18 10:10; Admin Dose 10 MG; Start 08/11/18 at 13:30; Stop 08/17/18 at 23:45 Levofloxacin/ Dextrose 100 ml @ 100 mls/hr Q24H IVPB Last administered on 08/15/18at 17:01; Admin Dose 100 MLS/HR; Start 08/12/18 at 18:00; Stop 08/18/18 at 23:45 Diphenhydramine HCl (Benadryl) 25 mg Q6H PRN IV itching Last administered on 08/16/18at 13:13; Admin Dose 25 MG; Start 08/12/18 at 17:00 Trazodone HCl (Desyrel) 25 mg HS PO Last administered on 08/15/18at 20:06; Admin Dose 25 MG; Start 08/14/18 at 22:00 Apixaban (Eliquis) 5 mg BID PO ; Start 08/18/18 at 09:00 RYAN PATTERSON MD Aug 16, 2018 16:44
[2018-08-16] MEDS: morphine (ER) 15 MG TAB PO SCH ×2 (17:26→22:47)
[2018-08-16] MEDS: LEVOFLOXACIN 500MG/D5W (PMX) 100 ML IVPB SCH (17:26)
[2018-08-16 20:00] VITALS: BP 116/56; PULSE 101; RESP 18
[2018-08-16] MEDS: traZODone 50 MG TAB PO SCH (20:23)
[2018-08-16] MEDS ORDERED: HYDROmorphONE 2 MG/ML SYG IV PRN (20:30)
[2018-08-17] MEDS: HYDROCODONE/APAP (5/325) TAB PO PRN ×3 (01:00→16:34)
[2018-08-17] MEDS: DIPHENHYDRAMINE 50 MG INJ IV PRN ×4 (01:41→19:36)
[2018-08-17 02:00] VITALS: BP 113/59; PULSE 77; RESP 18
[2018-08-17] MEDS: HYDROmorphONE 2 MG/ML SYG IV PRN ×6 (03:39→23:29)
[2018-08-17] MEDS: LORAZEPAM 2 MG INJ IV PRN ×2 (05:02→17:53)
[2018-08-17] MEDS: morphine (ER) 15 MG TAB PO SCH ×3 (05:03→21:00)
[2018-08-17] MEDS: FOLIC ACID 1 MG TAB PO SCH (10:33)
[2018-08-17] MEDS: APIXABAN 5 MG TABLET PO SCH ×2 (10:33→20:42)
[2018-08-17] MEDS ORDERED: POTASSIUM CHLORIDE (SR) 20 MEQ TAB PO STA (11:50)
--- NOTE | 2018-08-17 12:13 | PN ---
Date/Time of Note Date/Time of Note DATE: 08/17/18 TIME: 12:10 Assessment/Plan VTE Prophylaxis Risk score (from Ns)>0 risk: 7 SCD applied (from Ns): No SCD contraindicated: low risk/ambulating Pharmacological prophylaxis: heparin Lines/Catheters IV Catheter Type (from Nrsg): Port A Cath Urinary Cath still in place: No Assessment/Plan Problems: (1) Acute hypokalemia Status: Acute Comment: I am suspicious that this may not be an accurate lab tests may have been flavored by the IV fluids. And when repeated however I can go ahead and give 40 of K now without risk and then see what the repeat test shows. (2) Chronic pain Status: Chronic Comment: As for assistance from pain management-Dr. Shannon Qualifiers: Chronic pain type: chronic pain syndrome Qualified Codes: G89.4 - Chronic pain syndrome (3) Sickle cell pain crisis Status: Acute Comment: Tapering down on injectable narcotics Result Diagram: 08/17/18 0702 08/17/18 0702 Results 24hrs Laboratory Tests Test 08/16/18 14:08 08/17/18 07:02 White Blood Count 11.1 H 9.3 Red Blood Count 2.67 L 2.61 L Hemoglobin 7.0 L 6.7 *L Hematocrit 20.6 L 20.1 L Mean Corpuscular Volume 77.2 L 77.0 L Mean Corpuscular Hemoglobin 26.2 L 25.7 L Mean Corpuscular Hemoglobin Concent 34.0 33.3 Red Cell Distribution Width 20.2 H 21.1 H Platelet Count 581 H 506 H Mean Platelet Volume 9.5 10.2 Immature Granulocytes % 0.900 H 0.800 H Neutrophils % 60.9 Segmented Neutrophils % (Manual) 56 30 L Band Neutrophils % (Manual) 3 2 Lymphocytes % 18.4 Lymphocytes % (Manual) 26 46 Reactive Lymphocytes % (Manual) 1 H 1 H Monocytes % 11.8 H Monocytes % (Manual) 7 10 Eosinophils % 6.8 Eosinophils % (Manual) 6 10 H Basophils % 1.3 Basophils % (Manual) 2 1 Nucleated Red Blood Cells % 66 H 65 H Immature Granulocytes # 0.100 H 0.070 H Neutrophils # 5.7 Neutrophils # (Manual) 6.2 2.8 Band Neutrophils # 0.3 0.1 Lymphocytes (Manual) 2.8 4.2 H Lymphocytes # 1.7 Reactive Lymphocytes # 0.1 H 0.0 Monocytes # 1.1 H Monocytes # (Manual) 0.7 0.9 Eosinophils # 0.6 H Basophils # 0.1 Basophils # (Manual) 0.2 H 0.0 Nucleated Red Blood Cells # 0.9 H Platelet Estimate INCREASED INCREASED Giant Platelets 4 H Polychromasia 3+ 3+ Anisocytosis 1+ 1+ Pathologist Review (Hematology) YES Hypochromasia 1+ Poikilocytosis 3+ Target Cells 3+ Ovalocytes 1+ [place] Bodies 1+ Sodium Level 143 Potassium Level 2.9 *L Chloride Level 105 Carbon Dioxide Level 26 Anion Gap 12 Blood Urea Nitrogen 6 L Creatinine 0.31 L Est Glomerular Filtrat Rate mL/min > 60 Glucose Level 84 Calcium Level 9.0 Total Bilirubin 1.2 Direct Bilirubin 0.00 Indirect Bilirubin 1.2 H Aspartate Amino Transf (AST/SGOT) 25 Alanine Aminotransferase (ALT/SGPT) 10 L Alkaline Phosphatase 84 Total Protein 7.5 Albumin 3.7 Globulin 3.80 H Albumin/Globulin Ratio 0.97 Subjective 24 Hr Interval Summary Free Text/Dictation Patient resting in the bed. She reports she is not doing great. Constitutional: no complaints (She denies any fevers, chills or sweats) Eyes: no complaints ENT: no complaints Respiratory: no complaints (Denies cough wheezing asthma hemoptysis or mucus production) Cardiovascular: no complaints Gastrointestinal: no complaints Musculoskeletal: other (Complains of arm pain) Exam/Review of Systems Exam Vitals Vital Signs Date Temp Pulse Resp B/P (MAP) Pulse Ox O2 O2 Flow FiO2 Time Delivery Rate 08/17/18 98.0 77 18 113/59 98 02:00 (77) 08/16/18 Room Air 14:35 Intake and Output 08/16/18 08/16/18 08/17/18 1414:59 22:59 06:59 IntakeIntake Total 1670 ml 600 ml 890 ml BalanceBalance 1670 ml 600 ml 890 ml Exam Very comfortable -[place] female lying in bed Constitutional: alert, oriented Neck: supple, non-tender Respiratory: clear to auscultation, normal air movement Cardiovascular: regular rate and rhythm, nl pulses Results Results 24hrs Laboratory Tests Test 08/16/18 14:08 4/7/19 07:02 White Blood Count 11.1 H 9.3 Red Blood Count 2.67 L 2.61 L Hemoglobin 7.0 L 6.7 *L Hematocrit 20.6 L 20.1 L Mean Corpuscular Volume 77.2 L 77.0 L Mean Corpuscular Hemoglobin 26.2 L 25.7 L Mean Corpuscular Hemoglobin Concent 34.0 33.3 Red Cell Distribution Width 20.2 H 21.1 H Platelet Count 581 H 506 H Mean Platelet Volume 9.5 10.2 Immature Granulocytes % 0.900 H 0.800 H Neutrophils % 60.9 Segmented Neutrophils % (Manual) 56 30 L Band Neutrophils % (Manual) 3 2 Lymphocytes % 18.4 Lymphocytes % (Manual) 26 46 Reactive Lymphocytes % (Manual) 1 H 1 H Monocytes % 11.8 H Monocytes % (Manual) 7 10 Eosinophils % 6.8 Eosinophils % (Manual) 6 10 H Basophils % 1.3 Basophils % (Manual) 2 1 Nucleated Red Blood Cells % 66 H 65 H Immature Granulocytes # 0.100 H 0.070 H Neutrophils # 5.7 Neutrophils # (Manual) 6.2 2.8 Band Neutrophils # 0.3 0.1 Lymphocytes (Manual) 2.8 4.2 H Lymphocytes # 1.7 Reactive Lymphocytes # 0.1 H 0.0 Monocytes # 1.1 H Monocytes # (Manual) 0.7 0.9 Eosinophils # 0.6 H Basophils # 0.1 Basophils # (Manual) 0.2 H 0.0 Nucleated Red Blood Cells # 0.9 H Platelet Estimate INCREASED INCREASED Giant Platelets 4 H Polychromasia 3+ 3+ Anisocytosis 1+ 1+ Pathologist Review (Hematology) YES Hypochromasia 1+ Poikilocytosis 3+ Target Cells 3+ Ovalocytes 1+ [place] Bodies 1+ Sodium Level 143 Potassium Level 2.9 *L Chloride Level 105 Carbon Dioxide Level 26 Anion Gap 12 Blood Urea Nitrogen 6 L Creatinine 0.31 L Est Glomerular Filtrat Rate mL/min > 60 Glucose Level 84 Calcium Level 9.0 Total Bilirubin 1.2 Direct Bilirubin 0.00 Indirect Bilirubin 1.2 H Aspartate Amino Transf (AST/SGOT) 25 Alanine Aminotransferase (ALT/SGPT) 10 L Alkaline Phosphatase 84 Total Protein 7.5 Albumin 3.7 Globulin 3.80 H Albumin/Globulin Ratio 0.97 Medications Medication Current Medications Sodium Chloride 1,000 ml @ 70 mls/hr [id number] IV Last administered on 08/16/18 15:00; Admin Dose 70 MLS/HR; Start 08/10/18 at 09:06 IV Flush (NS 3 ml) 3 ml PER PROTOCOL IV ; Start 08/10/18 at 09:30 Ondansetron HCl (Zofran Inj) 4 mg Q6H PRN IV NAUSEA/VOMITING; Start 08/10/18 at 09:30 Acetaminophen (Tylenol Tab) 650 mg Q6H PRN PO .PAIN 1-3 OR TEMP; Start 08/10/18 at 09:30 Acetaminophen/ Hydrocodone Bitart ([place] (5/325)) 1 tab Q6H PRN PO .PAIN 4-6 Last administered on 08/17/18 10:33; Admin Dose 1 TAB; Start 08/10/18 at 09:30 Bisacodyl (Dulcolax) 5 mg DAILY PRN PO .CONSTIPATION; Start 08/10/18 at 09:30 Folic Acid (Folic Acid) 1 mg DAILY PO Last administered on 08/17/18 10:33; Admin Dose 1 MG; Start 08/11/18 at 09:00 Lorazepam (Ativan) 0.5 mg Q8H PRN IV anxiety Last administered on 08/17/18 05:02; Admin Dose 0.5 MG; Start 08/10/18 at 21:30 Apixaban (Eliquis) 10 mg BID PO Last administered on 08/17/18 10:33; Admin Dose 10 MG; Start 08/11/18 at 13:30; Stop 08/17/18 at 23:45 Levofloxacin/ Dextrose 100 ml @ 100 mls/hr Q24H IVPB Last administered on 08/16/18 17:26; Admin Dose 100 MLS/HR; Start 08/12/18 at 18:00; Stop 08/18/18 at 23:45 Diphenhydramine HCl (Benadryl) 25 mg Q6H PRN IV itching Last administered on 08/17/18 07:35; Admin Dose 25 MG; Start 08/12/18 at 17:00 Trazodone HCl (Desyrel) 25 mg HS PO Last administered on 08/16/18 20:23; Admin Dose 25 MG; Start 08/14/18 at 22:00 Apixaban (Eliquis) 5 mg BID PO ; Start 08/18/18 at 09:00 Morphine Sulfate (Ms Contin (Er)) 15 mg Q8 PO Last administered on 08/17/18at 05:03; Admin Dose 15 MG; Start 08/16/18 at 17:00 Hydromorphone HCl (Dilaudid) 2 mg Q4H PRN IV SEVERE PAIN LEVEL 7-10 Last administered on 08/17/18at 11:31; Admin Dose 2 MG; Start 08/16/18 at 20:30 RYLIE CHAUDHARY MD Aug 17, 2018 12:13
[2018-08-17] MEDS: SOD CHLORIDE 0.9% 1,000 ML IV SCH (12:42)
[2018-08-17] MEDS: POTASSIUM CHLORIDE 100 ML IVPB SCH ×2 (14:23→16:36)
[2018-08-17 14:25] VITALS: BP 127/81; PULSE 90; RESP 17
[2018-08-17] MEDS: LEVOFLOXACIN 500MG/D5W (PMX) 100 ML IVPB SCH (17:58)
[2018-08-17 20:00] VITALS: BP_SYST 124; BP_SYST 99; BP_DIAS 57; BP_DIAS 75; PULSE 82; PULSE 97; RESP 18
[2018-08-17] MEDS: traZODone 50 MG TAB PO SCH (20:42)
[2018-08-18] MEDS: HYDROCODONE/APAP (5/325) TAB PO PRN ×3 (01:10→18:34)
[2018-08-18 02:00] VITALS: BP 99/57; PULSE 82; RESP 18
[2018-08-18] MEDS ORDERED: HYDROmorphONE 1 MG/ML SYG IV ONE (02:00)
[2018-08-18] MEDS: DIPHENHYDRAMINE 50 MG INJ IV PRN ×4 (03:23→21:51)
[2018-08-18] MEDS: SOD CHLORIDE 0.9% 1,000 ML IV SCH ×2 (03:23→17:30)
[2018-08-18] MEDS: HYDROmorphONE 2 MG/ML SYG IV PRN ×5 (03:24→19:56)
[2018-08-18] MEDS: LORAZEPAM 2 MG INJ IV PRN ×3 (04:12→22:38)
[2018-08-18] MEDS: morphine (ER) 15 MG TAB PO SCH ×3 (06:23→23:20)
[2018-08-18 08:00] VITALS: BP 103/68; PULSE 90; RESP 18
[2018-08-18] MEDS: FOLIC ACID 1 MG TAB PO SCH (08:39)
[2018-08-18] MEDS: APIXABAN 5 MG TABLET PO SCH ×2 (08:39→21:18)
[2018-08-18] MEDS: POTASSIUM CHLORIDE (SR) 20 MEQ TAB PO SCH ×2 (12:30→16:30)
--- NOTE | 2018-08-18 17:13 | PN ---
Date/Time of Note Date/Time of Note DATE: 08/18/18 TIME: 17:11 Assessment/Plan VTE Prophylaxis Risk score (from Nsg)>0 risk: 6 Pharmacological prophylaxis: NA/contraindicated Pharm contraindication: low risk/ambulating Lines/Catheters IV Catheter Type (from Nrsg): port a cath Urinary Cath still in place: No Assessment/Plan Hospital Course 1. Sickle cell pain crisis Continue pain control Palliative care following 2. Chronic pain Pain controlled 3. Left shoulder pain Follow-up x-ray Result Diagram: 08/17/18 0702 08/17/18 1206 Subjective 24 Hr Interval Summary Musculoskeletal: bone/joint pain Exam/Review of Systems Exam Vitals Vital Signs Date Temp Pulse Resp B/P (MAP) Pulse Ox O2 O2 Flow FiO2 Time Delivery Rate 08/18/18 98.9 90 18 103/68 98 08:00 (80) 08/17/18 Room Air 14:25 Intake and Output 08/17/18 08/17/18 08/18/18 1515:00 23:00 07:00 IntakeIntake Total 350 ml 310 ml BalanceBalance 350 ml 310 ml Constitutional: alert, oriented Respiratory: clear to auscultation Cardiovascular: regular rate and rhythm Gastrointestinal: soft; No distended Musculoskeletal: nl extremities to inspection Medications Medication Current Medications Sodium Chloride 1,000 ml @ 70 mls/hr [id number] IV Last administered on 08/18/18at 03:23; Admin Dose 70 MLS/HR; Start 08/10/18 at 09:06 IV Flush (NS 3 ml) 3 ml PER PROTOCOL IV ; Start 08/10/18 at 09:30 Ondansetron HCl (Zofran Inj) 4 mg Q6H PRN IV NAUSEA/VOMITING; Start 08/10/18 at 09:30 Acetaminophen (Tylenol Tab) 650 mg Q6H PRN PO .PAIN 1-3 OR TEMP; Start 08/10/18 at 09:30 Acetaminophen/ Hydrocodone Bitart ([place] (5/325)) 1 tab Q6H PRN PO .PAIN 4-6 Last administered on 08/18/18at 08:39; Admin Dose 1 TAB; Start 08/10/18 at 09:30 Bisacodyl (Dulcolax) 5 mg DAILY PRN PO .CONSTIPATION; Start 08/10/18 at 09:30 Folic Acid (Folic Acid) 1 mg DAILY PO Last administered on 08/18/18 08:39; Admin Dose 1 MG; Start 08/11/18 at 09:00 Lorazepam (Ativan) 0.5 mg Q8H PRN IV anxiety Last administered on 08/18/18 12:54; Admin Dose 0.5 MG; Start 08/10/18 at 21:30 Levofloxacin/ Dextrose 100 ml @ 100 mls/hr Q24H IVPB Last administered on 08/17/18 17:58; Admin Dose 100 MLS/HR; Start 08/12/18 at 18:00; Stop 08/18/18 at 23:45 Diphenhydramine HCl (Benadryl) 25 mg Q6H PRN IV itching Last administered on 08/18/18 15:56; Admin Dose 25 MG; Start 08/12/18 at 17:00 Trazodone HCl (Desyrel) 25 mg HS PO Last administered on 08/17/18 20:42; Admin Dose 25 MG; Start 08/14/18 at 22:00 Apixaban (Eliquis) 5 mg BID PO Last administered on 08/18/18 08:39; Admin Dose 5 MG; Start 08/18/18 at 09:00 Morphine Sulfate (Ms Contin (Er)) 15 mg Q8 PO Last administered on 08/18/18 15:17; Admin Dose 15 MG; Start 08/16/18 at 17:00 Hydromorphone HCl (Dilaudid) 2 mg Q4H PRN IV SEVERE PAIN LEVEL 7-10 Last administered on 08/18/18 15:56; Admin Dose 2 MG; Start 08/16/18 at 20:30 JAY JAY MARINO Aug 18, 2018 17:13
[2018-08-18] MEDS: LEVOFLOXACIN 500MG/D5W (PMX) 100 ML IVPB SCH (17:29)
[2018-08-18 20:00] VITALS: BP 115/60; PULSE 84; RESP 18
[2018-08-18] MEDS: traZODone 50 MG TAB PO SCH (21:18)
[2018-08-19] MEDS: HYDROmorphONE 2 MG/ML SYG IV PRN ×6 (01:39→21:41)
[2018-08-19 02:00] VITALS: BP 118/65; PULSE 84; RESP 18
[2018-08-19] MEDS: HYDROCODONE/APAP (5/325) TAB PO PRN (02:28)
[2018-08-19] MEDS: DIPHENHYDRAMINE 50 MG INJ IV PRN ×4 (04:45→22:45)
[2018-08-19] MEDS: morphine (ER) 15 MG TAB PO SCH ×3 (06:29→22:43)
[2018-08-19 07:55] VITALS: BP 120/64; PULSE 73; RESP 17
[2018-08-19] MEDS: FOLIC ACID 1 MG TAB PO SCH (09:11)
[2018-08-19] MEDS: APIXABAN 5 MG TABLET PO SCH ×2 (09:11→21:40)
[2018-08-19] MEDS: SOD CHLORIDE 0.9% 1,000 ML IV SCH ×2 (09:12→21:54)
[2018-08-19] MEDS: LORAZEPAM 2 MG INJ IV PRN ×2 (11:19→19:42)
[2018-08-19 14:05] VITALS: BP 104/64; PULSE 78; RESP 18
[2018-08-19] MEDS ORDERED: SOD CHLORIDE 0.9% 250 ML IV* ONE (15:11)
[2018-08-19] MEDS ORDERED: POTASSIUM CHLORIDE (SR) 20 MEQ TAB PO STA (15:14)
--- NOTE | 2018-08-19 15:14 | PN ---
Date/Time of Note Date/Time of Note DATE: 08/19/18 TIME: 15:12 Assessment/Plan VTE Prophylaxis Risk score (from Nsg)>0 risk: 6 Pharmacological prophylaxis: NA/contraindicated Pharm contraindication: low risk/ambulating Lines/Catheters IV Catheter Type (from Nrsg): porth a cath Urinary Cath still in place: No Assessment/Plan Hospital Course 1. Sickle cell pain crisis Continue pain control Palliative care following 2. Chronic pain Pain controlled 3. Left shoulder pain X-ray suggest avascular necrosis Pain control 4. Anemia Blood transfusion DC planning: Possible DC in the next several days Result Diagram: 08/19/18 0953 08/19/18 0953 Results 24hrs Laboratory Tests Test 08/19/18 09:53 White Blood Count 9.0 Red Blood Count 2.75 L Hemoglobin 6.9 *L Hematocrit 20.8 L Mean Corpuscular Volume 75.6 L Mean Corpuscular Hemoglobin 25.1 L Mean Corpuscular Hemoglobin Concent 33.2 Red Cell Distribution Width 22.2 H Platelet Count 784 #H Mean Platelet Volume 9.5 Immature Granulocytes % 0.600 H Neutrophils % 60.2 Lymphocytes % 21.9 Monocytes % 10.8 Eosinophils % 4.9 Basophils % 1.6 Nucleated Red Blood Cells % 5.8 H Immature Granulocytes # 0.050 H Neutrophils # 5.4 Lymphocytes # 2.0 Monocytes # 1.0 H Eosinophils # 0.4 Basophils # 0.1 Nucleated Red Blood Cells # 0.5 H Sodium Level 143 Potassium Level 3.4 L Chloride Level 107 Carbon Dioxide Level 24 Anion Gap 12 Blood Urea Nitrogen 6 L Creatinine 0.33 L Est Glomerular Filtrat Rate mL/min > 60 Glucose Level 97 Calcium Level 9.3 Subjective 24 Hr Interval Summary Musculoskeletal: bone/joint pain Exam/Review of Systems Exam Vitals Vital Signs Date Temp Pulse Resp B/P (MAP) Pulse Ox O2 O2 Flow FiO2 Time Delivery Rate 08/19/18 98.0 73 17 120/64 100 Room Air 07:55 (82) Intake and Output 08/18/18 08/18/18 08/19/18 1515:00 23:00 07:00 IntakeIntake Total 850 ml 840 ml BalanceBalance 850 ml 840 ml Constitutional: alert, oriented Respiratory: clear to auscultation Cardiovascular: regular rate and rhythm Gastrointestinal: soft; No distended Musculoskeletal: nl extremities to inspection Results Results 24hrs Laboratory Tests Test 08/19/18 09:53 White Blood Count 9.0 Red Blood Count 2.75 L Hemoglobin 6.9 *L Hematocrit 20.8 L Mean Corpuscular Volume 75.6 L Mean Corpuscular Hemoglobin 25.1 L Mean Corpuscular Hemoglobin Concent 33.2 Red Cell Distribution Width 22.2 H Platelet Count 784 #H Mean Platelet Volume 9.5 Immature Granulocytes % 0.600 H Neutrophils % 60.2 Lymphocytes % 21.9 Monocytes % 10.8 Eosinophils % 4.9 Basophils % 1.6 Nucleated Red Blood Cells % 5.8 H Immature Granulocytes # 0.050 H Neutrophils # 5.4 Lymphocytes # 2.0 Monocytes # 1.0 H Eosinophils # 0.4 Basophils # 0.1 Nucleated Red Blood Cells # 0.5 H Sodium Level 143 Potassium Level 3.4 L Chloride Level 107 Carbon Dioxide Level 24 Anion Gap 12 Blood Urea Nitrogen 6 L Creatinine 0.33 L Est Glomerular Filtrat Rate mL/min > 60 Glucose Level 97 Calcium Level 9.3 Medications Medication Current Medications Sodium Chloride 1,000 ml @ 70 mls/hr [id number] IV Last administered on 08/19/18at 09:12; Admin Dose 70 MLS/HR; Start 08/10/18 at 09:06 IV Flush (NS 3 ml) 3 ml PER PROTOCOL IV ; Start 08/10/18 at 09:30 Ondansetron HCl (Zofran Inj) 4 mg Q6H PRN IV NAUSEA/VOMITING; Start 08/10/18 at 09:30 Acetaminophen (Tylenol Tab) 650 mg Q6H PRN PO .PAIN 1-3 OR TEMP; Start 08/10/18 at 09:30 Acetaminophen/ Hydrocodone Bitart ([place] (5/325)) 1 tab Q6H PRN PO .PAIN 4-6 Last administered on 08/19/18at 02:28; Admin Dose 1 TAB; Start 08/10/18 at 09:30 Bisacodyl (Dulcolax) 5 mg DAILY PRN PO .CONSTIPATION; Start 08/10/18 at 09:30 Folic Acid (Folic Acid) 1 mg DAILY PO Last administered on 08/19/18at 09:11; Admin Dose 1 MG; Start 08/11/18 at 09:00 Lorazepam (Ativan) 0.5 mg Q8H PRN IV anxiety Last administered on 08/19/18 11:19; Admin Dose 0.5 MG; Start 08/10/18 at 21:30 Diphenhydramine HCl (Benadryl) 25 mg Q6H PRN IV itching Last administered on 08/19/18 10:40; Admin Dose 25 MG; Start 08/12/18 at 17:00 Trazodone HCl (Desyrel) 25 mg HS PO Last administered on 08/18/18 21:18; Admin Dose 25 MG; Start 08/14/18 at 22:00 Apixaban (Eliquis) 5 mg BID PO Last administered on 08/19/18 09:11; Admin Dose 5 MG; Start 08/18/18 at 09:00 Morphine Sulfate (Ms Contin (Er)) 15 mg Q8 PO Last administered on 08/19/18 14:25; Admin Dose 15 MG; Start 08/16/18 at 17:00 Hydromorphone HCl (Dilaudid) 2 mg Q4H PRN IV SEVERE PAIN LEVEL 7-10 Last administered on 08/19/18 13:41; Admin Dose 2 MG; Start 08/16/18 at 20:30 JAY JAY MARINO Aug 19, 2018 15:14
[2018-08-19] MEDS: POTASSIUM CHLORIDE 100 ML IVPB SCH ×2 (20:39→22:45)
[2018-08-19 20:47] VITALS: BP 100/56; PULSE 85; RESP 20
[2018-08-19] MEDS: traZODone 50 MG TAB PO SCH (21:41)
[2018-08-20 01:40] VITALS: BP 127/59; PULSE 88; RESP 20
[2018-08-20] MEDS: HYDROmorphONE 2 MG/ML SYG IV PRN ×6 (01:41→23:02)
[2018-08-20 02:01] VITALS: BP 127/59; PULSE 88; RESP 20
[2018-08-20] MEDS: HYDROCODONE/APAP (5/325) TAB PO PRN (02:07)
[2018-08-20] MEDS: LORAZEPAM 2 MG INJ IV PRN ×3 (03:42→20:55)
[2018-08-20] MEDS: DIPHENHYDRAMINE 50 MG INJ IV PRN ×3 (04:53→17:12)
[2018-08-20] MEDS: SOD CHLORIDE 0.9% 1,000 ML IV SCH ×2 (04:58→18:42)
[2018-08-20] MEDS: morphine (ER) 15 MG TAB PO SCH ×4 (06:23→22:10)
[2018-08-20 07:59] VITALS: BP 108/69; PULSE 72; RESP 18
[2018-08-20] MEDS: APIXABAN 5 MG TABLET PO SCH ×2 (09:36→20:51)
[2018-08-20] MEDS: FOLIC ACID 1 MG TAB PO SCH (09:37)
--- NOTE | 2018-08-20 14:32 | PN ---
Date/Time of Note Date/Time of Note DATE: 08/20/18 TIME: 14:31 Assessment/Plan VTE Prophylaxis Risk score (from Nsg)>0 risk: 6 Pharmacological prophylaxis: NA/contraindicated Pharm contraindication: low risk/ambulating Lines/Catheters IV Catheter Type (from Nrsg): Portha cath Urinary Cath still in place: No Assessment/Plan Hospital Course 1. Sickle cell pain crisis Continue pain control Palliative care following 2. Chronic pain Pain controlled 3. Left shoulder pain X-ray suggest avascular necrosis Pain control 4. Anemia Status post blood transfusion DC planning: Have transitioned patient to Percocet as needed and Dilaudid only for breakthrough pain, DC home tomorrow if patient stable with oral regimen Result Diagram: 08/20/18 0944 08/19/18 0953 Results 24hrs Laboratory Tests Test 08/20/18 06:09 08/20/18 09:44 Lab Scanned Report BLOOD TRANSFUSION White Blood Count 8.5 Red Blood Count 3.36 #L Hemoglobin 8.4 #L Hematocrit 25.9 #L Mean Corpuscular Volume 77.1 L Mean Corpuscular Hemoglobin 25.0 L Mean Corpuscular Hemoglobin Concent 32.4 Red Cell Distribution Width 21.6 H Platelet Count 820 H Mean Platelet Volume 9.3 Immature Granulocytes % 0.600 H Neutrophils % 55.6 Lymphocytes % 26.3 Monocytes % 9.8 Eosinophils % 5.5 Basophils % 2.2 H Nucleated Red Blood Cells % 5.2 H Immature Granulocytes # 0.050 H Neutrophils # 4.7 Lymphocytes # 2.2 Monocytes # 0.8 Eosinophils # 0.5 Basophils # 0.2 H Nucleated Red Blood Cells # 0.4 H Subjective 24 Hr Interval Summary Musculoskeletal: bone/joint pain Exam/Review of Systems Exam Vitals Vital Signs Date Temp Pulse Resp B/P (MAP) Pulse Ox O2 O2 Flow FiO2 Time Delivery Rate 08/20/18 98.4 72 18 108/69 99 07:59 (82) 08/19/18 Room Air 14:05 Intake and Output 08/19/18 08/19/18 08/20/18 1515:00 23:00 07:00 IntakeIntake Total 1000 ml 350 ml BalanceBalance 1000 ml 350 ml Constitutional: alert, oriented Respiratory: clear to auscultation Cardiovascular: regular rate and rhythm Gastrointestinal: soft; No distended Musculoskeletal: nl extremities to inspection Results Results 24hrs Laboratory Tests Test 08/20/18 06:09 08/20/18 09:44 Lab Scanned Report BLOOD TRANSFUSION White Blood Count 8.5 Red Blood Count 3.36 #L Hemoglobin 8.4 #L Hematocrit 25.9 #L Mean Corpuscular Volume 77.1 L Mean Corpuscular Hemoglobin 25.0 L Mean Corpuscular Hemoglobin Concent 32.4 Red Cell Distribution Width 21.6 H Platelet Count 820 H Mean Platelet Volume 9.3 Immature Granulocytes % 0.600 H Neutrophils % 55.6 Lymphocytes % 26.3 Monocytes % 9.8 Eosinophils % 5.5 Basophils % 2.2 H Nucleated Red Blood Cells % 5.2 H Immature Granulocytes # 0.050 H Neutrophils # 4.7 Lymphocytes # 2.2 Monocytes # 0.8 Eosinophils # 0.5 Basophils # 0.2 H Nucleated Red Blood Cells # 0.4 H Medications Medication Current Medications Sodium Chloride 1,000 ml @ 70 mls/hr [id number] IV Last administered on 08/20/18at 04:58; Admin Dose 70 MLS/HR; Start 08/10/18 at 09:06 IV Flush (NS 3 ml) 3 ml PER PROTOCOL IV ; Start 08/10/18 at 09:30 Ondansetron HCl (Zofran Inj) 4 mg Q6H PRN IV NAUSEA/VOMITING; Start 08/10/18 at 09:30 Bisacodyl (Dulcolax) 5 mg DAILY PRN PO .CONSTIPATION; Start 08/10/18 at 09:30 Folic Acid (Folic Acid) 1 mg DAILY PO Last administered on 08/20/18at 09:37; Admin Dose 1 MG; Start 08/11/18 at 09:00 Lorazepam (Ativan) 0.5 mg Q8H PRN IV anxiety Last administered on 08/20/18at 11:56; Admin Dose 0.5 MG; Start 08/10/18 at 21:30 Diphenhydramine HCl (Benadryl) 25 mg Q6H PRN IV itching Last administered on 08/20/18at 10:53; Admin Dose 25 MG; Start 08/12/18 at 17:00 Trazodone HCl (Desyrel) 25 mg HS PO Last administered on 08/19/18at 21:41; Admin Dose 25 MG; Start 08/14/18 at 22:00 Apixaban (Eliquis) 5 mg BID PO Last administered on 08/20/18at 09:36; Admin Dose 5 MG; Start 08/18/18 at 09:00 Morphine Sulfate (Ms Contin (Er)) 15 mg Q8 PO Last administered on 08/20/18at 06:23; Admin Dose 15 MG; Start 08/16/18 at 17:00 Hydromorphone HCl (Dilaudid) 1 mg Q4H PRN IV BREAKTHROUGH PAIN Last administ ered on 08/20/18at 14:13; Admin Dose 1 MG; Start 08/20/18 at 12:30 Oxycodone/ Acetaminophen (Endocet (10/ 325)) 1 tab Q4H PRN PO MODERATE PAIN LEVEL 4-6; Start 08/20/18 at 12:00 JAY JAY MARINO Aug 20, 2018 14:32
[2018-08-20] MEDS: OXYCODONE/ACETAMINOPHEN (10/325) TAB PO PRN (16:42)
[2018-08-20 20:00] VITALS: BP 115/70; PULSE 81; RESP 17
[2018-08-20] MEDS: traZODone 50 MG TAB PO SCH (20:51)
[2018-08-21] MEDS: DIPHENHYDRAMINE 50 MG INJ IV PRN ×3 (00:09→11:56)
[2018-08-21 02:00] VITALS: BP 107/58; RESP 17
[2018-08-21] MEDS: HYDROmorphONE 2 MG/ML SYG IV PRN ×3 (04:33→12:19)
[2018-08-21] MEDS: OXYCODONE/ACETAMINOPHEN (10/325) TAB PO PRN ×2 (05:20→09:30)
[2018-08-21] MEDS: morphine (ER) 15 MG TAB PO SCH (06:06)
[2018-08-21] MEDS: APIXABAN 5 MG TABLET PO SCH (08:25)
[2018-08-21] MEDS: FOLIC ACID 1 MG TAB PO SCH (08:25)
[2018-08-21] MEDS: SOD CHLORIDE 0.9% 1,000 ML IV SCH (08:30)
[2018-08-21] MEDS ORDERED: MORP15TA92 PO (11:52)
[2018-08-21] MEDS ORDERED: OXYC-431 PO (11:52)
--- NOTE | 2018-08-21 11:52 | PDOCDIS ---
Discharge Instructions CONDITION [id number] Patient Condition: [id number] Good HOME CARE INSTRUCTIONS: [id number] Diet Instructions: [id number] Regular ACTIVITY: [id number] Activity Restrictions: [id number] No Restrictions FOLLOW UP/APPOINTMENTS Follow-up Plan FOLLOW UP WITH YOUR PCP IN 1-2 WEEKS JAY JAY MARINO Aug 21, 2018 11:52
[2018-08-21] MEDS ORDERED: HEPARIN (100 UNITS/ML) 5 ML SYG CATHETER ONE (13:00)
--- NOTE | 2018-08-21 15:03 | DS ---
Date/Time of Note Date/Time of Note DATE: 08/21/18 TIME: 14:56 Discharge Summary Admission/Discharge Info Admit Date/Time Aug 10, 2018 at 10:23 Discharge Date/Time Aug 21, 2018 at 13:30 Discharge Diagnosis 1. Sickle cell pain crisis-pain improved DC with Percocet and MS Contin Palliative care consultation appreciated 2. Chronic pain Pain controlled, regimen as above 3. Left shoulder pain X-ray suggests avascular necrosis Pain control 4. Anemia Status post blood transfusion 5. 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 Patient did report pain in her left arm x-ray showed avascular necrosis. Patient did have right arm swelling and ultrasound showed nonocclusive thrombus present in the right internal jugular vein and was placed on Eliquis, etiology likely secondary to catheter placement. Patient was placed on Dilaudid and was seen by pain specialist, patient was eventually titrated off Dilaudid IV and was taking only Percocet and MS Contin with appropriate control. Patient did report pain in the left shoulder and x-ray did show avascular necrosis which is secondary to her sickle cell. Patient was stable for DC, on the day of discharge patient's vitals, labs and physical exam are stable. Home Meds Active Scripts Morphine Sulfate* (Ms Contin*) 15 Mg Tablet.sa, 15 MG PO Q12, #60 TAB Prov:JAY JAY MARINO 08/21/18 Oxycodone HCl/Acetaminophen (Oxycodone-Acetaminophen 10-325) 1 Each Tablet, 1 TAB PO Q4H PRN for MODERATE PAIN LEVEL 4-6, #30 TAB Prov:JAY JAY MARINO 08/21/18 Docusate Sodium (Dok) 100 Mg Capsule, 100 MG PO Q12H, #60 CAP 2 Refills Prov:RUSSELLMARIA EUGENIA LittleO M. 05/28/18 Hydroxyurea* (Hydroxyurea*) 500 Mg Capsule, 500 MG PO BID, #60 CAP 2 Refills Prov:MELISSA WELLS M. 05/28/18 Albuterol Sulfate* (Proair HFA*) 8.5 Gm Hfa.aer.ad, 2 PUFF INH Q4H PRN for WHEEZING AND SOB, #1 INHALER Prov:SARAH ANTONIO MD 05/18/18 Reported Medications Folic Acid* (Folic Acid*) 1 Mg Tablet, 1 MG PO DAILY, TAB 05/18/18 Diphenhydramine Hcl (Banophen) 25 Mg Capsule, 25 MG PO BID, CAP 03/21/18 Discontinued Reported Medications Hydrocodone/Acetaminophen ([place] 10-325 Tablet) 1 Each Tablet, 1 EACH PO Q6H PRN for PAIN LEVEL 7-10, TAB 07/29/18 Follow-up Plan FOLLOW UP WITH YOUR PCP IN 1-2 WEEKS Primary Care Provider Not On Staff Doctor Time spent on discharge: > 30 minutes JAY JAY MARINO Aug 21, 2018 15:03
== END 2018-08-21 13:30 | disposition home or self-care (01) | DRG 812 ==
LOC: E/R 06:52 → PP2 09:17 → OBSVTOIN 10:23
PROVIDERS: ADMIT Internal Medicine; ATTEND Internal Medicine
PROC: 30233N1 Transfusion of Nonautologous Red Blood Cells into Peripheral Vein, Percutaneous Approach (ICD-10-PCS; principal; 2018-08-20)
DX: D57.00 Hb-SS disease with crisis, unspecified (principal); I82.C11 Acute embolism and thrombosis of right internal jugular vein; M90.512 Osteonecrosis in diseases classified elsewhere, left shoulder; T82.868A Thrombosis due to vascular prosthetic devices, implants and grafts, initial encounter; E87.6 Hypokalemia; F17.200 Nicotine dependence, unspecified, uncomplicated; Y83.8 Other surgical procedures as the cause of abnormal reaction of the patient, or of later complication, without mention of misadventure at the time of the procedure; Z76.5 Malingerer [conscious simulation]
CPT/HCPCS: 36415; 36430; 71045; 73030; 80048; 80053; 81003; 83735; 84145; 84703; 85025; 85045; 86850; 86900; 86901; 86920; 93970; 96374; 96375; 97116; 97162; 97530; G0378; J1170; J1200; J1642; J1650; J1885; J1956; J2060; J2405; J3480; J7030; J7040; P9016

== ENCOUNTER 2018-08-26 08:16 | Emergency (ER) | payer OTHER ==
[~2018-08-26] VITALS: Wt 40.9 kg
[~2018-08-26 08:16] MED LIST changes: -HYDR-3980 PO; +MORP15TA92 PO; +OXYC-431 PO
[2018-08-26] MEDS ORDERED: KETOROLAC 30 MG INJ IM STA (08:20)
[2018-08-26] MEDS ORDERED: IBUP-1542 PO (08:49)
--- NOTE | 2018-08-26 08:50 | ERD ---
ER Documentation Chief Complaint Chief Complaint chest pain chronic with no trauma or fevers. sickle cell history HPI Patient is a 33-year-old female with sickle cell disease who presents with chest pain. The patient was brought in by ambulance. The symptoms started last night. The pain has been constant. She says it feels like her sickle cell pain. She tried Romulus. Upon review of old medical records the patient has multiple visits to the ER and was recently admitted on August 10. She was discharged on August 21. Review of the emergency department information exchange system shows 65 visits to 10 different emergency departments over the past 1 year. 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 ROS All systems reviewed and are negative except as per history of present illness. Medications Home Meds Active Scripts Ibuprofen* (Motrin*) 600 Mg Tab, 600 MG PO Q6H PRN for PAIN AND OR ELEVATED TEMP, #30 TAB Prov:MILENA CALERO MD 08/26/18 Morphine Sulfate* (Ms Contin*) 15 Mg Tablet.sa, 15 MG PO Q12, #60 TAB Prov:JAY JAY MARINO 08/21/18 Oxycodone HCl/Acetaminophen (Oxycodone-Acetaminophen 10-325) 1 Each Tablet, 1 TAB PO Q4H PRN for MODERATE PAIN LEVEL 4-6, #30 TAB Prov:JAY JAY MARINO 08/21/18 Docusate Sodium (Dok) 100 Mg Capsule, 100 MG PO Q12H, #60 CAP 2 Refills Prov:MELISSA WELLS 05/28/18 Hydroxyurea* (Hydroxyurea*) 500 Mg Capsule, 500 MG PO BID, #60 CAP 2 Refills Prov:MELISSA WELLS 05/28/18 Albuterol Sulfate* (Proair HFA*) 8.5 Gm Hfa.aer.ad, 2 PUFF INH Q4H PRN for WHEEZING AND SOB, #1 INHALER Prov:SARAH ANTONIO MD 05/18/18 Reported Medications Folic Acid* (Folic Acid*) 1 Mg Tablet, 1 MG PO DAILY, TAB 05/18/18 Diphenhydramine Hcl (Banophen) 25 Mg Capsule, 25 MG PO BID, CAP 03/21/18 Discontinued Reported Medications Hydrocodone/Acetaminophen ([place] 10-325 Tablet) 1 Each Tablet, 1 EACH PO Q6H PRN for PAIN LEVEL 7-10, TAB 3/19/19 Allergies Allergies: Coded Allergies: codeine (Unverified Allergy, Intermediate, ITCHY HIVES, 08/10/18) PMhx/Soc History of Surgery: Yes (C section, cholecystectomy) Anesthesia Reaction: No Hx Neurological Disorder: No Hx Respiratory Disorders: No Hx Cardiac Disorders: No Hx Psychiatric Problems: No Hx Miscellaneous Medical Probl: Yes (sickle cell anemia ) Hx Alcohol Use: No Hx Substance Use: No Hx Tobacco Use: No Smoking Status: Never smoker FmHx Family History: diabetes Physical Exam Vitals Vital Signs Date Temp Pulse Resp B/P (MAP) Pulse Ox O2 O2 Flow FiO2 Time Delivery Rate 08/26/18 60 17 98/60 (73) 100 Room Air 08:53 08/26/18 98.4 56 18 90/54 (66) 99 08:28 Physical Exam Const: No acute distress Head: Atraumatic Eyes: Normal Conjunctiva ENT: Normal External Ears, Nose and Mouth. Neck: Full range of motion. No meningismus. Resp: Clear to auscultation bilaterally Cardio: Regular rate and rhythm, no murmurs Abd: Soft, non tender, non distended. Normal bowel sounds Skin: No petechiae or rashes Back: No midline or flank tenderness Ext: No cyanosis, or edema Neur: Awake and alert Psych: Normal Mood and Affect Results 24 hrs Current Medications Medications Dose Sig/Aguilar Start Time Status Last (Trade) Ordered Route PRN Stop Time Admin Dose Reason Admin Ketorolac 30 mg ONCE STAT 08/26/18 DC 08/26/18 Tromethamine IM 08:20 08:43 (Toradol) 08/26/18 08:21 Procedures/MDM EKG read by me: Rate/Rhythm: Regular rate and rhythm at a rate of 87 Intervals: Normal Impression: No evidence of ischemia or arrhythmia Chest X-ray 1V Interpreted by me: Soft Tissue: No acute abnormalities Bones: No acute abnormalities Mediastinum/Cardiac Silhouette/Lungs: No acute abnormalities Smoking Cessation Therapy: Pt. was lectured for greater than 3 minutes on the health risks of continued smoking and the benefits of cessation. Patient is a 33-year-old female with sickle cell disease who presents with chest pain. EKG and chest x-ray are negative. At this point I doubt acute coronary syndrome, pneumonia, pneumothorax, pulmonary embolism, or aortic dissection. The patient was given Toradol. I do believe there is an element of drug-seeking behavior given her frequent visits to multiple different emergency departments. She has a care plan in the emergency department information exchange system. I will not give her narcotic medicines at this time. She was given Toradol IM and will be discharged. Vital signs are stable upon discharge. Departure Diagnosis: Primary Impression: Chest pain Chest pain type: unspecified Qualified Codes: R07.9 - Chest pain, unspecified Additional Impression: Sickle cell anemia Sickle-cell associated disorders: with unspecified crisis Qualified Codes: D57.00 - Hb-SS disease with crisis, unspecified Condition: Fair Patient Instructions: Chest Pain, Uncertain Cause, Sickle Cell Pain Crisis Referrals: LANG REYES MD Additional Instructions: SPECIALIST: YOU HAVE A MEDICAL CONDITION WHICH REQUIRES YOU TO SEE A SPECIALIST WITHIN THE NEXT 1-2 DAYS. PLEASE FOLLOW UP WITH YOUR PRIMARY PHYSICI AN FOR REFFERAL.IF YOU DO NOT HAVE A PRIMARY CARE PHYSICIAN AND/OR YOU CAN NOT AFFORD TO SEE A PHYSICIAN THE FOLLOWING RESOURCES HAVE BEEN SUPPLIED TO YOU. IT IS YOUR RESPONSIBILITY TO BE SEEN BY THE SPECIALIST MILENA CALERO MD Aug 26, 2018 08:50
[2018-08-26 08:53] VITALS: BP 98/60; PULSE 60; RESP 17
[2018-08-27] MEDS ORDERED: HYDROmorphONE 1 MG/ML SYG ONE (08:50)
== END 2018-08-26 10:11 | disposition home or self-care (01) ==
LOC: E/R 08:16
DX: D57.00 Hb-SS disease with crisis, unspecified (principal)
CPT/HCPCS: 71045; 93005; 96372; J1885; Z7502; J1170

== ENCOUNTER 2018-08-27 01:16 | Inpatient (IN) | payer OTHER ==
[~2018-08-27] VITALS: Ht 162.6 cm; Wt 44.5 kg
[~2018-08-27 01:16] MED LIST changes: +IBUP-1542 PO
[2018-08-27] MEDS ORDERED: ONDANSETRON 4 MG INJ IV STA (01:38)
[2018-08-27] MEDS ORDERED: SOD CHLORIDE 0.9% 1,000 ML IV STA (01:38)
[2018-08-27] MEDS ORDERED: HYDROmorphONE 1 MG/ML SYG IV STA (01:38)
[2018-08-27] MEDS ORDERED: DIPHENHYDRAMINE 50 MG INJ IV ONE (02:00)
--- NOTE | 2018-08-27 05:22 | ERD ---
ER Documentation Chief Complaint Chief Complaint SICKLE CELL PAIN HPI This is a 33-year-old female comes in with complaints of total body pain from sickle cell disease. She denies any fevers chills nausea vomiting. She denies any other current complaints. Denies any chest pain or shortness of breath. ROS All systems reviewed and are negative except as per history of present illness. Medications Home Meds Active Scripts Ibuprofen* (Motrin*) 600 Mg Tab, 600 MG PO Q6H PRN for PAIN AND OR ELEVATED TEMP, #30 TAB Prov:MILENA CALERO MD 08/26/18 Morphine Sulfate* (Ms Contin*) 15 Mg Tablet.sa, 15 MG PO Q12, #60 TAB Prov:JAY JAY MARINO 08/21/18 Oxycodone HCl/Acetaminophen (Oxycodone-Acetaminophen 10-325) 1 Each Tablet, 1 TAB PO Q4H PRN for MODERATE PAIN LEVEL 4-6, #30 TAB Prov:JAY JAY MARINO 08/21/18 Docusate Sodium (Dok) 100 Mg Capsule, 100 MG PO Q12H, #60 CAP 2 Refills Prov:MELISSA WELLS. 05/28/18 Hydroxyurea* (Hydroxyurea*) 500 Mg Capsule, 500 MG PO BID, #60 CAP 2 Refills Prov:MELISSA WELLS. 05/28/18 Albuterol Sulfate* (Proair HFA*) 8.5 Gm Hfa.aer.ad, 2 PUFF INH Q4H PRN for WHEEZING AND SOB, #1 INHALER Prov:SARAH ANTONIO MD 05/18/18 Reported Medications Folic Acid* (Folic Acid*) 1 Mg Tablet, 1 MG PO DAILY, TAB 05/18/18 Diphenhydramine Hcl (Banophen) 25 Mg Capsule, 25 MG PO BID, CAP 03/21/18 Discontinued Reported Medications Hydrocodone/Acetaminophen ([place] 10-325 Tablet) 1 Each Tablet, 1 EACH PO Q6H PRN for PAIN LEVEL 7-10, TAB 07/29/18 Allergies Allergies: Coded Allergies: codeine (Unverified Allergy, Intermediate, ITCHY HIVES, 08/27/18) PMhx/Soc History of Surgery: Yes (C section, cholecystectomy) Anesthesia Reaction: No Hx Neurological Disorder: No Hx Respiratory Disorders: No Hx Cardiac Disorders: No Hx Psychiatric Problems: No Hx Miscellaneous Medical Probl: Yes (sickle cell anemia ) Hx Alcohol Use: No Hx Substance Use: No Hx Tobacco Use: No Smoking Status: Never smoker Physical Exam Vitals Vital Signs Date Temp Pulse Resp B/P (MAP) Pulse Ox O2 O2 Flow FiO2 Time Delivery Rate 08/27/18 98.8 85 18 118/68 100 Room Air 04:25 (85) 08/27/18 98.8 85 18 116/62 100 Room Air 01:45 (80) 08/27/18 98.8 93 18 145/103 100 01:19 (117) Physical Exam Const: No acute distress Head: Atraumatic Eyes: Normal Conjunctiva ENT: Normal External Ears, Nose and Mouth. Neck: Full range of motion. No meningismus. Resp: Clear to auscultation bilaterally Cardio: Regular rate and rhythm, no murmurs Abd: Soft, non tender, non distended. Normal bowel sounds Skin: No petechiae or rashes Back: No midline or flank tenderness Ext: No cyanosis, or edema Neur: Awake and alert Psych: Normal Mood and Affect Result Diagram: 08/27/184 08/27/18223 Results 24 hrs Laboratory Tests Test 08/27/18 02:24 White Blood Count 11.5 10^3/ul Red Blood Count 3.87 10^6/ul Hemoglobin 9.6 g/dl Hematocrit 28.9 % Mean Corpuscular Volume 74.7 fl Mean Corpuscular Hemoglobin 24.8 pg Mean Corpuscular Hemoglobin Concent 33.2 g/dl Red Cell Distribution Width 23.9 % Platelet Count 921 10^3/UL Mean Platelet Volume 8.9 fl Immature Granulocytes % 0.600 % Neutrophils % 61.3 % Lymphocytes % 21.1 % Monocytes % 11.4 % Eosinophils % 3.6 % Basophils % 2.0 % Nucleated Red Blood Cells % 1.6 /100WBC Immature Granulocytes # 0.070 10^3/ul Neutrophils # 7.1 10^3/ul Lymphocytes # 2.4 10^3/ul Monocytes # 1.3 10^3/ul Eosinophils # 0.4 10^3/ul Basophils # 0.2 10^3/ul Nucleated Red Blood Cells # 0.2 10^3/ul Absolute Reticulocyte Count 0.103 X10^6 Percent Reticulocyte Count 2.7 % Sodium Level 145 mmol/L Potassium Level 4.0 mmol/L Chloride Level 109 mmol/L Carbon Dioxide Level 24 mmol/L Anion Gap 12 Blood Urea Nitrogen 17 mg/dl Creatinine 0.66 mg/dl Est Glomerular Filtrat Rate mL/min > 60 mL/min Glucose Level 95 mg/dl Calcium Level 9.6 mg/dl Current Medications Medications Dose Sig/Aguilar Start Time Status Last (Trade) Ordered Route PRN Stop Time Admin Dose Reason Admin Sodium 1,000 ml @ Q1H STAT 08/27/18 DC 08/27/18 Chloride 1,000 mls/hr IV 01:38 02:30 08/27/18 02:37 1 mg ONCE STAT 08/27/18 DC 08/27/18 Hydromorphone IV 01:38 02:30 HCl 08/27/18 02:14 (Dilaudid) Ondansetron 4 mg ONCE STAT 08/27/18 DC 08/27/18 HCl (Zofran IV 01:38 02:29 Inj) 08/27/18 01:52 50 mg ONCE ONCE 08/27/18 DC 08/27/18 Diphenhydrami IV 02:00 02:29 ne HCl 08/27/18 02:01 (Benadryl) Procedures/MDM Medical decision makin-year-old female who is seen her multiple times for sickle cell complaint. Given Dilaudid but continues to have pain. Patient will be admitted further evaluation and management to Dr. Rothman. Departure Diagnosis: Primary Impression: Sickle cell pain crisis Additional Impression: Sickle cell anemia Sickle-cell associated disorders: with unspecified crisis Qualified Codes: D57.00 - Hb-SS disease with crisis, unspecified Condition: Serious SHERINE MADSEN Aug 27, 2018 05:22
[2018-08-27] MEDS ORDERED: DIPHENHYDRAMINE 50 MG INJ IM PRN (05:30)
[2018-08-27] MEDS ORDERED: DOCUSATE SODIUM 100 MG CAP PO PRN (05:30)
[2018-08-27] MEDS ORDERED: ONDANSETRON 4 MG INJ IV PRN (05:30)
[2018-08-27] MEDS ORDERED: NACL 0.9% 3 ML SYG IV SCH (05:30)
[2018-08-27] MEDS ORDERED: ACETAMINOPHEN 325 MG TAB PO PRN (05:30)
[2018-08-27] MEDS ORDERED: BISACODYL (EC) 5 MG TAB PO PRN (05:30)
[2018-08-27] MEDS ORDERED: HYDROmorphONE 0.5 MG/0.5 ML SYG IV PRN (05:30)
[2018-08-27] MEDS ORDERED: HYDROmorphONE 0.5 MG/0.5 ML SYG IV STA (05:32)
[2018-08-27] MEDS ORDERED: DIPHENHYDRAMINE 50 MG INJ IV PRN (05:37)
[2018-08-27] MEDS ORDERED: DIPHENHYDRAMINE 25 MG CAP PO PRN (06:30)
--- NOTE | 2018-08-27 07:03 | HP ---
Date/Time of Note Date/Time of Note DATE: 08/27/18 TIME: 06:54 Assessment/Plan VTE Prophylaxis Pharmacological prophylaxis: LMWH Assessment/Plan Hospital Course This is a 32-year-old female being admitted to the [facility] floor for: #1 sickle cell crisis. Patient currently appears to be comfortable, she did receive Dilaudid and Benadryl IV in the ED.. Patient has multiple admissions to our facility and so there is concern for drug-seeking behavior. Her white blood cell is mildly elevated at 11,000 which likely a stress reaction hemoglobin appears stable. IV Dilaudid every 4 hours, she was requesting IV Benadryl which she received in the ED, however I will may be giving her p.o. Benadryl for itching. IV fluid hydration with normal saline, continue hydroxyurea #2 leukocytosis: No signs of fever at the current time. This could be a stress related response. Will obtain a chest x-ray to assess for any underlying pneumonia/respiratory disease. Currently afebrile. #3 sickle cell disease: Continue hydroxyurea, folic acid #4 DVT GI prophylaxis: Lovenox, no GI prophylaxis indicated Further treatment strategy will be implemented as per the clinical course Result Diagram: 08/27/18 0224 08/27/18 0224 Results 24hrs Laboratory Tests Test 08/27/18 02:24 White Blood Count 11.5 #H Red Blood Count 3.87 L Hemoglobin 9.6 L Hematocrit 28.9 L Mean Corpuscular Volume 74.7 L Mean Corpuscular Hemoglobin 24.8 L Mean Corpuscular Hemoglobin Concent 33.2 Red Cell Distribution Width 23.9 H Platelet Count 921 H Mean Platelet Volume 8.9 Immature Granulocytes % 0.600 H Neutrophils % 61.3 Lymphocytes % 21.1 Monocytes % 11.4 H Eosinophils % 3.6 Basophils % 2.0 Nucleated Red Blood Cells % 1.6 H Immature Granulocytes # 0.070 H Neutrophils # 7.1 Lymphocytes # 2.4 Monocytes # 1.3 H Eosinophils # 0.4 Basophils # 0.2 H Nucleated Red Blood Cells # 0.2 H Absolute Reticulocyte Count 0.103 Percent Reticulocyte Count 2.7 H Sodium Level 145 H Potassium Level 4.0 Chloride Level 109 Carbon Dioxide Level 24 Anion Gap 12 Blood Urea Nitrogen 17 Creatinine 0.66 Est Glomerular Filtrat Rate mL/min > 60 Glucose Level 95 Calcium Level 9.6 HPI/ROS Admit Date/Time Admit Date/Time Aug 27, 2018 at 05:13 Hx of Present Illness Chief complaint: Upper body pain times 1 day This is a 33-year-old female with a past medical history of sickle cell disease and also drug-seeking behavior who presented to the emergency department complaining of bilateral arm pain and upper body pain. She reports that she has pain when she moves her upper body. She states it feels like her sickle cell crisis. Patient was recently discharged within the last week for similar symptoms. Patient was requesting Dilaudid when I saw the patient and also requesting IV Benadryl and did not want IM Benadryl. I stated to her that I can only give her p.o. as there is no indication for IV Benadryl. Allergies: Codeine Medications: See MADISON GONCALVES Const: As per HPI Eyes : No pain discharge or redness or change in visual acuity ENT: No pain, sore throat, congestion, congestion, dysphagia or discharge Respiratory: No shortness of breath, cough, sputum, wheezing, or pleuritic pain Cardiovascular: No chest pain, palpitation, PND, or edema GI : no change in appetite, abdominal pain, nausea, vomiting, diarrhea, constipation, or change in the color his stool Genitourinary: No dysuria, hematuria, flank pain , discharge or CVA tenderness Musculoskeletal: As per HPI Skin: No rash, bruising or hives Neuro: No headache, dizziness, syncope, seizure, focal weakness Endocrine: No polyuria, polydipsia, temperature intolerance Psych: No hallucination, depression, anxiety or suicidal ideation PMH/Family/Social Past Medical History sickle cell Medications Current Medications Folic Acid (Folic Acid) 1 mg DAILY PO ; Start 08/27/18 at 09:00 Hydroxyurea (Hydrea) 500 mg BID PO ; Start 08/27/18 at 09:00 Morphine Sulfate (Ms Contin (Er)) 15 mg Q12 PO ; Start 08/27/18 at 09:00 Sodium Chloride 1,000 ml @ 100 mls/hr Q10H IV ; Start 08/27/18 at 05:19 IV Flush (NS 3 ml) 3 ml PER PROTOCOL IV ; Start 08/27/18 at 05:30 Ondansetron HCl (Zofran Inj) 4 mg Q6H PRN IV NAUSEA/VOMITING; Start 08/27/18 at 05:30 Acetaminophen (Tylenol Tab) 650 mg Q6H PRN PO .PAIN 1-3 OR TEMP; Start 08/27/18 at 05:30 Docusate Sodium (Colace) 100 mg Q12H PRN PO .CONSTIPATION; Start 08/27/18 at 05:30 Bisacodyl (Dulcolax) 5 mg DAILY PRN PO .CONSTIPATION; Start 08/27/18 at 05:30 Enoxaparin Sodium (Lovenox) 40 mg DAILY SC ; Start 08/27/18 at 09:00 Hydromorphone HCl (Dilaudid) 1 mg Q4H PRN IV .SEVERE PAIN 7-10; Start 08/27/18 at 05:37 Diphenhydramine HCl (Benadryl) 25 mg Q6H PRN PO ITCHING; Start 08/27/18 at 06:30 Coded Allergies: codeine (Unverified Allergy, Intermediate, ITCHY HIVES, 08/27/18) Past Surgical History x3 Past Surgical Hx: cholecystectomy, other Family History Significant Family History: no pertinent family hx, other Social History Alcohol Use: none Smoking Status: Current every day smoker Exam/Review of Systems Vital Signs Vitals Vital Signs Date Temp Pulse Resp B/P (MAP) Pulse Ox O2 O2 Flow FiO2 Time Delivery Rate 08/27/18 98.8 90 16 134/89 100 Room Air 05:44 (104) Exam Exam General: Patient was currently lying in bed in no acute distress, when I did awaken her to question her she states that she had pain everywhere in her upper body. Patient though appeared comfortable and again was actually sleeping when I went into the room. HEENT: Atraumatic, normocephalic. The pupils are equal, round and reactive. Extraocular motor are intact Neck: Supple with full range of motion. No rigidity or meningismus Chest: Nontender Lungs: Clear to auscultation bilaterally no crackles rales or wheezing Heart: Normal S1-S2, Regular rhythm and rate. No murmur, S3, or S4 Abdomen: Soft , nontender, nondistended , bowel sounds are present. No guarding no rebound tenderness , No masses or organomegaly. No costovertebral temporal angle mass Extremities: Normal to inspection, no edema no cyanosis Neurologic: Normal mental status, speech normal, cranial nerves II through XII are intact, motor and sensory are intact, no focal weakness MAX MARTÍNEZ Aug 27, 2018 07:03
[2018-08-27] MEDS ORDERED: HYDROmorphONE 1 MG/ML SYG IV ONE (08:30)
[2018-08-27] MEDS: SOD CHLORIDE 0.9% 1,000 ML IV SCH ×3 (08:37→20:12)
[2018-08-27] MEDS: ENOXAPARIN 40 MG/0.4 ML SYG SC SCH (09:00)
[2018-08-27] MEDS: FOLIC ACID 1 MG TAB PO SCH (09:37)
[2018-08-27] MEDS: morphine (ER) 15 MG TAB PO SCH ×2 (09:38→20:11)
[2018-08-27] MEDS: HYDROmorphONE 1 MG/ML SYG IV PRN ×4 (09:51→21:47)
[2018-08-27 10:15] VITALS: Ht 162.6 cm; Wt 44.5 kg
[2018-08-27] MEDS: HYDROXYUREA 500 MG CAP PO SCH ×3 (13:12→21:47)
[2018-08-27 13:41] VITALS: BP 120/74; PULSE 86; RESP 15
[2018-08-27] MEDS: hydrOXYzine HCL 25 MG TAB PO PRN (17:06)
--- NOTE | 2018-08-27 17:32 | EN ---
Date/Time of Note Date/Time of Note DATE: 08/27/18 TIME: 17:32 Event Note Medicine Medicine Event Note 33-year-old female known to our service from multiple admissions for sickle cell pain crisis. Patient has been seen in the emergency room multiple times for the same and admitted for the fourth time this year. She was seen in the emergency room yesterday and discharged but came back. I emergency room physician notes, she has 65 visits to 10 different emergency departments over the past 1 year. Patient has lab values were reviewed, and at this time her hemoglobin level is even better than it was at the time of discharge at this time 9.6 versus 8.4 absolute reticulocyte count was normal whereas previously it was high on her vital signs blood pressure is normal there is no tachycardia, I have low cheney spicion for active sickling at this time. Hence I discussed with patient and we agreed to define goals of care. I did explain that with chronic sickle cell, the goal is to live a functional life, and multiple emergency room visits and admissions does not define a functional life. I recommended a graded pain regimen slowly transitioning from higher strength opiates given intravenously by slowly lowering the dose and and transitioning over a few days to oral opiates. Patient initially was amenable to the plan, but after my visit I was notified by the nurse that the patient was demanding to be managed by different physician. I am happy to continue with patient's care, but based on patient's request I have deferred to the nursing administration to see about seeking alternatives physician for the patient. In the interim we will continue current care and current care plan. MELISSA WELLS Aug 27, 2018 17:32
[2018-08-27] MEDS ORDERED: LORAZEPAM 0.5 MG TAB PO PRN (20:00)
[2018-08-27 20:16] VITALS: BP 105/60; PULSE 89; RESP 17
[2018-08-28] MEDS: SOD CHLORIDE 0.9% 1,000 ML IV SCH ×2 (01:19→05:49)
[2018-08-28] MEDS: HYDROmorphONE 1 MG/ML SYG IV PRN ×2 (01:41→05:30)
[2018-08-28] MEDS ORDERED: morphine 2 MG INJ IV PRN (05:37)
[2018-08-28 08:30] VITALS: BP 144/89; PULSE 90
--- NOTE | 2018-08-28 08:33 | CONS ---
Assessment/Plan Assessment/Plan Assessment/Plan (Daily) I had a long conversation with Ms. Negron this morning. This was done with her nurse present. First fall she says her arms hurt but she is not an extremis under any circumstances either visually or verbally or by physical examination. I have explained to her that she has been seen in 60 urgency runs for pain control and sickle cell crisis over the last 11 months and this is not quality health care. She states that she is a primary care physician who is an oncologist delimer in [facility] who she has an appointment with him next month. But during her last admission approximately 10 days ago I told her she needs to be seen by that physician much sooner and on a more frequent basis. I also advised her that there is a sickle cell clinic at [facility] that she could follow-up on by just calling there in scheduling an appointment. I gave her information on warning signs that she should pay attention to before going to the emergency room which should be fevers cough adductive sputum frequency burning when she urinates diarrhea, earache sore throat pain out of control with appropriate use of opioids dehydration exposure to cold. If her pain is still out of control she contact her primary care physician and should proceed to the hospital that that is on staff at. I have suggested that she can be discharged today based on reviewing her medical records and speaking to primary care physician she is in agreement with plan of care. Consultation Date/Type/Reason Admit Date/Time Aug 27, 2018 at 05:13 Date/Time of Note DATE: 08/28/18 TIME: 08:33 Past Medical History Home Meds Active Scripts Ibuprofen* (Motrin*) 600 Mg Tab, 600 MG PO Q6H PRN for PAIN AND OR ELEVATED TEMP, #30 TAB Prov:MILENA CALERO MD 08/26/18 Morphine Sulfate* (Ms Contin*) 15 Mg Tablet.sa, 15 MG PO Q12, #60 TAB Prov:JAY JAY MARINO 08/21/18 Oxycodone HCl/Acetaminophen (Oxycodone-Acetaminophen 10-325) 1 Each Tablet, 1 TAB PO Q4H PRN for MODERATE PAIN LEVEL 4-6, #30 TAB Prov:JAY JAY MARINO 08/21/18 Docusate Sodium (Dok) 100 Mg Capsule, 100 MG PO Q12H, #60 CAP 2 Refills Prov:MELISSA WELLS. 05/28/18 Hydroxyurea* (Hydroxyurea*) 500 Mg Capsule, 500 MG PO BID, #60 CAP 2 Refills Prov:MELISSA WELLS. 05/28/18 Albuterol Sulfate* (Proair HFA*) 8.5 Gm Hfa.aer.ad, 2 PUFF INH Q4H PRN for W HEEZING AND SOB, #1 INHALER Prov:SARAH ANTONIO MD 05/18/18 Reported Medications Folic Acid* (Folic Acid*) 1 Mg Tablet, 1 MG PO DAILY, TAB 05/18/18 Diphenhydramine Hcl (Banophen) 25 Mg Capsule, 25 MG PO BID, CAP 03/21/18 Discontinued Reported Medications Hydrocodone/Acetaminophen ([place] 10-325 Tablet) 1 Each Tablet, 1 EACH PO Q6H PRN for PAIN LEVEL 7-10, TAB 07/29/18 Medications Current Medications Folic Acid (Folic Acid) 1 mg DAILY PO Last administered on 08/27/18at 09:37; Admin Dose 1 MG; Start 08/27/18 at 09:00 Hydroxyurea (Hydrea) 500 mg BID PO Last administered on 08/27/18at 13:12; Admin Dose 500 MG; Start 08/27/18 at 09:00 Morphine Sulfate (Ms Contin (Er)) 15 mg Q12 PO Last administered on 08/27/18at 20:11; Admin Dose 15 MG; Start 08/27/18 at 09:00 Sodium Chloride 1,000 ml @ 100 mls/hr Q10H IV Last administered on 08/28/18at 05:49; Admin Dose 100 MLS/HR; Start 08/27/18 at 05:19 IV Flush (NS 3 ml) 3 ml PER PROTOCOL IV ; Start 08/27/18 at 05:30 Ondansetron HCl (Zofran Inj) 4 mg Q6H PRN IV NAUSEA/VOMITING; Start 08/27/18 at 05:30 Acetaminophen (Tylenol Tab) 650 mg Q6H PRN PO .PAIN 1-3 OR TEMP; Start 08/27/18 at 05:30 Docusate Sodium (Colace) 100 mg Q12H PRN PO .CONSTIPATION; Start 08/27/18 at 05:30 Bisacodyl (Dulcolax) 5 mg DAILY PRN PO .CONSTIPATION; Start 08/27/18 at 05:30 Enoxaparin Sodium (Lovenox) 40 mg DAILY SC ; Start 08/27/18 at 09:00 Hydroxyzine HCl (Atarax) 50 mg Q8H PRN PO ITCHING Last administered on 08/27/18at 17:06; Admin Dose 50 MG; Start 08/27/18 at 12:30 Morphine Sulfate (morphine) 2 mg Q4H PRN IV SEVERE PAIN LEVEL 7-10; Start 08/28/18 at 05:37; Stop 08/30/18 at 05:36 Acetaminophen/ Hydrocodone Bitart ([place] (7.5-325)) 1 tab Q6H PRN PO MODERATE PAIN LEVEL 4-6; Start 08/29/18 at 06:00 Lorazepam (Ativan) 0.5 mg Q12 PRN PO ANXIETY Last administered on 08/27/18at 20:11; Admin Dose 0.5 MG; Start 08/27/18 at 20:00 Allergies: Coded Allergies: codeine (Unverified Allergy, Intermediate, ITCHY HIVES, 08/27/18) Past Surgical History Past Surgical Hx: cholecystectomy, other Social History Alcohol Use: none Smoking Status: Current some day smoker Exam/Review of Systems Exam Vitals Vital Signs Date Temp Pulse Resp B/P (MAP) Pulse Ox O2 O2 Flow FiO2 Time Delivery Rate 08/27/18 98.6 89 17 105/60 95 20:16 (75) 08/27/18 Room Air 13:41 Intake and Output 08/27/18 08/27/18 08/28/18 1515:00 23:00 07:00 IntakeIntake Total 1000 ml 1000 ml BalanceBalance 1000 ml 1000 ml Results Result Diagram: 08/27/184 08/27/184 Medications Medication Current Medications Folic Acid (Folic Acid) 1 mg DAILY PO Last administered on 08/27/18at 09:37; Ad min Dose 1 MG; Start 08/27/18 at 09:00 Hydroxyurea (Hydrea) 500 mg BID PO Last administered on 08/27/18at 13:12; Admin Dose 500 MG; Start 08/27/18 at 09:00 Morphine Sulfate (Ms Contin (Er)) 15 mg Q12 PO Last administered on 08/27/18at 20:11; Admin Dose 15 MG; Start 08/27/18 at 09:00 Sodium Chloride 1,000 ml @ 100 mls/hr Q10H IV Last administered on 08/28/18at 05:49; Admin Dose 100 MLS/HR; Start 08/27/18 at 05:19 IV Flush (NS 3 ml) 3 ml PER PROTOCOL IV ; Start 08/27/18 at 05:30 Ondansetron HCl (Zofran Inj) 4 mg Q6H PRN IV NAUSEA/VOMITING; Start 08/27/18 at 05:30 Acetaminophen (Tylenol Tab) 650 mg Q6H PRN PO .PAIN 1-3 OR TEMP; Start 08/27/18 at 05:30 Docusate Sodium (Colace) 100 mg Q12H PRN PO .CONSTIPATION; Start 08/27/18 at 05:30 Bisacodyl (Dulcolax) 5 mg DAILY PRN PO .CONSTIPATION; Start 08/27/18 at 05:30 Enoxaparin Sodium (Lovenox) 40 mg DAILY SC ; Start 08/27/18 at 09:00 Hydroxyzine HCl (Atarax) 50 mg Q8H PRN PO ITCHING Last administered on 08/27/18at 17:06; Admin Dose 50 MG; Start 08/27/18 at 12:30 Morphine Sulfate (morphine) 2 mg Q4H PRN IV SEVERE PAIN LEVEL 7-10; Start at 05:37; Stop 08/30/18 at 05:36 Acetaminophen/ Hydrocodone Bitart ([place] (7.5-325)) 1 tab Q6H PRN PO MODERATE PAIN LEVEL 4-6; Start 08/29/18 at 06:00 Lorazepam (Ativan) 0.5 mg Q12 PRN PO ANXIETY Last administered on 08/27/18at 20:11; Admin Dose 0.5 MG; Start 08/27/18 at 20:00 REBECCA SWAIN Aug 28, 2018 08:33
[2018-08-28] MEDS: hydrOXYzine HCL 25 MG TAB PO PRN (08:40)
[2018-08-28] MEDS: FOLIC ACID 1 MG TAB PO SCH (08:40)
[2018-08-28] MEDS: HYDROXYUREA 500 MG CAP PO SCH (08:41)
[2018-08-28] MEDS: ENOXAPARIN 40 MG/0.4 ML SYG SC SCH (09:00)
[2018-08-28] MEDS: morphine (ER) 15 MG TAB PO SCH (09:29)
[2018-08-28 11:06] VITALS: BP 114/71; PULSE 95; RESP 18
--- NOTE | 2018-08-28 16:03 | DS ---
DATE OF ADMISSION: 08/27/2018 DATE OF DISCHARGE: 08/28/2018 ADMISSION DIAGNOSIS: Acute sickle cell pain crisis. DISCHARGE DIAGNOSIS: Acute sickle cell pain crisis. DISPOSITION: To home. ACTIVITIES: As tolerated. DISCHARGE MEDICATIONS: For a complete list, please review the patient's chart. SHORT HOSPITAL COURSE: A 33-year-old female who is known to our service for multiple admissions for sickle cell disease, was seen in the Emergency Room and admitted and was seen with similar symptoms. I spoke with her pain medication schedule. Also she was seen by pain management. However, on date of admission, she reported feeling better and after being seen by the team, she was cleared for discharge. She will continue to follow up outpatient with her primary oncologist. Time spent on discharge coordination was less than half hour. Dictated By: MELISSA WELLS MD BA/NTS Conf#: [id number] DID#: [id number] CC: MAX MARTÍNEZ MD;*End*
[2018-08-29] MEDS ORDERED: HYDROCODONE/APAP (7.5/325) TAB PO PRN (06:00)
== END 2018-08-28 11:20 | disposition home or self-care (01) | DRG 812 ==
LOC: E/R 01:16 → 5EC 05:13
PROVIDERS: ADMIT Family Medicine; ATTEND Family Medicine
DX: D57.00 Hb-SS disease with crisis, unspecified (principal); D72.829 Elevated white blood cell count, unspecified
CPT/HCPCS: 80048; 85025; 85045; 96361; 96374; 96375; J1170; J1200; J1650; J2270; J2405; J7030

== ENCOUNTER 2018-09-15 18:25 | Emergency (ER) | payer SELFPAY ==
[~2018-09-15 18:25] MED LIST changes: -DIPH25CA42 PO
--- NOTE | 2018-09-15 18:29 | QN ---
Documentation Comment Patient seen immediately upon arrival the patient arrived by ambulance. She has a chief complaint of sickle cell pain. She is well-known to myself and to our staff and has multiple visits to the ER for similar. She will be sent to triage for vital signs and will be seen by another provider. Medical screening exam was initiated. MILENA CALERO MD September 15, 2018 18:29
[2018-09-16] MEDS ORDERED: TRAM50TA2 PO (05:29)
== END 2018-09-15 18:50 | disposition left against medical advice (07) ==
LOC: E/R 18:25
DX: Z53.21 Procedure and treatment not carried out due to patient leaving prior to being seen by health care provider (principal)

== ENCOUNTER 2018-09-15 22:40 | Emergency (ER) | payer OTHER ==
[~2018-09-15] VITALS: Ht 160 cm; Wt 44.5 kg
[2018-09-15 22:47] VITALS: Ht 160 cm; Wt 44.5 kg
[2018-09-16] MEDS ORDERED: DIPHENHYDRAMINE 50 MG INJ IV STA (03:16)
[2018-09-16] MEDS ORDERED: HYDROmorphONE 1 MG/ML SYG IV STA (03:16)
[2018-09-16] MEDS ORDERED: ONDANSETRON 4 MG INJ IV STA (03:16)
[2018-09-16] MEDS ORDERED: SOD CHLORIDE 0.9% 1,000 ML IV STA (03:16)
[2018-09-16] MEDS ORDERED: TRAM50TA2 PO (05:29)
--- NOTE | 2018-09-16 05:31 | ERD ---
ER Documentation Chief Complaint Chief Complaint Sickle cell crisis, total body pain X 10hrs HPI 33-year female well known to sitting complains of vaso-occlusive crisis and total body aches. This is her normal sickle cell pattern. Denies fevers chills nausea vomiting. Denies any other current complaints. Denies chest pain. Den ies shortness of breath. ROS All systems reviewed and are negative except as per history of present illness. Medications Home Meds Active Scripts Tramadol HCl (Tramadol HCl) 50 Mg Tablet, 50 MG PO Q4 PRN for PAIN, #20 TAB Prov:SHERINE MADSEN 09/16/18 Ibuprofen* (Motrin*) 600 Mg Tab, 600 MG PO Q6H PRN for PAIN AND OR ELEVATED TEMP, #30 TAB Prov:MILENA CALERO MD 08/26/18 Morphine Sulfate* (Ms Contin*) 15 Mg Tablet.sa, 15 MG PO Q12, #60 TAB Prov:JAY JAY MARINO 08/21/18 Oxycodone HCl/Acetaminophen (Oxycodone-Acetaminophen 10-325) 1 Each Tablet, 1 TAB PO Q4H PRN for MODERATE PAIN LEVEL 4-6, #30 TAB Prov:JAY JAY MARINO 08/21/18 Docusate Sodium (Dok) 100 Mg Capsule, 100 MG PO Q12H, #60 CAP 2 Refills Prov:MELISSA WELLS 05/28/18 Hydroxyurea* (Hydroxyurea*) 500 Mg Capsule, 500 MG PO BID, #60 CAP 2 Refills Prov:MELISSA WELLS 05/28/18 Albuterol Sulfate* (Proair HFA*) 8.5 Gm Hfa.aer.ad, 2 PUFF INH Q4H PRN for WHEEZING AND SOB, #1 INHALER Prov:SARAH ANTONIO MD 05/18/18 Reported Medications Folic Acid* (Folic Acid*) 1 Mg Tablet, 1 MG PO DAILY, TAB 05/18/18 Allergies Allergies: Coded Allergies: codeine (Unverified Allergy, Intermediate, ITCHY HIVES, 08/27/18) PMhx/Soc Anesthesia Reaction: No Hx Neurological Disorder: Yes Hx Respiratory Disorders: No Hx Cardiac Disorders: No Hx Psychiatric Problems: No Hx Miscellaneous Medical Probl: No Hx Alcohol Use: No Hx Substance Use: No Hx Tobacco Use: No Smoking Status: Never smoker Physical Exam Vitals Vital Signs Date Temp Pulse Resp B/P (MAP) Pulse Ox O2 O2 Flow FiO2 Time Delivery Rate 09/16/18 97.4 91 18 111/71 98 Room Air 03:19 (84) 09/15/18 97.4 72 18 125/80 98 22:47 (95) Physical Exam Const: No acute distress Head: Atraumatic Eyes: Normal Conjunctiva ENT: Normal External Ears, Nose and Mouth. Neck: Full range of motion. No meningismus. Resp: Clear to auscultation bilaterally Cardio: Regular rate and rhythm, no murmurs Abd: Soft, non tender, non distended. Normal bowel sounds Skin: No petechiae or rashes Back: No midline or flank tenderness Ext: No cyanosis, or edema Neur: Awake and alert Psych: Normal Mood and Affect Result Diagram: 09/16/1840409/16/18404 Results 24 hrs Laboratory Tests Test 09/16/18 04:05 White Blood Count 11.7 10^3/ul Red Blood Count 3.16 10^6/ul Hemoglobin 7.9 g/dl Hematocrit 23.7 % Mean Corpuscular Volume 75.0 fl Mean Corpuscular Hemoglobin 25.0 pg Mean Corpuscular Hemoglobin Concent 33.3 g/dl Red Cell Distribution Width 24.3 % Platelet Count 330 10^3/UL Mean Platelet Volume 9.4 fl Immature Granulocytes % 6.600 % Neutrophils % % Lymphocytes % % Monocytes % % Eosinophils % % Basophils % % Nucleated Red Blood Cells % 2.0 /100WBC Immature Granulocytes # 0.770 10^3/ul Neutrophils # 10^3/ul Lymphocytes # 10^3/ul Monocytes # 10^3/ul Eosinophils # 10^3/ul Basophils # 10^3/ul Nucleated Red Blood Cells # 10^3/ul Absolute Reticulocyte Count 0.114 X10^6 Percent Reticulocyte Count 3.6 % Sodium Level 144 mmol/L Potassium Level 3.0 mmol/L Chloride Level 112 mmol/L Carbon Dioxide Level 19 mmol/L Anion Gap 13 Blood Urea Nitrogen 7 mg/dl Creatinine 0.37 mg/dl Est Glomerular Filtrat Rate mL/min > 60 mL/min Glucose Level 87 mg/dl Calcium Level 8.9 mg/dl Current Medications Medications Dose Sig/Aguilar Start Time Status Last (Trade) Ordered Route PRN Stop Time Admin Dose Reason Admin Sodium 1,000 ml @ Q1H STAT 09/16/18 DC 09/16/18 Chloride 1,000 mls/hr IV 03:16 09/16/18 03:42 04:15 50 mg ONCE STAT 09/16/18 DC 09/16/18 Diphenhydrami IV 03:16 09/16/18 03:42 ne HCl 03:18 (Benadryl) 1 mg ONCE STAT 09/16/18 DC 09/16/18 Hydromorphone IV 03:16 09/16/18 03:42 HCl 03:18 (Dilaudid) Ondansetron 4 mg ONCE STAT 09/16/18 DC 09/16/18 HCl (Zofran IV 03:16 09/16/18 03:41 Inj) 03:18 Procedures/MDM EKG: Rate/Rhythm: [Normal Sinus Rhythm] QRS, ST, T-waves: [No changes consistent w/ acute ischemia] Impression: [No evidence of ischemia or arrhythmia] Medical decision makin-year-old female basically occurs. Pain is been treated with fluid hydration and pain medication. At this point clinically stable for outpatient management. No necessity for blood transfusion. Patient will be discharged home. Departure Diagnosis: Primary Impression: Sickle cell anemia Sickle-cell associated disorders: with unspecified crisis Qualified Codes: D57.00 - Hb-SS disease with crisis, unspecified Condition: Stable Patient Instructions: Sickle Cell Pain Crisis SHERINE MADSEN September 16, 2018 05:31
[2018-09-16 06:55] VITALS: BP 108/65; PULSE 88; RESP 18
[2018-09-16] MEDS ORDERED: HYDROCODONE/APAP (10/325) TAB PO ONE (07:00)
== END 2018-09-16 06:55 | disposition home or self-care (01) ==
LOC: E/R 22:40
DX: D57.00 Hb-SS disease with crisis, unspecified (principal); R07.9 Chest pain, unspecified
CPT/HCPCS: 80048; 81003; 81025; 85025; 85045; 96374; 96375; J1170; J1200; J2405; J7030; Z7502

== ENCOUNTER 2018-09-16 06:59 | Emergency (ER) | payer SELFPAY ==
[~2018-09-16] VITALS: Ht 162.6 cm; Wt 44.5 kg
[~2018-09-16 06:59] MED LIST changes: +TRAM50TA2 PO
[2018-09-16 07:03] VITALS: BP 98/64; PULSE 79; RESP 19; Ht 162.6 cm; Wt 44.5 kg
== END 2018-09-16 13:31 | disposition left against medical advice (07) ==
LOC: E/R 06:59
DX: Z53.21 Procedure and treatment not carried out due to patient leaving prior to being seen by health care provider (principal)
CPT/HCPCS: 99281

== ENCOUNTER 2018-10-30 05:00 | Emergency (ER) | payer OTHER ==
[~2018-10-30] VITALS: Ht 162.6 cm; Wt 41.6 kg
[2018-10-30 05:04] VITALS: Ht 162.6 cm; Wt 41.6 kg
[2018-10-30] MEDS ORDERED: SOD CHLORIDE 0.9% 1,000 ML IV STA ×2 (05:33→07:34)
[2018-10-30] MEDS ORDERED: ONDANSETRON 4 MG INJ IV STA (05:33)
[2018-10-30] MEDS ORDERED: HYDROmorphONE 1 MG/ML SYG IV STA ×2 (05:33→07:34)
[2018-10-30] MEDS ORDERED: DIPHENHYDRAMINE 50 MG INJ ONE (05:59)
[2018-10-30] MEDS ORDERED: DIPHENHYDRAMINE 50 MG INJ IV ONE ×2 (06:00→08:00)
--- NOTE | 2018-10-30 06:36 | ERD ---
ER Documentation Chief Complaint Chief Complaint bib ra 889 c/o pain right side of body since last night. hx of sickle cell. HPI 33-year-old woman here for pain control and ultrasound of the right upper extremity to rule out DVT, it seems she has a remote history of pulmonary embolism although last CTAs and ultrasounds have been unremarkable. She has had no fevers or chills, no cough, no chest pain or shortness of breath although patient complains of full body aches including the right side and is requesting opioid analgesics. ROS All systems reviewed and are negative except as per history of present illness. Medications Home Meds Active Scripts Oxycodone HCl/Acetaminophen (Percocet 5-325 mg Tablet) 1 Each Tablet, 1 EACH PO TID PRN for PAIN LEVEL 6-10, #20 TAB Prov:ROSIO GERMAIN MD 10/30/18 Hydrocodone/Acetaminophen ([place] 5-325 Tablet) 1 Each Tablet, 1 TAB PO Q6H PRN for PAIN, #12 TAB Prov:ROSIO GERMAIN MD 10/30/18 Tramadol HCl (Tramadol HCl) 50 Mg Tablet, 50 MG PO Q4 PRN for PAIN, #20 TAB Prov:SHERINE MADSEN 09/16/18 Ibuprofen* (Motrin*) 600 Mg Tab, 600 MG PO Q6H PRN for PAIN AND OR ELEVATED TEMP, #30 TAB Prov:MILENA CALERO MD 08/26/18 Morphine Sulfate* (Ms Contin*) 15 Mg Tablet.sa, 15 MG PO Q12, #60 TAB Prov:JAY JAY MARINO 08/21/18 Oxycodone HCl/Acetaminophen (Oxycodone-Acetaminophen 10-325) 1 Each Tablet, 1 TAB PO Q4H PRN for MODERATE PAIN LEVEL 4-6, #30 TAB Prov:JAY JAY MARINO 08/21/18 Docusate Sodium (Dok) 100 Mg Capsule, 100 MG PO Q12H, #60 CAP 2 Refills Prov:MELISSA WELLS M. 05/28/18 Hydroxyurea* (Hydroxyurea*) 500 Mg Capsule, 500 MG PO BID, #60 CAP 2 Refills Prov:RUSSELLMARIA EUGENIAO M. 05/28/18 Albuterol Sulfate* (Proair HFA*) 8.5 Gm Hfa.aer.ad, 2 PUFF INH Q4H PRN for WHEEZING AND SOB, #1 INHALER Prov:SARAH ANTONIO MD 05/18/18 Reported Medications Folic Acid* (Folic Acid*) 1 Mg Tablet, 1 MG PO DAILY, TAB 05/18/18 Allergies Allergies: Coded Allergies: codeine (Unverified Allergy, Intermediate, ITCHY HIVES, 08/27/18) PMhx/Soc Chronic pain syndrome, opioid dependence, sickle cell disease Anesthesia Reaction: No Hx Neurological Disorder: Yes Hx Respiratory Disorders: No Hx Cardiac Disorders: No Hx Psychiatric Problems: No Hx Miscellaneous Medical Probl: No Hx Alcohol Use: No Hx Substance Use: No Hx Tobacco Use: No Smoking Status: Never smoker FmHx Family History: No diabetes Physical Exam Vitals Vital Signs Date Temp Pulse Resp B/P (MAP) Pulse Ox O2 O2 Flow FiO2 Time Delivery Rate 10/30/18 98.1 72 18 105/62 99 Room Air 10:23 (76) 10/30/18 88 16 118/70 98 Room Air 08:00 (86) 10/30/18 98.3 80 20 125/61 97 05:04 (82) Physical Exam GENERAL: Well-developed, well-nourished, well-hydrated, in no apparent distress, looks nontoxic in appearance HEENT: Moist mucous membranes, pink conjunctiva, no cervical spine tenderness or step-off deformities, no goiter, no jaundice or icterus, extraocular movements intact without pain. No submandibular induration, and no pharyngeal erythema NEURO: Alert and oriented 3, cranial nerves II through XII intact bilaterally, pupils equal round reactive to light, no focal deficits or facial asymmetry, sensation intact distally Strength 5/5 in upper and lower extremities bilaterally CARDIAC: Regular rate and rhythm, no murmurs rubs or gallops LUNGS: Clear bilaterally no wheezing crackles or stridor ABDOMEN: Soft nontender, no guarding, no rigidity, no rebound, no psoas sign no obturator sign. Normoactive bowel sounds SKIN: Warm and dry to touch, no abrasions, contusions, or hematomas, no lacera tions, no ecchymosis, no target lesions, and without ulcers EXTREMITIES: No clubbing cyanosis or edema, calves are bilaterally symmetrical, no Homans sign, no popliteal cord sign. Distal pulses equal and bilateral PSYCH: Normal affect without agitation or irritability Result Diagram: 10/30/18 0604 10/30/18 0603 Results 24 hrs Laboratory Tests Test 10/30/18 06:03 10/30/18 06:04 Sodium Level 141 mmol/L Potassium Level 4.0 mmol/L Chloride Level 104 mmol/L Carbon Dioxide Level 25 mmol/L Anion Gap 12 Blood Urea Nitrogen 13 mg/dl Creatinine 0.41 mg/dl Est Glomerular Filtrat Rate mL/min > 60 mL/min Glucose Level 90 mg/dl Calcium Level 9.3 mg/dl Total Bilirubin 2.4 mg/dl Direct Bilirubin 0.00 mg/dl Indirect Bilirubin 2.4 mg/dl Aspartate Amino Transf (AST/SGOT) 44 IU/L Alanine Aminotransferase (ALT/SGPT) 25 IU/L Alkaline Phosphatase 94 IU/L Total Protein 8.6 g/dl Albumin 4.6 g/dl Globulin 4.00 g/dl Albumin/Globulin Ratio 1.15 White Blood Count 12.1 10^3/ul Red Blood Count 3.22 10^6/ul Hemoglobin 9.1 g/dl Hematocrit 26.3 % Mean Corpuscular Volume 81.7 fl Mean Corpuscular Hemoglobin 28.3 pg Mean Corpuscular Hemoglobin Concent 34.6 g/dl Red Cell Distribution Width 19.4 % Platelet Count 612 10^3/UL Mean Platelet Volume 9.3 fl Immature Granulocytes % 0.700 % Neutrophils % 60.1 % Lymphocytes % 23.3 % Monocytes % 9.9 % Eosinophils % 4.5 % Basophils % 1.5 % Nucleated Red Blood Cells % 0.7 /100WBC Immature Granulocytes # 0.080 10^3/ul Neutrophils # 7.3 10^3/ul Lymphocytes # 2.8 10^3/ul Monocytes # 1.2 10^3/ul Eosinophils # 0.5 10^3/ul Basophils # 0.2 10^3/ul Nucleated Red Blood Cells # 0.1 10^3/ul Absolute Reticulocyte Count 0.101 X10^6 Percent Reticulocyte Count 3.1 % Current Medications Medications Dose Sig/Aguilar Start Time Status Last (Trade) Ordered Route PRN Stop Time Admin Dose Reason Admin Sodium 1,000 ml @ Q1H STAT 10/30/18 DC 10/30/18 Chloride 1,000 mls/hr IV 05:33 05:55 6/20/19 06:32 1 mg ONCE STAT 10/30/18 DC 10/30/18 Hydromorphone IV 05:33 05:56 HCl 10/30/18 05:35 (Dilaudid) Ondansetron 4 mg ONCE STAT 10/30/18 DC 10/30/18 HCl (Zofran IV 05:33 05:56 Inj) 10/30/18 05:35 25 mg ONCE ONCE 10/30/18 DC 10/30/18 Diphenhydrami IV 06:00 06:02 ne HCl 10/30/18 06:01 (Benadryl) 50 mg STK-MED 10/30/18 DC Diphenhydrami ONCE .ROUTE 05:59 ne HCl 10/30/18 06:00 (Benadryl) Ibuprofen 600 mg ONCE ONCE 10/30/18 DC 10/30/18 (Motrin) PO 07:00 07:29 10/30/18 07:01 Sodium 1,000 ml @ Q1H STAT 10/30/18 DC 10/30/18 Chloride 1,000 mls/hr IV 07:34 07:55 10/30/18 08:33 1 mg ONCE STAT 10/30/18 DC 10/30/18 Hydromorphone IV 07:34 07:55 HCl 10/30/18 07:40 (Dilaudid) 25 mg ONCE ONCE 10/30/18 DC 10/30/18 Diphenhydrami IV 08:00 08:30 ne HCl 10/30/18 08:01 (Benadryl) Heparin 500 unit ONCE ONCE 10/30/18 DC 10/30/18 Sodium CATHETER 10:00 10:34 (Porcine) 10/30/18 10:07 (Heparin Flush (100 Units/ml)) Oxycodone/ 1 tab ONCE ONCE 10/30/18 DC 10/30/18 Acetaminophen PO 10:00 10:07 (Percocet 10/30/18 10:01 (5/ 325)) Procedures/MDM IV line was established patient was placed on surveillance system monitor rhythm strip revealed a sinus rhythm at about 80 bpm with upright P and T waves. Patient was afebrile I administered 1 L normal saline IV, hydromorphone 1 mg IV, Zofran 4 mg IV, Benadryl 50 mg IV Ultrasound of the right upper extremity was performed, IMPRESSION: 1. Nonocclusive thrombus in the right internal jugular vein, similar to the prior examination of 08/11/2018. 2. Suboptimal examination of the right upper extremity veins due to the patient's inability to cooperate and small size of the vessels, however, no definite other deep venous thrombosis is seen. 1 view chest x-ray performed, read by me revealed normal lungs, no acute infiltrate, no pneumothorax. CBC and electrolytes are normal Patient had multiple doses of IV and oral opioid analgesics including hydr omorphone, multiple doses of Benadryl and Zofran. She still wanted more opioid analgesics and remained angry and irritable in the emergency department, I did offer her admission into the hospital for continued pain control although patient refused. I did give her a prescription of Percocet to use at home until she can follow-up with pain specialist, if she does return I think henceforth I will just treat her pain symptoms with oral analgesics only, because she does have a pain specialist she follows up with and a primary care physician who are able to adequately manage her chronic daily pain as well as breakthrough episodes. Differential diagnoses considered, included but not limited to acute coronary syndrome, pulmonary embolism, aortic dissection, abdominal aortic aneurysm, sepsis, stroke, meningitis, encephalitis, pneumonia, appendicitis, cholecystitis, bowel obstruction, pyelonephritis, nephrolithiasis, cystitis, as well as metabolic, hematologic, and electrolyte abnormalities. As well as abscess, cellulitis, fractures, and dislocations. Patient feels much better at this time, and vital signs are normal, symptoms have improved. I did give strict instructions to return to the ED if symptoms continue or worsen, patient will otherwise follow-up with primary care physician. Patient understood instructions and agreed to plan. Disclaimer: Inadvertent spelling and grammatical errors are likely due to EHR/dictation software use and do not reflect on the overall quality of patient care. Also, please note that the electronic time recorded on this note does not necessarily reflect the actual time of the patient encounter. Departure Diagnosis: Primary Impression: Chronic pain Chronic pain type: chronic pain syndrome Qualified Codes: G89.4 - Chronic pain syndrome Additional Impression: Opioid dependence Substance use status: with opioid-induced mood disorder Qualified Codes: F11.24 - Opioid dependence with opioid-induced mood disorder Condition: ROSIO Ahmadi MD Oct 30, 2018 06:36
[2018-10-30] MEDS ORDERED: IBUPROFEN 600 MG TAB PO ONE (07:00)
[2018-10-30] MEDS ORDERED: HYDR-4011 PO (09:16)
--- NOTE | 2018-10-30 09:28 | DS ---
Date/Time of Note Date/Time of Note DATE: 10/30/18 TIME: 09:18 Discharge Summary Admission/Discharge Info Admit Date/Time NA Discharge Date/Time NA Discharge Diagnosis R shoulder avascular necrosis Patient Condition: Good Consults None Procedures None Hx of Present Illness Ms Negron is a 33 yo woman with sickle cell disease well known to this hospital. HPI: She presented with R shoulder pain. She has known avascular necrosis of the humoral head as seen on XR here 02/2018. Says current pain has been present for months, it is a deep aching pain which is worse when she lays on that shoulder and also worsens with cold. It improved with heat packs. Normally takes Gladstone for the pain prescribed by her cryptologic technician operator/analyst Dr. Mayra Rios. She ran out of Gladstone last night. This morning she was on the bus with cold air blowing on her shoulder and it was causing severe pain so she came to the ED. She denies fever, chills, chest pain/pressure, whole body pain, headache, vision changes, dyspnea, cough. PMH: Sickle cell disease. Compliant with hydroxyurea, folate. She is on [place] 10/325, takes 4-5 tabs per day as needed for shoulder pain. PSH: C section, cholecystectomy. All: None Exam: Gen: Well appearing woman sitting up in bed eating, awake and alert. Eyes: PERRL, no icterus HEENT: Moist mucous membranes, clear oropharynx Chest: R port-a-cath in place, accessed. Neck: Supple, no lymphadenopathy Card: Regular rate and rhythm, no murmurs Pulm: Clear to auscultation bilaterally. Abd: Soft, nontender, nondistended. No hepatosplenomegaly, normoactive bowel sounds. Skin: warm, dry, well perfused Ext: R shoulder full range of motion. Nontender to palpation throughout. 5/5 strength in extension and flexion. Hospital Course ED COURSE: She got IV dilaudid and IV benadryl with adequate relief of pain. She denied hospital admission and instead requested Gladstone refill. Ultrasound of the R shoulder showed a R IJ thrombus which is stable in size since August 2017. PLAN #R shoulder avascular necrosis - Good range of motion, nontender no evidence on physical exam that bony destruction has progressed. - Continue heat packs, NSAIDs, and PO opioids as needed. - Okay to give brief refill of Gladstone #Right IJ thrombus - Due to R IJ port-a-cath - In August 2018, decision by Dr. Ross that due to her sickle cell anemia and the proximity of the thrombus to her port, the risks of anticoagulation would outweigh benefits. - Off anticoagulation, US today shows thrombus has not increased in size off anticoagulation. - No anticoag. #Sickle cell disease - Continue hydroxyurea, folate - Appointment with Dr. Mayra Rios next week. Agree with plan to discharge from the ED. Home Meds Active Scripts Hydrocodone/Acetaminophen ([place] 5-325 Tablet) 1 Each Tablet, 1 TAB PO Q6H PRN for PAIN, #12 TAB Prov:ROSIO GERMAIN MD 10/30/18 Tramadol HCl (Tramadol HCl) 50 Mg Tablet, 50 MG PO Q4 PRN for PAIN, #20 TAB Prov:SHERINE MADSEN 09/16/18 Ibuprofen* (Motrin*) 600 Mg Tab, 600 MG PO Q6H PRN for PAIN AND OR ELEVATED TEMP, #30 TAB Prov:MILENA CALERO MD 08/26/18 Morphine Sulfate* (Ms Contin*) 15 Mg Tablet.sa, 15 MG PO Q12, #60 TAB Prov:JAY JAY ROSS 08/21/18 Oxycodone HCl/Acetaminophen (Oxycodone-Acetaminophen 10-325) 1 Each Tablet, 1 TAB PO Q4H PRN for MODERATE PAIN LEVEL 4-6, #30 TAB Prov:JAY JAY ROSS 08/21/18 Docusate Sodium (Dok) 100 Mg Capsule, 100 MG PO Q12H, #60 CAP 2 Refills Prov:MELISSA WELLS 05/28/18 Hydroxyurea* (Hydroxyurea*) 500 Mg Capsule, 500 MG PO BID, #60 CAP 2 Refills Prov:RUSSELLMELISSA Little 05/28/18 Albuterol Sulfate* (Proair HFA*) 8.5 Gm Hfa.aer.ad, 2 PUFF INH Q4H PRN for WHEEZING AND SOB, #1 INHALER Prov:SARAH ANTONIO MD 05/18/18 Reported Medications Folic Acid* (Folic Acid*) 1 Mg Tablet, 1 MG PO DAILY, TAB 05/18/18 Primary Care Provider Not On Staff Doctor Time spent on discharge: > 30 minutes Pending Labs Laboratory Tests Test 10/30/18 06:03 10/30/18 06:04 Sodium Level 141 mmol/L (135-144) Potassium Level 4.0 mmol/L (3.5-5.1) Chloride Level 104 mmol/L (97-110) Carbon Dioxide Level 25 mmol/L (21-31) Anion Gap 12 (5-13) Blood Urea Nitrogen 13 mg/dl (7-20) Creatinine 0.41 mg/dl (0.44-1.00) Est Glomerular Filtrat > 60 mL/min (>60) Rate mL/min Glucose Level 90 mg/dl (70-220) Calcium Level 9.3 mg/dl (8.4-10.2) Total Bilirubin 2.4 mg/dl (0.2-1.3) Direct Bilirubin 0.00 mg/dl (0.00-0.20) Indirect Bilirubin 2.4 mg/dl (0-1.1) Aspartate Amino 44 IU/L (15-46) Transf (AST/SGOT) Alanine 25 IU/L (13-69) Aminotransferase (ALT/SGPT) Alkaline Phosphatase 94 IU/L (42-121) Total Protein 8.6 g/dl (6.1-8.1) Albumin 4.6 g/dl (3.3-4.9) Globulin 4.00 g/dl (1.3-3.2) Albumin/Globulin Ratio 1.15 White Blood Count 12.1 10^3/ul (4.8-10.8) Red Blood Count 3.22 10^6/ul (4.20-5.40) Hemoglobin 9.1 g/dl (12.0-16.0) Hematocrit 26.3 % (37.0-47.0) Mean Corpuscular Volume 81.7 fl (82.0-101.0) Mean Corpuscular Hemoglobin 28.3 pg (29.0-33.0) Mean Corpuscular 34.6 g/dl (32.0-37.0) Hemoglobin Concent Red Cell Distribution Width 19.4 % (11.5-14.5) Platelet Count 612 10^3/UL (140-415) Mean Platelet Volume 9.3 fl (7.4-10.4) Immature Granulocytes % 0.700 % (0.001-0.429) Neutrophils % 60.1 % (39.0-77.0) Lymphocytes % 23.3 % (15.0-51.0) Monocytes % 9.9 % (0.0-11.0) Eosinophils % 4.5 % (0.0-7.0) Basophils % 1.5 % (0.0-2.0) Nucleated Red Blood Cells % 0.7 /100WBC (0.0-0.0) Immature Granulocytes # 0.080 10^3/ul (0.0-0.031) Neutrophils # 7.3 10^3/ul (1.6-7.5) Lymphocytes # 2.8 10^3/ul (0.8-2.9) Monocytes # 1.2 10^3/ul (0.3-0.9) Eosinophils # 0.5 10^3/ul (0.0-0.5) Basophils # 0.2 10^3/ul (0.0-0.1) Nucleated Red Blood Cells # 0.1 10^3/ul (0.0-0.0) Absolute Reticulocyte Count 0.101 X10^6 (0.020-0.110) Percent Reticulocyte Count 3.1 % (0.5-1.5) PAKO TAYLOR MD Oct 30, 2018 09:28
[2018-10-30] MEDS ORDERED: OXYCODONE/ACETAMINOPHEN (5/325) TAB PO ONE (10:00)
[2018-10-30] MEDS ORDERED: HEPARIN (100 UNITS/ML) 5 ML SYG CATHETER ONE (10:00)
[2018-10-30 10:23] VITALS: BP 105/62; PULSE 72; RESP 18
[2018-10-30] MEDS ORDERED: OXYC-279 PO (10:28)
== END 2018-10-30 13:19 | disposition home or self-care (01) ==
LOC: E/R 05:00 → SUATTDRO 08:28 → CMPBEDREQ 09:27 → E/R 13:19
PROVIDERS: ATTEND Internal Medicine
DX: G89.4 Chronic pain syndrome (principal); F11.24 Opioid dependence with opioid-induced mood disorder; R07.9 Chest pain, unspecified
CPT/HCPCS: 71045; 80053; 85025; 85045; 93971; 96361; 96374; 96375; 96376; J1170; J1200; J1642; J2405; J7030; Z7502; Z7610